=== PATIENT | male | born 1955 | race Caucasian/White ===

== ENCOUNTER 2018-05-10 00:33 | Emergency (ER) | payer OTHER ==
--- NOTE | 2018-05-10 01:03 | ED Physician Documentation ---
History of Present Illness - Stated complaint Stated Complaint: OBJECT IN THROAT - History obtained from History obtained from: Patient - History of Present Illness Timing: Enter time (20:00), Today Pain level now: 2 Worsened by: swallowing, coughing - Additonal information Additional information: eating seafood tonight, accidentally swallowed small piece of mussel shell which he feels became stuck in his throat. he initially went to [facility] but was told the wait was 2 hours, and thus left to come to this ED. Review of Systems Constitutional: denies: Fever Throat: reports: Swallowed foreign body, Other (odynophagia) Respiratory: denies: Dyspnea PD PAST MEDICAL HISTORY - Past Medical History Past Medical History: Yes Other Past Medical History: trigeminal neurologia hx per pt - Past Surgical History Past Surgical History: Yes Ortho: Knee replacement - Present Medications Home Medications: Ambulatory Orders Medication Instructions Recorded Confirmed carBAMazepine [Carbamazepine] 1 tab PO DAILY 05/10/18 05/10/18 - Allergies Allergies/Adverse Reactions: Allergies Allergy/AdvReac Type Severity Reaction Status Date / Time No Known Drug Allergies Allergy Verified 05/10/18 00:49 - Social History Does the pt smoke?: No Smoking Status: Never smoker PD ED PE NORMAL - Vitals Vital signs reviewed: Yes - General General: Alert and oriented X 3, No acute distress, Well developed/nourished - HEENT HEENT: Pharynx benign - Respiratory Respiratory: No respiratory distress Results - Vitals Vitals: Vital Signs - 24 hr 05/10/18 05/10/18 00:35 02:40 Temperature 36.1 C L Heart Rate 88 74 Respiratory 16 16 Rate Blood Pressure 163/95 H 139/72 H O2 Saturation 97 99 Oxygen O2 Source Room air - Rads (name of study) soft tissue neck xrays Radiology: Prelim report reviewed, See rad report PD MEDICAL DECISION MAKING - ED course Complexity details: reviewed results, re-evaluated patient, considered differential, d/w patient, d/w family ED course: xrays suspicious for FB. D/W Dr. Ott (preparation plant repairer GI for [facility]), he says patient can be discharged but should contact the office in the morning to arrange immediate f/u. - Sepsis Event Vital Signs: Vital Signs - 24 hr 05/10/18 05/10/18 00:35 02:40 Temperature 36.1 C L Heart Rate 88 74 Respiratory 16 16 Rate Blood Pressure 163/95 H 139/72 H O2 Saturation 97 99 Oxygen O2 Source Room air Departure - Departure Disposition: 01 Home, Self Care Clinical Impression: Esophageal foreign body Condition: Good Instructions: Swallowed Object, ED Foreign Body Swallowed Adult Comments: Call [facility] Friday (tomorrow). I discussed your case with Dr. Shama Ott, although any physician in the office can evaluate you. Discharge Date/Time: 05/10/18 02:40
--- NOTE | 2018-05-10 01:25 | XRAY Report ---
Procedure Date: 05/10/2018 Accession Number: [id number] / [id number] Procedure: XR - Neck Soft Tissue CPT Code: FULL RESULT: EXAM: SOFT TISSUE NECK RADIOGRAPHY EXAM DATE: 05/10/2018 01:06 AM. CLINICAL HISTORY: Mussel shell stuck in throat. COMPARISONS: None. TECHNIQUE: 2 views. FINDINGS: Soft Tissues: No prevertebral soft tissue swelling. The epiglottis and aryepiglottic folds are unremarkable. No tonsillar or adenoidal enlargement. No radiopaque foreign body seen in the pharynx. Possible linear calcific density anterior to C6-C7 which may be in the proximal esophagus. Regional Skeleton: Unremarkable for age. Other: The visualized lung apices are clear. IMPRESSION: 1. No radiopaque foreign body identified in the pharynx. 2. Possible linear calcific density anterior to C6-C7 which could be a foreign body in the proximal esophagus. This is not seen on the AP view and exact location is uncertain. RADIA
[2018-05-10] MEDS ORDERED: LIDOCAINE VISCOUS 2% 15 ML UDC MM STA (01:54)
[2018-05-10] MEDS ORDERED: HYDROcod/ACET 5/325 Prepack 4 PO STA (02:25)
[2018-05-10 02:55] VITALS: BP 139/72
== END 2018-05-10 02:40 | disposition home or self-care (01) ==
LOC: ED 00:33
DX: T18.198A Other foreign object in esophagus causing other injury, initial encounter (principal); X58.XXXA Exposure to other specified factors, initial encounter
CPT/HCPCS: 70360; 99283

== ENCOUNTER 2018-05-25 11:42 | Outpatient (CLI) | payer OTHER | END 2018-05-25 11:43 | disposition critical access hospital (66) | LOC: EMS 11:42 | PROVIDERS: ATTEND Surgery | DX: R53.1 Weakness (principal); R60.0 Localized edema; W18.30XA Fall on same level, unspecified, initial encounter; Y92.003 Bedroom of unspecified non-institutional (private) residence as the place of occurrence of the external cause | CPT/HCPCS: A0425; A0429 ==

== ENCOUNTER 2018-05-25 12:11 | Inpatient (IN) | payer OTHER ==
[2018-05-25 12:57] LABS: BASOPHILS % (AUTO) 0.4 %; EOSINOPHILS % (AUTO) 0.1 %; HGB - HEMOGLOBIN 14.7 g/dL (14.0-18.0); LYMPHOCYTES % (AUTO) 4.3 %; MEAN CORPUSCULAR HEMOGLOBIN 29.9 pg (27.0-31.0); MEAN CORPUSCULAR HGB CONC 34.1 g/dL (32.0-36.0); MEAN CORPUSCULAR VOLUME 87.7 fL (80.0-94.0); MEAN PLATELET VOLUME 10.2 fL (7.4-11.4); MONOCYTES % (AUTO) 5.5 %; NEUTROPHILS % (AUTO) 89.7 %; PLT - PLATELET COUNT 162 10^3/uL (130-450); RED BLOOD COUNT 4.93 10^6/uL (4.70-6.10); RED CELL DISTRIBUTION WIDTH 14.7 % (12.0-15.0); WHITE BLOOD COUNT 15.9 x10^3/uL (4.8-10.8)
--- NOTE | 2018-05-25 13:04 | XRAY Report ---
Procedure Date: 05/25/2018 Accession Number: [id number] / [id number] Procedure: XR - Chest 1 View X-Ray CPT Code: 34182 FULL RESULT: EXAM: CHEST RADIOGRAPHY EXAM DATE: 05/25/2018 12:57 PM. CLINICAL HISTORY: Fever. Chest pain, shortness of breath. COMPARISON: None. TECHNIQUE: 1 view. FINDINGS: Lungs/Pleura: No focal opacities evident. No pleural effusion. No pneumothorax. Mediastinum: Within exam limitations, the cardiomediastinal contour is normal. Other: None. IMPRESSION: Normal single view chest. RADIA
[2018-05-25 13:11] LABS: ALBUMIN 3.7 g/dL (3.2-5.5); ALBUMIN/GLOBULIN RATIO 1.1 (1.0-2.2); BILIRUBIN,TOTAL 0.9 mg/dL (0.2-1.0); CALCIUM 9.2 mg/dL (8.5-10.3); CREATININE 0.8 mg/dL (0.6-1.2)
[2018-05-25 13:14] LABS: ABNORMAL LYMPHS % (MANUAL) 0 %
[2018-05-25 13:16] LABS: BAND NEUTROPHILS % (MANUAL) 4 %; DIFFERENTIAL COMMENT MANUAL DIFFERENTIAL; EOSINOPHILS # (MANUAL) 0.2 10^3/uL (0-0.7); LYMPHOCYTES # (MANUAL) 1.4 10^3/uL (1.5-3.5); LYMPHOCYTES % (MANUAL) 9 %; MONOCYTES # (MANUAL) 1.1 10^3/uL (0.0-1.0); NEUTROPHILS # (MANUAL) 13.2 10^3/uL (1.5-6.6); NEUTROPHILS % (MANUAL) 79 %; PLATELET ESTIMATE, MANUAL NORMAL (130-450,000) (NORMAL); PLATELET MORPHOLOGY NORMAL APPEARANCE (NORMAL); RBC MORPHOLOGY (MULTIPLE) NORMAL APPEARANCE (NORMAL)
[2018-05-25] MEDS ORDERED: PIPERACILLIN/TAZOBACTAM 4.5 GM in SODIUM CHLORIDE 0.9% MINIBAG 100 ML IV STA (14:11)
[2018-05-25] MEDS ORDERED: VANCOMYCIN INJ 2 GM in SODIUM CHLORIDE 0.9% 500 ML IV STA (14:11)
--- NOTE | 2018-05-25 14:11 | ED Physician Documentation ---
History of Present Illness - Stated complaint Stated Complaint: WEAKNESS - Chief complaint Chief Complaint: General - History obtained from History obtained from: Patient, EMS - History of Present Illness Pain level max: 7 Pain level now: 4 Quality: pain Improved by: rest Worsened by: movement - Additonal information Additional information: 62 year old male with weakness x 1 year. worse today. Started having fevers last night. now increased LLE pain. Review of Systems Ten Systems: 10 systems reviewed and negative Constitutional: reports: Fever, Chills Nose: denies: Rhinorrhea / runny nose, Congestion Throat: denies: Sore throat Cardiac: denies: Chest pain / pressure Respiratory: denies: Cough GI: denies: Abdominal Pain, Nausea, Vomiting, Diarrhea Skin: denies: Rash Musculoskeletal: denies: Neck pain, Back pain Neurologic: reports: Numbness (always has numbness and tingling in his lower legs, unchanged.). denies: Focal weakness, Confused, Altered mental status, Headache PD PAST MEDICAL HISTORY - Past Medical History Past Medical History: Yes Musculoskeletal: Osteoarthritis Other Past Medical History: trigeminal neuralgia - Past Surgical History Past Surgical History: Yes Ortho: Knee replacement HEENT: Other - Present Medications Home Medications: Ambulatory Orders Medication Instructions Recorded Confirmed Carbamazepine [Carbamazepine ER] 200 mg PO BID 05/25/18 05/25/18 Ibuprofen [Advil] 400 mg PO DAILY 05/25/18 05/25/18 - Allergies Allergies/Adverse Reactions: Allergies Allergy/AdvReac Type Severity Reaction Status Date / Time No Known Drug Allergies Allergy Verified 05/25/18 12:22 - Living Situation Living Arrangement: reports: At home - Social History Does the pt smoke?: Yes Smoking Status: Current every day smoker Does the pt drink ETOH?: Yes Does the pt have substance abuse?: No - Immunizations Immunizations are current?: Yes PD ED PE NORMAL - Vitals Vital signs reviewed: Yes - General General: Alert and oriented X 3, No acute distress - HEENT HEENT: PERRL, Ears normal, Moist mucous membranes, Pharynx benign - Neck Neck: Supple, no meningeal sign - Cardiac Cardiac: Other (tachycardic) - Respiratory Respiratory: No respiratory distress, Clear bilaterally - Abdomen Abdomen: Soft, Non tender, Other (rotund) - Back Back: No spinal TTP - Derm Derm: Warm and dry - Extremities Extremities: Other (R LE is swollen, erythematous) - Neuro Neuro: Alert and oriented X 3 - Psych Psych: Normal mood, Normal affect Results - Vitals Vitals: Vital Signs - 24 hr 05/25/18 05/25/18 05/25/18 12:12 14:00 14:34 Temperature 38.8 C H Heart Rate 107 H 103 H 102 H Respiratory 16 17 15 Rate Blood Pressure 168/92 H 135/82 H 124/72 O2 Saturation 94 96 96 05/25/18 14:37 Temperature 37.2 C Heart Rate Respiratory Rate Blood Pressure O2 Saturation Oxygen O2 Source Room air - Labs Labs: Laboratory Tests 05/25/18 05/25/18 05/25/18 12:35 12:35 12:35 WBC 15.9 H RBC 4.93 Hgb 14.7 Hct 43.3 MCV 87.7 MCH 29.9 MCHC 34.1 RDW 14.7 Plt Count 162 MPV 10.2 Neut # (Auto) Not Reportable Lymph # (Auto) Not Reportable [place] # (Auto) Not Reportable Eos # (Auto) Not Reportable Baso # (Auto) Not Reportable Absolute Nucleated RBC Not Reportable Total Counted 100 Band Neuts % (Manual) 4 Abnorm Lymph % (Manual) 0 Nucleated RBC % Not Reportable Neutrophils # (Manual) 13.2 H Lymphocytes # (Manual) 1.4 L Monocytes # (Manual) 1.1 H Eosinophils # (Manual) 0.2 Basophils # (Manual) 0.0 Differential Comment MANUAL DIFFERENTIAL Manual Slide Review Indicated Platelet Estimate NORMAL (130-450,000) Platelet Morphology NORMAL APPEARANCE RBC Morph Micro Appear NORMAL APPEARANCE Sodium 134 L Potassium 4.3 Chloride 100 L Carbon Dioxide 24 Anion Gap 10.0 BUN 16 Creatinine 0.8 Estimated GFR (MDRD) 98 Glucose 109 H Lactic Acid 2.4 H Calcium 9.2 Total Bilirubin 0.9 AST 35 ALT 40 Alkaline Phosphatase 104 Total Protein 7.0 Albumin 3.7 Globulin 3.3 Albumin/Globulin Ratio 1.1 Lipase 21 L Urine Color Urine Clarity Urine pH Ur Specific Lynn Urine Protein Urine Glucose (UA) Urine Ketones Urine Occult Blood Urine Nitrite Urine Bilirubin Urine Urobilinogen Ur Leukocyte Esterase Ur Microscopic Review Urine Culture Comments 05/25/18 14:10 WBC RBC Hgb Hct MCV MCH MCHC RDW Plt Count MPV Neut # (Auto) Lymph # (Auto) [place] # (Auto) Eos # (Auto) Baso # (Auto) Absolute Nucleated RBC Total Counted Band Neuts % (Manual) Abnorm Lymph % (Manual) Nucleated RBC % Neutrophils # (Manual) Lymphocytes # (Manual) Monocytes # (Manual) Eosinophils # (Manual) Basophils # (Manual) Differential Comment Manual Slide Review Platelet Estimate Platelet Morphology RBC Morph Micro Appear Sodium Potassium Chloride Carbon Dioxide Anion Gap BUN Creatinine Estimated GFR (MDRD) Glucose Lactic Acid Calcium Total Bilirubin AST ALT Alkaline Phosphatase Total Protein Albumin Globulin Albumin/Globulin Ratio Lipase Urine Color YELLOW Urine Clarity CLEAR Urine pH 8.5 H Ur Specific Lynn 1.020 Urine Protein NEGATIVE Urine Glucose (UA) NEGATIVE Urine Ketones NEGATIVE Urine Occult Blood TRACE-LYSE Urine Nitrite NEGATIVE Urine Bilirubin NEGATIVE Urine Urobilinogen 0.2 (NORMAL) Ur Leukocyte Esterase NEGATIVE Ur Microscopic Review NOT INDICATED Urine Culture Comments NOT INDICATED - Rads (name of study) RLE duplex US Radiology: Prelim report reviewed, EMP read contemporaneously, See rad report ( no DVT) cxr Radiology: Prelim report reviewed, EMP read contemporaneously, See rad report ( Normal single view chest. ) PD MEDICAL DECISION MAKING - ED course Complexity details: reviewed results, re-evaluated patient, considered differential, d/w patient, d/w family, d/w artist consultant ED course: Patient is a 62-year-old male who presents to the emergency department what appears to be an extensive cellulitis of the right lower extremity likely causing his fever and sepsis. Given IV fluids, antibiotics. He is well- appearing, nontoxic. Normal mentation. Does not appear to be severe sepsis. Discussed the case with Dr. Oviedo, hospitalist who accepts. This document was made in part using voice recognition software. While efforts are made to proofread this document, sound alike and grammatical errors may occur. - Sepsis Event Vital Signs: Vital Signs - 24 hr 05/25/18 05/25/18 05/25/18 12:12 14:00 14:34 Temperature 38.8 C H Heart Rate 107 H 103 H 102 H Respiratory 16 17 15 Rate Blood Pressure 168/92 H 135/82 H 124/72 O2 Saturation 94 96 96 05/25/18 14:37 Temperature 37.2 C Heart Rate Respiratory Rate Blood Pressure O2 Saturation Oxygen O2 Source Room air Departure - Departure Disposition: [facility] DC/Xfer Clinical Impression: Sepsis Qualifiers: Sepsis type: sepsis due to unspecified organism Qualified Code(s): A41.9 - Sepsis, unspecified organism Cellulitis Qualifiers: Site of cellulitis: extremity Site of cellulitis of extremity: lower extremity Laterality: right Qualified Code(s): L03.115 - Cellulitis of right lower limb Fever Qualifiers: Fever type: unspecified Qualified Code(s): R50.9 - Fever, unspecified Condition: Stable Discharge Date/Time: 05/25/18 15:45
[2018-05-25 14:22] LABS: BILIRUBIN,URINE NEGATIVE (NEGATIVE); GLUCOSE, URINE (UA) NEGATIVE (NEGATIVE); KETONES,URINE (UA) NEGATIVE (NEGATIVE); LEUKOCYTE ESTERASE, URINE NEGATIVE (NEGATIVE); NITRITE,URINE NEGATIVE (NEGATIVE); OCCULT BLOOD,URINE TRACE-LYSE (NEGATIVE); PH,URINE 8.5 PH (5.0-7.5); PROTEIN,URINE NEGATIVE (NEGATIVE); UROBILINOGEN,URINE 0.2 (NORMAL) E.U./dL (NORMAL)
[2018-05-25] MEDS ORDERED: SODIUM CHLORIDE 0.9% 1,000 ML IV ONE ×2 (14:22→18:05)
[2018-05-25] MEDS ORDERED: SODIUM CHLORIDE 0.9% 2,000 ML IV ONE (14:22)
[2018-05-25 14:27] LABS: CLARITY,URINE CLEAR (CLEAR)
[2018-05-25] MEDS ORDERED: HYDROcod/ACETAM 5/325 MG TABLET PO PRN (14:47)
[2018-05-25] MEDS ORDERED: ONDANSETRON 4 MG/2 ML VIAL IVP PRN (14:47)
[2018-05-25] MEDS ORDERED: VANCOMYCIN PER PHARMACY 2 GM in SODIUM CHLORIDE 0.9% 250 ML IV SCH (15:00)
--- NOTE | 2018-05-25 15:06 | HISTORY & PHYSICAL EXAMINATION ---
Chief Complaint - Chief Complaint Chief Complaint: right lower extremity cellulitis History of Present Illness - Admitted From Admitted From:: ER - History Obtained From History obtained from: pt - History of Present Illness HPI Comment/Other: Mr. De Los Santos is 62-yrs-old male with a [facility] significance for osteoarthritis, trigeminal neuralgia, morbid obese, who present ER complaint of fever and weakness. Pt report he swim at [facility] on Friday, then he found his right lower extremity get infected, mild to moderate erythema and warm. He started to have fever on last night, "very hot". He denies nausea, vomiting, abdominal pain , shortness of breath, palpitation, chest pain, headache, neck stiffness. He report about 14 yrs, he got the similar infection at right lower extremity when he swim at [facility]. He had to stay in hospital for couple of days for the infection. Pt also report weakness on both leg. Pt had elevated WBC 16, and elevated lactic acid to 2.4. Pt is febrile at 38.3, BP at BP 168/92, mild tachycardia. Pt is admitted for the sepsis from his right lower extremity infection. History - Past Medical History Musculoskeletal: reports: Osteoarthritis Other Past Medical History: trigeminal neuralgia - Past Surgical History Ortho: reports: Knee replacement HEENT: reports: Other - Family & Social History Family History: Mother: , Father: Living arrangement: At home - POLST POLST Status: Full Code Meds/Allgy - Home Medications Home Medications: Ambulatory Orders Medication Instructions Recorded Confirmed carBAMazepine [Carbamazepine] 1 tab PO DAILY 05/10/18 05/10/18 Ibuprofen [Advil] 400 mg PO DAILY 05/25/18 05/25/18 - Allergies Allergies/Adverse Reactions: Allergies Allergy/AdvReac Type Severity Reaction Status Date / Time No Known Drug Allergies Allergy Verified 05/25/18 12:22 Review of Systems - Constitutional Constitutional: reports: Fatigue, Fever, Chills, Weakness. denies: Malaise, Poor appetite, Diaphoresis, Night sweats - Eyes Eyes: denies: Pain, Irritation, Amaurosis, Blurred vision, Spots in vision, Field loss, Vision loss, Dipolpia - Ears, Nose & Throat Ears, Nose & Throat: denies: Ear pain, Hearing loss, Hearing aids, Tinnitus, Vertigo, Nasal pain, Nasal discharge, Nosebleeds, Nasal obstruction, Nasal congestion, Postnasal drainage, Dentures, Sore throat, Hoarseness, Mouth lesions , Bleeding gums, Dental decay - Cardiovascular Cariovascular: denies: Irregular heart rate, Palpitations, Chest pain, Edema, Lightheadedness, Syncope, Exertional dyspnea, Decr. exercise tolerance - Respiratory Respiratory: denies: Cough, Sputum production, Wheezing, Snoring, Hemoptysis, Orthopnea, SOB at rest, SOB with exertion - Gastrointestinal Gastrointestinal: denies: Abdominal pain, Abdominal distention, Constipation, Diarrhea, Change in bowel habits, Rectal bleeding, Black stools, Bloody stools, Nausea, Vomiting, Bile emesis, Stef blood emesis, Coffee grounds emesis, Reflux /heartburn, Bloating - Genitourinary Genitourinary: denies: Dysuria, Frequency, Urgency, Hematuria, Incontinence, Flank pain, Nocturia, Urethral discharge - Musculoskeletal Musculoskeletal: denies: Muscle pain, Back pain, Muscle aches, Stiffness, Limited range of motion, Muscle weakness, Gout, Joint pain - Integumentary Integumentary: reports: Rash. denies: Pruritis, Lesions, Dryness, Lumps, Acne, Pigment changes, Nail changes - Neurological Neurological: denies: Focal weakness, Headache, Dizziness, Numbness, Memory problems, Pre-existing deficit, Abnormal gait, Seizures, Incoordination, Slurred speech - Psychiatric Psychiatric: denies: Depression, Anxiety, Suicidal, Delusions, Hallucinations, Homicidal - Endocrine Endocrine: denies: Polyuria, Polydypsia, Polyphagia, Intolerance to cold - Hematologic/Lymphatic Hematologic/Lymphatic: denies: Anemia, Bruising, Petechiae, Blood clots, Lymphadenopathy, Bleeding tendencies Exam - Vital Signs Reviewed Vital Signs: Yes Vital Signs: Vital Signs x48h Temp Pulse Resp BP Pulse Ox 05/25/18 14:37 37.2 C 05/25/18 14:34 102 H 15 124/72 96 05/25/18 14:00 103 H 17 135/82 H 96 05/25/18 12:12 38.8 C H 107 H 16 168/92 H 94 - Physical Exam General Appearance: positive: No acute distress, Alert. negative: Lethargic Eyes Bilateral: positive: Normal inspection, PERRL. negative: No lid inflammation, Conjunctivae nml ENT: positive: ENT inspection nml, Pharynx nml, No signs of dehydration. negative: Purulent nasal drainage, Pharyngeal erythema, Oral lesions Neck: positive: Nml inspection, Thyroid nml, No JVD. negative: Trachea midline , Thyromegaly, Lymphadenopathy (R), Lymphadenopathy (L), Stiff neck, Swelling/ bruising, Tracheal deviation Respiratory: positive: Chest non-tender, No respiratory distress, Breath sounds nml. negative: Wheezes, Rales, Rhonchi Cardiovascular: positive: Regular rate & rhythm, No murmur, No gallop, Tachycardia. negative: Irregularly irregular, Extrasystoles, Bradycardia, JVD present, Systolic murmur, Diastolic murmur Peripheral Pulses: positive: 2+ Abdomen: positive: Non-tender, No organomegaly, Nml bowel sounds, No distention. negative: Tenderness, Guarding, Rebound Back: positive: Nml inspection. negative: CVA tenderness (R), CVA tenderness (L ) Skin: positive: Color nml, Dry, Skin rash. negative: Cyanosis, Diaphoresis, Pallor Extremities: positive: Non-tender, Full ROM. negative: Calf tenderness, Joint swelling, Nadia's sign/cords Neurologic/Psychiatric: positive: Oriented x3, Motor nml, Sensation nml, Mood/ affect nml. negative: Weakness, Sensory loss, Facial droop, Slurred/abnml speech, Depressed mood/affect Conclusion/Plan - Problem List (1) Cellulitis Conclusion/Plan: recurrence of left lower extremity cellulitis, sepsis start with vancomycin, Zosyn tele, vital monitor IVF of NS Qualifiers: Site of cellulitis: extremity Site of cellulitis of extremity: lower extremity Laterality: right Qualified Code(s): L03.115 - Cellulitis of right lower limb (2) Sepsis Conclusion/Plan: pt had feve, elevated WBC, elevated lactic acid, cellulitis. BP is stable IVF of NS at 150 cc/h now, then down to 125 cc/h tele, vital monitor continue antibiotics Qualifiers: Sepsis type: sepsis due to unspecified organism Qualified Code(s): A41.9 - Sepsis, unspecified organism (3) Osteoarthritis Conclusion/Plan: re (4) Trigeminal neuralgia Conclusion/Plan: will resume home meds Carbamazepine after pharmacy reconcile (5) Weakness generalized Conclusion/Plan: PT/OT evaluation and treatment (6) DVT prophylaxis Conclusion/Plan: SCD and Lovenox (7) Full code status Conclusion/Plan: pt request full code - Lab Results Fish Bones: 05/25/18 12:35 05/25/18 12:35 Core Measures - Anticipated LOS I expect patient to be DC'd or transferred within 96 hours.: Yes - DVT/VTE - Prophylaxis VTE/DVT Device ordered at admit?: Yes VTE/DVT Prophylaxis med ordered at admit?: Yes
[2018-05-25] MEDS ORDERED: IBUPROFEN 400 MG TABLET PO PRN ×2 (15:18→18:04)
--- NOTE | 2018-05-25 15:42 | Ultrasound Report ---
Procedure Date: 05/25/2018 Accession Number: [id number] / [id number] Procedure: US - Duplex Ext Veins Right CPT Code: FULL RESULT: EXAM: RIGHT LOWER EXTREMITY VENOUS ULTRASOUND EXAM DATE: 05/25/2018 03:16 PM. CLINICAL HISTORY: Right lower extremity pain, swelling, redness. COMPARISON: 05/25/2018. TECHNIQUE: Real-time sonographic vascular imaging was performed by the maintenance team leader through the lower extremity utilizing both color-flow and Doppler spectral analysis. Multiple patient care representative static images were saved for review. FINDINGS: Common Femoral Vein (CFV): Normal. CFV-GSV Junction: Normal. Profunda Femoral Vein (PFV): Normal. Femoral Vein (FV) Prox: Normal. Femoral Vein (FV) Mid: Normal. Femoral Vein (FV) Dist: Normal. Popliteal Vein: Normal. Posterior Tibial Veins: Normal. Peroneal Veins: Nonvisualized. IMPRESSION: No evidence for deep venous thrombosis. RADIA
[2018-05-25] MEDS: PIPERACILLIN/TAZOBACTAM 4.5 GM in SODIUM CHLORIDE 0.9% MINIBAG 100 ML IV SCH ×2 (16:15→21:20)
[2018-05-25] MEDS: SODIUM CHLORIDE 0.9% 1,000 ML IV SCH (17:46)
[2018-05-25] MEDS: SODIUM CHLORIDE FLUSH 0.9% 10 ML SYRINGE IVP SCH (17:47)
[2018-05-25] MEDS ORDERED: ZOLPIDEM 5 MG TABLET PO PRN (20:13)
[2018-05-25] MEDS: carBAMazepine ER 200 MG TABLET PO SCH (21:20)
[2018-05-26] MEDS: SODIUM CHLORIDE FLUSH 0.9% 10 ML SYRINGE IVP SCH ×3 (00:15→19:24)
[2018-05-26] MEDS: VANCOMYCIN INJ 2 GM in SODIUM CHLORIDE 0.9% 500 ML IV SCH ×2 (01:55→13:17)
[2018-05-26] MEDS: SODIUM CHLORIDE 0.9% 1,000 ML IV SCH ×4 (03:21→23:00)
[2018-05-26] MEDS: PIPERACILLIN/TAZOBACTAM 4.5 GM in SODIUM CHLORIDE 0.9% MINIBAG 100 ML IV SCH ×2 (04:00→09:03)
[2018-05-26 06:21] LABS: BASOPHILS % (AUTO) 0.3 %; HGB - HEMOGLOBIN 13.1 g/dL (14.0-18.0); LYMPHOCYTES % (AUTO) 7.2 %; MEAN CORPUSCULAR HEMOGLOBIN 29.2 pg (27.0-31.0); MEAN CORPUSCULAR HGB CONC 33.4 g/dL (32.0-36.0); MEAN CORPUSCULAR VOLUME 87.7 fL (80.0-94.0); MEAN PLATELET VOLUME 9.8 fL (7.4-11.4); MONOCYTES # (AUTO) 0.5 10^3/uL (0.0-1.0); MONOCYTES % (AUTO) 3.5 %; NEUTROPHILS # (AUTO) 12.3 10^3/uL (1.5-6.6); PLT - PLATELET COUNT 125 10^3/uL (130-450); RED CELL DISTRIBUTION WIDTH 14.5 % (12.0-15.0); WHITE BLOOD COUNT 13.8 x10^3/uL (4.8-10.8)
[2018-05-26 06:26] LABS: ALBUMIN 3.1 g/dL (3.2-5.5); BILIRUBIN,TOTAL 0.9 mg/dL (0.2-1.0); CALCIUM 8.1 mg/dL (8.5-10.3); CREATININE 0.8 mg/dL (0.6-1.2); MAGNESIUM 1.9 mg/dL (1.7-2.8); TOTAL PROTEIN 6.1 g/dL (6.7-8.2)
[2018-05-26 07:07] LABS: HB2 TOTAL 14.1 g/dL; HEMOGLOBIN A1C 0.54 g/dL; HEMOGLOBIN A1C % 5.7 % (4.6-6.2)
[2018-05-26] MEDS ORDERED: ENOXAPARIN 40 MG/0.4 ML SYRINGE SUBQ SCH (09:00)
[2018-05-26] MEDS: carBAMazepine ER 200 MG TABLET PO SCH ×2 (09:02→20:37)
[2018-05-26] MEDS: FAMOTIDINE 20 MG TABLET PO SCH (09:03)
[2018-05-26] MEDS: POLYETHYLENE GLYCOL 3350 17 GM PACKET PO SCH (09:03)
[2018-05-26] MEDS: cefTRIAXone 2 GM in SODIUM CHLORIDE 0.9% MINIBAG 100 ML IV SCH (10:01)
[2018-05-26] MEDS: ACETAMINOPHEN 325 MG TABLET PO PRN ×2 (10:04→20:37)
[2018-05-26] MEDS: metroNIDAZOLE 500 MG/100 ML 500 MG/100 ML BAG IV SCH ×2 (10:35→19:24)
--- NOTE | 2018-05-26 13:50 | PROVIDER PROGRESS NOTE ---
Subjective - Prog Note Date Prog Note Date: 05/26/18 Prog Note Time: 13:47 - Subjective Pt reports feeling: No change Subjective: Du is very sleepy upon exam, but stays awake easily and states that he does not want his "neuralgia" to act up, and prefers to stay on his regular mediations. He denies any new symptoms such as increased shortness of breath, nausea, vomiting, a new cough, bleeding, or worsening RLE pain from his ongoing cellulitis. Objective - Vital Signs/Intake & Output Reviewed Vital Signs: Yes Vital Signs: Vital Signs x48h Temp Pulse Pulse Resp BP BP Pulse Ox 05/26/18 13:14 37.2 C 92 20 121/71 94 05/26/18 11:08 96 143/86 H 05/26/18 10:09 38.5 C H 05/26/18 08:00 37.8 C H 96 18 166/91 H 93 Intake & Output: Intake & Output 05/23/18 05/24/18 05/25/18 05/26/18 23:59 23:59 23:59 23:59 Intake Total 2240 2920.00 Output Total 225 550 Balance 2015 2370.00 - Objective General Appearance: positive: No acute distress, Alert, Lethargic (easy to arouse, on chronic muscle relaxers for trigem neuralgia.) Eyes Bilateral: positive: Normal inspection, PERRL Eyes: OU Conjunctivae pale ENT: positive: ENT inspection nml, Pharynx nml, No signs of dehydration Neck: positive: Nml inspection, Thyroid nml, No JVD, Lymphadenopathy (R), Lymphadenopathy (L), Stiff neck, Other (large neck circumferance.) Respiratory: positive: Chest non-tender, No respiratory distress, Other ( dimished bilaterally.) Cardiovascular: positive: Regular rate & rhythm, No gallop, Systolic murmur, Decreased pulse(s) Peripheral Pulses: 1+ Radial (R), 1+ Radial (L) Abdomen: positive: Non-tender, Nml bowel sounds, Other (obese, firm) Back: positive: Nml inspection Skin: positive: No rash, Warm, Dry, Diaphoresis, Other (RLE cellulitis) Extremities: positive: Pedal edema, Calf tenderness (chronic), Joint swelling, Other Neurologic/Psychiatric: positive: Oriented x3, CN's nml (2-12), Motor nml, Sensation nml, Weakness (LUE, LLE weaker than right upon exam.), Depressed mood/ affect Reflexes: Bicep (R): 3+, Bicep (L): 2+ - Lab Results Fish Bones: 05/27/18 05:25 05/27/18 05:25 Other Labs: Lab Results x24hrs 05/26/18 05/26/18 05/26/18 Range/Units 06:03 06:03 06:03 WBC 13.8 H (4.8-10.8) x10^3/uL RBC 4.50 L (4.70-6.10) 10^6/uL Hgb 13.1 L (14.0-18.0) g/dL Hct 39.4 L (42.0-52.0) % MCV 87.7 (80.0-94.0) fL MCH 29.2 (27.0-31.0) pg MCHC 33.4 (32.0-36.0) g/dL RDW 14.5 (12.0-15.0) % Plt Count 125 L (130-450) 10^3/uL MPV 9.8 (7.4-11.4) fL Neut # (Auto) 12.3 H (1.5-6.6) 10^3/uL Lymph # (Auto) 1.0 L (1.5-3.5) 10^3/uL [place] # (Auto) 0.5 (0.0-1.0) 10^3/uL Eos # (Auto) 0.0 (0.0-0.7) 10^3/uL Baso # (Auto) 0.0 (0.0-0.1) 10^3/uL Absolute Nucleated RBC 0.00 x10^3/uL Nucleated RBC % 0.0 /100WBC Sodium 131 L (135-145) mmol/L Potassium 3.5 (3.5-5.0) mmol/L Chloride 101 (101-111) mmol/L Carbon Dioxide 23 (21-32) mmol/L Anion Gap 7.0 (6-13) BUN 16 (6-20) mg/dL Creatinine 0.8 (0.6-1.2) mg/dL Estimated GFR (MDRD) 98 (>89) Glucose 131 H (70-100) mg/dL Glycated Hemoglobin 5.7 (4.6-6.2) % Estim Average Glucose 117 H (70-100) Lactic Acid (0.5-2.2) mmol/L Calcium 8.1 L (8.5-10.3) mg/dL Magnesium 1.9 (1.7-2.8) mg/dL Total Bilirubin 0.9 (0.2-1.0) mg/dL AST 46 H (10-42) IU/L ALT 50 (10-60) IU/L Alkaline Phosphatase 79 (42-121) IU/L Total Protein 6.1 L (6.7-8.2) g/dL Albumin 3.1 L (3.2-5.5) g/dL Globulin 3.0 (2.1-4.2) g/dL Albumin/Globulin Ratio 1.0 (1.0-2.2) 05/25/18 05/25/18 Range/Units 19:15 16:01 WBC (4.8-10.8) x10^3/uL RBC (4.70-6.10) 10^6/uL Hgb (14.0-18.0) g/dL Hct (42.0-52.0) % MCV (80.0-94.0) fL MCH (27.0-31.0) pg MCHC (32.0-36.0) g/dL RDW (12.0-15.0) % Plt Count (130-450) 10^3/uL MPV (7.4-11.4) fL Neut # (Auto) (1.5-6.6) 10^3/uL Lymph # (Auto) (1.5-3.5) 10^3/uL [place] # (Auto) (0.0-1.0) 10^3/uL Eos # (Auto) (0.0-0.7) 10^3/uL Baso # (Auto) (0.0-0.1) 10^3/uL Absolute Nucleated RBC x10^3/uL Nucleated RBC % /100WBC Sodium (135-145) mmol/L Potassium (3.5-5.0) mmol/L Chloride (101-111) mmol/L Carbon Dioxide (21-32) mmol/L Anion Gap (6-13) BUN (6-20) mg/dL Creatinine (0.6-1.2) mg/dL Estimated GFR (MDRD) (>89) Glucose (70-100) mg/dL Glycated Hemoglobin (4.6-6.2) % Estim Average Glucose (70-100) Lactic Acid 1.8 2.5 H (0.5-2.2) mmol/L Calcium (8.5-10.3) mg/dL Magnesium (1.7-2.8) mg/dL Total Bilirubin (0.2-1.0) mg/dL AST (10-42) IU/L ALT (10-60) IU/L Alkaline Phosphatase (42-121) IU/L Total Protein (6.7-8.2) g/dL Albumin (3.2-5.5) g/dL Globulin (2.1-4.2) g/dL Albumin/Globulin Ratio (1.0-2.2) - Diagnostic Imaging Diagnostic Imaging Results: positive: Prelim report reviewed, Final report reviewed ABX Reporting Has patient been on IV antibiotics over the past 48 hours?: Yes Assessment/Plan - Problem List (1) Cellulitis of right lower extremity Impression: 14 years ago the patient states that he had an injury between his 1st and 2nd toe, that later led to cellulitis. Upon exam a large +3 inch scar is appreciated. For this cellulitis there are no obvious areas of injury, and he denies any cat scratches. The tracing today has spread upward, and still remains hot, tender on exam and edema is greater than on his LLE. Plan: D/C zosyn, and replace with rocephin and Flagyl IV. Continue Vanco, and obtain dopplers today. (2) Left-sided weakness Impression: The patient complains of left leg weakness prior to this admission and contributes this to his fall as he was getting out of the shower. 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 He denies any history of TIA or stroke. Plan: Head CT to rule out prior TIA/CVAs. Monitor mental status and fall precautions. (3) Morbid obesity Impression: The patient has a high BMI of 43.5. He states that he has been "overweight" for most of his adult life. 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 Plan: After this acute illness, and upon discharge encourage a weight loss program with PCP to refer. (4) Trigeminal neuralgia Impression: The patient is prescribed Tegretol ER 200 mg BID at home, which continues here. He states that he has been on this for several years since acquiring this condition. Plan: continue med, and check a blood serum level to rule out toxicity. (5) Pulmonary hypertension Impression: Preliminary echo results show a severely enlarged RA, and a RVSP at rest of 35 mmHg. He appears to have chronic BLE edema and a very large abdominal girth. He does not know about any issues with MARLENE, and denies recent lung insults such as pneumonia. Plan: Treat acute illness, and plan to start Spironolactone for this condition which will be continued upon discharge. Advise a sleep study, to be ordered by PCP.
--- NOTE | 2018-05-26 14:19 | CT Report ---
Procedure Date: 05/26/2018 Accession Number: [id number] / [id number] Procedure: CT - Head W/O Stroke Protocol CPT Code: FULL RESULT: EXAM: CT HEAD EXAM DATE: 05/26/2018 02:04 PM. CLINICAL HISTORY: Left sided weakness. COMPARISON: None. TECHNIQUE: Multiaxial CT images were obtained from the foramen magnum to the vertex. Reformats: Sagittal and coronal. IV contrast: None. In accordance with CT protocol optimization, one or more of the following dose reduction techniques were utilized for this exam: automated exposure control, adjustment of mA and/or KV based on patient size, or use of iterative reconstructive technique. FINDINGS: Parenchyma: No intraparenchymal hemorrhage. No evidence of mass, midline shift, or CT findings of acute infarction. Armstrong-white differentiation is distinct. Extraaxial Spaces: Normal for age. No subdural or epidural collections identified. Ventricles: Normal in size and position. Sinuses and Orbits: There is moderate mucosal thickening in bilateral maxillary and ethmoid sinuses. Frontal and mastoid sinuses are clear. Bones: No evidence of fracture or calvarial defect. Other: None. IMPRESSION: Negative for an acute or focal intracranial abnormality. [facility] The call report notification system was initiated by Dr. Chase Vasques at 14:10 hrs on 05/26/18. The above findings were discussed with Dolores Thurston by Dr. Chase Vasques at 14:17 hrs on 05/26/18.
[2018-05-27] MEDS: ACETAMINOPHEN 325 MG TABLET PO PRN (00:29)
[2018-05-27] MEDS: metroNIDAZOLE 500 MG/100 ML 500 MG/100 ML BAG IV SCH ×3 (02:38→17:56)
[2018-05-27] MEDS: VANCOMYCIN INJ 2 GM in SODIUM CHLORIDE 0.9% 500 ML IV SCH ×2 (02:50→14:05)
--- NOTE | 2018-05-27 02:58 | Ultrasound Report ---
Procedure Date: 05/27/2018 Accession Number: [id number] / [id number] Procedure: US - Duplex Ext Veins Bilateral CPT Code: FULL RESULT: EXAM: BILATERAL LOWER EXTREMITY VENOUS ULTRASOUND EXAM DATE: 05/26/2018 11:35 PM. CLINICAL HISTORY: Calf pain, DVT. COMPARISON: Right leg venous 05/25/2018. TECHNIQUE: Real-time sonographic vascular imaging was performed by the historical records administrator through the lower extremities utilizing both color-flow and Doppler spectral analysis. Multiple retail customer service representative static images were saved for review. FINDINGS: Right: Common Femoral Vein (CFV): Normal. CFV-GSV Junction: Normal. Profunda Femoral Vein (PFV): Normal. Femoral Vein (FV) Prox: Normal. Femoral Vein (FV) Mid: Normal. Femoral Vein (FV) Dist: Normal. Popliteal Vein: Normal. Posterior Tibial Veins: Not visualized Peroneal Veins: Not visualized Left: Common Femoral Vein (CFV): Normal. CFV-GSV Junction: Normal. Profunda Femoral Vein (PFV): Normal. Femoral Vein (FV) Prox: Normal. Femoral Vein (FV) Mid: Normal. Femoral Vein (FV) Dist: Normal. Popliteal Vein: Normal. Posterior Tibial Veins: Not visualized Peroneal Veins: Not visualized Other: Subcutaneous edema. IMPRESSION: No evidence for deep venous thrombosis bilaterally, but nonvisualization of calf veins. [facility]
[2018-05-27] MEDS: SODIUM CHLORIDE FLUSH 0.9% 10 ML SYRINGE IVP SCH ×3 (03:44→16:39)
[2018-05-27 06:01] LABS: BASOPHILS # (AUTO) 0.1 10^3/uL (0.0-0.1); BASOPHILS % (AUTO) 0.6 %; EOSINOPHILS % (AUTO) 0.5 %; HGB - HEMOGLOBIN 12.6 g/dL (14.0-18.0); LYMPHOCYTES # (AUTO) 1.1 10^3/uL (1.5-3.5); LYMPHOCYTES % (AUTO) 11.1 %; MEAN CORPUSCULAR VOLUME 88.2 fL (80.0-94.0); MEAN PLATELET VOLUME 10.6 fL (7.4-11.4); MONOCYTES # (AUTO) 0.5 10^3/uL (0.0-1.0); MONOCYTES % (AUTO) 5.3 %; NEUTROPHILS # (AUTO) 8.3 10^3/uL (1.5-6.6); NEUTROPHILS % (AUTO) 82.5 %; PLT - PLATELET COUNT 101 10^3/uL (130-450); RED BLOOD COUNT 4.21 10^6/uL (4.70-6.10); RED CELL DISTRIBUTION WIDTH 14.7 % (12.0-15.0); WHITE BLOOD COUNT 10.1 x10^3/uL (4.8-10.8)
[2018-05-27 06:13] LABS: CARBAMAZEPINE (TEGRETOL) 5.9 ug/mL
[2018-05-27 06:18] LABS: BILIRUBIN,TOTAL 0.7 mg/dL (0.2-1.0); CALCIUM 8.1 mg/dL (8.5-10.3); TOTAL PROTEIN 5.9 g/dL (6.7-8.2)
[2018-05-27] MEDS: MAGNESIUM OXIDE 400 MG TABLET PO SCH ×2 (08:14→20:23)
[2018-05-27] MEDS: SPIRONOLACTONE 25 MG TABLET PO SCH ×2 (08:15→09:23)
[2018-05-27] MEDS: FUROSEMIDE 20 MG/2 ML VIAL IVP SCH ×2 (08:15→09:22)
[2018-05-27] MEDS: FAMOTIDINE 20 MG TABLET PO SCH (08:15)
[2018-05-27] MEDS: ENOXAPARIN 40 MG/0.4 ML SYRINGE SUBQ SCH ×2 (08:15→20:23)
[2018-05-27] MEDS: carBAMazepine ER 200 MG TABLET PO SCH ×2 (08:15→20:23)
[2018-05-27] MEDS: POLYETHYLENE GLYCOL 3350 17 GM PACKET PO SCH (08:16)
[2018-05-27] MEDS: cefTRIAXone 2 GM in SODIUM CHLORIDE 0.9% MINIBAG 100 ML IV SCH (08:16)
--- NOTE | 2018-05-27 09:25 | PROVIDER PROGRESS NOTE ---
Subjective - Prog Note Date Prog Note Date: 05/27/18 Prog Note Time: 09:25 - Subjective Pt reports feeling: No change Subjective: Du states that he is not sleeping well and is having increased pain to his RLE while ambulating. He states that his appetite is poor. He denies shortness of breath, nausea, vomiting, dizziness, chest pain, or a new cough. Current Medications - Current Medications Current Medications: Active Medications Acetaminophen (Tylenol) 650 mg PO Q4HR PRN PRN Reason: Pain 1 to 4 Last Admin: 05/27/18 00:29 Dose: 650 mg Hydrocodone Bitart/Acetaminophen ([place] 5/325) 1 tab PO Q2HR PRN PRN Reason: PAIN Carbamazepine (Tegretol Xr) 200 mg PO BID [facility] Last Admin: 05/28/18 08:01 Dose: 200 mg Enoxaparin Sodium (Lovenox) 40 mg SUBQ BID [facility] Last Admin: 05/28/18 08:01 Dose: 40 mg Famotidine (Pepcid) 20 mg PO DAILY [facility] Last Admin: 05/28/18 08:01 Dose: 20 mg Furosemide (Lasix) 40 mg PO BIDDIURETIC [facility] Last Admin: 05/28/18 05:35 Dose: 40 mg Vancomycin HCl 2 gm/ Sodium (Chloride) 500 mls @ 250 mls/hr IV 0200,1400 [facility] Last Infusion: 05/28/18 04:34 Dose: Infused Ceftriaxone Sodium 2 gm/ (Sodium Chloride) 100 mls @ 200 mls/hr IV DAILY [facility] Last Admin: 05/28/18 08:01 Dose: 200 mls/hr Metronidazole (Flagyl 500 Mg/100 Ml) 500 mg in 100 mls @ 100 mls/hr IV Q8H [facility] Last Infusion: 05/28/18 02:27 Dose: Infused Magnesium Oxide (Mag Ox) 400 mg PO BID [facility] Last Admin: 05/28/18 08:00 Dose: 400 mg Morphine Sulfate (Morphine) 2 mg IVP Q2H PRN PRN Reason: PAIN Ondansetron HCl (Zofran Inj) 4 mg IVP Q6HR PRN PRN Reason: Nausea / Vomiting Polyethylene Glycol (Miralax) 17 gm PO DAILY [facility] Last Admin: 05/28/18 08:02 Dose: Not Given Saccharomyces Boulardii (Florastor) 500 mg PO BIDWM [facility] Last Admin: 05/28/18 08:00 Dose: 500 mg Sodium Chloride (Normal Saline Flush 0.9%) 10 ml IVP PRN PRN PRN Reason: NEEDED PER PROVIDER ORDERS Last Admin: 05/27/18 17:56 Dose: 10 ml Sodium Chloride (Normal Saline Flush 0.9%) 10 ml IVP 0100,0900,1700 [facility] Last Admin: 05/28/18 08:02 Dose: 10 ml Spironolactone (Aldactone) 25 mg PO DAILY [facility] Last Admin: 05/28/18 08:00 Dose: 25 mg Tamsulosin HCl (Flomax) 0.4 mg PO DAILY [facility] Last Admin: 05/28/18 08:01 Dose: 0.4 mg Temazepam (Restoril) 7.5 mg PO QPM [facility] Last Admin: 05/27/18 20:23 Dose: 7.5 mg Carbamazepine [Carbamazepine ER] 200 mg PO BID 05/25/18 Ibuprofen [Advil] 400 mg PO DAILY 05/25/18 Objective - Vital Signs/Intake & Output Reviewed Vital Signs: Yes Vital Signs: Vital Signs x48h Temp Pulse Resp BP Pulse Ox 05/27/18 07:24 37.1 C 88 16 144/80 H 92 05/27/18 04:35 37.1 C 91 18 132/83 H 97 Intake & Output: Intake & Output 05/24/18 05/25/18 05/26/18 05/27/18 23:59 23:59 23:59 23:59 Intake Total 2240 4720.00 2009.000 Output Total 525 414 5693 Balance 2014 3870.00 434.000 - Objective General Appearance: positive: No acute distress, Alert, Anxious Eyes Bilateral: positive: Normal inspection Eyes: OU Conjunctivae pale ENT: positive: ENT inspection nml, Pharynx nml, No signs of dehydration Neck: positive: Nml inspection, Thyroid nml, No JVD, Stiff neck Respiratory: positive: Chest non-tender, No respiratory distress, Breath sounds nml Cardiovascular: positive: Regular rate & rhythm, No gallop, Systolic murmur Peripheral Pulses: 1+ Radial (R), 1+ Radial (L), 1+ Popliteal (R), 1+ Popliteal (L) Abdomen: positive: Non-tender, Nml bowel sounds, Other (obese, rounded, soft) Back: positive: Nml inspection Skin: positive: No rash, Warm, Dry, Other (RLE cellulitis, no longer spreading, continued erythema. BLE edema- right greater than left.) Extremities: positive: Non-tender, Full ROM, Pedal edema, Calf tenderness ( chronic, BLE), Joint swelling Neurologic/Psychiatric: positive: Oriented x3, CN's nml (2-12), Motor nml, Sensation nml, Depressed mood/affect Reflexes: Bicep (R): 3+, Bicep (L): 3+ - Lab Results Fish Bones: 05/28/18 05:17 05/28/18 05:17 Other Labs: Lab Results x24hrs 05/27/18 05/27/18 05/27/18 Range/Units 05:35 05:25 05:25 WBC (4.8-10.8) x10^3/uL RBC (4.70-6.10) 10^6/uL Hgb (14.0-18.0) g/dL Hct (42.0-52.0) % MCV (80.0-94.0) fL MCH (27.0-31.0) pg MCHC (32.0-36.0) g/dL RDW (12.0-15.0) % Plt Count (130-450) 10^3/uL MPV (7.4-11.4) fL Neut # (Auto) (1.5-6.6) 10^3/uL Lymph # (Auto) (1.5-3.5) 10^3/uL [place] # (Auto) (0.0-1.0) 10^3/uL Eos # (Auto) (0.0-0.7) 10^3/uL Baso # (Auto) (0.0-0.1) 10^3/uL Absolute Nucleated RBC x10^3/uL Nucleated RBC % /100WBC Sodium 136 (135-145) mmol/L Potassium 3.7 (3.5-5.0) mmol/L Chloride 105 (101-111) mmol/L Carbon Dioxide 25 (21-32) mmol/L Anion Gap 6.0 (6-13) BUN 11 (6-20) mg/dL Creatinine 1.0 (0.6-1.2) mg/dL Estimated GFR (MDRD) 76 L (>89) Glucose 121 H (70-100) mg/dL Calcium 8.1 L (8.5-10.3) mg/dL Total Bilirubin 0.7 (0.2-1.0) mg/dL AST 45 H (10-42) IU/L ALT 43 (10-60) IU/L Alkaline Phosphatase 76 (42-121) IU/L B-Natriuretic Peptide 58 (5-100) pg/mL Total Protein 5.9 L (6.7-8.2) g/dL Albumin 3.0 L (3.2-5.5) g/dL Globulin 2.9 (2.1-4.2) g/dL Albumin/Globulin Ratio 1.0 (1.0-2.2) Dose Last Dose Date 05/26/18 Last Dose Time 2036 Vancomycin Trough (10.0-20.0) ug/mL Carbamazepine 5.9 ug/mL 05/27/18 05/27/18 Range/Units 05:25 01:30 WBC 10.1 (4.8-10.8) x10^3/uL RBC 4.21 L (4.70-6.10) 10^6/uL Hgb 12.6 L (14.0-18.0) g/dL Hct 37.1 L (42.0-52.0) % MCV 88.2 (80.0-94.0) fL MCH 30.0 (27.0-31.0) pg MCHC 34.0 (32.0-36.0) g/dL RDW 14.7 (12.0-15.0) % Plt Count 101 L (130-450) 10^3/uL MPV 10.6 (7.4-11.4) fL Neut # (Auto) 8.3 H (1.5-6.6) 10^3/uL Lymph # (Auto) 1.1 L (1.5-3.5) 10^3/uL [place] # (Auto) 0.5 (0.0-1.0) 10^3/uL Eos # (Auto) 0.0 (0.0-0.7) 10^3/uL Baso # (Auto) 0.1 (0.0-0.1) 10^3/uL Absolute Nucleated RBC 0.01 x10^3/uL Nucleated RBC % 0.1 /100WBC Sodium (135-145) mmol/L Potassium (3.5-5.0) mmol/L Chloride (101-111) mmol/L Carbon Dioxide (21-32) mmol/L Anion Gap (6-13) BUN (6-20) mg/dL Creatinine (0.6-1.2) mg/dL Estimated GFR (MDRD) (>89) Glucose (70-100) mg/dL Calcium (8.5-10.3) mg/dL Total Bilirubin (0.2-1.0) mg/dL AST (10-42) IU/L ALT (10-60) IU/L Alkaline Phosphatase (42-121) IU/L B-Natriuretic Peptide (5-100) pg/mL Total Protein (6.7-8.2) g/dL Albumin (3.2-5.5) g/dL Globulin (2.1-4.2) g/dL Albumin/Globulin Ratio (1.0-2.2) Dose 2 Last Dose Date 05/26/18 Last Dose Time 1517 Vancomycin Trough 12.0 (10.0-20.0) ug/mL Carbamazepine ug/mL ABX Reporting Has patient been on IV antibiotics over the past 48 hours?: Yes Assessment/Plan - Problem List (1) Cellulitis of right lower extremity Impression: 14 years ago the patient states that he had an injury between his 1st and 2nd toe, that later led to cellulitis and the patient explains how he has been increasing his activity by swimming in the [place] [employer] [place]. For this cellulitis there are no obvious areas of injury, and he denies any cat scratches or other known injuries. The markings made on admission have not spread and the patient continues on continuous IV antibiotic treatments. The patient has ongoing edema that may be adding to the overall discomfort. Plan: Continue rocephin and Flagyl IV, vanco. (2) Left-sided weakness Impression: The patient complains of left leg weakness prior to this admission and contributes this to his fall as he was getting out of the shower. 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 He denies any history of TIA or stroke. A head CT was performed and is normal, without any evidence of acute or old CVAs. Plan: Monitor mental status and fall precautions. (3) Morbid obesity Impression: The patient has a high BMI of 43.5. He states that he has been "overweight" for most of his adult life. 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 Today, when told of his pre-diabetes state, he talked about needing to loose weight and admits to swimming in the [id number] for a form of exercise. Plan: After this acute illness, and upon discharge encourage a weight loss program with PCP to refer. (4) Trigeminal neuralgia Impression: The patient is prescribed Tegretol ER 200 mg BID at home, which continues here. He states that he has been on this for several years since acquiring this condition. A blood tegretol level was checked and found to be within normal range. Plan: continue med. (5) Pulmonary hypertension Impression: Preliminary echo results show a severely enlarged RA, and a RVSP at rest of 35 mmHg. He appears to have chronic BLE edema and a very large abdominal girth. He does not know about any issues with MARLENE, and denies recent lung insults such as pneumonia. The patient has started on spironolactone, and is tolerating this well. He will be discharged on this medication. Plan: Continue to monitor, advise a sleep study, to be ordered by PCP. (6) Benign prostatic hyperplasia with nocturia Impression: The patient was alerted that he should consider a sleep study soon after discharge, and he is very worried about this as he is up every 2 hours through the night to urinate. He likely has BPH and is agreeable to starting flomax today. Plan: Monitor urine output, watch for retention, and start daily flomax.
[2018-05-27] MEDS: SACCHAROMYCES BOULARDII 250 MG CAPSULE PO SCH ×2 (12:46→16:39)
[2018-05-27] MEDS: TAMSULOSIN 0.4 MG CAPSULE PO SCH (12:46)
--- NOTE | 2018-05-27 13:32 | PROVIDER PROGRESS NOTE ---
Subjective - Prog Note Date Prog Note Date: 05/27/18 Prog Note Time: 13:30 - Subjective Pt reports feeling: No change Objective - Vital Signs/Intake & Output Vital Signs: Vital Signs x48h Temp Pulse Resp BP BP Pulse Ox 05/27/18 13:07 37.3 C 89 20 142/79 H 97 05/27/18 07:24 37.1 C 88 16 144/80 H 92 Intake & Output: Intake & Output 05/24/18 05/25/18 05/26/18 05/27/18 23:59 23:59 23:59 23:59 Intake Total 2240 4720.00 2009.000 Output Total 742 355 9105 Balance 2014 3870.00 -116.000 - Lab Results Fish Bones: 05/27/18 05:25 05/27/18 05:25 Other Labs: Lab Results x24hrs 05/27/18 05/27/18 05/27/18 Range/Units 05:35 05:25 05:25 WBC (4.8-10.8) x10^3/uL RBC (4.70-6.10) 10^6/uL Hgb (14.0-18.0) g/dL Hct (42.0-52.0) % MCV (80.0-94.0) fL MCH (27.0-31.0) pg MCHC (32.0-36.0) g/dL RDW (12.0-15.0) % Plt Count (130-450) 10^3/uL MPV (7.4-11.4) fL Neut # (Auto) (1.5-6.6) 10^3/uL Lymph # (Auto) (1.5-3.5) 10^3/uL [place] # (Auto) (0.0-1.0) 10^3/uL Eos # (Auto) (0.0-0.7) 10^3/uL Baso # (Auto) (0.0-0.1) 10^3/uL Absolute Nucleated RBC x10^3/uL Nucleated RBC % /100WBC Sodium 136 (135-145) mmol/L Potassium 3.7 (3.5-5.0) mmol/L Chloride 105 (101-111) mmol/L Carbon Dioxide 25 (21-32) mmol/L Anion Gap 6.0 (6-13) BUN 11 (6-20) mg/dL Creatinine 1.0 (0.6-1.2) mg/dL Estimated GFR (MDRD) 76 L (>89) Glucose 121 H (70-100) mg/dL Calcium 8.1 L (8.5-10.3) mg/dL Total Bilirubin 0.7 (0.2-1.0) mg/dL AST 45 H (10-42) IU/L ALT 43 (10-60) IU/L Alkaline Phosphatase 76 (42-121) IU/L B-Natriuretic Peptide 58 (5-100) pg/mL Total Protein 5.9 L (6.7-8.2) g/dL Albumin 3.0 L (3.2-5.5) g/dL Globulin 2.9 (2.1-4.2) g/dL Albumin/Globulin Ratio 1.0 (1.0-2.2) Dose Last Dose Date 05/26/18 Last Dose Time 2036 Vancomycin Trough (10.0-20.0) ug/mL Carbamazepine 5.9 ug/mL 05/27/18 05/27/18 Range/Units 05:25 01:30 WBC 10.1 (4.8-10.8) x10^3/uL RBC 4.21 L (4.70-6.10) 10^6/uL Hgb 12.6 L (14.0-18.0) g/dL Hct 37.1 L (42.0-52.0) % MCV 88.2 (80.0-94.0) fL MCH 30.0 (27.0-31.0) pg MCHC 34.0 (32.0-36.0) g/dL RDW 14.7 (12.0-15.0) % Plt Count 101 L (130-450) 10^3/uL MPV 10.6 (7.4-11.4) fL Neut # (Auto) 8.3 H (1.5-6.6) 10^3/uL Lymph # (Auto) 1.1 L (1.5-3.5) 10^3/uL [place] # (Auto) 0.5 (0.0-1.0) 10^3/uL Eos # (Auto) 0.0 (0.0-0.7) 10^3/uL Baso # (Auto) 0.1 (0.0-0.1) 10^3/uL Absolute Nucleated RBC 0.01 x10^3/uL Nucleated RBC % 0.1 /100WBC Sodium (135-145) mmol/L Potassium (3.5-5.0) mmol/L Chloride (101-111) mmol/L Carbon Dioxide (21-32) mmol/L Anion Gap (6-13) BUN (6-20) mg/dL Creatinine (0.6-1.2) mg/dL Estimated GFR (MDRD) (>89) Glucose (70-100) mg/dL Calcium (8.5-10.3) mg/dL Total Bilirubin (0.2-1.0) mg/dL AST (10-42) IU/L ALT (10-60) IU/L Alkaline Phosphatase (42-121) IU/L B-Natriuretic Peptide (5-100) pg/mL Total Protein (6.7-8.2) g/dL Albumin (3.2-5.5) g/dL Globulin (2.1-4.2) g/dL Albumin/Globulin Ratio (1.0-2.2) Dose 2 Last Dose Date 05/26/18 Last Dose Time 1517 Vancomycin Trough 12.0 (10.0-20.0) ug/mL Carbamazepine ug/mL - Other Results/Comments Other Results/Comments: EXAM: Right calf: 2+ swollen and erythema - improved on AM diuretic. Painless AROM of ankle and toes. No passive stretch pain. Sensation [id number] ( chronic finding) Assessment/Plan - Problem List (1) Cellulitis of right lower extremity Impression: Improving on diuretics and antibiotics. Doubt compartment syndrome PLAN: No change in current plans. Reconsult us as needed.
[2018-05-27] MEDS: SODIUM CHLORIDE FLUSH 0.9% 10 ML SYRINGE IVP PRN ×2 (14:05→17:56)
--- NOTE | 2018-05-27 14:11 | CONSULTATION NOTE ---
DATE OF SERVICE: 05/27/2018 Physician: Ady Serrano MD REFERRING PROVIDER: SHAHID Sandoval of the hospitalist service CHIEF COMPLAINT: "My right leg is swollen." HISTORY OF PRESENT ILLNESS: The patient is a 62-year-old, obese, male who has had chronic right lower extremity edema and swelling for years. More recently, however, over the last 4-5 days, he has noted increasing redness involving his right lower extremity calf region. He has been having more difficulty ambulating and has had some discomfort as well. No real fever, however. He has had a history of lower extremity infections in the past as well. PHYSICAL EXAMINATION: The patient's right calf is 2+ swollen and erythematous in a diffuse manner. Areas of erythema were outlined in pen today. It does not appear to have changed much since admissio n. The patient neurovascularly shows that he is somewhat diminished in light touch sensation, in a s tocking glove distribution, involving his right foot (this was a chronic finding). He has good activ e and pain-free range of motion of toe extension and flexion and ankle extension and flexion as well. The patient had no passive stretch pains of his digits today the exam as well. ASSESSMENT: Right lower extremity cellulitis - appears to be clinically improving while on diuretics and antibiotics. PLAN: The patient was asked to be seen orthopedically to determine that he did not have a compartmen t syndrome. We discussed with the hospitalist staff that it is not likely that he is having a compar tment syndrome. Compartment pressures were not needed to be monitored, based on his benign clinical presentation. A small in-service was given today also for the hospitalist service with regard to ext remity compartment syndrome. The patient will be reconsulted by the hospitalist service as needed. TD: 05/27/2018 13:44
[2018-05-27] MEDS ORDERED: HYDROcod/ACETAM 5/325 MG TABLET PO PRN ×2 (16:00→21:04)
[2018-05-27] MEDS ORDERED: MORPHINE 2 MG/ML SYRINGE IVP PRN (16:00)
[2018-05-27] MEDS: FUROSEMIDE 40 MG TABLET PO SCH (18:43)
[2018-05-27] MEDS: TEMAZEPAM 7.5 MG CAPSULE PO SCH (20:23)
[2018-05-28] MEDS: SODIUM CHLORIDE FLUSH 0.9% 10 ML SYRINGE IVP SCH ×3 (01:24→17:03)
[2018-05-28] MEDS: metroNIDAZOLE 500 MG/100 ML 500 MG/100 ML BAG IV SCH ×2 (01:24→09:32)
[2018-05-28] MEDS: VANCOMYCIN INJ 2 GM in SODIUM CHLORIDE 0.9% 500 ML IV SCH (02:27)
--- NOTE | 2018-05-28 05:05 | Ultrasound Report ---
Procedure Date: 05/27/2018 Accession Number: [id number] / [id number] Procedure: US - Duplex Lwr Ext Arterial Bilat CPT Code: FULL RESULT: EXAM: BILATERAL LOWER EXTREMITY ARTERIAL DOPPLER ULTRASOUND EXAM DATE: 05/27/2018 10:31 PM. CLINICAL HISTORY: Edema, calf pain. COMPARISON: None. TECHNIQUE: Real-time sonographic vascular imaging was performed by the playroom attendant, utilizing color-flow, Doppler flow, and spectral analysis. Multiple guest service representative static images were saved for review. FINDINGS: Right Leg: Waveforms are diffusely monophasic, suggestive of inflow disease. There is a focal velocity increase in the right posterior tibial artery, compatible with a hemodynamically significant stenosis. Left Leg: Waveforms are triphasic. There is no evidence of a hemodynamically significant stenosis. Right Leg: AGRICULTURAL EQUIPMENT DESIGN ENGINEER: PSV 166.6 cm/sec. Monophasic waveform. PSFA: PSV 112.13 cm/sec. Monophasic waveform. MSFA: PSV 158.4 cm/sec. Monophasic waveform. DSFA: PSV 150.1 cm/sec. Monophasic waveform. PFA: Not seen. POP: PSV 56.3 cm/sec. Monophasic waveform. HUGO: PSV 47.7 cm/sec. Monophasic waveform. APPLICATIONS COORDINATOR: PSV 141.4 cm/sec. Monophasic waveform. PER: Not seen. DPA: PSV 71.5 cm/sec. Biphasic waveform. Left Leg: AGRICULTURAL EQUIPMENT DESIGN ENGINEER: PSV 112.5 cm/sec. Triphasic waveform. PSFA: PSV 105.6 cm/sec. Triphasic waveform. MSFA: PSV 103.9 cm/sec. Triphasic waveform. DSFA: PSV 92.8 cm/sec. Triphasic waveform. PFA: Not seen. POP: PSV 65 cm/sec. Triphasic waveform. HUGO: PSV 45.6 cm/sec. Triphasic waveform. APPLICATIONS COORDINATOR: PSV 79.2 cm/sec. Triphasic waveform. PER: Not seen. DPA: PSV 82.9 cm/sec. Triphasic waveform. IMPRESSION: Diffusely monophasic waveforms in the right leg, suggestive of inflow disease. Likely hemodynamically significant stenosis in the right posterior tibial artery. No evidence of a hemodynamically significant stenosis in the left leg. RADIA
[2018-05-28] MEDS: FUROSEMIDE 40 MG TABLET PO SCH ×2 (05:35→14:06)
[2018-05-28 05:47] LABS: BASOPHILS # (AUTO) 0.1 10^3/uL (0.0-0.1); BASOPHILS % (AUTO) 0.5 %; EOSINOPHILS % (AUTO) 0.4 %; HGB - HEMOGLOBIN 12.2 g/dL (14.0-18.0); LYMPHOCYTES # (AUTO) 1.5 10^3/uL (1.5-3.5); LYMPHOCYTES % (AUTO) 15.2 %; MEAN CORPUSCULAR HGB CONC 33.3 g/dL (32.0-36.0); MEAN CORPUSCULAR VOLUME 90.1 fL (80.0-94.0); MEAN PLATELET VOLUME 10.2 fL (7.4-11.4); MONOCYTES % (AUTO) 10.4 %; NEUTROPHILS # (AUTO) 7.2 10^3/uL (1.5-6.6); NEUTROPHILS % (AUTO) 73.5 %; PLT - PLATELET COUNT 120 10^3/uL (130-450); RED BLOOD COUNT 4.07 10^6/uL (4.70-6.10); RED CELL DISTRIBUTION WIDTH 14.8 % (12.0-15.0); WHITE BLOOD COUNT 9.8 x10^3/uL (4.8-10.8)
[2018-05-28 06:01] LABS: ALBUMIN 2.8 g/dL (3.2-5.5); ALBUMIN/GLOBULIN RATIO 0.9 (1.0-2.2); BILIRUBIN,TOTAL 0.4 mg/dL (0.2-1.0); CALCIUM 7.8 mg/dL (8.5-10.3); CRP - C-REACTIVE PROTEIN 19.9 mg/dL (0-1.0); TOTAL PROTEIN 5.8 g/dL (6.7-8.2)
[2018-05-28 06:15] LABS: PLATELET ESTIMATE, MANUAL DECREASED (<130,000) (NORMAL); PLATELET MORPHOLOGY 1+ GIANT PLATELETS (NORMAL)
[2018-05-28] MEDS: SPIRONOLACTONE 25 MG TABLET PO SCH (08:00)
[2018-05-28] MEDS: SACCHAROMYCES BOULARDII 250 MG CAPSULE PO SCH ×2 (08:00→17:02)
[2018-05-28] MEDS: MAGNESIUM OXIDE 400 MG TABLET PO SCH ×2 (08:00→21:21)
[2018-05-28] MEDS: FAMOTIDINE 20 MG TABLET PO SCH (08:01)
[2018-05-28] MEDS: carBAMazepine ER 200 MG TABLET PO SCH ×2 (08:01→21:20)
[2018-05-28] MEDS: cefTRIAXone 2 GM in SODIUM CHLORIDE 0.9% MINIBAG 100 ML IV SCH (08:01)
[2018-05-28] MEDS: TAMSULOSIN 0.4 MG CAPSULE PO SCH (08:01)
[2018-05-28] MEDS: ENOXAPARIN 40 MG/0.4 ML SYRINGE SUBQ SCH ×2 (08:01→21:21)
[2018-05-28] MEDS: POLYETHYLENE GLYCOL 3350 17 GM PACKET PO SCH (08:02)
[2018-05-28] MEDS ORDERED: POTASSIUM CHLORIDE 20 MEQ TABLET PO SCH (10:26)
[2018-05-28 10:53] LABS: % IRON SATURATION 7 % (20-50); IRON 15 ug/dL (45-182); TOTAL IRON BINDING CAPACITY 227 ug/dL (250-450); TRANSFERRIN 162 mg/dL (180-329)
--- NOTE | 2018-05-28 11:21 | PROVIDER PROGRESS NOTE ---
Subjective - Prog Note Date Prog Note Date: 05/28/18 Prog Note Time: 11:19 - Subjective Pt reports feeling: Improved Subjective: Du admits to BLE weakness, N/T, and ongoing edema which has made it difficult to ambulate safely. He requests an increase in his pain medications during this acute infection. He denies any new symptoms such as shortness of breath, chest pain, nausea, vomiting, or a new cough. Current Medications - Current Medications Current Medications: Active Medications Acetaminophen (Tylenol) 650 mg PO Q4HR PRN PRN Reason: Pain 1 to 4 Last Admin: 05/27/18 00:29 Dose: 650 mg Hydrocodone Bitart/Acetaminophen ([place] 5/325) 1 tab PO Q2HR PRN PRN Reason: PAIN Carbamazepine (Tegretol Xr) 200 mg PO BID [facility] Last Admin: 05/28/18 08:01 Dose: 200 mg Cilostazol (Pletal) 100 mg PO BID [facility] Clindamycin HCl (Cleocin) 450 mg PO Q8HR [facility] Enoxaparin Sodium (Lovenox) 40 mg SUBQ BID [facility] Last Admin: 05/28/18 08:01 Dose: 40 mg Famotidine (Pepcid) 20 mg PO DAILY [facility] Last Admin: 05/28/18 08:01 Dose: 20 mg Furosemide (Lasix) 40 mg PO BIDDIURETIC [facility] Last Admin: 05/28/18 05:35 Dose: 40 mg Magnesium Oxide (Mag Ox) 400 mg PO BID [facility] Last Admin: 05/28/18 08:00 Dose: 400 mg Morphine Sulfate (Morphine) 2 mg IVP Q2H PRN PRN Reason: PAIN Ondansetron HCl (Zofran Inj) 4 mg IVP Q6HR PRN PRN Reason: Nausea / Vomiting Polyethylene Glycol (Miralax) 17 gm PO DAILY [facility] Last Admin: 05/28/18 08:02 Dose: Not Given Potassium Chloride (K-Dur) 20 meq PO ONCE [facility] Stop: 05/28/18 11:26 Saccharomyces Boulardii (Florastor) 500 mg PO BIDWM [facility] Last Admin: 05/28/18 08:00 Dose: 500 mg Sodium Chloride (Normal Saline Flush 0.9%) 10 ml IVP PRN PRN PRN Reason: NEEDED PER PROVIDER ORDERS Last Admin: 05/27/18 17:56 Dose: 10 ml Sodium Chloride (Normal Saline Flush 0.9%) 10 ml IVP 0100,0900,1700 [facility] Last Admin: 05/28/18 08:02 Dose: 10 ml Spironolactone (Aldactone) 25 mg PO DAILY [facility] Last Admin: 05/28/18 08:00 Dose: 25 mg Tamsulosin HCl (Flomax) 0.4 mg PO DAILY [facility] Last Admin: 05/28/18 08:01 Dose: 0.4 mg Temazepam (Restoril) 7.5 mg PO QPM [facility] Last Admin: 05/27/18 20:23 Dose: 7.5 mg Carbamazepine [Carbamazepine ER] 200 mg PO BID 05/25/18 Ibuprofen [Advil] 400 mg PO DAILY 05/25/18 Objective - Vital Signs/Intake & Output Reviewed Vital Signs: Yes Vital Signs: Vital Signs x48h Temp Pulse Resp BP Pulse Ox 05/28/18 07:34 37.1 C 93 22 117/85 H 94 05/28/18 05:43 36.9 C 98 18 142/79 H 94 Intake & Output: Intake & Output 05/25/18 05/26/18 05/27/18 05/28/18 23:59 23:59 23:59 23:59 Intake Total 2240 4720.00 3829.000 1640 Output Total 734 819 3868 825 Balance 2014 3870.00 1529.000 815 - Objective General Appearance: positive: No acute distress, Alert Eyes Bilateral: positive: Normal inspection, PERRL ENT: positive: ENT inspection nml, Pharynx nml, No signs of dehydration Neck: positive: Nml inspection, No JVD, Trachea midline, Stiff neck, Other ( large neck circumference) Respiratory: positive: Chest non-tender, No respiratory distress, Breath sounds nml Cardiovascular: positive: Regular rate & rhythm, No gallop, Systolic murmur, Decreased pulse(s) Peripheral Pulses: 2+ Radial (R), 2+ Radial (L) Abdomen: positive: Non-tender, Nml bowel sounds, Other (obese, soft) Back: positive: Nml inspection Skin: positive: No rash, Warm, Dry Extremities: positive: Pedal edema, Calf tenderness (related to PAD, gross edema , BLE right greater than left.), Joint swelling Neurologic/Psychiatric: positive: Oriented x3, CN's nml (2-12), Motor nml, Sensation nml, Depressed mood/affect Reflexes: Bicep (R): 3+, Bicep (L): 3+ - Lab Results Fish Bones: 05/28/18 05:17 05/28/18 05:17 Other Labs: Lab Results x24hrs 05/28/18 05/28/18 05/28/18 Range/Units 05:17 05:17 05:17 WBC (4.8-10.8) x10^3/uL RBC (4.70-6.10) 10^6/uL Hgb (14.0-18.0) g/dL Hct (42.0-52.0) % MCV (80.0-94.0) fL MCH (27.0-31.0) pg MCHC (32.0-36.0) g/dL RDW (12.0-15.0) % Plt Count (130-450) 10^3/uL MPV (7.4-11.4) fL Neut # (Auto) (1.5-6.6) 10^3/uL Lymph # (Auto) (1.5-3.5) 10^3/uL [place] # (Auto) (0.0-1.0) 10^3/uL Eos # (Auto) (0.0-0.7) 10^3/uL Baso # (Auto) (0.0-0.1) 10^3/uL Absolute Nucleated RBC x10^3/uL Nucleated RBC % /100WBC Platelet Estimate (NORMAL) Platelet Morphology (NORMAL) ESR 32 H (0-20) mm/Hr Sodium (135-145) mmol/L Potassium (3.5-5.0) mmol/L Chloride (101-111) mmol/L Carbon Dioxide (21-32) mmol/L Anion Gap (6-13) BUN (6-20) mg/dL Creatinine (0.6-1.2) mg/dL Estimated GFR (MDRD) (>89) Glucose (70-100) mg/dL Calcium (8.5-10.3) mg/dL Iron 15 L (45-182) ug/dL TIBC 227 L (250-450) ug/dL % Saturation 7 L (20-50) % Transferrin 162 L (180-329) mg/dL Total Bilirubin (0.2-1.0) mg/dL AST (10-42) IU/L ALT (10-60) IU/L Alkaline Phosphatase (42-121) IU/L C-Reactive Protein (0-1.0) mg/dL B-Natriuretic Peptide 85 (5-100) pg/mL Total Protein (6.7-8.2) g/dL Albumin (3.2-5.5) g/dL Globulin (2.1-4.2) g/dL Albumin/Globulin Ratio (1.0-2.2) 05/28/18 05/28/18 Range/Units 05:17 05:17 WBC 9.8 (4.8-10.8) x10^3/uL RBC 4.07 L (4.70-6.10) 10^6/uL Hgb 12.2 L (14.0-18.0) g/dL Hct 36.7 L (42.0-52.0) % MCV 90.1 (80.0-94.0) fL MCH 30.0 (27.0-31.0) pg MCHC 33.3 (32.0-36.0) g/dL RDW 14.8 (12.0-15.0) % Plt Count 120 L (130-450) 10^3/uL MPV 10.2 (7.4-11.4) fL Neut # (Auto) 7.2 H (1.5-6.6) 10^3/uL Lymph # (Auto) 1.5 (1.5-3.5) 10^3/uL [place] # (Auto) 1.0 (0.0-1.0) 10^3/uL Eos # (Auto) 0.0 (0.0-0.7) 10^3/uL Baso # (Auto) 0.1 (0.0-0.1) 10^3/uL Absolute Nucleated RBC 0.01 x10^3/uL Nucleated RBC % 0.1 /100WBC Platelet Estimate DECREASED (<130,000) (NORMAL) Platelet Morphology 1+ GIANT PLATELETS (NORMAL) ESR (0-20) mm/Hr Sodium 134 L (135-145) mmol/L Potassium 3.1 L (3.5-5.0) mmol/L Chloride 103 (101-111) mmol/L Carbon Dioxide 25 (21-32) mmol/L Anion Gap 6.0 (6-13) BUN 17 (6-20) mg/dL Creatinine 2.0 H (0.6-1.2) mg/dL Estimated GFR (MDRD) 34 L (>89) Glucose 118 H (70-100) mg/dL Calcium 7.8 L (8.5-10.3) mg/dL Iron (45-182) ug/dL TIBC (250-450) ug/dL % Saturation (20-50) % Transferrin (180-329) mg/dL Total Bilirubin 0.4 (0.2-1.0) mg/dL AST 50 H (10-42) IU/L ALT 50 (10-60) IU/L Alkaline Phosphatase 73 (42-121) IU/L C-Reactive Protein 19.9 H (0-1.0) mg/dL B-Natriuretic Peptide (5-100) pg/mL Total Protein 5.8 L (6.7-8.2) g/dL Albumin 2.8 L (3.2-5.5) g/dL Globulin 3.0 (2.1-4.2) g/dL Albumin/Globulin Ratio 0.9 L (1.0-2.2) - Diagnostic Imaging Diagnostic Imaging Results: positive: Prelim report reviewed, Final report reviewed ABX Reporting Has patient been on IV antibiotics over the past 48 hours?: No Assessment/Plan - Problem List (1) Cellulitis of right lower extremity Impression: There are no obvious areas of injury and although, very bright red, the skin remains intact. The patient denies any other known injuries. The markings made on admission remain, and the redness has reduced. The patient has been transitioned off IV antibiotics today and started on oral Clindamycin Q8 hours at 450 mg. The patient has ongoing edema caused by his newly identified PAD, and this is likely adding to the overall discomfort. His PAD is the most likely cause of this hospital stay. Plan: Continue diuretics, oral antibiotics and monitor for signs of worsening. (2) Weakness generalized Impression: The patient talks about falling prior to this admission in which his left leg became weak, and as he was exiting the shower, he fell and could not get himself up again, so EMS was called. Physical therapy has been seeing him and noted an improvement from previous session, and we can contribute this to better pain control. Shortly after admission, upon exam, he demonstrated weakness in his left arm and left leg. A head CT (stroke protocol) was completed, and negative for any acute infarctions. Plan: Continue PT, and order a susan-walker/ susan-shower chair prior to discharge. The patient has had an extended length of stay due to slow progress in his cellulitis treatment, ongoing fevers, and progressive debility. (3) PAD (peripheral artery disease) Impression: Upon review of his venous and arterial doppler studies that were ordered for BLE leg cramps/edema and to rule out a DVT, he is found to have significant stenosis in his arteries of his BLEs. He has been advised to see a vascular surgeon for this, but in the meantime, he is to start taking cilostazol as this will dilate his lower extremities arteries, which will heal his cellulitis and prevent future wounds. He was started on diuretic therapy at least 48 hours ago. Plan: Start medication to be given BID PO, and monitor edema. (4) Morbid obesity Impression: The patient has a high BMI of 43.5. He states that he has been "overweight" for most of his adult life. 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 The patient admits to recently feeling a need to loose weight and went swimming in the [employer] pool for a form of exercise. He is agreeable to protein shakes. Plan: After this acute illness, and upon discharge encourage a weight loss program with PCP to refer. (5) Trigeminal neuralgia Impression: The patient is prescribed Tegretol ER 200 mg BID at home, which continues here. He states that he has been on this for several years since acquiring this condition. A blood tegretol level was checked and found to be within normal range. Plan: continue med. (6) Pulmonary hypertension Impression: Echocardiogram results show a severely enlarged RA, and a RVSP at rest of 35 mmHg. He appears to have chronic BLE edema and a very large abdominal girth. He does not know about any issues with MARLENE, and denies recent lung insults such as pneumonia. Upon exam today, as I entered the room, the patient was found to have apnea while taking a nap, which further confirms the likelihood of MARLENE. The patient was started on spironolactone, and is tolerating this well. He will be discharged on this medication. Plan: Continue to monitor, advise a sleep study, to be ordered by PCP. (7) Benign prostatic hyperplasia with nocturia Impression: The patient was alerted that he should consider a sleep study soon after discharge, and he is very worried about this as he is up every 2 hours through the night to urinate. He has noticed improved performance during the night with less frequency overnight, despite his new diuretic therapy. Plan: Monitor urine output, watch for retention, and start daily flomax.
[2018-05-28] MEDS: CILOSTAZOL 100 MG TABLET PO SCH ×2 (11:22→21:20)
[2018-05-28] MEDS: CLINDAMYCIN 150 MG CAPSULE PO SCH ×2 (14:05→21:20)
[2018-05-28] MEDS: TEMAZEPAM 7.5 MG CAPSULE PO SCH (21:25)
[2018-05-29] MEDS: SODIUM CHLORIDE FLUSH 0.9% 10 ML SYRINGE IVP SCH ×3 (00:51→16:04)
[2018-05-29] MEDS: CLINDAMYCIN 150 MG CAPSULE PO SCH (05:01)
[2018-05-29] MEDS: FUROSEMIDE 40 MG TABLET PO SCH (05:01)
[2018-05-29 06:14] LABS: BASOPHILS # (AUTO) 0.1 10^3/uL (0.0-0.1); BASOPHILS % (AUTO) 0.8 %; EOSINOPHILS # (AUTO) 0.1 10^3/uL (0.0-0.7); EOSINOPHILS % (AUTO) 0.9 %; HGB - HEMOGLOBIN 11.4 g/dL (14.0-18.0); LYMPHOCYTES # (AUTO) 1.3 10^3/uL (1.5-3.5); LYMPHOCYTES % (AUTO) 13.7 %; MEAN CORPUSCULAR HEMOGLOBIN 29.8 pg (27.0-31.0); MEAN CORPUSCULAR HGB CONC 34.3 g/dL (32.0-36.0); MEAN CORPUSCULAR VOLUME 86.9 fL (80.0-94.0); MEAN PLATELET VOLUME 9.8 fL (7.4-11.4); MONOCYTES # (AUTO) 1.3 10^3/uL (0.0-1.0); MONOCYTES % (AUTO) 14.5 %; NEUTROPHILS # (AUTO) 6.4 10^3/uL (1.5-6.6); NEUTROPHILS % (AUTO) 70.1 %; PLT - PLATELET COUNT 152 10^3/uL (130-450); RED BLOOD COUNT 3.83 10^6/uL (4.70-6.10); RED CELL DISTRIBUTION WIDTH 14.3 % (12.0-15.0); WHITE BLOOD COUNT 9.1 x10^3/uL (4.8-10.8)
[2018-05-29 06:30] LABS: ALBUMIN 2.6 g/dL (3.2-5.5); ALBUMIN/GLOBULIN RATIO 0.9 (1.0-2.2); BILIRUBIN,TOTAL 0.4 mg/dL (0.2-1.0); CALCIUM 7.9 mg/dL (8.5-10.3); CREATININE 3.3 mg/dL (0.6-1.2); CRP - C-REACTIVE PROTEIN 16.4 mg/dL (0-1.0); TOTAL PROTEIN 5.5 g/dL (6.7-8.2)
--- NOTE | 2018-05-29 07:30 | PROVIDER PROGRESS NOTE ---
Subjective - Prog Note Date Prog Note Date: 05/29/18 - Subjective Pt reports feeling: Worse Subjective: Pt report he is fine, no fever, chill, chest pain, SOB. Right lower extremity is still swelling and erythema. pt report he can walk. Pain at right lower extremity is controlled. Intact sensation and motor function are at Distal toes of right lower extremity. I called ID physician at of [facility] for pt's ongoing infection. ID recommends pt stay hospital until his renal function is stable, continue vanocmycin adjusted to renal function, D/C home with Kflex and doxycycline, topical bactrim to help swelling. I discussed with pharmacy for vancomycin since pt has significant renal injury. Pharmacy recommend Linezolid instead of vancomycin. Current Medications - Current Medications Current Medications: Active Medications Acetaminophen (Tylenol) 650 mg PO Q4HR PRN PRN Reason: Pain 1 to 4 Last Admin: 05/27/18 00:29 Dose: 650 mg Hydrocodone Bitart/Acetaminophen ([place] 5/325) 1 tab PO Q2HR PRN PRN Reason: PAIN Carbamazepine (Tegretol Xr) 200 mg PO BID [facility] Last Admin: 05/29/18 08:52 Dose: 200 mg Cilostazol (Pletal) 50 mg PO BID [facility] Last Admin: 05/29/18 08:52 Dose: 50 mg Famotidine (Pepcid) 20 mg PO DAILY [facility] Last Admin: 05/29/18 08:52 Dose: 20 mg Heparin Sodium (Porcine) () 2,500 unit SUBQ BID [facility] Linezolid (Zyvox 600 Mg/300 Ml) 600 mg in 300 mls @ 300 mls/hr IV Q12H [facility] Magnesium Oxide (Mag Ox) 400 mg PO BID [facility] Last Admin: 05/29/18 08:52 Dose: 400 mg Morphine Sulfate (Morphine) 2 mg IVP Q2H PRN PRN Reason: PAIN Ondansetron HCl (Zofran Inj) 4 mg IVP Q6HR PRN PRN Reason: Nausea / Vomiting Polyethylene Glycol (Miralax) 17 gm PO DAILY [facility] Last Admin: 05/29/18 08:53 Dose: Not Given Saccharomyces Boulardii (Florastor) 250 mg PO BIDWM [facility] Sodium Chloride (Normal Saline Flush 0.9%) 10 ml IVP PRN PRN PRN Reason: NEEDED PER PROVIDER ORDERS Last Admin: 05/27/18 17:56 Dose: 10 ml Sodium Chloride (Normal Saline Flush 0.9%) 10 ml IVP 0100,0900,1700 [facility] Last Admin: 05/29/18 08:50 Dose: 10 ml Tamsulosin HCl (Flomax) 0.4 mg PO DAILY [facility] Last Admin: 05/29/18 08:50 Dose: 0.4 mg Temazepam (Restoril) 7.5 mg PO QPM [facility] Last Admin: 05/28/18 21:25 Dose: 7.5 mg Carbamazepine [Carbamazepine ER] 200 mg PO BID 05/25/18 Ibuprofen [Advil] 400 mg PO DAILY 05/25/18 Objective - Vital Signs/Intake & Output Reviewed Vital Signs: Yes Vital Signs: Vital Signs x48h Temp Pulse Resp BP Pulse Ox 05/29/18 05:31 36.8 C 90 18 119/70 93 05/29/18 00:46 37.2 C 72 18 136/64 H 94 Intake & Output: Intake & Output 05/26/18 05/27/18 05/28/18 05/29/18 23:59 23:59 23:59 23:59 Intake Total 4720.00 3829.000 2490 360 Output Total 850 2300 1675 550 Balance 3870.00 1529.000 815 -190 - Objective General Appearance: positive: No acute distress, Alert. negative: Lethargic Eyes Bilateral: positive: Normal inspection, PERRL, No lid inflammation, Conjunctivae nml ENT: positive: ENT inspection nml, Pharynx nml, No signs of dehydration. negative: Purulent nasal drainage, Pharyngeal erythema, Oral lesions Neck: positive: Nml inspection, Thyroid nml, No JVD, Trachea midline. negative : Thyromegaly, Lymphadenopathy (R), Lymphadenopathy (L), Stiff neck, Swelling/ bruising, Tracheal deviation Respiratory: positive: Chest non-tender, No respiratory distress, Breath sounds nml. negative: Wheezes, Rales, Rhonchi Cardiovascular: positive: Regular rate & rhythm, No murmur, No gallop. negative : Irregularly irregular, Extrasystoles, Tachycardia, Bradycardia, JVD present, Systolic murmur, Diastolic murmur Peripheral Pulses: 1+ Dorsalis pedis (R), 2+ Radial (R), 2+ Radial (L), 2+ Dorsalis pedis (L) Abdomen: positive: Non-tender, No organomegaly, Nml bowel sounds, No distention. negative: Tenderness, Guarding, Rebound Back: positive: Nml inspection. negative: CVA tenderness (R), CVA tenderness (L ) Skin: positive: Warm, Dry, Skin rash. negative: Cyanosis, Diaphoresis, Pallor Extremities: positive: Full ROM. negative: Calf tenderness, Joint swelling, Nadia's sign/cords Neurologic/Psychiatric: positive: Oriented x3, Sensation nml, Mood/affect nml. negative: Weakness, Sensory loss, Facial droop, Slurred/abnml speech, Depressed mood/affect - Lab Results Fish Bones: 05/29/18 05:48 05/29/18 05:48 Other Labs: Lab Results x24hrs 05/29/18 05/29/18 05/29/18 Range/Units 05:48 05:48 05:48 WBC (4.8-10.8) x10^3/uL RBC (4.70-6.10) 10^6/uL Hgb (14.0-18.0) g/dL Hct (42.0-52.0) % MCV (80.0-94.0) fL MCH (27.0-31.0) pg MCHC (32.0-36.0) g/dL RDW (12.0-15.0) % Plt Count (130-450) 10^3/uL MPV (7.4-11.4) fL Neut # (Auto) (1.5-6.6) 10^3/uL Lymph # (Auto) (1.5-3.5) 10^3/uL [place] # (Auto) (0.0-1.0) 10^3/uL Eos # (Auto) (0.0-0.7) 10^3/uL Baso # (Auto) (0.0-0.1) 10^3/uL Absolute Nucleated RBC x10^3/uL Nucleated RBC % /100WBC ESR 58 H (0-20) mm/Hr Sodium 138 (135-145) mmol/L Potassium 3.1 L (3.5-5.0) mmol/L Chloride 106 (101-111) mmol/L Carbon Dioxide 25 (21-32) mmol/L Anion Gap 7.0 (6-13) BUN 22 H (6-20) mg/dL Creatinine 3.3 H (0.6-1.2) mg/dL Estimated GFR (MDRD) 19 L (>89) Glucose 130 H (70-100) mg/dL Calcium 7.9 L (8.5-10.3) mg/dL Iron (45-182) ug/dL TIBC (250-450) ug/dL % Saturation (20-50) % Transferrin (180-329) mg/dL Total Bilirubin 0.4 (0.2-1.0) mg/dL AST 43 H (10-42) IU/L ALT 54 (10-60) IU/L Alkaline Phosphatase 74 (42-121) IU/L C-Reactive Protein 16.4 H (0-1.0) mg/dL B-Natriuretic Peptide 94 (5-100) pg/mL Total Protein 5.5 L (6.7-8.2) g/dL Albumin 2.6 L (3.2-5.5) g/dL Globulin 2.9 (2.1-4.2) g/dL Albumin/Globulin Ratio 0.9 L (1.0-2.2) 05/29/18 05/28/18 Range/Units 05:48 05:17 WBC 9.1 (4.8-10.8) x10^3/uL RBC 3.83 L (4.70-6.10) 10^6/uL Hgb 11.4 L (14.0-18.0) g/dL Hct 33.3 L (42.0-52.0) % MCV 86.9 (80.0-94.0) fL MCH 29.8 (27.0-31.0) pg MCHC 34.3 (32.0-36.0) g/dL RDW 14.3 (12.0-15.0) % Plt Count 152 (130-450) 10^3/uL MPV 9.8 (7.4-11.4) fL Neut # (Auto) 6.4 (1.5-6.6) 10^3/uL Lymph # (Auto) 1.3 L (1.5-3.5) 10^3/uL [place] # (Auto) 1.3 H (0.0-1.0) 10^3/uL Eos # (Auto) 0.1 (0.0-0.7) 10^3/uL Baso # (Auto) 0.1 (0.0-0.1) 10^3/uL Absolute Nucleated RBC 0.01 x10^3/uL Nucleated RBC % 0.1 /100WBC ESR (0-20) mm/Hr Sodium (135-145) mmol/L Potassium (3.5-5.0) mmol/L Chloride (101-111) mmol/L Carbon Dioxide (21-32) mmol/L Anion Gap (6-13) BUN (6-20) mg/dL Creatinine (0.6-1.2) mg/dL Estimated GFR (MDRD) (>89) Glucose (70-100) mg/dL Calcium (8.5-10.3) mg/dL Iron 15 L (45-182) ug/dL TIBC 227 L (250-450) ug/dL % Saturation 7 L (20-50) % Transferrin 162 L (180-329) mg/dL Total Bilirubin (0.2-1.0) mg/dL AST (10-42) IU/L ALT (10-60) IU/L Alkaline Phosphatase (42-121) IU/L C-Reactive Protein (0-1.0) mg/dL B-Natriuretic Peptide (5-100) pg/mL Total Protein (6.7-8.2) g/dL Albumin (3.2-5.5) g/dL Globulin (2.1-4.2) g/dL Albumin/Globulin Ratio (1.0-2.2) ABX Reporting Has patient been on IV antibiotics over the past 48 hours?: Yes Assessment/Plan - Problem List (1) Cellulitis Impression: (1) Cellulitis of right lower extremity Impression: 05/29, called ID, and obtained recommendation as the following: ID recommends pt stay hospital until his renal function is stable, continue vanocmycin adjusted to renal function, D/C home with Kflex and doxycycline, topical bactrim to help swelling. I discussed with pharmacy for vancomycin since pt has significant renal injury. Pharmacy recommend Linezolid instead of vancomycin. There are no obvious areas of injury and although, very bright red, the skin remains intact. The patient denies any other known injuries. The markings made on admission remain, and the redness has reduced. The patient has been transitioned off IV antibiotics today and started on oral Clindamycin Q8 hours at 450 mg. The patient has ongoing edema caused by his newly identified PAD, and this is likely adding to the overall discomfort. His PAD is the most likely cause of this hospital stay. Plan: Continue diuretics, oral antibiotics and monitor for signs of worsening. The patient has had an extended length of stay due to slow progress in his cellulitis treatment, ongoing fevers, and progressive debility, and renal injury (2) Weakness generalized Impression: 05/29 continue PT evaluation and treatment The patient talks about falling prior to this admission in which his left leg became weak, and as he was exiting the shower, he fell and could not get himself up again, so EMS was called. Physical therapy has been seeing him and noted an improvement from previous session, and we can contribute this to better pain control. Shortly after admission, upon exam, he demonstrated weakness in his left arm and left leg. A head CT (stroke protocol) was completed, and negative for any acute infarctions. Plan: Continue PT, and order a susan-walker/ susan-shower chair prior to discharge. (3) PAD (peripheral artery disease) Impression: 05/29 study on right lower extremity reveals artery has significant stenosis. Discussed with pt, pt state he will talk with her PCP and will got [facility] for further evaluation and treatment as out-pt Upon review of his venous and arterial doppler studies that were ordered for BLE leg cramps/edema and to rule out a DVT, he is found to have significant stenosis in his arteries of his BLEs. He has been advised to see a vascular surgeon for this, but in the meantime, he is to start taking cilostazol as this will dilate his lower extremities arteries, which will heal his cellulitis and prevent future wounds. He was started on diuretic therapy at least 48 hours ago. Plan: Start medication to be given BID PO, and monitor edema. (4) Morbid obesity Impression: The patient has a high BMI of 43.5. He states that he has been "overweight" for most of his adult life. 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 The patient admits to recently feeling a need to loose weight and went swimming in the [place] for a form of exercise. He is agreeable to protein shakes. Plan: After this acute illness, and upon discharge encourage a weight loss program with PCP to refer. (5) Trigeminal neuralgia Impression: The patient is prescribed Tegretol ER 200 mg BID at home, which continues here. He states that he has been on this for several years since acquiring this condition. A blood tegretol level was checked and found to be within normal range. Plan: continue med. (6) Pulmonary hypertension Impression: 05/29 hold spironolactine now, pt has acute renal injury Echocardiogram results show a severely enlarged RA, and a RVSP at rest of 35 mmHg. He appears to have chronic BLE edema and a very large abdominal girth. He does not know about any issues with MARLENE, and denies recent lung insults such as pneumonia. Upon exam today, as I entered the room, the patient was found to have apnea while taking a nap, which further confirms the likelihood of MARLENE. The patient was started on spironolactone, and is tolerating this well. He will be discharged on this medication. Plan: Continue to monitor, advise a sleep study, to be ordered by PCP. (7) Benign prostatic hyperplasia with nocturia Impression: continue Flomax discussed with pt, pt state he will see urologist as out-pt The patient was alerted that he should consider a sleep study soon after discharge, and he is very worried about this as he is up every 2 hours through the night to urinate. He has noticed improved performance during the night with less frequency overnight, despite his new diuretic therapy. Plan: Monitor urine output, watch for retention, and start daily flomax. (8) acute renal injury pt's GFR from 98 is down to 19 today when I started my shift. Hold Lasix, Spironolactine, vancomycin,Lovenox, reduce Pletal to 50 mg bid. start Linzolid antibiotics,and Heparin for DVT prophylaxis, avoid nephrology toxin agents start mild hydration with IVF initially check renal function Qualifiers: Site of cellulitis: extremity Site of cellulitis of extremity: lower extremity Laterality: right Qualified Code(s): L03.115 - Cellulitis of right lower limb (2) Sepsis Qualifiers: Sepsis type: sepsis due to unspecified organism Qualified Code(s): A41.9 - Sepsis, unspecified organism
[2018-05-29] MEDS ORDERED: POTASSIUM CHLORIDE 20 MEQ TABLET PO ONE (07:44)
[2018-05-29] MEDS: TAMSULOSIN 0.4 MG CAPSULE PO SCH (08:50)
[2018-05-29] MEDS: SACCHAROMYCES BOULARDII 250 MG CAPSULE PO SCH ×2 (08:50→16:04)
[2018-05-29] MEDS: MAGNESIUM OXIDE 400 MG TABLET PO SCH ×2 (08:52→20:47)
[2018-05-29] MEDS: FAMOTIDINE 20 MG TABLET PO SCH (08:52)
[2018-05-29] MEDS: carBAMazepine ER 200 MG TABLET PO SCH ×2 (08:52→20:46)
[2018-05-29] MEDS: CILOSTAZOL 100 MG TABLET PO SCH ×2 (08:52→20:46)
[2018-05-29] MEDS: POLYETHYLENE GLYCOL 3350 17 GM PACKET PO SCH (08:53)
[2018-05-29] MEDS ORDERED: FUROSEMIDE 40 MG TABLET PO SCH (09:00)
[2018-05-29] MEDS ORDERED: ENOXAPARIN 30 MG/0.3 ML SYRINGE SUBQ SCH (09:00)
[2018-05-29] MEDS: SODIUM CHLORIDE 0.9% 500 ML IV ONE ×2 (09:01→11:38)
[2018-05-29] MEDS: LINEZOLID 600 MG/300 ML 600 MG/300 ML BAG IV SCH (11:40)
[2018-05-29 16:54] LABS: ALBUMIN 2.8 g/dL (3.2-5.5); ALBUMIN/GLOBULIN RATIO 0.9 (1.0-2.2); BILIRUBIN,TOTAL 0.4 mg/dL (0.2-1.0); CALCIUM 8.2 mg/dL (8.5-10.3); CREATININE 3.7 mg/dL (0.6-1.2)
[2018-05-29] MEDS ORDERED: SODIUM CHLORIDE 0.9% 1,000 ML IV SCH (17:00)
[2018-05-29] MEDS: TEMAZEPAM 7.5 MG CAPSULE PO SCH (20:46)
[2018-05-29] MEDS: MUPIROCIN 2% OINT 22 GM TUBE TOP SCH (20:47)
[2018-05-29] MEDS: HEPARIN 5,000 UNIT/ML VIAL SUBQ SCH (20:47)
[2018-05-29] MEDS: ACETAMINOPHEN 325 MG TABLET PO PRN (21:32)
[2018-05-30] MEDS: LINEZOLID 600 MG/300 ML 600 MG/300 ML BAG IV SCH ×2 (00:05→12:13)
[2018-05-30] MEDS: SODIUM CHLORIDE 0.9% 1,000 ML IV SCH ×3 (00:11→05:02)
[2018-05-30] MEDS: SODIUM CHLORIDE FLUSH 0.9% 10 ML SYRINGE IVP SCH ×3 (00:11→15:53)
[2018-05-30 05:51] LABS: BASOPHILS # (AUTO) 0.1 10^3/uL (0.0-0.1); BASOPHILS % (AUTO) 0.9 %; EOSINOPHILS # (AUTO) 0.1 10^3/uL (0.0-0.7); EOSINOPHILS % (AUTO) 1.5 %; HGB - HEMOGLOBIN 11.4 g/dL (14.0-18.0); LYMPHOCYTES # (AUTO) 1.4 10^3/uL (1.5-3.5); LYMPHOCYTES % (AUTO) 15.2 %; MEAN CORPUSCULAR HEMOGLOBIN 30.1 pg (27.0-31.0); MEAN CORPUSCULAR HGB CONC 34.6 g/dL (32.0-36.0); MEAN CORPUSCULAR VOLUME 86.9 fL (80.0-94.0); MEAN PLATELET VOLUME 9.2 fL (7.4-11.4); MONOCYTES # (AUTO) 1.5 10^3/uL (0.0-1.0); MONOCYTES % (AUTO) 15.9 %; NEUTROPHILS # (AUTO) 6.3 10^3/uL (1.5-6.6); NEUTROPHILS % (AUTO) 66.5 %; PLT - PLATELET COUNT 171 10^3/uL (130-450); RED CELL DISTRIBUTION WIDTH 14.5 % (12.0-15.0); WHITE BLOOD COUNT 9.4 x10^3/uL (4.8-10.8)
[2018-05-30 06:02] LABS: ALBUMIN 2.6 g/dL (3.2-5.5); ALBUMIN/GLOBULIN RATIO 0.9 (1.0-2.2); BILIRUBIN,TOTAL 0.6 mg/dL (0.2-1.0); CALCIUM 7.9 mg/dL (8.5-10.3); CREATININE 3.6 mg/dL (0.6-1.2); MAGNESIUM 2.3 mg/dL (1.7-2.8); TOTAL PROTEIN 5.6 g/dL (6.7-8.2)
[2018-05-30] MEDS ORDERED: POTASSIUM CHLORIDE 20 MEQ TABLET PO SCH (07:12)
[2018-05-30] MEDS ORDERED: CALCIUM GLUCONATE 1,000 MG in SODIUM CHLORIDE 0.9% 50 ML IV SCH (08:00)
--- NOTE | 2018-05-30 08:54 | Ultrasound Report ---
Procedure Date: 05/30/2018 Accession Number: [id number] / [id number] Procedure: US - Arterial Visceral Complete CPT Code: FULL RESULT: EXAM: RENAL ARTERY DOPPLER ULTRASOUND EXAM DATE: 05/30/2018 08:37 AM. CLINICAL HISTORY: Acute kidney injury, stenosis, BPH, urine retention. COMPARISON: None. TECHNIQUE: Real-time sonographic vascular imaging was performed by the class [employer] through the renal arterial system with a linear transducer utilizing color-flow, Doppler flow, and spectral analysis. Multiple employment representative static images were saved for review. FINDINGS: Scan difficult because of patient body habitus and limited cooperation with breath-holding. Kidneys are normal in size, 14.2 x 5.3 x 5.6 cm on the right and 12.3 x 6.8 x 6.2 cm on the left. There is mild lobation bilaterally. There is no hydronephrosis. Renal echogenicity is within normal limits bilaterally. Proximal renal arteries are nonvisualized bilaterally. Right Kidney: 14.2 x 5.3 x 5.6 cm. Right Segmental Artery: Upper pole: PSV 102 cm/sec, RI 0.73. Mid pole: PSV 41.7 cm/sec, RI 0.81. Lower pole: PSV 40.9 cm/sec, RI 0.70. Right Renal Artery: Origin: PSV 106 cm/sec, RA/AO 0.75. Proximal: Not seen. Mid: PSV 138 cm/sec, RA/AO 0.97. Distal: PSV 117 cm/sec, RA/AO 0.82. Aorta PSV: 141 cm/sec. RRV Patent: Yes. Left Kidney: 12.3 x 6.8 x 6.2 cm. Left Segmental Artery: Upper pole: PSV 58 cm/sec, RI 0.88. Mid pole: PSV 97 cm/sec, RI 0.83. Lower pole: PSV 63 cm/sec, RI 0.76. Left Renal Artery: Origin: PSV 107 cm/sec, RA/AO 0.75. Proximal: Not seen. Mid: PSV 87 cm/sec, RA/AO 0.61. Distal: PSV 123 cm/sec, RA/AO 0.87. LRV: Not seen. IMPRESSION: 1. Kidneys normal in size and appearance. 2. No evidence of hemodynamically significant renal artery stenosis. CRITERIA FOR CLASSIFICATION OF RENAL ARTERY (RA) DISEASE BY DUPLEX SCANNING: RA Diameter Reduction/ RA PSV/ RAR: Normal, < 180 cm/sec, < 3.5 < 60%, >= 180 cm/sec, < 3.5 >= 60%, >= 180 cm/sec, >= 3.5 Total Occlusion: Undetectable; Not applicable RADIA
[2018-05-30] MEDS: FAMOTIDINE 20 MG TABLET PO SCH (09:20)
[2018-05-30] MEDS: SACCHAROMYCES BOULARDII 250 MG CAPSULE PO SCH ×2 (09:21→15:53)
[2018-05-30] MEDS: CILOSTAZOL 100 MG TABLET PO SCH ×2 (09:21→21:36)
[2018-05-30] MEDS: carBAMazepine ER 200 MG TABLET PO SCH ×2 (09:21→21:37)
[2018-05-30] MEDS: TAMSULOSIN 0.4 MG CAPSULE PO SCH (09:21)
[2018-05-30] MEDS: MAGNESIUM OXIDE 400 MG TABLET PO SCH ×2 (09:21→21:36)
[2018-05-30] MEDS: HEPARIN 5,000 UNIT/ML VIAL SUBQ SCH ×2 (09:23→21:40)
[2018-05-30] MEDS: MUPIROCIN 2% OINT 22 GM TUBE TOP SCH ×2 (09:23→21:35)
[2018-05-30] MEDS: POLYETHYLENE GLYCOL 3350 17 GM PACKET PO SCH (09:23)
[2018-05-30] MEDS ORDERED: SODIUM CHLORIDE 0.9% 1,000 ML IV SCH ×3 (09:31→18:29)
--- NOTE | 2018-05-30 11:16 | PROVIDER PROGRESS NOTE ---
Subjective - Prog Note Date Prog Note Date: 05/30/18 - Subjective Pt reports feeling: No change Subjective: pt report he feel fine Pt denies fever, chill, shortness of breath, chest pain, headache, abdominal pain, right lower extremity pain. I called [employer] line of today for teachers' aide consulting. Dr. Carbone, teachers' aide called me back. He think pt had ATN from combination of pt's infection, and medications used to treat pt. It cost time for pt to resume renal function. He recommend hold nephrotoxic drugs, even does not require to have IVF for pt due to pt's leg edema. I discussed with Dr. Mirna Rivers, my cured meat packing supervisor for treatment plan. She and I plan to give pt 75-100cc/h NS since pt clinically present dry mouth, dehydration. however pt also has right lower extremity edema Current Medications - Current Medications Current Medications: Active Medications Acetaminophen (Tylenol) 650 mg PO Q4HR PRN PRN Reason: Pain 1 to 4 Last Admin: 05/29/18 21:32 Dose: 650 mg Hydrocodone Bitart/Acetaminophen ([place] 5/325) 1 tab PO Q2HR PRN PRN Reason: PAIN Carbamazepine (Tegretol Xr) 200 mg PO BID [facility] Last Admin: 05/30/18 09:21 Dose: 200 mg Cilostazol (Pletal) 50 mg PO BID [facility] Last Admin: 05/30/18 09:21 Dose: 50 mg Famotidine (Pepcid) 20 mg PO DAILY [facility] Last Admin: 05/30/18 09:20 Dose: 20 mg Heparin Sodium (Porcine) () 2,500 unit SUBQ BID [facility] Last Admin: 05/30/18 09:23 Dose: Not Given Linezolid (Zyvox 600 Mg/300 Ml) 600 mg in 300 mls @ 300 mls/hr IV Q12H [facility] Last Infusion: 05/30/18 13:03 Dose: Infused Sodium Chloride (Normal Saline 0.9%) 1,000 mls @ 100 mls/hr IV .Q10H [facility] Magnesium Oxide (Mag Ox) 400 mg PO BID [facility] Last Admin: 05/30/18 09:21 Dose: 400 mg Morphine Sulfate (Morphine) 2 mg IVP Q2H PRN PRN Reason: PAIN Mupirocin (Bactroban 2% Oint) 1 applic TOP BID [facility] Last Admin: 05/30/18 09:23 Dose: 1 applic Ondansetron HCl (Zofran Inj) 4 mg IVP Q6HR PRN PRN Reason: Nausea / Vomiting Polyethylene Glycol (Miralax) 17 gm PO DAILY [facility] Last Admin: 05/30/18 09:23 Dose: Not Given Saccharomyces Boulardii (Florastor) 250 mg PO BIDWM [facility] Last Admin: 05/30/18 15:53 Dose: 250 mg Sodium Chloride (Normal Saline Flush 0.9%) 10 ml IVP PRN PRN PRN Reason: NEEDED PER PROVIDER ORDERS Last Admin: 05/27/18 17:56 Dose: 10 ml Sodium Chloride (Normal Saline Flush 0.9%) 10 ml IVP 0100,0900,1700 [facility] Last Admin: 05/30/18 15:53 Dose: Not Given Tamsulosin HCl (Flomax) 0.4 mg PO DAILY [facility] Last Admin: 05/30/18 09:21 Dose: 0.4 mg Temazepam (Restoril) 7.5 mg PO QPM [facility] Last Admin: 05/29/18 20:46 Dose: 7.5 mg Carbamazepine [Carbamazepine ER] 200 mg PO BID 05/25/18 Ibuprofen [Advil] 400 mg PO DAILY 05/25/18 Objective - Vital Signs/Intake & Output Reviewed Vital Signs: Yes Vital Signs: Vital Signs x48h Temp Pulse Resp BP Pulse Ox 05/30/18 06:05 37.0 C 93 18 143/78 H 97 Intake & Output: Intake & Output 05/27/18 05/28/18 05/29/18 05/30/18 23:59 23:59 23:59 23:59 Intake Total 3829.000 2490 2953.054 2513.279 Output Total 2300 1675 1650 900 Balance 1529.929 092 1604.054 1613.279 - Objective General Appearance: positive: No acute distress, Alert. negative: Lethargic Eyes Bilateral: positive: Normal inspection, PERRL, No lid inflammation, Conjunctivae nml ENT: positive: ENT inspection nml, Pharynx nml, No signs of dehydration. negative: Purulent nasal drainage, Pharyngeal erythema, Oral lesions Neck: positive: Nml inspection, Thyroid nml, No JVD, Trachea midline. negative : Thyromegaly, Lymphadenopathy (R), Lymphadenopathy (L), Stiff neck, Swelling/ bruising, Tracheal deviation Respiratory: positive: Chest non-tender, No respiratory distress, Breath sounds nml. negative: Wheezes, Rales, Rhonchi Cardiovascular: positive: Regular rate & rhythm, No murmur, No gallop. negative : Irregularly irregular, Extrasystoles, Tachycardia, Bradycardia, JVD present, Systolic murmur, Diastolic murmur Peripheral Pulses: 1+ Dorsalis pedis (R), 2+ Radial (R), 2+ Radial (L), 2+ Dorsalis pedis (L) Abdomen: positive: Non-tender, No organomegaly, Nml bowel sounds, No distention. negative: Tenderness, Guarding, Rebound Back: positive: Nml inspection. negative: CVA tenderness (R), CVA tenderness (L ) Skin: positive: Warm, Dry, Skin rash. negative: Cyanosis, Diaphoresis, Pallor Extremities: negative: Calf tenderness, Joint swelling, Nadia's sign/cords Neurologic/Psychiatric: positive: Oriented x3, Sensation nml, Mood/affect nml. negative: Weakness, Sensory loss, Facial droop, Slurred/abnml speech, Depressed mood/affect - Lab Results Fish Bones: 05/30/18 05:26 05/30/18 16:00 Other Labs: Lab Results x24hrs 05/30/18 05/30/18 05/29/18 Range/Units 05:26 05:26 16:39 WBC 9.4 (4.8-10.8) x10^3/uL RBC 3.80 L (4.70-6.10) 10^6/uL Hgb 11.4 L (14.0-18.0) g/dL Hct 33.0 L (42.0-52.0) % MCV 86.9 (80.0-94.0) fL MCH 30.1 (27.0-31.0) pg MCHC 34.6 (32.0-36.0) g/dL RDW 14.5 (12.0-15.0) % Plt Count 171 (130-450) 10^3/uL MPV 9.2 (7.4-11.4) fL Neut # (Auto) 6.3 (1.5-6.6) 10^3/uL Lymph # (Auto) 1.4 L (1.5-3.5) 10^3/uL Shannon # (Auto) 1.5 H (0.0-1.0) 10^3/uL Eos # (Auto) 0.1 (0.0-0.7) 10^3/uL Baso # (Auto) 0.1 (0.0-0.1) 10^3/uL Absolute Nucleated RBC 0.00 x10^3/uL Nucleated RBC % 0.0 /100WBC Sodium 138 138 (135-145) mmol/L Potassium 3.3 L 3.5 (3.5-5.0) mmol/L Chloride 106 103 (101-111) mmol/L Carbon Dioxide 24 26 (21-32) mmol/L Anion Gap 8.0 9.0 (6-13) BUN 26 H 25 H (6-20) mg/dL Creatinine 3.6 H 3.7 H (0.6-1.2) mg/dL Estimated GFR (MDRD) 17 L 17 L (>89) Glucose 113 H 180 H (70-100) mg/dL Calcium 7.9 L 8.2 L (8.5-10.3) mg/dL Magnesium 2.3 (1.7-2.8) mg/dL Total Bilirubin 0.6 0.4 (0.2-1.0) mg/dL AST 40 49 H (10-42) IU/L ALT 55 59 (10-60) IU/L Alkaline Phosphatase 88 90 (42-121) IU/L Total Protein 5.6 L 6.0 L (6.7-8.2) g/dL Albumin 2.6 L 2.8 L (3.2-5.5) g/dL Globulin 3.0 3.2 (2.1-4.2) g/dL Albumin/Globulin Ratio 0.9 L 0.9 L (1.0-2.2) ABX Reporting Has patient been on IV antibiotics over the past 48 hours?: Yes Assessment/Plan - Problem List (1) Cellulitis Impression: Impression: 05/30, pt's WBC is normal. Pt clinically still present erythema and swelling at right lower extremity, no significant different from yesterday. Pt's skin remain intact. Pt walk in hallway with walker. pt denies pain. pt has an intact sensation and motor capacity of distal toes of right lower extremity Follow up ID recommend, continue Linezolid 05/29, called ID, and obtained recommendation as the following: ID recommends pt stay hospital until his renal function is stable, continue vanocmycin adjusted to renal function, D/C home with Kflex and doxycycline, topical bactrim to help swelling. I discussed with pharmacy for vancomycin since pt has significant renal injury. Pharmacy recommend Linezolid instead of vancomycin. There are no obvious areas of injury and although, very bright red, the skin remains intact. The patient denies any other known injuries. The markings made on admission remain, and the redness has reduced. The patient has been transitioned off IV antibiotics today and started on oral Clindamycin Q8 hours at 450 mg. The patient has ongoing edema caused by his newly identified PAD, and this is likely adding to the overall discomfort. His PAD is the most likely cause of this hospital stay. Plan: Continue diuretics, oral antibiotics and monitor for signs of worsening. The patient has had an extended length of stay due to slow progress in his cellulitis treatment, ongoing fevers, and progressive debility, and renal injury (2) Weakness generalized Impression: pt walked at hallway with walker. Front wheel walker was prescribed to pt 05/29 continue PT evaluation and treatment The patient talks about falling prior to this admission in which his left leg became weak, and as he was exiting the shower, he fell and could not get himself up again, so EMS was called. Physical therapy has been seeing him and noted an improvement from previous session, and we can contribute this to better pain control. Shortly after admission, upon exam, he demonstrated weakness in his left arm and left leg. A head CT (stroke protocol) was completed, and negative for any acute infarctions. Plan: Continue PT, and order a susan-walker/ susan-shower chair prior to discharge. (3) PAD (peripheral artery disease) Impression: 05/30 continue Pletal 05/29 study on right lower extremity reveals artery has significant stenosis. Discussed with pt, pt state he will talk with her PCP and will got [facility] for further evaluation and treatment as out-pt Upon review of his venous and arterial doppler studies that were ordered for BLE leg cramps/edema and to rule out a DVT, he is found to have significant stenosis in his arteries of his BLEs. He has been advised to see a vascular surgeon for this, but in the meantime, he is to start taking cilostazol as this will dilate his lower extremities arteries, which will heal his cellulitis and prevent future wounds. He was started on diuretic therapy at least 48 hours ago. Plan: Start medication to be given BID PO, and monitor edema. (4) Morbid obesity Impression: 05/30, discuss with pt, pt state he will loss of some his weight The patient has a high BMI of 43.5. He states that he has been "overweight" for most of his adult life. 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 The patient admits to recently feeling a need to loose weight and went [place] a form of exercise. He is agreeable to protein shakes. Plan: After this acute illness, and upon discharge encourage a weight loss program with PCP to refer. (5) Trigeminal neuralgia Impression: stable, no acute complaints The patient is prescribed Tegretol ER 200 mg BID at home, which continues here. He states that he has been on this for several years since acquiring this condition. A blood tegretol level was checked and found to be within normal range. Plan: continue med. (6) Pulmonary hypertension Impression: 05/29 hold spironolactine now, pt has acute renal injury Echocardiogram results show a severely enlarged RA, and a RVSP at rest of 35 mmHg. He appears to have chronic BLE edema and a very large abdominal girth. He does not know about any issues with MARLENE, and denies recent lung insults such as pneumonia. Upon exam today, as I entered the room, the patient was found to have apnea while taking a nap, which further confirms the likelihood of MARLENE. The patient was started on spironolactone, and is tolerating this well. He will be discharged on this medication. Plan: Continue to monitor, advise a sleep study, to be ordered by PCP. (7) Benign prostatic hyperplasia with nocturia Impression: 05/30, pt state he feel much better for his nocturia, continue Flomax continue Flomax discussed with pt, pt state he will see urologist as out-pt The patient was alerted that he should consider a sleep study soon after discharge, and he is very worried about this as he is up every 2 hours through the night to urinate. He has noticed improved performance during the night with less frequency overnight, despite his new diuretic therapy. Plan: Monitor urine output, watch for retention, and start daily flomax. (8) acute renal injury today pt's Creatinine 3.6, GFR is 17. I called [facility] line of today for teachers' aide consulting. Dr. Carbone, teachers' aide called me back. He think pt had ATN from combination of pt's infection, and medications used to treat pt. It cost time for pt to resume renal function. He recommend hold nephrotoxic drugs, even does not require to have IVF for pt due to pt's leg edema. I discussed with Dr. Mirna Rivers, my cured meat packing supervisor for treatment plan. She and I plan to give pt 75-100cc/h NS since pt clinically present dry mouth, dehydration. however pt also has right lower extremity edema If pt's renal condition is not significant improved, plan to transfer pt for advance care pt's GFR from 98 is down to 19 today when I started my shift. Hold Lasix, Spironolactine, vancomycin,Lovenox, reduce Pletal to 50 mg bid. start Linzolid antibiotics,and Heparin for DVT prophylaxis, avoid nephrology toxin agents start mild hydration with IVF initially check renal function Qualifiers: Site of cellulitis: extremity Site of cellulitis of extremity: lower extremity Laterality: right Qualified Code(s): L03.115 - Cellulitis of right lower limb (2) Sepsis Qualifiers: Sepsis type: sepsis due to unspecified organism Qualified Code(s): A41.9 - Sepsis, unspecified organism
[2018-05-30 16:16] LABS: ALBUMIN 2.9 g/dL (3.2-5.5); BILIRUBIN,TOTAL 0.7 mg/dL (0.2-1.0); CALCIUM 8.2 mg/dL (8.5-10.3); CREATININE 3.6 mg/dL (0.6-1.2); TOTAL PROTEIN 5.9 g/dL (6.7-8.2)
[2018-05-30] MEDS: TEMAZEPAM 7.5 MG CAPSULE PO SCH (21:35)
[2018-05-31] MEDS: SODIUM CHLORIDE FLUSH 0.9% 10 ML SYRINGE IVP SCH ×2 (00:56→10:00)
[2018-05-31] MEDS: SODIUM CHLORIDE FLUSH 0.9% 10 ML SYRINGE IVP PRN (00:56)
[2018-05-31] MEDS: LINEZOLID 600 MG/300 ML 600 MG/300 ML BAG IV SCH (00:56)
[2018-05-31] MEDS: ACETAMINOPHEN 325 MG TABLET PO PRN (03:12)
[2018-05-31 05:45] LABS: BASOPHILS % (AUTO) 0.3 %; EOSINOPHILS # (AUTO) 0.2 10^3/uL (0.0-0.7); EOSINOPHILS % (AUTO) 2.4 %; HGB - HEMOGLOBIN 11.3 g/dL (14.0-18.0); LYMPHOCYTES # (AUTO) 1.6 10^3/uL (1.5-3.5); LYMPHOCYTES % (AUTO) 16.9 %; MEAN CORPUSCULAR HEMOGLOBIN 29.7 pg (27.0-31.0); MEAN CORPUSCULAR HGB CONC 34.1 g/dL (32.0-36.0); MEAN PLATELET VOLUME 8.2 fL (7.4-11.4); MONOCYTES # (AUTO) 1.4 10^3/uL (0.0-1.0); MONOCYTES % (AUTO) 14.5 %; NEUTROPHILS # (AUTO) 6.3 10^3/uL (1.5-6.6); NEUTROPHILS % (AUTO) 65.9 %; PLT - PLATELET COUNT 200 10^3/uL (130-450); RED BLOOD COUNT 3.82 10^6/uL (4.70-6.10); RED CELL DISTRIBUTION WIDTH 14.7 % (12.0-15.0); WHITE BLOOD COUNT 9.5 x10^3/uL (4.8-10.8)
[2018-05-31 05:59] LABS: ALBUMIN 2.5 g/dL (3.2-5.5); ALBUMIN/GLOBULIN RATIO 0.8 (1.0-2.2); BILIRUBIN,TOTAL 0.7 mg/dL (0.2-1.0); CALCIUM 8.2 mg/dL (8.5-10.3); CREATININE 3.7 mg/dL (0.6-1.2); MAGNESIUM 2.3 mg/dL (1.7-2.8); TOTAL PROTEIN 5.6 g/dL (6.7-8.2)
[2018-05-31] MEDS: HEPARIN 5,000 UNIT/ML VIAL SUBQ SCH (09:58)
[2018-05-31] MEDS: MAGNESIUM OXIDE 400 MG TABLET PO SCH (09:59)
[2018-05-31] MEDS: MUPIROCIN 2% OINT 22 GM TUBE TOP SCH (09:59)
[2018-05-31] MEDS: carBAMazepine ER 200 MG TABLET PO SCH (09:59)
[2018-05-31] MEDS: SACCHAROMYCES BOULARDII 250 MG CAPSULE PO SCH (09:59)
[2018-05-31] MEDS: CILOSTAZOL 100 MG TABLET PO SCH (09:59)
[2018-05-31] MEDS: POLYETHYLENE GLYCOL 3350 17 GM PACKET PO SCH (09:59)
[2018-05-31] MEDS: FAMOTIDINE 20 MG TABLET PO SCH (09:59)
[2018-05-31] MEDS: TAMSULOSIN 0.4 MG CAPSULE PO SCH (10:00)
[2018-05-31 13:14] VITALS: BP 132/70
--- NOTE | 2018-05-31 13:49 | DISCHARGE SUMMARY ---
Discharge Summary Discharge Date: 05/31/18 Discharging Provider: DURAND Primary Care Provider: Dr. Magalys Cervantes Code Status: Attempt Resuscitation Condition at Discharge: Poor Discharge Disposition: 02 Transfer Acute Care Hosp Discharge Facility Name: [facility] - DIAGNOSES Admission Diagnoses: (1) Cellulitis (2) Sepsis (3) Osteoarthritis (4) Trigeminal neuralgia (5) Weakness generalized Discharge Diagnoses with Status of Each Condition: (1) Cellulitis pt's WBC became normal, no fever or chill, blood culture is negative. However pt 's right lower extremity is still erythema, swelling, and some blast with clear drainage. culture of drainage is pending. MED-[facility] ID was called, and ID's recommend was followed. Pt walks with walker in the nurse station and hallway without pain reported. The sensation and motor capacity of The distal toes of right extremity is intact. pt denies pain on his right lower extremity. pt is transferred to [facility] for advance ID care of lower extremity infection (2) Weakness generalized PT/OT evaluated and treated pt. Pt was prescribed tall bariatric walker. Pt walked with walker in nurse station and hallway (3) PAD (peripheral artery disease) Duplex of right lower extremity reveals significant stenosis. Discuss the test result with pt. pt is transferred to [facility] for advance vascular care (4) Morbid obesity pt is advised loss of weight, pt stated he will do that. (5) Trigeminal neuralgia stable, no more pain at hospital course (6) Pulmonary hypertension stable (7) Benign prostatic hyperplasia with nocturia pt was prescribed Flomax in hospital. Pt state he feel much better for his urinary frequency after he had this medication. (8) acute renal injury pt's creatinine was 0.8 when pt was admitted, it was still at 0.8 following the next day. Two days ago when I came back for my shift, pt's creatinine was 3.3, today it is 3.7. [employer]-[facility] ground crew chief was called. the recommendation was followed up. pt still has urine around 1600 daily, BUN 25. pt is transferred to [facility] for advance renal care - HPI History of Present Illness: Mr. De Los Santos is 62-yrs-old male with a PMH significance for osteoarthritis, trigeminal neuralgia, morbid obese, who present ER complaint of fever and weakness. Pt report he swim at [facility] on Friday, then he found his right lower extremity get infected, erythema and warm. He started to have fever on last night, "very hot". He denies nausea, vomiting, abdominal pain, shortness of breath, palpitation, chest pain, headache, neck stiffness. He report about 14 yrs, he got the similar infection at right lower extremity when he swim at [facility]. He had to stay in hospital for couple of days for the infection. Pt also report weakness on both leg. Pt had elevated WBC 16, and elevated lactic acid to 2.4. Pt is febrile at 38.3, BP at BP 168/92, mild tachycardia. Pt is admitted for the sepsis from his right lower extremity infection. - CONSULTS | PROCEDURES Consultations: consult with free MED-CON line of ID and ground crew chief Procedures: no - HOSPITAL COURSE Hospital Course: pt was admitted for lower extremity infection, cellulitis, and sepsis. Pt was treated with antibiotics, IVF of NS for sepsis. Pt's lower extremity became more swelling than when pt was admitted. My colleague add Lasix and Spironolactone to pt. Two days ago pt's creatinine was 3.3 when I began my shift. Pt's creatinine was 0.8 at admission 6 days ago. I called [facility] ID and ground crew chief, their recommendations were followed up. pt's creatinine today is 3.7, pt still has urine around 1600 daily, BUN 25. pt's lower extremity infection and swelling is erythema, and swelling with some blasts and clear drainage. Pt's WBC is normal 9.5 from 16 at admission, blood culture was negative, no fever or chill. The sensation and motor capacity of The distal toes of right extremity is intact. pt denies pain on his right lower extremity. Pt walks with walker in the nurse station and hallway. Duplex of artery of right lower extremity reveals significant stenosis. pt is transferred to [facility] for advance care of acute kidney injury, infection and possible vascular intervention for pt's right lower extremity. For all above medical conditions, I discussed with pt, and receiving physician in [facility]. I answered all their questions and concerns. pt desire to be transferred to other hospital with various specialty to support. - ALLERGIES Allergies/Adverse Reactions: Allergies Allergy/AdvReac Type Severity Reaction Status Date / Time No Known Drug Allergies Allergy Verified 05/25/18 12:22 - MEDICATIONS Home Medications: Ambulatory Orders Medication Instructions Recorded Confirmed Carbamazepine [Carbamazepine ER] 200 mg PO BID 05/25/18 05/25/18 Ibuprofen [Advil] 400 mg PO DAILY 05/25/18 05/25/18 - PHYSICAL EXAM AT DISCHARGE General Appearance: positive: No acute distress, Alert. negative: Lethargic Eyes Bilateral: positive: Normal inspection, PERRL, No lid inflammation, Conjunctivae nml ENT: positive: ENT inspection nml, Pharynx nml, No signs of dehydration. negative: Purulent nasal drainage, Pharyngeal erythema, Oral lesions Neck: positive: Nml inspection, Thyroid nml, No JVD, Trachea midline. negative : Thyromegaly, Lymphadenopathy (R), Lymphadenopathy (L), Stiff neck, Swelling/ bruising, Tracheal deviation Respiratory: positive: Chest non-tender, No respiratory distress, Breath sounds nml. negative: Wheezes, Rales, Rhonchi Cardiovascular: positive: Regular rate & rhythm, No murmur, No gallop. negative : Irregularly irregular, Extrasystoles, Tachycardia, Bradycardia, JVD present, Systolic murmur, Diastolic murmur Peripheral Pulses: positive: 2+ Abdomen: positive: Non-tender, No organomegaly, Nml bowel sounds. negative: Tenderness, Guarding, Rebound Back: positive: Nml inspection. negative: CVA tenderness (R), CVA tenderness (L ) Skin: positive: Warm, Skin rash, Other (right lower extremity with erythema, swelling and some blast with clear drainage). negative: Cyanosis, Diaphoresis, Pallor Extremities: positive: Full ROM, Pedal edema. negative: Nadia's sign/cords Neurologic/Psychiatric: positive: Oriented x3, Motor nml, Sensation nml. negative: Weakness, Sensory loss, Facial droop, Slurred/abnml speech, Depressed mood/affect - LABS Result Diagrams: 05/31/18 05:39 05/31/18 05:39 - FOLLOW UP Follow Up: follow up Judith Gamez for advance care - TIME SPENT Time Spent in Discharge (Minutes): 55
== END 2018-05-31 13:45 | disposition short-term general hospital (02) | DRG 871 ==
LOC: EDUNIT# → ED 12:11 → SUPCPDRO 12:11 → MS2 14:47
PROVIDERS: ADMIT Nurse Practitioner Gerontology; ATTEND Nurse Practitioner Gerontology
DX: A41.9 Sepsis, unspecified organism (principal); N17.0 Acute kidney failure with tubular necrosis; L03.115 Cellulitis of right lower limb; Z68.41 Body mass index [BMI] 40.0-44.9, adult; Z72.0 Tobacco use; E66.01 Morbid (severe) obesity due to excess calories; G50.0 Trigeminal neuralgia; I27.20 Pulmonary hypertension, unspecified; R53.1 Weakness; N40.1 Benign prostatic hyperplasia with lower urinary tract symptoms; R35.1 Nocturia; I73.9 Peripheral vascular disease, unspecified
CPT/HCPCS: 36415; 70450; 71045; 80053; 80156; 80202; 81001; 81003; 83036; 83540; 83605; 83690; 83735; 83880; 84466; 85025; 85651; 86140; 87040; 87086; 93306; 93925; 93970; 93975; 96365; 99284; 99285

== ENCOUNTER 2019-09-06 08:16 | Outpatient (CLI) | payer OTHER | END 2019-09-06 08:17 | disposition critical access hospital (66) | LOC: EMS 08:16 | PROVIDERS: ATTEND Surgery | DX: R53.1 Weakness (principal); R42 Dizziness and giddiness | CPT/HCPCS: A0425; A0427 ==

== ENCOUNTER 2019-09-06 08:39 | Inpatient (IN) | payer OTHER ==
--- NOTE | 2019-09-06 08:27 | ED Physician Documentation ---
History of Present Illness - Stated complaint Stated Complaint: WEAKNESS - Additonal information Additional information: This is a 64-year-old male with a history of venous insufficiency, past cellulitis, who presents with weakness. Patient states that he is felt weak in his legs since yesterday, an episode where he fell to his knees when he felt like his legs just gave out on him. Last night he had shakes for about an hour before he went to sleep. He has not measured a temperature on himself. He denies pain or burning with urination, cough,Abdominal pain, or vomiting. No diarrhea. EMS was called and found him to be afebrile, he did have positive orthostasis with a 30 point drop in his systolic blood pressure from laying to sitting. Patient denies chest pain or shortness of breath. Glucose is 140 for EMS. Patient is complaining of mild achiness in his left leg. He denies pain in his right leg. He did have a venous bypass done on the right leg, he states that his recent ultrasound showed patent flow. He states he also has some erythema on the right leg From venous insufficiency. Review of Systems Constitutional: reports: Chills Nose: denies: Rhinorrhea / runny nose Cardiac: denies: Chest pain / pressure Respiratory: denies: Cough GI: denies: Abdominal Pain : denies: Dysuria Skin: reports: Rash Neurologic: reports: Generalized weakness PD PAST MEDICAL HISTORY - Past Medical History Cardiovascular: Hypertension, Peripheral Vascular Disease - Past Surgical History Other past surgical history: Venous bypass on right leg - Present Medications Home Medications: Ambulatory Orders Medication Instructions Recorded Confirmed Ibuprofen [Advil] 400 mg PO DAILY 05/25/18 06/29/18 carBAMazepine [Carbamazepine ER] 400 mg PO BID 05/25/18 06/29/18 Aspirin 81 mg PO DAILY 06/29/18 06/29/18 Atorvastatin [Lipitor] 40 mg PO DAILY 06/29/18 06/29/18 Tamsulosin HCl [Flomax] 0.4 mg PO DAILY 06/29/18 06/29/18 - Allergies Allergies/Adverse Reactions: Allergies Allergy/AdvReac Type Severity Reaction Status Date / Time No Known Drug Allergies Allergy Verified 09/06/19 08:55 PD ED PE NORMAL - Vitals Vital signs reviewed: Yes - General General: Alert and oriented X 3, No acute distress - HEENT HEENT: PERRL - Neck Neck: Supple, no meningeal sign - Cardiac Cardiac: Other (Borderline tachycardia rate 98 on my exam, regular rhythm) - Respiratory Respiratory: No respiratory distress, Clear bilaterally - Abdomen Abdomen: Soft, Non tender, Non distended, Other (Rotund) - Male Male : Other (Penis is circumcised, normal in appearance, no lesions. In the inguinal crease there is mild erythema consistent with Danay) - Derm Derm: Warm and dry - Extremities Extremities: Other (Bilateral lower extremities are edematous, on the right lower leg there is erythema extending from the level of the ankle to the upper kaur, this is warm to the touch. There is a slight abrasion over the right knee.) - Neuro Neuro: Alert and oriented X 3 - Psych Psych: Normal mood, Normal affect Results - Vitals Vitals: Vital Signs - 24 hr 09/06/19 09/06/19 09/06/19 08:43 10:30 13:01 Temperature 37.0 C Heart Rate 97 99 103 H Respiratory 17 16 21 Rate Blood Pressure 177/95 H 164/95 H 148/83 H O2 Saturation 97 98 97 09/06/19 13:22 Temperature Heart Rate 96 Respiratory 23 Rate Blood Pressure 170/66 H O2 Saturation 97 Oxygen O2 Source Room air - EKG (time done) 8:45 Other comments: Other comments (Rate 96, rhythm sinus, there is borderline right axis deviation. There is no ST segment elevation or depression. QTc 422.) - Labs Labs: Laboratory Tests 09/06/19 09/06/19 09/06/19 09:17 11:03 11:03 WBC 15.4 H RBC 4.66 L Hgb 13.3 L Hct 41.9 L MCV 89.9 MCH 28.5 MCHC 31.7 L RDW 14.2 Plt Count 158 MPV 10.6 Neut # (Auto) Not Reportable Lymph # (Auto) Not Reportable Hoke # (Auto) Not Reportable Eos # (Auto) Not Reportable Baso # (Auto) Not Reportable Absolute Nucleated RBC Not Reportable Total Counted 100 Band Neuts % (Manual) 25 H Abnorm Lymph % (Manual) 0 Nucleated RBC % Not Reportable Neutrophils # (Manual) 14.8 H Lymphocytes # (Manual) 0.0 L Monocytes # (Manual) 0.6 Eosinophils # (Manual) 0.0 Basophils # (Manual) 0.0 Differential Comment MANUAL DIFFERENTIAL Manual Slide Review Indicated WBC Morphology TOXIC VACUOLATION Platelet Estimate NORMAL (130-450,000) Platelet Morphology NORMAL APPEARANCE RBC Morph Micro Appear NORMAL APPEARANCE Sodium 135 Potassium 4.5 Chloride 101 Carbon Dioxide 25 Anion Gap 9.0 BUN 23 H Creatinine 1.1 Estimated GFR (MDRD) 67 L Glucose 139 H Lactic Acid Calcium 8.3 L Total Bilirubin 0.5 AST 40 ALT 56 Alkaline Phosphatase 87 Troponin I High Sens Total Protein 6.7 Albumin 3.7 Globulin 3.0 Albumin/Globulin Ratio 1.2 Lipase 21 L Urine Color YELLOW Urine Clarity CLEAR Urine pH 6.0 Ur Specific [place] 1.015 Urine Protein NEGATIVE Urine Glucose (UA) NEGATIVE Urine Ketones NEGATIVE Urine Occult Blood SMALL H Urine Nitrite NEGATIVE Urine Bilirubin NEGATIVE Urine Urobilinogen 0.2 (NORMAL) Ur Leukocyte Esterase NEGATIVE Urine RBC 0-5 Urine WBC 0-3 Ur Squamous Epith Cells RARE Squamous Urine Bacteria Rare Urine Culture Comments NOT INDICATED 09/06/19 09/06/19 11:03 11:03 WBC RBC Hgb Hct MCV MCH MCHC RDW Plt Count MPV Neut # (Auto) Lymph # (Auto) Hoke # (Auto) Eos # (Auto) Baso # (Auto) Absolute Nucleated RBC Total Counted Band Neuts % (Manual) Abnorm Lymph % (Manual) Nucleated RBC % Neutrophils # (Manual) Lymphocytes # (Manual) Monocytes # (Manual) Eosinophils # (Manual) Basophils # (Manual) Differential Comment Manual Slide Review WBC Morphology Platelet Estimate Platelet Morphology RBC Morph Micro Appear Sodium Potassium Chloride Carbon Dioxide Anion Gap BUN Creatinine Estimated GFR (MDRD) Glucose Lactic Acid 2.0 Calcium Total Bilirubin AST ALT Alkaline Phosphatase Troponin I High Sens 10.2 Total Protein Albumin Globulin Albumin/Globulin Ratio Lipase Urine Color Urine Clarity Urine pH Ur Specific [place] Urine Protein Urine Glucose (UA) Urine Ketones Urine Occult Blood Urine Nitrite Urine Bilirubin Urine Urobilinogen Ur Leukocyte Esterase Urine RBC Urine WBC Ur Squamous Epith Cells Urine Bacteria Urine Culture Comments - Rads (name of study) DVT US BL LE Radiology: Other (No evidence of DVT in the visualized bilateral lower extremities, though calf veins were poorly visualized) CXR Radiology: Other (No acute cardiopulmonary abnormality) PD MEDICAL DECISION MAKING - ED course Complexity details: considered differential (Cellulitis, UTI, electrolyte abnormality, ACS, dysrhythmia, pneumonia) ED course: On arrival patient is nontoxic-appearing, vital signs notable for tachycardia in triage, patient is afebrile. EKG reveals no convincing signs of ischemia or dysrhythmia. Patient was placed on the monitor, IV was inserted, labs were drawn. He was given a liter of crystalloid fluid. Labs are notable for a leukocytosis of greater than 15, lactate is normal. Troponin is negative. Patient denies chest pain or shortness of breath, I doubt cardiac cause for his weakness. Chest x-ray is unremarkable, and DVT scan of the lower extremities shows no DVT. Patient has impressive erythema of his right lower leg which is concerning for cellulitis. His and the patient states that he always has some redness of the leg, however it is hot to the touch, and the margins of erythema seem to have progressed while he has been here. This is the only obvious infectious source that I can see at this time. Urine negative for infection. He also sound like he may have had rigors last night, given he had an episode of intense shaking and chills. Abdomen is benign and non-painful. Blood cultures were drawn, and patient was started on vancomycin and ceftriaxone for his cellulitis with sepsis. He has no signs of septic shock. I discussed the results of her studies so far with the patient, and admitted to the hospital for further evaluation and treatment. Departure - Departure Disposition: 66 [facility] DC/Sandra Clinical Impression: Cellulitis, Sepsis Condition: Good
[2019-09-06] MEDS ORDERED: SODIUM CHLORIDE 0.9% 1,000 ML IV STA (08:53)
--- NOTE | 2019-09-06 09:31 | XRAY Report ---
Reason: Chest Pain Procedure Date: 09/06/2019 Accession Number: [id number] / [id number] Procedure: XR - Chest 1 View X-Ray CPT Code: 37901 Final Report FULL RESULT: EXAM: CHEST RADIOGRAPHY EXAM DATE: 09/06/2019 09:19 AM. CLINICAL HISTORY: Chest pain and weakness, status post trauma during a ground-level fall on the same date as this examination. COMPARISON: CHEST 1 VIEW 05/25/2018 12:46 PM. TECHNIQUE: 1 view. FINDINGS: Lungs/Pleura: No focal opacities evident. No pleural effusion. No pneumothorax. Mediastinum: The cardiac silhouette size is normal. Tortuous thoracic aorta. Other: None. IMPRESSION: No radiographic evidence of acute cardiopulmonary disease. RADIA
[2019-09-06 09:38] LABS: BILIRUBIN,URINE NEGATIVE (NEGATIVE); GLUCOSE, URINE (UA) NEGATIVE (NEGATIVE); KETONES,URINE (UA) NEGATIVE (NEGATIVE); LEUKOCYTE ESTERASE, URINE NEGATIVE (NEGATIVE); NITRITE,URINE NEGATIVE (NEGATIVE); OCCULT BLOOD,URINE SMALL (NEGATIVE); PROTEIN,URINE NEGATIVE (NEGATIVE); UROBILINOGEN,URINE 0.2 (NORMAL) E.U./dL (NORMAL)
[2019-09-06 09:45] LABS: CLARITY,URINE CLEAR (CLEAR)
[2019-09-06 10:01] LABS: BACTERIA,URINE Rare /HPF (None Seen); RBC,URINE 0-5 /HPF (0-5); SQUAMOUS EPITHELIAL CELL,UR RARE Squamous (<= Few)
--- NOTE | 2019-09-06 11:08 | Ultrasound Report ---
Reason: Left leg pain, Right leg redness and swelling Procedure Date: 09/06/2019 Accession Number: [id number] / [id number] Procedure: US - Duplex Ext Veins Bilateral CPT Code: Final Report FULL RESULT: EXAM: BILATERAL LOWER EXTREMITY VENOUS ULTRASOUND EXAM DATE: 09/06/2019 10:35 AM. CLINICAL HISTORY: Left leg pain, Right leg redness and swelling. COMPARISON: DUPLEX EXT VEINS BILATERAL 05/26/2018 11:34 PM. TECHNIQUE: Real-time sonographic vascular imaging was performed by the lead recreation assistant through the lower extremities utilizing both color-flow and Doppler spectral analysis. Multiple security representative static images were saved for review. FINDINGS: Evaluation limited by patient body habitus and calf edema. Right: Common Femoral Vein (CFV): Normal. CFV-GSV Junction: Normal. Profunda Femoral Vein (PFV): Normal. Femoral Vein (FV) Prox: Normal. Femoral Vein (FV) Mid: Normal. Femoral Vein (FV) Dist: Normal. Popliteal Vein: Normal. Posterior Tibial Veins: Not visualized. Peroneal Veins: Not visualized. Left: Common Femoral Vein (CFV): Normal. CFV-GSV Junction: Normal. Profunda Femoral Vein (PFV): Normal. Femoral Vein (FV) Prox: Normal. Femoral Vein (FV) Mid: Normal. Femoral Vein (FV) Dist: Normal. Popliteal Vein: Normal. Posterior Tibial Veins: Not visualized. Peroneal Veins: Not visualized. Other: Subcutaneous edema. IMPRESSION: No evidence for deep venous thrombosis in the visualized bilateral lower extremities, although calf veins were again not able to be visualized. RADIA
[2019-09-06 11:10] LABS: BASOPHILS % (AUTO) 0.3 %; EOSINOPHILS % (AUTO) 0.8 %; HGB - HEMOGLOBIN 13.3 g/dL (14.0-18.0); LYMPHOCYTES % (AUTO) 4.5 %; MEAN CORPUSCULAR HEMOGLOBIN 28.5 pg (27.0-31.0); MEAN CORPUSCULAR HGB CONC 31.7 g/dL (32.0-36.0); MEAN CORPUSCULAR VOLUME 89.9 fL (80.0-94.0); MEAN PLATELET VOLUME 10.6 fL (7.4-11.4); MONOCYTES % (AUTO) 2.7 %; NEUTROPHILS % (AUTO) 91.1 %; PLT - PLATELET COUNT 158 10^3/uL (130-450); RED BLOOD COUNT 4.66 10^6/uL (4.70-6.10); RED CELL DISTRIBUTION WIDTH 14.2 % (12.0-15.0); WHITE BLOOD COUNT 15.4 x10^3/uL (4.8-10.8)
[2019-09-06 11:22] LABS: ALBUMIN 3.7 g/dL (3.2-5.5); ALBUMIN/GLOBULIN RATIO 1.2 (1.0-2.2); BILIRUBIN,TOTAL 0.5 mg/dL (0.2-1.0); CALCIUM 8.3 mg/dL (8.5-10.3); CREATININE 1.1 mg/dL (0.6-1.2); TOTAL PROTEIN 6.7 g/dL (6.7-8.2)
[2019-09-06 11:47] LABS: ABNORMAL LYMPHS % (MANUAL) 0 %; BAND NEUTROPHILS % (MANUAL) 25 %; LYMPHOCYTES % (MANUAL) 0 %; MONOCYTES # (MANUAL) 0.6 10^3/uL (0.0-1.0); PLATELET ESTIMATE, MANUAL NORMAL (130-450,000) (NORMAL); PLATELET MORPHOLOGY NORMAL APPEARANCE (NORMAL); RBC MORPHOLOGY (MULTIPLE) NORMAL APPEARANCE (NORMAL)
[2019-09-06 11:49] LABS: DIFFERENTIAL COMMENT MANUAL DIFFERENTIAL
[2019-09-06] MEDS ORDERED: cefTRIAXone 1 GM in SODIUM CHLORIDE 0.9% MINIBAG 100 ML IV STA (12:35)
[2019-09-06] MEDS ORDERED: VANCOMYCIN INJ 2 GM in SODIUM CHLORIDE 0.9% 500 ML IV STA (12:35)
--- NOTE | 2019-09-06 13:20 | XRAY Report ---
Reason: Redness, swelling Procedure Date: 09/06/2019 Accession Number: [id number] / [id number] Procedure: XR - Tib/Fib RT CPT Code: Final Report FULL RESULT: EXAM: RIGHT TIBIA/FIBULA RADIOGRAPHY EXAM DATE: 09/06/2019 12:55 PM. CLINICAL HISTORY: Redness, swelling. COMPARISON: None. TECHNIQUE: 2 views. FINDINGS: Bones: Normal. No fracture or bone lesion. Joints: Degenerative changes in the knee. Soft Tissues: Soft tissue swelling. IMPRESSION: 1. DJD knee. 2. No bony changes otherwise RADIA
[2019-09-06] MEDS ORDERED: SODIUM CHLORIDE FLUSH 0.9% 10 ML SYRINGE IVP PRN (13:21)
[2019-09-06] MEDS: HYDROcod/ACETAM 5/325 MG TABLET PO PRN ×2 (15:44→23:54)
[2019-09-06] MEDS: ceFAZolin 2 GM in SODIUM CHLORIDE 0.9% 100ML 100 ML IV SCH ×2 (15:47→21:11)
[2019-09-06] MEDS: SODIUM CHLORIDE FLUSH 0.9% 10 ML SYRINGE IVP SCH ×2 (16:04→23:55)
--- NOTE | 2019-09-06 20:31 | HISTORY & PHYSICAL EXAMINATION ---
DATE OF SERVICE: 09/06/2019 Physician: Mirna Rivers MD HISTORY OF PRESENT ILLNESS: This is a 64-year-old white male with a history of morbid obesity, venous insufficiency, past cellulitis with complications of acute kidney failure then, requiring transfer to a hospital with a higher level of care last year. He has a history of BPH and had venous bypass of the right leg per records. The patient states that he developed redness and warmth of the right kaur that developed over the previous 24 hours and that his legs felt weak, which were the same symptoms that he had when he had his last cellulitis in 2018. He was so weak that he fell to his knees when he felt that his legs gave out on him. He also remembers having shaking chills for about an hour last night. He denies any cardiopulmonary symptoms. He called an ambulance and was found to have a brief drop in systolic blood pressure and exam showed redness, swelling and warmth of his right kaur, which was worse over the time he was being monitored even in the ER. He was started on iv fluids, had blood cultures drawn and was given iv Vanco and iv Ceftriaxone. He is being admitted for sepsis with tachycardia, elevated white count, and cellulitis as the source. PAST MEDICAL HISTORY: Morbid obesity, venous insufficiency, venous bypass of the right leg, BPH. ALLERGIES: NONE. MEDICATIONS: 1. Carbamazepine 400 mg b.i.d. 2. Motrin 400 mg daily and p.r.n. pain. 4. Aspirin 81 mg daily. 5. Lipitor 40 mg daily. 6. Flomax 0.4 mg daily. FAMILY HISTORY: Father had heart disease. He has a half-brother who is elderly but he does not know his history. No other inherited diseases. SOCIAL HISTORY: He is a smoker of 3-4 cigars per day, drinks 0-4 alcoholic drinks per day. No illicit drug use. He lives with his . REVIEW OF SYSTEMS: A comprehensive review of systems was performed and the pertinent positives are listed; the rest are negative. PHYSICAL EXAMINATION: GENERAL: Morbidly obese white male. He has a BMI of 42. He is in no distress, sitting upright in bed. VITAL SIGNS: Blood pressure 150/80, heart rate 103 in sinus rhythm. He has a low-grade fever of 37.6, room air saturation 96%. HEENT: Unremarkable except for male-pattern baldness. NECK: Obese. I cannot rule out JVD. LUNGS: Clear at the anterior bases. HEART: Normal heart sounds, no murmurs. ABDOMEN: Obese with a pannus. EXTREMITIES: Show 1+ edema of the left leg, 2+ edema of the right leg, both edematous up to the knees. There is redness and warmth of the right kaur and calf, the border has been marked. NEUROLOGIC: Grossly intact. LABORATORY DATA: Normal electrolytes, BUN 23, creatinine 1.1, glucose 139. Lactic acid 2.0. Normal liver tests. Normal troponin, high sensitivity, normal lipase. White blood count 15.4 with 25% bands. Hemoglobin 13.3, platelet count normal at 158. Urinalysis unremarkable. CHEST X-RAY: No active pulmonary disease. Venous Doppler of both legs was done and showed no evidence of DVT. There was also a lower extremity X-ray of the right leg that showed DJD and no other bony changes. EKG: Sinus rhythm, rate of 96, vertical axis, early repolarization. There is no old EKG available for comparison. IMPRESSION/DIAGNOSES 1. Sepsis, with elevated white count and left shift, tachycardia and infection source appears to be his leg. 2. Cellulitis of right lower extremity 3. Chronic venous insufficiency 4. Morbid obesity with BMI 42 5. Elevated glucose, evaluate for possible diabetes given his large body habitus. 6. BPH PLAN: Admit the patient to a Med/Surg bed on telemetry. Begin IV antibiotics using Cefazolin, after blood cultures have been drawn, which was done in the ER. He also received a dose of IV vancomycin and IV ceftriaxone in the ER already. Obtain an A1c blood test. Follow his CBC. Continue with medications for pain control and his BPH. DEEP VENOUS THROMBOSIS PROPHYLAXIS: Pharmacotherapy. CODE STATUS: FULL CODE. ATTESTATION: The patient is expected to be discharged or transferred to another facility within 96 hours: Yes. TD: 09/06/2019 20:02 JORGE ALBERTO
[2019-09-06] MEDS: HEPARIN 5,000 UNIT/ML VIAL SUBQ SCH (21:13)
[2019-09-06] MEDS ORDERED: ACETAMINOPHEN 325 MG TABLET PO PRN (21:36)
[2019-09-07] MEDS: HYDROcod/ACETAM 5/325 MG TABLET PO PRN ×4 (05:17→22:32)
[2019-09-07] MEDS: ceFAZolin 2 GM in SODIUM CHLORIDE 0.9% 100ML 100 ML IV SCH ×3 (05:22→22:29)
[2019-09-07] MEDS: SODIUM CHLORIDE FLUSH 0.9% 10 ML SYRINGE IVP SCH ×2 (05:22→22:33)
[2019-09-07 05:45] LABS: BASOPHILS % (AUTO) 0.3 %; EOSINOPHILS # (AUTO) 0.1 10^3/uL (0.0-0.7); EOSINOPHILS % (AUTO) 1.1 %; LYMPHOCYTES # (AUTO) 1.4 10^3/uL (1.5-3.5); LYMPHOCYTES % (AUTO) 12.7 %; MEAN CORPUSCULAR HEMOGLOBIN 29.5 pg (27.0-31.0); MEAN CORPUSCULAR HGB CONC 32.8 g/dL (32.0-36.0); MEAN PLATELET VOLUME 11.4 fL (7.4-11.4); MONOCYTES # (AUTO) 0.3 10^3/uL (0.0-1.0); MONOCYTES % (AUTO) 2.3 %; NEUTROPHILS # (AUTO) 9.4 10^3/uL (1.5-6.6); NEUTROPHILS % (AUTO) 82.6 %; PLT - PLATELET COUNT 125 10^3/uL (130-450); RED CELL DISTRIBUTION WIDTH 14.2 % (12.0-15.0); WHITE BLOOD COUNT 11.4 x10^3/uL (4.8-10.8)
[2019-09-07 05:53] LABS: CALCIUM 8.3 mg/dL (8.5-10.3); MAGNESIUM 1.9 mg/dL (1.7-2.8)
[2019-09-07] MEDS: HEPARIN 5,000 UNIT/ML VIAL SUBQ SCH ×2 (08:40→20:11)
[2019-09-07] MEDS ORDERED: VANCOMYCIN PER PHARMACY 1 GM in SODIUM CHLORIDE 0.9% 250 ML IV SCH (11:00)
[2019-09-07] MEDS: ASPIRIN CHEW 81 MG TABLET PO SCH (11:49)
--- NOTE | 2019-09-07 12:07 | PROVIDER PROGRESS NOTE ---
Assessment/Plan - Problem List (1) Cellulitis Qualifiers: Site of cellulitis: extremity Site of cellulitis of extremity: lower extremity Laterality: right Qualified Code(s): L03.115 - Cellulitis of right lower limb Assessment/Plan: (1) Cellulitis on left leg pt report he feet better in swelling and erythema today in his left leg, WBC is down to 11.4 from 15. pt denies pain on left leg. pt had lower degree fever on last night at 38.1 tem. order US to r/o clots continue ancef antibiotics pt had hx of acute renal failure in last admission, will be caution to use vancomycin. pt is came from home. will closely monitor pt if need linezolid for inpt continue lab and vital monitor (2) Weakness generalized pt complain of weakness on bilateral leg. order PT/OT, Pt was prescribed tall bariatric walker in last admission. (3) hx PAD (peripheral artery disease) stable. pt had hx of Duplex of right lower extremity reveals significant stenosis. (4) Morbid obesity pt is advised loss of weight (5) Trigeminal neuralgia stable, no more pain at hospital course, resume home meds carbamazepine. The serum concentration of carbamazepine is checked and in the normal arrange. (6) Benign prostatic hyperplasia with nocturia stable. continue Flomax (7) Hx of acute renal injury now his creatinine is 1.0 normal continue hydration and lab monitor - Current Meds Current Meds: Current Medications Generic Name Dose Route Start Last Admin Trade Name Freq PRN Reason Stop Dose Admin Acetaminophen 650 mg 09/06/19 21:36 09/06/19 22:47 Tylenol PO 650 mg Q4HR PRN Administration Pain or Fever > 38C (100.4F) Hydrocodone Bitart/Acetaminophen 1 tab 09/06/19 13:21 09/07/19 11:48 [place] 5/325 PO 1 tab Q4HR PRN Administration Pain 5 to 7 Aspirin 81 mg 09/07/19 11:00 09/07/19 11:49 [facility] [place] Aspirin PO 81 mg DAILY NAIF Administration Heparin Sodium (Porcine) 5,000 unit 09/06/19 21:00 09/07/19 08:40 SUBQ 5,000 unit BID NAIF Administration Cefazolin Sodium 2 gm/ Sodium 100 mls @ 200 mls/hr 09/06/19 14:00 09/07/19 06:21 Chloride IV Infused Q8H NAIF Infusion Sodium Chloride 10 ml 09/06/19 13:21 09/06/19 15:04 Normal Saline Flush 0.9% IVP 10 ml PRN PRN Administration NEEDED PER PROVIDER ORDERS Sodium Chloride 10 ml 09/06/19 17:00 09/07/19 05:22 Normal Saline Flush 0.9% IVP 10 ml 0100,0900,1700 NAIF Administration - Lab Result Fish Bone Diagrams: 09/07/19 05:34 09/07/19 05:34 - Additional Planning My Orders: My Active Orders 09/07/19 A1C [CHEM] Routine CARBAMAZEPINE (TEGRETOL) [CHEM] Routine Evaluate and Treat OT [OT] Routine Evaluate and Treat PT [PT] Routine 09/07/19 10:26 Duplex Ext Veins Right [US] Routine 09/07/19 11:00 Aspirin Chewable [[facility] [place] Aspirin] 81 mg PO DAILY 09/07/19 12:00 carBAMazepine ER [TEGretol XR] 200 mg PO BID 09/07/19 16:00 CBC - COMP BLD CT W/AUTO DIFF [HEME] Timed 09/07/19 21:00 Tamsulosin [Flomax] 0.4 mg PO QPM Subjective - Subjective Patient Reports: Feeling Better Objective Vital Signs: Vital Signs - 24 hr 09/06/19 09/06/19 09/06/19 13:01 13:22 14:10 Temperature 37.6 C H Heart Rate 103 H 96 Heart Rate [ 98 Radial] Respiratory 21 23 22 Rate Blood Pressure 148/83 H 170/66 H Blood Pressure 152/87 H [Left Brachial artery] Blood Pressure [Right Brachial artery] O2 Saturation 97 97 96 09/06/19 09/06/19 09/06/19 17:30 21:22 23:58 Temperature 37.5 C 38.1 C H 37.5 C Heart Rate Heart Rate [ 108 H 95 Radial] Respiratory 22 18 Rate Blood Pressure Blood Pressure 158/82 H [Left Brachial artery] Blood Pressure 129/69 [Right Brachial artery] O2 Saturation 95 09/07/19 09/07/19 05:00 08:00 Temperature 37.1 C 36.8 C Heart Rate Heart Rate [ 90 98 Radial] Respiratory 20 16 Rate Blood Pressure Blood Pressure [Left Brachial artery] Blood Pressure 156/106 H 128/52 L [Right Brachial artery] O2 Saturation 96 93 Oxygen O2 Source Room air I&O (Last 24 Hrs): Intake and Output Totals x24h 09/05/19 09/06/19 09/07/19 23:59 23:59 23:59 Intake Total 2150 1456 Output Total 900 Balance 2150 556 General: Alert, Oriented x3, No acute distress HEENT: Atraumatic Neck: Supple Lymphatic: no adenopathy Neuro: Alert, Non Focal, Oriented Times 3 Cardiovascular: Regular rate, Normal S1, Normal S2 Respiratory: Chest non-tender, No respiratory distress, Breath sounds nml Abdomen: Normal bowel sounds, Soft - Results Results: Laboratory Results WBC 11.4 x10^3/uL (4.8-10.8) H 09/07/19 05:34 RBC 4.40 10^6/uL (4.70-6.10) L 09/07/19 05:34 Hgb 13.0 g/dL (14.0-18.0) L 09/07/19 05:34 Hct 39.6 % (42.0-52.0) L 09/07/19 05:34 MCV 90.0 fL (80.0-94.0) 09/07/19 05:34 MCH 29.5 pg (27.0-31.0) 09/07/19 05:34 MCHC 32.8 g/dL (32.0-36.0) 09/07/19 05:34 RDW 14.2 % (12.0-15.0) 09/07/19 05:34 Plt Count 125 10^3/uL (130-450) L 09/07/19 05:34 MPV 11.4 fL (7.4-11.4) 09/07/19 05:34 Neut # (Auto) 9.4 10^3/uL (1.5-6.6) H 09/07/19 05:34 Lymph # (Auto) 1.4 10^3/uL (1.5-3.5) L 09/07/19 05:34 [place] # (Auto) 0.3 10^3/uL (0.0-1.0) 09/07/19 05:34 Eos # (Auto) 0.1 10^3/uL (0.0-0.7) 09/07/19 05:34 Baso # (Auto) 0.0 10^3/uL (0.0-0.1) 09/07/19 05:34 Absolute Nucleated RBC 0.00 x10^3/uL 09/07/19 05:34 Total Counted 100 09/06/19 11:03 Band Neuts % (Manual) 25 % (0-10) H 09/06/19 11:03 Abnorm Lymph % (Manual) 0 % 09/06/19 11:03 Nucleated RBC % 0.0 /100WBC 09/07/19 05:34 Neutrophils # (Manual) 14.8 10^3/uL (1.5-6.6) H 09/06/19 11:03 Lymphocytes # (Manual) 0.0 10^3/uL (1.5-3.5) L 09/06/19 11:03 Monocytes # (Manual) 0.6 10^3/uL (0.0-1.0) 09/06/19 11:03 Eosinophils # (Manual) 0.0 10^3/uL (0-0.7) 09/06/19 11:03 Basophils # (Manual) 0.0 10^3/uL (0-0.1) 09/06/19 11:03 Differential Comment MANUAL DIFFERENTIAL 09/06/19 11:03 Manual Slide Review Indicated 09/06/19 11:03 WBC Morphology TOXIC VACUOLATION (NORMAL) 09/06/19 11:03 Platelet Estimate NORMAL (130-450,000) (NORMAL) 09/06/19 11:03 Platelet Morphology NORMAL APPEARANCE (NORMAL) 09/06/19 11:03 RBC Morph Micro Appear NORMAL APPEARANCE (NORMAL) 09/06/19 11:03 Sodium 134 mmol/L (135-145) L 09/07/19 05:34 Potassium 3.7 mmol/L (3.5-5.0) 09/07/19 05:34 Chloride 102 mmol/L (101-111) 09/07/19 05:34 Carbon Dioxide 24 mmol/L (21-32) 09/07/19 05:34 Anion Gap 8.0 (6-13) 09/07/19 05:34 BUN 19 mg/dL (6-20) 09/07/19 05:34 Creatinine 1.0 mg/dL (0.6-1.2) 09/07/19 05:34 Estimated GFR (MDRD) 75 (>89) L 09/07/19 05:34 Glucose 126 mg/dL (70-100) H 09/07/19 05:34 Lactic Acid 2.0 mmol/L (0.5-2.2) 09/06/19 11:03 Calcium 8.3 mg/dL (8.5-10.3) L 09/07/19 05:34 Magnesium 1.9 mg/dL (1.7-2.8) 09/07/19 05:34 Total Bilirubin 0.5 mg/dL (0.2-1.0) 09/06/19 11:03 AST 40 IU/L (10-42) 09/06/19 11:03 ALT 56 IU/L (10-60) 09/06/19 11:03 Alkaline Phosphatase 87 IU/L (42-121) 09/06/19 11:03 Troponin I High Sens 10.2 ng/L (2.3-19.7) 09/06/19 11:03 Total Protein 6.7 g/dL (6.7-8.2) 09/06/19 11:03 Albumin 3.7 g/dL (3.2-5.5) 09/06/19 11:03 Globulin 3.0 g/dL (2.1-4.2) 09/06/19 11:03 Albumin/Globulin Ratio 1.2 (1.0-2.2) 09/06/19 11:03 Lipase 21 U/L (22-51) L 09/06/19 11:03 Urine Color YELLOW 09/06/19 09:17 Urine Clarity CLEAR (CLEAR) 09/06/19 09:17 Urine pH 6.0 PH (5.0-7.5) 09/06/19 09:17 Ur Specific [place] 1.015 (1.002-1.030) 09/06/19 09:17 Urine Protein NEGATIVE mg/dL (NEGATIVE) 09/06/19 09:17 Urine Glucose (UA) NEGATIVE mg/dL (NEGATIVE) 09/06/19 09:17 Urine Ketones NEGATIVE mg/dL (NEGATIVE) 09/06/19 09:17 Urine Occult Blood SMALL (NEGATIVE) H 09/06/19 09:17 Urine Nitrite NEGATIVE (NEGATIVE) 09/06/19 09:17 Urine Bilirubin NEGATIVE (NEGATIVE) 09/06/19 09:17 Urine Urobilinogen 0.2 (NORMAL) E.U./dL (NORMAL) 09/06/19 09:17 Ur Leukocyte Esterase NEGATIVE (NEGATIVE) 09/06/19 09:17 Urine RBC 0-5 /HPF (0-5) 09/06/19 09:17 Urine WBC 0-3 /HPF (0-3) 09/06/19 09:17 Ur Squamous Epith Cells RARE Squamous (<= Few) 09/06/19 09:17 Urine Bacteria Rare /HPF (None Seen) 09/06/19 09:17 Urine Culture Comments NOT INDICATED 09/06/19 09:17 Sepsis Event Note (H) - Evaluation Current Stage of Sepsis: Ruled out ABX Reporting Has patient been on IV antibiotics over the past 48 hours?: Yes Current Medications - Current Medications Current Medications: Active Medications Acetaminophen (Tylenol) 650 mg PO Q4HR PRN PRN Reason: Pain or Fever > 38C (100.4F) Last Admin: 09/06/19 22:47 Dose: 650 mg Hydrocodone Bitart/Acetaminophen ([place] 5/325) 1 tab PO Q4HR PRN PRN Reason: Pain 5 to 7 Last Admin: 09/07/19 11:48 Dose: 1 tab Aspirin ([facility] Aspirin) 81 mg PO DAILY [facility] Last Admin: 09/07/19 11:49 Dose: 81 mg Carbamazepine (Tegretol Xr) 200 mg PO BID [facility] Heparin Sodium (Porcine) () 5,000 unit SUBQ BID [facility] Last Admin: 09/07/19 08:40 Dose: 5,000 unit Cefazolin Sodium 2 gm/ Sodium (Chloride) 100 mls @ 200 mls/hr IV Q8H [facility] Last Infusion: 09/07/19 06:21 Dose: Infused Sodium Chloride (Normal Saline Flush 0.9%) 10 ml IVP PRN PRN PRN Reason: NEEDED PER PROVIDER ORDERS Last Admin: 09/06/19 15:04 Dose: 10 ml Sodium Chloride (Normal Saline Flush 0.9%) 10 ml IVP 0100,0900,1700 [facility] Last Admin: 09/07/19 05:22 Dose: 10 ml Tamsulosin HCl (Flomax) 0.4 mg PO QPM [facility] Ibuprofen [Advil] 400 mg PO DAILY 05/25/18 carBAMazepine [Carbamazepine ER] 400 mg PO BID 05/25/18 Aspirin 81 mg PO DAILY 06/29/18 Tamsulosin HCl [Flomax] 0.4 mg PO QPM 06/29/18 Atorvastatin Calcium 40 mg PO QPM 09/07/19
[2019-09-07 12:38] LABS: CARBAMAZEPINE (TEGRETOL) 3.7 ug/mL
[2019-09-07] MEDS: carBAMazepine ER 200 MG TABLET PO SCH ×2 (13:24→20:12)
[2019-09-07 14:08] LABS: HB2 TOTAL 13.7 g/dL; HEMOGLOBIN A1C 0.57 g/dL
[2019-09-07 16:10] LABS: BASOPHILS % (AUTO) 0.3 %; EOSINOPHILS % (AUTO) 0.1 %; HGB - HEMOGLOBIN 11.8 g/dL (14.0-18.0); LYMPHOCYTES # (AUTO) 1.2 10^3/uL (1.5-3.5); LYMPHOCYTES % (AUTO) 11.8 %; MEAN CORPUSCULAR HEMOGLOBIN 28.5 pg (27.0-31.0); MEAN CORPUSCULAR HGB CONC 31.9 g/dL (32.0-36.0); MEAN CORPUSCULAR VOLUME 89.4 fL (80.0-94.0); MEAN PLATELET VOLUME 10.7 fL (7.4-11.4); MONOCYTES # (AUTO) 0.7 10^3/uL (0.0-1.0); MONOCYTES % (AUTO) 6.8 %; NEUTROPHILS # (AUTO) 8.2 10^3/uL (1.5-6.6); NEUTROPHILS % (AUTO) 80.5 %; PLT - PLATELET COUNT 130 10^3/uL (130-450); RED BLOOD COUNT 4.14 10^6/uL (4.70-6.10); RED CELL DISTRIBUTION WIDTH 14.4 % (12.0-15.0); WHITE BLOOD COUNT 10.2 x10^3/uL (4.8-10.8)
--- NOTE | 2019-09-07 19:25 | Ultrasound Report ---
Reason: redness, swelling, DVT? Procedure Date: 09/07/2019 Accession Number: [id number] / [id number] Procedure: US - Duplex Ext Veins Right CPT Code: Final Report FULL RESULT: EXAM: RIGHT LOWER EXTREMITY VENOUS ULTRASOUND EXAM DATE: 09/07/2019 05:09 PM. CLINICAL HISTORY: Redness, swelling, DVT?. COMPARISON: None. TECHNIQUE: Real-time sonographic vascular imaging was performed by the [place] man through the lower extremity utilizing both color-flow and Doppler spectral analysis. Multiple field marketing representative static images were saved for review. FINDINGS: Common Femoral Vein (CFV): Normal. CFV-GSV Junction: Normal. Profunda Femoral Vein (PFV): Normal. Femoral Vein (FV) Prox: Normal. Femoral Vein (FV) Mid: Normal. Femoral Vein (FV) Dist: Normal. Popliteal Vein: Normal. Posterior Tibial Veins: Normal. Peroneal Veins: Normal. Other: None. IMPRESSION: No evidence for deep venous thrombosis. RADIA
[2019-09-07] MEDS: TAMSULOSIN 0.4 MG CAPSULE PO SCH (20:12)
[2019-09-08] MEDS: SODIUM CHLORIDE FLUSH 0.9% 10 ML SYRINGE IVP SCH ×4 (01:00→23:57)
[2019-09-08] MEDS ORDERED: SODIUM CHLORIDE FLUSH 0.9% 10 ML SYRINGE ONE (04:37)
[2019-09-08] MEDS: HYDROcod/ACETAM 5/325 MG TABLET PO PRN ×3 (04:41→19:14)
[2019-09-08 05:29] LABS: BASOPHILS % (AUTO) 0.4 %; EOSINOPHILS # (AUTO) 0.1 10^3/uL (0.0-0.7); EOSINOPHILS % (AUTO) 1.1 %; HGB - HEMOGLOBIN 11.7 g/dL (14.0-18.0); LYMPHOCYTES # (AUTO) 1.4 10^3/uL (1.5-3.5); LYMPHOCYTES % (AUTO) 18.3 %; MEAN CORPUSCULAR HEMOGLOBIN 29.3 pg (27.0-31.0); MEAN CORPUSCULAR HGB CONC 32.7 g/dL (32.0-36.0); MEAN CORPUSCULAR VOLUME 89.5 fL (80.0-94.0); MEAN PLATELET VOLUME 11.4 fL (7.4-11.4); MONOCYTES # (AUTO) 0.6 10^3/uL (0.0-1.0); NEUTROPHILS # (AUTO) 5.7 10^3/uL (1.5-6.6); NEUTROPHILS % (AUTO) 72.4 %; PLT - PLATELET COUNT 121 10^3/uL (130-450); WHITE BLOOD COUNT 7.8 x10^3/uL (4.8-10.8)
[2019-09-08] MEDS: ceFAZolin 2 GM in SODIUM CHLORIDE 0.9% 100ML 100 ML IV SCH ×3 (05:38→21:33)
[2019-09-08 05:42] LABS: CALCIUM 8.4 mg/dL (8.5-10.3); CREATININE 0.9 mg/dL (0.6-1.2); MAGNESIUM 2.2 mg/dL (1.7-2.8)
[2019-09-08] MEDS: ASPIRIN CHEW 81 MG TABLET PO SCH (08:31)
[2019-09-08] MEDS: HEPARIN 5,000 UNIT/ML VIAL SUBQ SCH ×2 (08:31→21:35)
[2019-09-08] MEDS: carBAMazepine ER 200 MG TABLET PO SCH ×2 (08:31→21:33)
--- NOTE | 2019-09-08 11:42 | PROVIDER PROGRESS NOTE ---
Assessment/Plan - Problem List (1) Cellulitis Qualifiers: Site of cellulitis: extremity Site of cellulitis of extremity: lower extremity Laterality: right Qualified Code(s): L03.115 - Cellulitis of right lower limb Assessment/Plan: improved. erythema is reduced, swelling is reduced as well. it seems pt has methicillin-sensitive infection. Blood culture is nbf. continue ancef treatment, plan to d/c pt on tomorrow. (2) Weakness generalized PT/OT recommend to SNF for pt's significant weakness and fall risk. I discussed with pt about pt's d/c plan, pt decline to go to SNF, but willing to have home PT or out-pt PT. (3) hx PAD (peripheral artery disease) stable. pt had hx of Duplex of right lower extremity reveals significant stenosis. (4) Morbid obesity pt is advised loss of weight (5) Trigeminal neuralgia stable, no more pain at hospital course, resume home meds carbamazepine. The serum concentration of carbamazepine is checked and in the normal arrange. (6) Benign prostatic hyperplasia with nocturia stable. continue Flomax (7) Hx of acute renal injury stable and normal creatinine, pt has a good urination - Current Meds Current Meds: Current Medications Generic Name Dose Route Start Last Admin Trade Name Freq PRN Reason Stop Dose Admin Acetaminophen 650 mg 09/06/19 21:36 09/06/19 22:47 Tylenol PO 650 mg Q4HR PRN Administration Pain or Fever > 38C (100.4F) Hydrocodone Bitart/Acetaminophen 1 tab 09/06/19 13:21 09/08/19 04:41 [place] 5/325 PO 1 tab Q4HR PRN Administration Pain 5 to 7 Aspirin 81 mg 09/07/19 11:00 09/08/19 08:31 [facility] [place] Aspirin PO 81 mg DAILY NAIF Administration Carbamazepine 200 mg 09/07/19 12:00 09/08/19 08:31 Tegretol Xr PO Not Given BID NAIF Heparin Sodium (Porcine) 5,000 unit 09/06/19 21:00 09/08/19 08:31 SUBQ 5,000 unit BID NAIF Administration Cefazolin Sodium 2 gm/ Sodium 100 mls @ 200 mls/hr 09/06/19 14:00 09/08/19 06:08 Chloride IV Infused Q8H NAIF Infusion Sodium Chloride 10 ml 09/06/19 13:21 09/06/19 15:04 Normal Saline Flush 0.9% IVP 10 ml PRN PRN Administration NEEDED PER PROVIDER ORDERS Sodium Chloride 10 ml 09/06/19 17:00 09/08/19 05:39 Normal Saline Flush 0.9% IVP 10 ml 0100,0900,1700 NAIF Administration Tamsulosin HCl 0.4 mg 09/07/19 21:00 09/07/19 20:12 Flomax PO 0.4 mg QPM NAIF Administration - Lab Result Fish Bone Diagrams: 09/08/19 05:10 09/08/19 05:10 - Additional Planning My Orders: My Active Orders 09/07/19 11:00 Aspirin Chewable [[facility] [place] Aspirin] 81 mg PO DAILY 09/07/19 12:00 carBAMazepine ER [TEGretol XR] 200 mg PO BID 09/07/19 21:00 Tamsulosin [Flomax] 0.4 mg PO QPM 09/08/19 10:29 Nutrition Consult [CONS] Routine Subjective - Subjective Patient Reports: Feeling Better Objective Vital Signs: Vital Signs - 24 hr 09/07/19 09/07/19 09/07/19 15:15 15:50 16:41 Temperature 37.1 C 37.1 C Heart Rate 76 Heart Rate [ 87 Activity] Heart Rate [ 76 Brachial] Respiratory 20 20 Rate Blood Pressure 109/65 [Activity] Blood Pressure 112/66 [Right Brachial artery] O2 Saturation 96 93 09/07/19 09/08/19 09/08/19 20:00 00:00 04:30 Temperature 37.4 C 37.0 C 36.7 C Heart Rate Heart Rate [ Activity] Heart Rate [ 85 89 90 Brachial] Respiratory 20 18 18 Rate Blood Pressure [Activity] Blood Pressure 121/72 132/84 H 136/88 H [Right Brachial artery] O2 Saturation 95 96 96 09/08/19 08:00 Temperature 37.4 C Heart Rate Heart Rate [ Activity] Heart Rate [ 88 Brachial] Respiratory 22 Rate Blood Pressure [Activity] Blood Pressure 114/67 [Right Brachial artery] O2 Saturation 95 Oxygen O2 Source Room air I&O (Last 24 Hrs): Intake and Output Totals x24h 09/06/19 09/07/19 09/08/19 23:59 23:59 23:59 Intake Total 2150 2376 900 Output Total 1425 1000 Balance 2150 951 -100 General: Alert, No acute distress HEENT: Atraumatic Neck: Supple, No thyromegaly Lymphatic: no adenopathy Neuro: Alert, Non Focal, Oriented Times 3 Cardiovascular: Regular rate, Normal S1, Normal S2 Respiratory: Chest non-tender, No respiratory distress, Breath sounds nml Abdomen: Normal bowel sounds, Soft - Results Results: Laboratory Results WBC 7.8 x10^3/uL (4.8-10.8) 09/08/19 05:10 RBC 4.00 10^6/uL (4.70-6.10) L 09/08/19 05:10 Hgb 11.7 g/dL (14.0-18.0) L 09/08/19 05:10 Hct 35.8 % (42.0-52.0) L 09/08/19 05:10 MCV 89.5 fL (80.0-94.0) 09/08/19 05:10 MCH 29.3 pg (27.0-31.0) 09/08/19 05:10 MCHC 32.7 g/dL (32.0-36.0) 09/08/19 05:10 RDW 14.0 % (12.0-15.0) 09/08/19 05:10 Plt Count 121 10^3/uL (130-450) L 09/08/19 05:10 MPV 11.4 fL (7.4-11.4) 09/08/19 05:10 Neut # (Auto) 5.7 10^3/uL (1.5-6.6) 09/08/19 05:10 Lymph # (Auto) 1.4 10^3/uL (1.5-3.5) L 09/08/19 05:10 [place] # (Auto) 0.6 10^3/uL (0.0-1.0) 09/08/19 05:10 Eos # (Auto) 0.1 10^3/uL (0.0-0.7) 09/08/19 05:10 Baso # (Auto) 0.0 10^3/uL (0.0-0.1) 09/08/19 05:10 Absolute Nucleated RBC 0.00 x10^3/uL 09/08/19 05:10 Total Counted 100 09/06/19 11:03 Band Neuts % (Manual) 25 % (0-10) H 09/06/19 11:03 Abnorm Lymph % (Manual) 0 % 09/06/19 11:03 Nucleated RBC % 0.0 /100WBC 09/08/19 05:10 Neutrophils # (Manual) 14.8 10^3/uL (1.5-6.6) H 09/06/19 11:03 Lymphocytes # (Manual) 0.0 10^3/uL (1.5-3.5) L 09/06/19 11:03 Monocytes # (Manual) 0.6 10^3/uL (0.0-1.0) 09/06/19 11:03 Eosinophils # (Manual) 0.0 10^3/uL (0-0.7) 09/06/19 11:03 Basophils # (Manual) 0.0 10^3/uL (0-0.1) 09/06/19 11:03 Differential Comment MANUAL DIFFERENTIAL 09/06/19 11:03 Manual Slide Review Indicated 09/06/19 11:03 WBC Morphology TOXIC VACUOLATION (NORMAL) 09/06/19 11:03 Platelet Estimate NORMAL (130-450,000) (NORMAL) 09/06/19 11:03 Platelet Morphology NORMAL APPEARANCE (NORMAL) 09/06/19 11:03 RBC Morph Micro Appear NORMAL APPEARANCE (NORMAL) 09/06/19 11:03 Sodium 139 mmol/L (135-145) 09/08/19 05:10 Potassium 3.6 mmol/L (3.5-5.0) 09/08/19 05:10 Chloride 107 mmol/L (101-111) 09/08/19 05:10 Carbon Dioxide 27 mmol/L (21-32) 09/08/19 05:10 Anion Gap 5.0 (6-13) L 09/08/19 05:10 BUN 15 mg/dL (6-20) 09/08/19 05:10 Creatinine 0.9 mg/dL (0.6-1.2) 09/08/19 05:10 Estimated GFR (MDRD) 85 (>89) L 09/08/19 05:10 Glucose 119 mg/dL (70-100) H 09/08/19 05:10 Glycated Hemoglobin 6.0 % (4.6-6.2) 09/07/19 11:55 Estim Average Glucose 126 (70-100) H 09/07/19 11:55 Lactic Acid 2.0 mmol/L (0.5-2.2) 09/06/19 11:03 Calcium 8.4 mg/dL (8.5-10.3) L 09/08/19 05:10 Magnesium 2.2 mg/dL (1.7-2.8) 09/08/19 05:10 Total Bilirubin 0.5 mg/dL (0.2-1.0) 09/06/19 11:03 AST 40 IU/L (10-42) 09/06/19 11:03 ALT 56 IU/L (10-60) 09/06/19 11:03 Alkaline Phosphatase 87 IU/L (42-121) 09/06/19 11:03 Troponin I High Sens 10.2 ng/L (2.3-19.7) 09/06/19 11:03 Total Protein 6.7 g/dL (6.7-8.2) 09/06/19 11:03 Albumin 3.7 g/dL (3.2-5.5) 09/06/19 11:03 Globulin 3.0 g/dL (2.1-4.2) 09/06/19 11:03 Albumin/Globulin Ratio 1.2 (1.0-2.2) 09/06/19 11:03 Lipase 21 U/L (22-51) L 09/06/19 11:03 Urine Color YELLOW 09/06/19 09:17 Urine Clarity CLEAR (CLEAR) 09/06/19 09:17 Urine pH 6.0 PH (5.0-7.5) 09/06/19 09:17 Ur Specific [place] 1.015 (1.002-1.030) 09/06/19 09:17 Urine Protein NEGATIVE mg/dL (NEGATIVE) 09/06/19 09:17 Urine Glucose (UA) NEGATIVE mg/dL (NEGATIVE) 09/06/19 09:17 Urine Ketones NEGATIVE mg/dL (NEGATIVE) 09/06/19 09:17 Urine Occult Blood SMALL (NEGATIVE) H 09/06/19 09:17 Urine Nitrite NEGATIVE (NEGATIVE) 09/06/19 09:17 Urine Bilirubin NEGATIVE (NEGATIVE) 09/06/19 09:17 Urine Urobilinogen 0.2 (NORMAL) E.U./dL (NORMAL) 09/06/19 09:17 Ur Leukocyte Esterase NEGATIVE (NEGATIVE) 09/06/19 09:17 Urine RBC 0-5 /HPF (0-5) 09/06/19 09:17 Urine WBC 0-3 /HPF (0-3) 09/06/19 09:17 Ur Squamous Epith Cells RARE Squamous (<= Few) 09/06/19 09:17 Urine Bacteria Rare /HPF (None Seen) 09/06/19 09:17 Urine Culture Comments NOT INDICATED 09/06/19 09:17 Last Dose Date 09/07/19 09/07/19 11:55 Last Dose Time 1200 09/07/19 11:55 Carbamazepine 3.7 ug/mL 09/07/19 11:55 Sepsis Event Note (H) - Evaluation Current Stage of Sepsis: Ruled out ABX Reporting Has patient been on IV antibiotics over the past 48 hours?: Yes Current Medications - Current Medications Current Medications: Active Medications Acetaminophen (Tylenol) 650 mg PO Q4HR PRN PRN Reason: Pain or Fever > 38C (100.4F) Last Admin: 09/06/19 22:47 Dose: 650 mg Hydrocodone Bitart/Acetaminophen ([place] 5/325) 1 tab PO Q4HR PRN PRN Reason: Pain 5 to 7 Last Admin: 09/08/19 04:41 Dose: 1 tab Aspirin ([facility] [place] Aspirin) 81 mg PO DAILY [facility] Last Admin: 09/08/19 08:31 Dose: 81 mg Carbamazepine (Tegretol Xr) 200 mg PO BID [facility] Last Admin: 09/08/19 08:31 Dose: Not Given Heparin Sodium (Porcine) () 5,000 unit SUBQ BID [facility] Last Admin: 09/08/19 08:31 Dose: 5,000 unit Cefazolin Sodium 2 gm/ Sodium (Chloride) 100 mls @ 200 mls/hr IV Q8H [facility] Last Infusion: 09/08/19 06:08 Dose: Infused Sodium Chloride (Normal Saline Flush 0.9%) 10 ml IVP PRN PRN PRN Reason: NEEDED PER PROVIDER ORDERS Last Admin: 09/06/19 15:04 Dose: 10 ml Sodium Chloride (Normal Saline Flush 0.9%) 10 ml IVP 0100,0900,1700 [facility] Last Admin: 09/08/19 05:39 Dose: 10 ml Tamsulosin HCl (Flomax) 0.4 mg PO QPM NAIF Last Admin: 09/07/19 20:12 Dose: 0.4 mg Ibuprofen [Advil] 600 mg PO DAILY PRN 05/25/18 carBAMazepine [Carbamazepine ER] 400 mg PO BID PRN 05/25/18
[2019-09-08] MEDS: SACCHAROMYCES BOULARDII 250 MG CAPSULE PO SCH ×2 (13:20→16:38)
[2019-09-08] MEDS: TAMSULOSIN 0.4 MG CAPSULE PO SCH (21:34)
[2019-09-08] MEDS ORDERED: diphenhydrAMINE 25 MG CAPSULE PO PRN (23:38)
[2019-09-09] MEDS: ceFAZolin 2 GM in SODIUM CHLORIDE 0.9% 100ML 100 ML IV SCH (05:38)
[2019-09-09 05:50] LABS: BASOPHILS % (AUTO) 0.3 %; EOSINOPHILS # (AUTO) 0.2 10^3/uL (0.0-0.7); EOSINOPHILS % (AUTO) 2.6 %; HGB - HEMOGLOBIN 11.6 g/dL (14.0-18.0); LYMPHOCYTES # (AUTO) 1.6 10^3/uL (1.5-3.5); LYMPHOCYTES % (AUTO) 24.1 %; MEAN CORPUSCULAR HEMOGLOBIN 29.6 pg (27.0-31.0); MEAN CORPUSCULAR VOLUME 89.8 fL (80.0-94.0); MEAN PLATELET VOLUME 11.2 fL (7.4-11.4); MONOCYTES # (AUTO) 0.6 10^3/uL (0.0-1.0); MONOCYTES % (AUTO) 9.6 %; NEUTROPHILS # (AUTO) 4.2 10^3/uL (1.5-6.6); NEUTROPHILS % (AUTO) 62.8 %; PLT - PLATELET COUNT 141 10^3/uL (130-450); RED BLOOD COUNT 3.92 10^6/uL (4.70-6.10); RED CELL DISTRIBUTION WIDTH 14.1 % (12.0-15.0); WHITE BLOOD COUNT 6.6 x10^3/uL (4.8-10.8)
[2019-09-09 05:56] LABS: CALCIUM 8.2 mg/dL (8.5-10.3); MAGNESIUM 2.1 mg/dL (1.7-2.8)
[2019-09-09 08:08] VITALS: BP 123/69
[2019-09-09] MEDS ORDERED: POLYETHYLENE GLYCOL 3350 17 GM PACKET PO SCH (09:00)
[2019-09-09] MEDS: HEPARIN 5,000 UNIT/ML VIAL SUBQ SCH (09:41)
[2019-09-09] MEDS: ASPIRIN CHEW 81 MG TABLET PO SCH (09:42)
[2019-09-09] MEDS: SACCHAROMYCES BOULARDII 250 MG CAPSULE PO SCH (09:42)
[2019-09-09] MEDS: carBAMazepine ER 200 MG TABLET PO SCH (09:42)
--- NOTE | 2019-09-09 11:00 | Discharge Plan ---
Discharge Plan Problem Reviewed?: Yes Disposition: Home, Self Care Condition: Good Prescriptions: cefUROXime axetil [Ceftin] 500 mg PO Q12H #10 tablet Diet: Regular Activity Restrictions: Activity as Tolerated Shower Restrictions: No (fall precaution) Instruction Topics: Cefuroxime tablets Health Concerns: cellulitis and bacteremia Plan of Treatment: you are prescribed antibiotics Ceftin to finish the treatment course. You right lower extremity cellulitis is significantly improved. you have no fever, chill. Your WBC is normal now. The erythema and swelling of your right lower extremity is significantly reduced. you ambulate well in the [place] without difficulty. you had doppler study on 05/2018 which revealed you had likely hemodynamically significant stenosis in the right posterior tibial artery. Advise you followup your PCP, vascular surgeon, and toolroom attendant to continue management of foot. Care Goals: stabilization and improvement of your medical condition Assessment: discussed with the care plan, answered your questions, advise your followup ap pointments. You agreed the care plan. Additional Instructions or Follow Up instructions: you may followup your PCP in one week, followup vascular surgeon, and toolroom attendant as out-pt to continue management of your foot. Should your symptoms return or worsen, you may present ER or call 911 for help. Follow-Up Care: Outpatient Rehab - PT No Smoking: If you smoke, Please STOP! Call for help. Follow-up with: VMASI ROCK MD [Primary Care Provider] -
--- NOTE | 2019-09-09 11:24 | DISCHARGE SUMMARY ---
Discharge Summary Admit Date: 09/07/19 Discharge Date: 09/09/19 Discharging Provider: DURAND Primary Care Provider: Addie Leblanc Condition at Discharge: Good Discharge Disposition: 01 Home, Self Care Discharge Facility Name: home - DIAGNOSES Admission Diagnoses: (1) Cellulitis (2) Weakness generalized (3) hx PAD (peripheral artery disease) (4) Morbid obesity (5) Trigeminal neuralgia (6) Benign prostatic hyperplasia with nocturia (7) Hx of acute renal injury Discharge Diagnoses with Status of Each Condition: 1) sepsis with right lower extremity of Cellulitis stable and improved. pt presented fever, elevated WBC and mild tachycardia in the admission. pt's right lower extremity cellulitis is significantly improved. Pt has no fe alirio, chill over 48 hours. Pt's WBC became normal now. The erythema and swelling of pt's right lower extremity is significantly reduced. pt ambulated well in the hillway without difficulty or pain. pt is prescribed antibiotics to finish the treatment course (2)bactermia stable. Pt' blood culture in one tube was found positive for gram staining positive cocci but without staph aureas. pt has no more fever over 48 hours. pt's WBC became normal. The erythema and swelling of pt's right lower extremity is significantly reduced. pt is prescribed antibiotics to finish the treatment course (3) Weakness generalized stable. pt ambulated in the hillway without difficulty. pt is advised to be followup by out-pt PT, which was recommended by today PT's evaluation. pt agreed the plan. pt declined to be d/c to SNF. (4) hx PAD (peripheral artery disease) stable. pt ambulated in the hillway without difficulty or pain. pt had doppler study on 05/2018 which revealed he had likely hemodynamically significant steno sis in the right posterior tibial artery. Advise pt followup his PCP, to have vascular surgeon, and material assistant as out-pt to continue management of foot. (5) Morbid obesity stable. advise pt lost of his weight. he agreed the plan (6) Trigeminal neuralgia stable, continue home meds (7) Benign prostatic hyperplasia with nocturia stable. pt decline Flomax meds to be prescribed to him (8) Hx of acute renal injury stable. - HPI History of Present Illness: pt is 64-yrs-old male with hx of right lower extremity cellulitis who was found to have recurrent right lower extremity cellulitis and weakness. pt reported he had recurrent cellulitis in his right lower extremity. his right lower extremity has been erythema and swelling for quite long time. pt was found to have elevated WBC, later pt was found to have lower degree of fever. pt also report he felt weak in his bilateral lower extremities. pt was admitted for right lower extremity cellulitis and weakness. - HOSPITAL COURSE Hospital Course: pt was admitted for right lower extremity cellulitis and weakness. pt report he has chronic erythema and swelling at right lower extremity for long time. pt was treated with antibiotics. pt's right lower extremity cellulitis is significantly improved. Pt has no fever, chill over 48 hours. Pt's WBC became normal now. The erythema and swelling of pt's right lower extremity is significantly reduced. pt ambulated in the hillway without difficulty. pt was treated and evaluated by PT. pt was recommended to have out-pt PT. The detail hospital course is as the below. 1) sepsis with right lower extremity of Cellulitis stable and improved. pt presented fever, elevated WBC and mild tachycardia in the admission. pt's right lower extremity cellulitis is significantly improved. Pt has no fever , chill over 48 hours. Pt's WBC became normal now. The erythema and swelling of pt's right lower extremity is significantly reduced. pt ambulated well in the hillway without difficulty. pt is prescribed antibiotics to finish the treatment course (2)bactermia stable. Pt' blood culture in one tube was found positive for gram staining positive cocci but without staph aureas. it was possible to have contamination in one tube. pt has no more fever over 48 hours. pt's WBC became normal. The erythema and swelling of pt's right lower extremity is significantly reduced. pt is prescribed antibiotics to finish the treatment course. (3) Weakness generalized stable. pt ambulated in the hillway without difficulty. pt is advised to be followup by out-pt PT, which was recommended by today PT's evaluation. pt agreed the plan. pt declined to be d/c to SNF. (4) hx PAD (peripheral artery disease) stable. pt ambulated in the hillway without difficulty. pt had doppler study on 05/2018 which revealed he had likely hemodynamically significant stenosis in the right posterior tibial artery. Advise pt followup his PCP, to have vascular surgeon, and material assistant to continue management of foot. (5) Morbid obesity stable. advise pt lost of his weight. he agreed the plan (6) Trigeminal neuralgia stable, continue home meds (7) Benign prostatic hyperplasia with nocturia stable. pt decline Flomax meds to be prescribed to him (8) Hx of acute renal injury stable. - ALLERGIES Allergies/Adverse Reactions: Allergies Allergy/AdvReac Type Severity Reaction Status Date / Time No Known Drug Allergies Allergy Verified 09/06/19 08:55 - MEDICATIONS Home Medications: Ambulatory Orders Medication Instructions Recorded Confirmed Ibuprofen [Advil] 600 mg PO DAILY PRN 05/25/18 09/07/19 carBAMazepine [Carbamazepine ER] 400 mg PO BID PRN 05/25/18 09/07/19 cefUROXime axetil [Ceftin] 500 mg PO Q12H #10 tablet 09/09/19 - PHYSICAL EXAM AT DISCHARGE General Appearance: positive: No acute distress, Alert. negative: Lethargic Eyes Bilateral: positive: Normal inspection, PERRL, EOMI, No lid inflammation ENT: positive: ENT inspection nml, Pharynx nml, No signs of dehydration. negative: Purulent nasal drainage Neck: positive: Nml inspection, Thyroid nml, No JVD, Trachea midline. negative: Thyromegaly, Lymphadenopathy (R), Lymphadenopathy (L), Stiff neck, Tracheal deviation Respiratory: positive: Chest non-tender, No respiratory distress, Breath sounds nml. negative: Wheezes, Rales, Rhonchi Cardiovascular: positive: Regular rate & rhythm, No murmur, No gallop. negative: Irregularly irregular, Extrasystoles, Tachycardia, Bradycardia, JVD present, Systolic murmur, Diastolic murmur Peripheral Pulses: positive: 2+ Abdomen: positive: Non-tender, No organomegaly, Nml bowel sounds. negative: Tenderness, Guarding, Rebound Back: positive: Nml inspection. negative: CVA tenderness (R), CVA tenderness (L) Skin: positive: Warm, Dry, Skin rash. negative: Cyanosis, Diaphoresis, Pallor Extremities: positive: Non-tender, Full ROM. negative: Calf tenderness, Nadia's sign/cords Neurologic/Psychiatric: positive: Oriented x3, Motor nml, Sensation nml, Mood/affect nml. negative: Weakness, Sensory loss, Facial droop, Slurred/abnml speech, Depressed mood/affect - LABS Result Diagrams: 09/09/19 05:25 09/09/19 05:25 - SEPSIS Current Stage of Sepsis: Ruled out - FOLLOW UP Follow Up: you are prescribed antibiotics Ceftin to finish the treatment course. You right lower extremity cellulitis is significantly improved. you have no fever, chill. Your WBC is normal now. The erythema and swelling of your right lower extremity is significantly reduced. you ambulate in the hillway without difficulty or pain. you had doppler study on 05/2018 which revealed you had likely hemodynamic ally significant stenosis in the right posterior tibial artery. Advise you followup your PCP, vascular surgeon, and material assistant as out-pt to continue management of foot. you may followup your PCP in one week, followup vascular surgeon, and material assistant as out-pt to continue management of your foot. Should your symptoms return or worsen, you may present ER or call 911 for help. - TIME SPENT Time Spent in Discharge (Minutes): 50
== END 2019-09-09 13:30 | disposition home or self-care (01) | DRG 872 ==
LOC: EDUNIT# → ED 08:39 → MS2 13:02 → UNDOADMIN 13:02 → UNDODISIN 09-09 13:30
PROVIDERS: ADMIT Internal Medicine; ATTEND Nurse Practitioner Gerontology
DX: A41.50 Gram-negative sepsis, unspecified (principal); Z68.41 Body mass index [BMI] 40.0-44.9, adult; L03.115 Cellulitis of right lower limb; I10 Essential (primary) hypertension; E66.01 Morbid (severe) obesity due to excess calories; R73.9 Hyperglycemia, unspecified; N40.1 Benign prostatic hyperplasia with lower urinary tract symptoms; R35.1 Nocturia; I70.201 Unspecified atherosclerosis of native arteries of extremities, right leg; G50.0 Trigeminal neuralgia; F17.290 Nicotine dependence, other tobacco product, uncomplicated; Z79.82 Long term (current) use of aspirin; Z98.62 Peripheral vascular angioplasty status; Z87.448 Personal history of other diseases of urinary system
CPT/HCPCS: 36415; 71045; 73590; 80048; 80053; 80156; 81001; 81599; 83036; 83605; 83690; 83735; 84484; 85025; 87040; 87077; 93005; 93970; 93971; 96360; 97110; 97116; 97161; 97535; 99284; 99285; 99406; A9270; J3370; 87086

== ENCOUNTER 2019-11-30 09:51 | Emergency (ER) | payer BC, OTHER ==
--- NOTE | 2019-11-30 10:18 | ED Physician Documentation ---
PD HPI CHEST PAIN - Stated complaint Stated Complaint: CHEST PAIN - Chief complaint Chief Complaint: Cardiac - History obtained from History obtained from: Patient, Family - History of Present Illness Timing - onset: How many days ago (3) Timing - onset during: Rest Timing - duration: Days (3) Timing - details: Gradual onset, Still present Quality: Pressure, Sharp Location: Right chest Radiation: Back Improved by: Rest Worsened by: Inspiration, Movement, Position Associated symptoms: No: Shortness of air, Diaphoresis, Nausea, Vomiting, Feeling faint / dizzy, General Weakness, Palpitations, Cough Similar symptoms before: Has not had sx before Recently seen: Not recently seen - Additional information Additional information: 64-year-old male with a history of coronary artery disease has developed some pain in his right chest wall. He has pain if he rolls over in bed or if he uses his arm in a certain way. He has pain referred to a specific area on his chest wall. He does not have shortness of breath associated with this and he does not otherwise feel ill. He does use a LAT pull down at the gym and he states that he has been in regular use of this for some time and has not changed his regimen. Review of Systems Constitutional: denies: Fever Eyes: denies: Decreased vision Ears: denies: Ear pain Nose: denies: Rhinorrhea / runny nose, Congestion Throat: denies: Sore throat Cardiac: reports: Chest pain / pressure. denies: Palpitations, Pedal edema, Calf pain Respiratory: denies: Dyspnea, Cough GI: denies: Abdominal Pain, Nausea, Vomiting : denies: Dysuria PD PAST MEDICAL HISTORY - Past Medical History Cardiovascular: Hypertension, Peripheral Vascular Disease Respiratory: None Neuro: Other Endocrine/Autoimmune: None GI: None : Frequency HEENT: None Psych: None Musculoskeletal: Osteoarthritis Derm: None - Past Surgical History Past Surgical History: Yes Ortho: Knee replacement HEENT: Other - Present Medications Home Medications: Ambulatory Orders Medication Instructions Recorded Confirmed Ibuprofen [Advil] 600 mg PO DAILY PRN 05/25/18 11/30/19 carBAMazepine [Carbamazepine ER] 400 mg PO BID PRN 05/25/18 11/30/19 - Allergies Allergies/Adverse Reactions: Allergies Allergy/AdvReac Type Severity Reaction Status Date / Time No Known Drug Allergies Allergy Verified 11/30/19 10:10 - Social History Does the pt smoke?: Yes Smoking Status: Current every day smoker Does the pt drink ETOH?: Yes Does the pt have substance abuse?: No - Immunizations Immunizations are current?: Yes - POLST POLST Status: Full Code PD ED PE NORMAL - Vitals Vital signs reviewed: Yes (hypertensive) - General General: Alert and oriented X 3, No acute distress, Well developed/nourished - HEENT HEENT: Atraumatic, PERRL, EOMI - Neck Neck: Supple, no meningeal sign - Cardiac Cardiac: RRR, No murmur - Respiratory Respiratory: No respiratory distress, Clear bilaterally, Other (No specific chest wall tenderness.The area of pain is over the lateral lower chest wall at the insertion of the latissimus.) - Abdomen Abdomen: Soft, Non tender - Back Back: No CVA TTP, No spinal TTP - Derm Derm: Normal color, Warm and dry, No rash - Extremities Extremities: No deformity, No tenderness to palpate, No calf tenderness / cord, Other (pulling the patient up by his right arm causes the pain in the lateral right chest wall. The patient does have lymphedema present bilaterally with a good sock isabella and there bilaterally is some mild erythema to the right lower.) - Neuro Neuro: Alert and oriented X 3, No motor deficit, No sensory deficit, Normal speech Results - Vitals Vitals: Vital Signs - 24 hr 11/30/19 11/30/19 11/30/19 10:06 10:31 11:17 Temperature 36.2 C L Heart Rate 78 77 68 Respiratory 15 16 14 Rate Blood Pressure 148/92 H 154/98 H 132/92 H O2 Saturation 97 96 98 Oxygen O2 Source Room air - EKG (time done) 1009 Rate: Rate (enter#) (71) Rhythm: NSR Compare to prior EKG: Unchanged from prior EKG (SPT 09-06-2019 the rate has slowed) Computer interpretation: Agree with computer - Labs Labs: Laboratory Tests 11/30/19 11/30/19 11/30/19 10:19 10:19 10:19 WBC 7.7 RBC 4.57 L Hgb 13.5 L Hct 41.1 L MCV 89.9 MCH 29.5 MCHC 32.8 RDW 14.1 Plt Count 217 MPV 10.7 Neut # (Auto) 3.8 Lymph # (Auto) 2.9 [place] # (Auto) 0.6 Eos # (Auto) 0.4 Baso # (Auto) 0.0 Absolute Nucleated RBC 0.00 Nucleated RBC % 0.0 Sodium 140 Potassium 4.6 Chloride 106 Carbon Dioxide 24 Anion Gap 10.0 BUN 17 Creatinine 0.9 Estimated GFR (MDRD) 85 L Glucose 99 Calcium 8.8 Total Bilirubin 0.5 AST 21 ALT 28 Alkaline Phosphatase 92 Troponin I High Sens 3.7 Total Protein 6.9 Albumin 3.7 Globulin 3.2 Albumin/Globulin Ratio 1.2 Lipase 26 - Rads (name of study) chest Radiology: Prelim report reviewed (IMPRESSION: No radiographic evidence of acute cardiopulmonary disease. ), EMP read indepedently, See rad report PD MEDICAL DECISION MAKING - ED course Complexity details: reviewed old records, reviewed results, re-evaluated patient, considered differential, d/w patient, d/w family ED course: 64-year-old male with a history of coronary artery disease has right lateral chest wall pain this appears to be at the insertion of the latissimus to the lateral chest and the patient symptoms are reproducible by specific physical maneuvers. He states that he did have some improvement with use of ibuprofen this morning. He will use that as needed. Departure - Departure Disposition: 01 Home, Self Care Clinical Impression: Strain of latissimus dorsi muscle Qualifiers: Encounter type: initial encounter Qualified Code(s): S29.012A - Strain of muscle and tendon of back wall of thorax, initial encounter Condition: Stable Instructions: ED Strain Muscle Ext Follow-Up: VAMSI ROCK MD [Primary Care Provider] -
[2019-11-30 10:26] LABS: BASOPHILS % (AUTO) 0.4 %; EOSINOPHILS # (AUTO) 0.4 10^3/uL (0.0-0.7); EOSINOPHILS % (AUTO) 4.8 %; HGB - HEMOGLOBIN 13.5 g/dL (14.0-18.0); LYMPHOCYTES # (AUTO) 2.9 10^3/uL (1.5-3.5); LYMPHOCYTES % (AUTO) 37.3 %; MEAN CORPUSCULAR HEMOGLOBIN 29.5 pg (27.0-31.0); MEAN CORPUSCULAR HGB CONC 32.8 g/dL (32.0-36.0); MEAN CORPUSCULAR VOLUME 89.9 fL (80.0-94.0); MEAN PLATELET VOLUME 10.7 fL (7.4-11.4); MONOCYTES # (AUTO) 0.6 10^3/uL (0.0-1.0); MONOCYTES % (AUTO) 8.1 %; NEUTROPHILS # (AUTO) 3.8 10^3/uL (1.5-6.6); PLT - PLATELET COUNT 217 10^3/uL (130-450); RED BLOOD COUNT 4.57 10^6/uL (4.70-6.10); RED CELL DISTRIBUTION WIDTH 14.1 % (12.0-15.0); WHITE BLOOD COUNT 7.7 x10^3/uL (4.8-10.8)
[2019-11-30 10:37] LABS: ALBUMIN 3.7 g/dL (3.2-5.5); ALBUMIN/GLOBULIN RATIO 1.2 (1.0-2.2); BILIRUBIN,TOTAL 0.5 mg/dL (0.2-1.0); CALCIUM 8.8 mg/dL (8.5-10.3); CREATININE 0.9 mg/dL (0.6-1.2); TOTAL PROTEIN 6.9 g/dL (6.7-8.2)
--- NOTE | 2019-11-30 10:37 | XRAY Report ---
Reason: Chest pain Procedure Date: 11/30/2019 Accession Number: [id number] / [id number] Procedure: XR - Chest 1 View X-Ray CPT Code: 51529 Final Report FULL RESULT: EXAM: CHEST RADIOGRAPHY EXAM DATE: 11/30/2019 10:27 AM. CLINICAL HISTORY: Chest pain. COMPARISON: CHEST 1 VIEW 09/06/2019 9:00 AM. TECHNIQUE: 1 view. FINDINGS: Lungs/Pleura: No focal opacities evident. No pleural effusion. No pneumothorax. Mediastinum: Within exam limitations, the cardiomediastinal contour is normal. Other: Stable multilevel thoracic spondylosis. IMPRESSION: No radiographic evidence of acute cardiopulmonary disease. RADIA
[2019-11-30 12:16] VITALS: BP 157/76
== END 2019-11-30 12:16 | disposition home or self-care (01) ==
LOC: ED 09:51
DX: S29.012A Strain of muscle and tendon of back wall of thorax, initial encounter (principal); X58.XXXA Exposure to other specified factors, initial encounter; I10 Essential (primary) hypertension; F17.200 Nicotine dependence, unspecified, uncomplicated
CPT/HCPCS: 36415; 71045; 80053; 83690; 84484; 85025; 93005; 99284

== ENCOUNTER 2020-03-09 10:49 | Outpatient (CLI) | payer BC | END 2020-03-09 10:50 | disposition critical access hospital (66) | LOC: EMS 10:49 | PROVIDERS: ATTEND Surgery | DX: R53.1 Weakness (principal); R50.9 Fever, unspecified; R60.9 Edema, unspecified | CPT/HCPCS: A0425; A0429 ==

== ENCOUNTER 2020-03-09 10:55 | Inpatient (IN) | payer BC ==
[2020-03-09] MEDS ORDERED: SODIUM CHLORIDE 0.9% 1,000 ML IV STA (11:30)
--- NOTE | 2020-03-09 11:33 | ED Physician Documentation ---
History of Present Illness - Stated complaint Stated Complaint: WEAKNESS - Chief complaint Chief Complaint: Ext Problem - History obtained from History obtained from: Patient - History of Present Illness Timing: Today - Additonal information Additional information: 64-year-old male with a history of lymphedema and prior admission for cellulitis of the lower extremities has been feeling chills this morning and he attempted to go to work and at work he realized he was very weak. His work partners had to put him into office chair to wheel him back into his office and he is now brought to the hospital for evaluation by ambulance. He does feel that he likely has cellulitis again in his lower extremities as this is what he had previously with the weakness. He does know there is swelling there that has not resolved and this appears red today compared to yesterday. He has an appointment today to go see a specialist for lymphedema to get better compressio ns stockings. He arrives to the ED with a fever. Review of Systems Constitutional: reports: Fever, Chills, Myalgias, Fatigue Throat: denies: Sore throat Cardiac: denies: Chest pain / pressure, Palpitations Respiratory: reports: Cough. denies: Dyspnea GI: denies: Abdominal Pain, Abdominal Swelling, Nausea, Vomiting, Constipation, Diarrhea : reports: Frequency, Other (noctiuria X 5/night). denies: Dysuria Skin: reports: Other (redness to the LE bilat) Musculoskeletal: reports: Extremity pain, Extremity swelling. denies: Neck pain, Back pain Neurologic: reports: Generalized weakness. denies: Focal weakness, Numbness, Difficulty speaking PD PAST MEDICAL HISTORY - Past Medical History Cardiovascular: Hypertension, Peripheral Vascular Disease Respiratory: None Neuro: Other Endocrine/Autoimmune: None GI: None : Frequency HEENT: None Psych: None Musculoskeletal: Osteoarthritis Derm: None - Past Surgical History Past Surgical History: Yes Ortho: Knee replacement HEENT: Other - Present Medications Home Medications: Ambulatory Orders Medication Instructions Recorded Confirmed carBAMazepine [Carbamazepine ER] 400 mg PO BID PRN 05/25/18 03/09/20 - Allergies Allergies/Adverse Reactions: Allergies Allergy/AdvReac Type Severity Reaction Status Date / Time No Known Drug Allergies Allergy Verified 03/09/20 11:02 - Social History Does the pt smoke?: Yes Smoking Status: Current every day smoker Does the pt drink ETOH?: Yes Does the pt have substance abuse?: No - Immunizations Immunizations are current?: Yes - POLST POLST Status: Full Code PD ED PE NORMAL - Vitals Vital signs reviewed: Yes (Febrile tachycardic and hypertensive) - General General: Alert and oriented X 3, No acute distress, Well developed/nourished - HEENT HEENT: Atraumatic, PERRL, EOMI, Other (Dry mucous membranes) - Neck Neck: Supple, no meningeal sign, No bony TTP - Cardiac Cardiac: No murmur, Other (Tachycardic to 100) - Respiratory Respiratory: No respiratory distress, Clear bilaterally - Abdomen Abdomen: Soft, Non tender, Other (Obese) - Back Back: No CVA TTP, No spinal TTP - Derm Derm: Normal color, Warm and dry - Extremities Extremities: Other (There is lower extremity edema bilaterally that is pitting there is postinflammatory hyperpigmentation especially on the right side and there is general erythema that is mild to both lower extremities. There is no good demarcation of the erythema.) - Neuro Neuro: Alert and oriented X 3, business associate 2-12 intact, No motor deficit, No sensory deficit, Normal speech Eye Opening: Spontaneous Motor: Obeys Commands Verbal: Oriented GCS Score: 15 - Psych Psych: Normal mood, Normal affect Results - Vitals Vitals: Vital Signs - 24 hr 03/09/20 03/09/20 03/09/20 11:03 11:30 13:36 Temperature 39.1 C H Heart Rate 103 H 104 H 109 H Respiratory 20 18 18 Rate Blood Pressure 154/107 H 169/108 H 155/84 H O2 Saturation 98 96 96 03/09/20 14:00 Temperature Heart Rate 106 H Respiratory 24 Rate Blood Pressure 162/82 H O2 Saturation 98 Oxygen O2 Source Room air - Labs Labs: Laboratory Tests 03/09/20 03/09/20 03/09/20 11:39 11:39 14:27 WBC 15.4 H RBC 4.91 Hgb 14.2 Hct 44.2 MCV 90.0 MCH 28.9 MCHC 32.1 RDW 14.1 Plt Count 214 MPV 11.1 Neut # (Auto) 13.4 H Lymph # (Auto) 0.9 L [place] # (Auto) 1.0 Eos # (Auto) 0.1 Baso # (Auto) 0.1 Absolute Nucleated RBC 0.00 Nucleated RBC % 0.0 Sodium 134 L Potassium 4.5 Chloride 100 L Carbon Dioxide 25 Anion Gap 9.0 BUN 21 H Creatinine 1.0 Estimated GFR (MDRD) 75 L Glucose 122 H Calcium 9.0 Total Bilirubin 0.8 AST 31 ALT 42 Alkaline Phosphatase 94 Total Protein 7.2 Albumin 3.8 Globulin 3.4 Albumin/Globulin Ratio 1.1 Lipase 25 Urine Color YELLOW Urine Clarity CLEAR Urine pH 6.0 Ur Specific [place] 1.020 Urine Protein NEGATIVE Urine Glucose (UA) NEGATIVE Urine Ketones NEGATIVE Urine Occult Blood SMALL H Urine Nitrite NEGATIVE Urine Bilirubin NEGATIVE Urine Urobilinogen 0.2 (NORMAL) Ur Leukocyte Esterase NEGATIVE Urine RBC 0-5 Urine WBC 0-3 Ur Squamous Epith Cells RARE Squamous Urine Bacteria None Seen Ur Microscopic Review INDICATED Urine Culture Comments NOT INDICATED - Rads (name of study) 1 view chest Radiology: Prelim report reviewed (Impression: Normal examination. No change from 11/30/2019.), EMP read indepedently, See rad report Procedures - IVC sono (time) 1130 Bedside IVC sono: IVC measures (cm) (1.12), IVC collapsed c insp (cm) (complete), Dehydration (1-2 liter deficit) PD MEDICAL DECISION MAKING - ED course Complexity details: reviewed old records, reviewed results, re-evaluated patient, considered differential, d/w patient ED course: 64-year-old male with a prior history of cellulitis and lymphedema has come back into the emergency department again today with weakness leg pain and swelling and fever. He appears again to have cellulitis. We did interrogate the inferior vena cava found it to be collapsing then to be of a small caliber consistent with volume depletion. The patient is administered saline. He is eventually able to make urine and following that we are administering Rocephin 2 g intravenously. Departure - Departure Disposition: 66 [facility] [place] DC/Xfer Clinical Impression: Cellulitis Qualifiers: Site of cellulitis: extremity Site of cellulitis of extremity: lower extremity Laterality: unspecified laterality Qualified Code(s): L03.119 - Cellulitis of unspecified part of limb Condition: Stable
[2020-03-09 12:20] LABS: BASOPHILS # (AUTO) 0.1 10^3/uL (0.0-0.1); BASOPHILS % (AUTO) 0.3 %; EOSINOPHILS # (AUTO) 0.1 10^3/uL (0.0-0.7); EOSINOPHILS % (AUTO) 0.5 %; HGB - HEMOGLOBIN 14.2 g/dL (14.0-18.0); LYMPHOCYTES # (AUTO) 0.9 10^3/uL (1.5-3.5); LYMPHOCYTES % (AUTO) 5.5 %; MEAN CORPUSCULAR HEMOGLOBIN 28.9 pg (27.0-31.0); MEAN CORPUSCULAR HGB CONC 32.1 g/dL (32.0-36.0); MEAN PLATELET VOLUME 11.1 fL (7.4-11.4); MONOCYTES % (AUTO) 6.4 %; NEUTROPHILS # (AUTO) 13.4 10^3/uL (1.5-6.6); NEUTROPHILS % (AUTO) 86.8 %; PLT - PLATELET COUNT 214 10^3/uL (130-450); RED BLOOD COUNT 4.91 10^6/uL (4.70-6.10); RED CELL DISTRIBUTION WIDTH 14.1 % (12.0-15.0); WHITE BLOOD COUNT 15.4 x10^3/uL (4.8-10.8)
[2020-03-09 12:32] LABS: ALBUMIN 3.8 g/dL (3.2-5.5); ALBUMIN/GLOBULIN RATIO 1.1 (1.0-2.2); BILIRUBIN,TOTAL 0.8 mg/dL (0.2-1.0); TOTAL PROTEIN 7.2 g/dL (6.7-8.2)
--- NOTE | 2020-03-09 13:57 | XRAY Report ---
Reason: chest pain Procedure Date: 03/09/2020 Accession Number: [id number] / [id number] Procedure: XR - Chest 1 View X-Ray CPT Code: 09956 Final Report FULL RESULT: EXAM: IMPRESSION: Normal examination. No change from 11/30/2019.
[2020-03-09 15:00] LABS: BILIRUBIN,URINE NEGATIVE (NEGATIVE); GLUCOSE, URINE (UA) NEGATIVE (NEGATIVE); KETONES,URINE (UA) NEGATIVE (NEGATIVE); LEUKOCYTE ESTERASE, URINE NEGATIVE (NEGATIVE); NITRITE,URINE NEGATIVE (NEGATIVE); OCCULT BLOOD,URINE SMALL (NEGATIVE); PROTEIN,URINE NEGATIVE (NEGATIVE); UROBILINOGEN,URINE 0.2 (NORMAL) E.U./dL (NORMAL)
[2020-03-09 15:06] LABS: CLARITY,URINE CLEAR (CLEAR)
[2020-03-09 15:11] LABS: BACTERIA,URINE None Seen /HPF (None Seen); RBC,URINE 0-5 /HPF (0-5); SQUAMOUS EPITHELIAL CELL,UR RARE Squamous (<= Few)
[2020-03-09] MEDS ORDERED: cefTRIAXone 2 GM in SODIUM CHLORIDE 0.9% MINIBAG 100 ML IV STA (15:12)
[2020-03-09] MEDS ORDERED: ONDANSETRON 4 MG/2 ML VIAL IVP PRN (15:19)
[2020-03-09] MEDS ORDERED: ONDANSETRON ODT 4 MG TABLET TL PRN (15:19)
--- NOTE | 2020-03-09 15:47 | HISTORY & PHYSICAL EXAMINATION ---
Chief Complaint - Chief Complaint Chief Complaint: fever, and weakness History of Present Illness - History of Present Illness HPI Comment/Other: Mr. De Los Santos is 62-yrs-old male with a H significance for lymphedema, recurrent cellulitis of the lower extremities, osteoarthritis, trigeminal neuralgia, morbid obese, who present ER complaint of fever and weakness. pt report he started feeling really weak at this morning around 6 am. pt report he had hx of cellulitis mainly n his right legs. now he report he had red and swollen again in bilateral lower extremities. pt attempted to go to work today. Because of his significant weakness, His work partners put him into office chair. he is now brought to the hospital for evaluation by ambulance. He felt that he was likely to have cellulitis again in his lower extremities as before. pt report He had an appointment today to go see a specialist for lymphedema but he was at hospital now. He denies nausea, vomiting, abdominal pain, shortness of breath, palpitation, chest pain, headache, neck stiffness. In routine lab test, patient has WBC 15.4, lactic acid 2.5. Patient is febrile temperature 39.1, slightly tachycardia at HR 103, blood pressure 154/107. pt was admitted for further medical management. History - Past Medical History Cardiovascular: reports: Hypertension, Peripheral Vascular Disease Respiratory: reports: None Neuro: reports: Other Endocrine/Autoimmune: reports: None GI: reports: None : reports: Frequency HEENT: reports: None Psych: reports: None Musculoskeletal: reports: Osteoarthritis Derm: reports: None MRSA Hx?: No Other Past Medical History: cellulitis, trigeminal neuralgia - Past Surgical History Ortho: reports: Knee replacement HEENT: reports: Other - Family & Social History Family History: Mother: , Father: - POLST POLST Status: Full Code Meds/Allgy - Home Medications Home Medications: Ambulatory Orders Medication Instructions Recorded Confirmed carBAMazepine [Carbamazepine ER] 400 mg PO BID PRN 05/25/18 03/09/20 - Allergies Allergies/Adverse Reactions: Allergies Allergy/AdvReac Type Severity Reaction Status Date / Time No Known Drug Allergies Allergy Verified 03/09/20 11:02 Review of Systems - Constitutional Constitutional: reports: Fatigue, Fever, Weakness. denies: Chills, Malaise, Poor appetite, Diaphoresis, Night sweats - Eyes Eyes: denies: Pain, Irritation, Amaurosis, Blurred vision, Spots in vision, Field loss, Vision loss, Dipolpia - Ears, Nose & Throat Ears, Nose & Throat: denies: Ear pain, Hearing loss, Hearing aids, Tinnitus, Nasal pain, Nasal discharge, Nosebleeds, Nasal obstruction, Nasal congestion, Postnasal drainage, Sore throat, Mouth lesions, Bleeding gums - Cardiovascular Cariovascular: denies: Irregular heart rate, Palpitations, Chest pain, Edema, Lightheadedness, Syncope, Exertional dyspnea, Decr. exercise tolerance - Respiratory Respiratory: denies: Cough, Sputum production, Wheezing, Snoring, Hemoptysis, Orthopnea, SOB at rest - Gastrointestinal Gastrointestinal: denies: Abdominal pain, Abdominal distention, Constipation, Diarrhea, Rectal bleeding, Black stools, Bloody stools, Nausea, Vomiting, Stef blood emesis, Coffee grounds emesis - Genitourinary Genitourinary: denies: Dysuria, Frequency, Urgency, Hematuria, Incontinence, Flank pain, Nocturia, Urethral discharge - Musculoskeletal Musculoskeletal: denies: Muscle pain, Back pain, Muscle aches, Stiffness, Limited range of motion, Muscle weakness, Gout, Joint pain - Integumentary Integumentary: reports: Rash, Lesions (lymphedema bilateral lower extremities). denies: Pruritis, Dryness, Lumps, Acne, Pigment changes, Nail changes - Neurological Neurological: denies: General weakness, Focal weakness, Headache, Dizziness, Numbness, Memory problems, Pre-existing deficit, Abnormal gait, Seizures, Incoordination, Slurred speech - Psychiatric Psychiatric: denies: Depression, Anxiety, Suicidal, Delusions, Hallucinations, Homicidal - Endocrine Endocrine: denies: Polyuria, Polydypsia - Hematologic/Lymphatic Hematologic/Lymphatic: reports: Recurrent infections. denies: Anemia, Petechiae, Blood clots, Lymphadenopathy, Bleeding tendencies Exam - Vital Signs Vital Signs: Vital Signs x48h Temp Pulse Resp BP Pulse Ox 03/09/20 14:00 106 H 24 162/82 H 98 03/09/20 13:36 109 H 18 155/84 H 96 03/09/20 11:30 104 H 18 169/108 H 96 03/09/20 11:03 39.1 C H 103 H 20 154/107 H 98 - Physical Exam General Appearance: positive: No acute distress, Alert. negative: Lethargic Eyes Bilateral: positive: Normal inspection, PERRL, No lid inflammation ENT: positive: ENT inspection nml, Pharynx nml, No signs of dehydration. negative: Purulent nasal drainage Neck: positive: Nml inspection, Thyroid nml, No JVD, Trachea midline. negative: Thyromegaly, Stiff neck, Tracheal deviation Respiratory: positive: Chest non-tender, No respiratory distress, Breath sounds nml. negative: Wheezes, Rales, Rhonchi Cardiovascular: positive: Regular rate & rhythm, No murmur, No gallop, Tachycardia. negative: Irregularly irregular, Bradycardia, Systolic murmur, Diastolic murmur Peripheral Pulses: positive: 2+ Abdomen: positive: Non-tender, No organomegaly, Nml bowel sounds, No distention. negative: Tenderness, Guarding, Rebound Back: positive: Nml inspection. negative: CVA tenderness (R), CVA tenderness (L) Skin: positive: Warm, Dry, Skin rash, Other (bilateral lower extremeities with erythema, swelling.). negative: Cyanosis, Diaphoresis, Pallor Extremities: negative: Calf tenderness, Nadia's sign/cords Neurologic/Psychiatric: positive: Oriented x3, Mood/affect nml. negative: Weakness, Sensory loss, Facial droop, Slurred/abnml speech, Depressed mood/affe ct Sepsis Event Note (H) - Evaluation Current Stage of Sepsis: Sepsis Possible source of Sepsis: positive: Skin/soft tissue - Sepsis Criteria Sepsis Criteria: Recorded Temperature greater than 38.3C or Less than 36C, Recorded Heart Rate greater than 90 bpm, WBC count greater than 10% bands, WBC count greater than 12,000 or less than 4000, Metabolic: lactate > 2 mmol/L Conclusion/Plan - Problem List (1) Sepsis Conclusion/Plan: pt had fever, elevated WBC, elevated lactic acid, cellulitis on bilateral lower extremities. Patient also present weakness Plan: antibiotics, IVF of NS, lab monitor (2) Cellulitis Conclusion/Plan: recurrence of bilateral lower extremity cellulitis with sepsis antibiotics: vancomycin, ancef vital monitor IVF of NS (3) Osteoarthritis Conclusion/Plan: stable, pain control (4) Trigeminal neuralgia Conclusion/Plan: will resume home meds Carbamazepine (5) Weakness it is likely secondary to pt's sepsis and acute infection, will consult with PT/OT (6) obesity pt has BMI 41. discuss with pt about the loss of weight, pt understood. Qualifiers: Sepsis type: sepsis due to unspecified organism Sepsis acute organ dysfunction status: without acute organ dysfunction Qualified Code(s): A41.9 - Sepsis, unspecified organism - Lab Results Fish Bones: 03/09/20 11:39 03/09/20 11:39 Core Measures - Anticipated LOS I expect patient to be DC'd or transferred within 96 hours.: Yes - DVT/VTE - Prophylaxis VTE/DVT Device ordered at admit?: Yes VTE/DVT Prophylaxis med ordered at admit?: Yes
--- NOTE | 2020-03-09 15:56 | PHARMACY PROGRESS NOTE ---
- Therapy Status Therapy status: Awaiting steady state Basis for treatment: Empirical Treatment indication: CELLULITIS Trough goal: 15-20 - MILA Risk Risk level for Acute Kidney Injury: Moderate Acute Kidney Injury risk factors: Goal trough >15, Sepsis - Monitoring and Recommendation Clinical response to treatment: I&O Previous 24 hours 03/07/20 03/08/20 03/09/20 23:59 23:59 23:59 Intake Total 1000 Balance 1000 Lab Results 03/09/20 11:39 BUN 21 H Creatinine 1.0 Estimated GFR (MDRD) 75 L 1500 Q12H, TROUGH 03/10 @ 1700 (MORE OF A RANDOM LEVEL BEFORE 3RD DOSE) Monitoring plan: Daily serum creatinine
[2020-03-09] MEDS ORDERED: ceFAZolin 2 GM in SODIUM CHLORIDE 0.9% 100ML 100 ML IV SCH (16:00)
[2020-03-09] MEDS: SODIUM CHLORIDE FLUSH 0.9% 10 ML SYRINGE IVP SCH (16:40)
[2020-03-09] MEDS: SODIUM CHLORIDE 0.9% 1,000 ML IV SCH (16:40)
[2020-03-09] MEDS: oxyCODONE 5 MG TABLET PO PRN (17:08)
[2020-03-09] MEDS ORDERED: VANCOMYCIN INJ 2 GM in SODIUM CHLORIDE 0.9% 500 ML IV SCH (18:00)
[2020-03-09] MEDS ORDERED: carBAMazepine ER 200 MG TABLET PO PRN (21:00)
[2020-03-09] MEDS: HEPARIN 5,000 UNIT/ML VIAL SUBQ SCH (21:15)
[2020-03-10] MEDS: ACETAMINOPHEN 325 MG TABLET PO PRN ×3 (00:06→19:21)
[2020-03-10] MEDS: oxyCODONE 5 MG TABLET PO PRN ×2 (00:07→14:43)
--- NOTE | 2020-03-10 00:07 | Ultrasound Report ---
Reason: DVT Procedure Date: 03/09/2020 Accession Number: [id number] / [id number] Procedure: US - Duplex Ext Veins Bilateral CPT Code: Final Report FULL RESULT: EXAM: BILATERAL LOWER EXTREMITY VENOUS ULTRASOUND EXAM DATE: 03/09/2020 11:28 PM. CLINICAL HISTORY: DVT. Bilateral leg swelling. COMPARISON: DUPLEX EXT VEINS RIGHT 09/07/2019 4:38 PM. DUPLEX EXT VEINS BILATERAL 09/06/2019 9:55 AM. TECHNIQUE: Real-time sonographic vascular imaging was performed by the sterilization technician through the lower extremities utilizing both color-flow and Doppler spectral analysis. Multiple public health representative static images were saved for review. FINDINGS: Right: Common Femoral Vein (CFV): Normal. CFV-GSV Junction: Normal. Profunda Femoral Vein (PFV): Normal. Femoral Vein (FV) Prox: Normal. Femoral Vein (FV) Mid: Normal. Femoral Vein (FV) Dist: Normal. Popliteal Vein: Grossly unremarkable where seen. Posterior Tibial Veins: Grossly unremarkable where seen. Peroneal Veins: Not able to be seen. Left: Common Femoral Vein (CFV): Normal. CFV-GSV Junction: Normal. Profunda Femoral Vein (PFV): Normal. Femoral Vein (FV) Prox: Normal. Femoral Vein (FV) Mid: Normal. Femoral Vein (FV) Dist: Normal. Popliteal Vein: Grossly unremarkable where seen. Posterior Tibial Veins: Grossly unremarkable where seen. Peroneal Veins: Not able to be seen. Other: Difficult study due to body habitus. IMPRESSION: Difficult study due to body habitus but without evidence for deep venous thrombosis bilaterally. RADIA
[2020-03-10] MEDS: SODIUM CHLORIDE FLUSH 0.9% 10 ML SYRINGE IVP SCH ×3 (00:45→16:24)
[2020-03-10] MEDS: SODIUM CHLORIDE 0.9% 1,000 ML IV SCH ×2 (00:47→11:26)
[2020-03-10 05:03] LABS: BASOPHILS % (AUTO) 0.3 %; EOSINOPHILS # (AUTO) 0.1 10^3/uL (0.0-0.7); EOSINOPHILS % (AUTO) 0.8 %; HGB - HEMOGLOBIN 13.5 g/dL (14.0-18.0); LYMPHOCYTES # (AUTO) 1.3 10^3/uL (1.5-3.5); LYMPHOCYTES % (AUTO) 8.3 %; MEAN CORPUSCULAR HEMOGLOBIN 28.5 pg (27.0-31.0); MEAN CORPUSCULAR HGB CONC 31.8 g/dL (32.0-36.0); MEAN CORPUSCULAR VOLUME 89.7 fL (80.0-94.0); MEAN PLATELET VOLUME 11.2 fL (7.4-11.4); MONOCYTES # (AUTO) 0.4 10^3/uL (0.0-1.0); MONOCYTES % (AUTO) 2.8 %; NEUTROPHILS # (AUTO) 13.5 10^3/uL (1.5-6.6); PLT - PLATELET COUNT 148 10^3/uL (130-450); RED BLOOD COUNT 4.74 10^6/uL (4.70-6.10); RED CELL DISTRIBUTION WIDTH 14.1 % (12.0-15.0); WHITE BLOOD COUNT 15.5 x10^3/uL (4.8-10.8)
[2020-03-10 05:12] LABS: CALCIUM 8.2 mg/dL (8.5-10.3)
--- NOTE | 2020-03-10 07:27 | PHARMACY PROGRESS NOTE ---
- Therapy Status Vancomycin regimen day #: 1 Therapy status: Awaiting steady state Basis for treatment: Empirical Trough goal: 15-20 - MILA Risk Risk level for Acute Kidney Injury: Moderate Acute Kidney Injury risk factors: Wt >100kg or BMI >40, Goal trough >15, Sepsis - Monitoring and Recommendation Clinical response to treatment: I&O Previous 24 hours 03/08/20 03/09/20 03/10/20 23:59 23:59 23:59 Intake Total 2930.504 5245.000 Output Total 800 325 Balance 0969.548 6479.000 Lab Results 03/10/20 03/09/20 04:55 11:39 BUN 14 21 H Creatinine 1.0 1.0 Estimated GFR (MDRD) 75 L 75 L Monitoring plan: Daily serum creatinine Next trough due prior to maintenance dose #: 5 Next trough due (date/time): 03/12/2020 at 1130 Areas for additional monitoring: IV to PO when appropriate, Therapy de- escalation based on culture results Pharmacy recommendation: Continue current regime
[2020-03-10] MEDS: polyethylene glycoL 3350 17 GM PACKET PO SCH (08:24)
[2020-03-10] MEDS: HEPARIN 5,000 UNIT/ML VIAL SUBQ SCH ×2 (08:24→21:11)
[2020-03-10] MEDS ORDERED: cefTRIAXone 2 GM in SODIUM CHLORIDE 0.9% MINIBAG 100 ML IV SCH ×2 (09:00→12:00)
--- NOTE | 2020-03-10 10:33 | PHARMACY PROGRESS NOTE ---
- Best Possible Medication History Admit Date and Time: 03/09/20 1519 Processed by: Nursing Medication History completed: Yes Patient Interview: Completed As the person ultimately responsible for medication therapy, providers are able to order a medication from an existing home medication list in [facility] via the "Reconcile Routine" prior to Confirmation of that medication by network support manager. Such practice is discouraged except when the physician, in their clinical judg ment, deems that a medical need exists for a medication without regard to previous use.
[2020-03-10] MEDS: VANCOMYCIN INJ 2 GM in SODIUM CHLORIDE 0.9% 500 ML IV SCH (11:24)
--- NOTE | 2020-03-10 11:52 | PROVIDER PROGRESS NOTE ---
Assessment/Plan - Problem List (1) Sepsis Qualifiers: Sepsis type: sepsis due to unspecified organism Sepsis acute organ dysfunction status: without acute organ dysfunction Qualified Code(s): A41.9 - Sepsis, unspecified organism Assessment/Plan: 03/10 Patient have a low degree of fever, WBC is still elevated, patient's vancomycin was given later on the last night, we will continue give the vancomycin and we will continue to Rocephin to treat patient cellulitis in the lower extremity, mainly located at left lower extremity. We will follow blood culture result, we will continue intravenous of IV fluids,Continue pain control pt had fever, elevated WBC, elevated lactic acid, cellulitis on bilateral lower extremities. Patient also present weakness Plan: antibiotics, IVF of NS, lab monitor (2) Cellulitis Conclusion/Plan: 03/10 Patient erythema on legs are reduced, but it still warmth, patient still feel weakness. the patient denies pain, distal neurovascular test on bilateral toes are intact. Continue antibiotics, continue intravenous IV fluids. recurrence of bilateral lower extremity cellulitis with sepsis antibiotics: vancomycin, ancef vital monitor IVF of NS (3) Osteoarthritis Conclusion/Plan: stable, pain control (4) Trigeminal neuralgia Conclusion/Plan: will resume home meds Carbamazepine (5) Weakness 03/10 Patient still reports he feels weakness, PT/OT for evaluation and treatment, continue antibiotics treatment and to continue intravenous IV fluids it is likely secondary to pt's sepsis and acute infection, will consult with PT/OT (6) obesity pt has BMI 41. discuss with pt about the loss of weight, pt understood. (7)lymphedema bilateral lower extremities Patient report he has lymphedema for a long time, he follow his foot doctor, he have scheduled on today unfortunately he cannot go, he will follow-up with and continue to see his foot doctor, advised patient also follow-up dermatology, discussed the care with nurse, we will wash and clean, put lotion on pt's foot. pt has wound care consult, will followup. - Current Meds Current Meds: Current Medications Generic Name Dose Route Start Last Admin Trade Name Freq PRN Reason Stop Dose Admin Acetaminophen 650 mg 03/09/20 15:19 03/10/20 08:24 Tylenol PO 650 mg Q4HR PRN Administration Pain 1 to 4 Heparin Sodium (Porcine) 5,000 unit 03/09/20 21:00 03/10/20 08:24 SUBQ 5,000 unit BID NAIF Administration Sodium Chloride 1,000 mls @ 100 mls/hr 03/09/20 16:00 03/10/20 11:26 Normal Saline 0.9% IV 100 mls/hr .Q10H NAIF Administration Vancomycin HCl 2 gm/ Sodium 500 mls @ 250 mls/hr 03/10/20 12:00 03/10/20 11:24 Chloride IV 250 mls/hr Q12H NAIF Administration Oxycodone HCl 5 mg 03/09/20 15:19 03/10/20 00:07 Roxicodone PO 5 mg Q4HR PRN Administration Pain 5 to 7 Polyethylene Glycol 17 gm 03/10/20 09:00 03/10/20 08:24 Miralax PO 17 gm DAILY NAIF Administration Sodium Chloride 10 ml 03/09/20 17:00 03/10/20 08:25 Normal Saline Flush 0.9% IVP Not Given 0100,0900,1700 NAIF - Lab Result Fish Bone Diagrams: 03/10/20 04:55 03/10/20 04:55 - Additional Planning My Orders: My Active Orders 03/09/20 21:00 carBAMazepine ER [TEGretol XR] 200 mg PO BID PRN 03/10/20 12:00 cefTRIAXone [Rocephin] 2 gm Sodium Chloride 0.9% Minibag [Normal Saline 0.9% Minibag] 100 ml IV DAILY 03/11/20 05:00 CRP - C-REACTIVE PROTEIN [CHEM] DAILYLAB 03/12/20 05:00 CRP - C-REACTIVE PROTEIN [CHEM] DAILYLAB 03/13/20 05:00 CRP - C-REACTIVE PROTEIN [CHEM] DAILYLAB 03/14/20 05:00 CRP - C-REACTIVE PROTEIN [CHEM] DAILYLAB 03/15/20 05:00 CRP - C-REACTIVE PROTEIN [CHEM] DAILYLAB Subjective - Subjective Patient Reports: Fever Objective Vital Signs: Vital Signs - 24 hr 03/09/20 03/09/20 03/09/20 13:36 14:00 15:00 Temperature 37.4 C Heart Rate 109 H 106 H 108 H Heart Rate [ Radial] Respiratory 18 24 20 Rate Blood Pressure 155/84 H 162/82 H 162/87 H Blood Pressure [Right Radial artery] O2 Saturation 96 98 97 05/03/09/20 03/09/20 15:50 16:21 23:50 Temperature 37.8 C H 37.5 C 38.1 C H Heart Rate 110 H Heart Rate [ 110 H 112 H Radial] Respiratory 20 20 20 Rate Blood Pressure 158/89 H Blood Pressure 149/79 H 162/80 H [Right Radial artery] O2 Saturation 96 97 94 03/10/20 03/10/20 03/10/20 02:11 03:25 07:45 Temperature 37.7 C H 37.5 C 38.0 C H Heart Rate Heart Rate [ 95 99 Radial] Respiratory 20 Rate Blood Pressure Blood Pressure 140/66 H 140/78 H [Right Radial artery] O2 Saturation 94 03/10/20 11:08 Temperature 37.2 C Heart Rate Heart Rate [ Radial] Respiratory Rate Blood Pressure Blood Pressure [Right Radial artery] O2 Saturation Oxygen O2 Source Room air I&O (Last 24 Hrs): Intake and Output Totals x24h 03/08/20 03/09/20 03/10/20 23:59 23:59 23:59 Intake Total 3405.813 8930.333 Output Total 800 425 Balance 8433.035 0648.333 General: Alert, Oriented x3, No acute distress HEENT: Atraumatic Neck: Supple Lymphatic: no adenopathy Neuro: Alert, Non Focal, Oriented Times 3 Cardiovascular: Regular rate, Normal S1, Normal S2 Respiratory: Chest non-tender, No respiratory distress, Breath sounds nml Abdomen: Normal bowel sounds, Soft, No tenderness - Results Results: Laboratory Results WBC 15.5 x10^3/uL (4.8-10.8) H 03/10/20 04:55 RBC 4.74 10^6/uL (4.70-6.10) 03/10/20 04:55 Hgb 13.5 g/dL (14.0-18.0) L 03/10/20 04:55 Hct 42.5 % (42.0-52.0) 03/10/20 04:55 MCV 89.7 fL (80.0-94.0) 03/10/20 04:55 MCH 28.5 pg (27.0-31.0) 03/10/20 04:55 MCHC 31.8 g/dL (32.0-36.0) L 03/10/20 04:55 RDW 14.1 % (12.0-15.0) 03/10/20 04:55 Plt Count 148 10^3/uL (130-450) 03/10/20 04:55 MPV 11.2 fL (7.4-11.4) 03/10/20 04:55 Neut # (Auto) 13.5 10^3/uL (1.5-6.6) H 03/10/20 04:55 Lymph # (Auto) 1.3 10^3/uL (1.5-3.5) L 03/10/20 04:55 [place] # (Auto) 0.4 10^3/uL (0.0-1.0) 03/10/20 04:55 Eos # (Auto) 0.1 10^3/uL (0.0-0.7) 03/10/20 04:55 Baso # (Auto) 0.0 10^3/uL (0.0-0.1) 03/10/20 04:55 Absolute Nucleated RBC 0.00 x10^3/uL 03/10/20 04:55 Nucleated RBC % 0.0 /100WBC 03/10/20 04:55 Sodium 133 mmol/L (135-145) L 03/10/20 04:55 Potassium 3.9 mmol/L (3.5-5.0) 03/10/20 04:55 Chloride 99 mmol/L (101-111) L 03/10/20 04:55 Carbon Dioxide 24 mmol/L (21-32) 03/10/20 04:55 Anion Gap 10.0 (6-13) 03/10/20 04:55 BUN 14 mg/dL (6-20) 03/10/20 04:55 Creatinine 1.0 mg/dL (0.6-1.2) 03/10/20 04:55 Estimated GFR (MDRD) 75 (>89) L 03/10/20 04:55 Glucose 120 mg/dL (70-100) H 03/10/20 04:55 Lactic Acid 1.7 mmol/L (0.5-2.2) 03/09/20 19:56 Calcium 8.2 mg/dL (8.5-10.3) L 03/10/20 04:55 Total Bilirubin 0.8 mg/dL (0.2-1.0) 03/09/20 11:39 AST 31 IU/L (10-42) 03/09/20 11:39 ALT 42 IU/L (10-60) 03/09/20 11:39 Alkaline Phosphatase 94 IU/L (42-121) 03/09/20 11:39 C-React Prot High Sens 223.9 mg/L 03/10/20 09:34 Total Protein 7.2 g/dL (6.7-8.2) 03/09/20 11:39 Albumin 3.8 g/dL (3.2-5.5) 03/09/20 11:39 Globulin 3.4 g/dL (2.1-4.2) 03/09/20 11:39 Albumin/Globulin Ratio 1.1 (1.0-2.2) 03/09/20 11:39 Lipase 25 U/L (22-51) 03/09/20 11:39 Urine Color YELLOW 03/09/20 14:27 Urine Clarity CLEAR (CLEAR) 03/09/20 14:27 Urine pH 6.0 PH (5.0-7.5) 03/09/20 14:27 Ur Specific [place] 1.020 (1.002-1.030) 03/09/20 14:27 Urine Protein NEGATIVE mg/dL (NEGATIVE) 03/09/20 14:27 Urine Glucose (UA) NEGATIVE mg/dL (NEGATIVE) 03/09/20 14:27 Urine Ketones NEGATIVE mg/dL (NEGATIVE) 03/09/20 14:27 Urine Occult Blood SMALL (NEGATIVE) H 03/09/20 14:27 Urine Nitrite NEGATIVE (NEGATIVE) 03/09/20 14:27 Urine Bilirubin NEGATIVE (NEGATIVE) 03/09/20 14:27 Urine Urobilinogen 0.2 (NORMAL) E.U./dL (NORMAL) 03/09/20 14:27 Ur Leukocyte Esterase NEGATIVE (NEGATIVE) 03/09/20 14:27 Urine RBC 0-5 /HPF (0-5) 03/09/20 14:27 Urine WBC 0-3 /HPF (0-3) 03/09/20 14:27 Ur Squamous Epith Cells RARE Squamous (<= Few) 03/09/20 14:27 Urine Bacteria None Seen /HPF (None Seen) 03/09/20 14:27 Ur Microscopic Review INDICATED 03/09/20 14:27 Urine Culture Comments NOT INDICATED 03/09/20 14:27 Coronavirus (PCR) NEGATIVE 03/09/20 12:15 Sepsis Event Note (H) - Evaluation Current Stage of Sepsis: Sepsis Possible source of Sepsis: positive: Skin/soft tissue - Sepsis Criteria Sepsis Criteria: Recorded Temperature greater than 38.3C or Less than 36C, Recorded Heart Rate greater than 90 bpm, WBC count greater than 10% bands, WBC count greater than 12,000 or less than 4000, Metabolic: lactate > 2 mmol/L ABX Reporting Has patient been on IV antibiotics over the past 48 hours?: Yes Current Medications - Current Medications Current Medications: Active Medications Acetaminophen (Tylenol) 650 mg PO Q4HR PRN PRN Reason: Pain 1 to 4 Last Admin: 03/10/20 08:24 Dose: 650 mg Carbamazepine (Tegretol Xr) 200 mg PO BID PRN PRN Reason: NURALGIA Heparin Sodium (Porcine) () 5,000 unit SUBQ BID [facility] Last Admin: 03/10/20 08:24 Dose: 5,000 unit Sodium Chloride (Normal Saline 0.9%) 1,000 mls @ 100 mls/hr IV .Q10H [facility] Last Admin: 03/10/20 11:26 Dose: 100 mls/hr Vancomycin HCl 2 gm/ Sodium (Chloride) 500 mls @ 250 mls/hr IV Q12H [facility] Last Admin: 03/10/20 11:24 Dose: 250 mls/hr Ceftriaxone Sodium 2 gm/ (Sodium Chloride) 100 mls @ 200 mls/hr IV DAILY [facility] Ondansetron HCl (Zofran Inj) 4 mg IVP Q6HR PRN PRN Reason: Nausea / Vomiting Ondansetron HCl (Zofran Odt) 4 mg TL Q6HR PRN PRN Reason: Nausea / Vomiting Oxycodone HCl (Roxicodone) 5 mg PO Q4HR PRN PRN Reason: Pain 5 to 7 Last Admin: 03/10/20 00:07 Dose: 5 mg Polyethylene Glycol (Miralax) 17 gm PO DAILY [facility] Last Admin: 03/10/20 08:24 Dose: 17 gm Sodium Chloride (Normal Saline Flush 0.9%) 10 ml IVP PRN PRN PRN Reason: NEEDED PER PROVIDER ORDERS Sodium Chloride (Normal Saline Flush 0.9%) 10 ml IVP 0100,0900,1700 [facility] Last Admin: 03/10/20 08:25 Dose: Not Given Vancomycin HCl (Vancomycin-Pharmacy To Dose) 1 each IV ONCE PRN PRN Reason: PER PHARMACY Stop: 03/15/20 15:21 carBAMazepine [Carbamazepine ER] 400 mg PO BID PRN 05/25/18
[2020-03-10] MEDS ORDERED: VANCOMYCIN INJ 2 GM in SODIUM CHLORIDE 0.9% 500 ML IV SCH (12:30)
[2020-03-10] MEDS: CEFEPIME 2 GM in SODIUM CHLORIDE 0.9% MINIBAG 100 ML IV SCH (21:11)
[2020-03-11] MEDS: SODIUM CHLORIDE FLUSH 0.9% 10 ML SYRINGE IVP SCH ×3 (00:05→15:45)
[2020-03-11] MEDS: SODIUM CHLORIDE 0.9% 1,000 ML IV SCH ×3 (00:05→23:57)
[2020-03-11] MEDS: VANCOMYCIN INJ 2 GM in SODIUM CHLORIDE 0.9% 500 ML IV SCH ×3 (00:05→23:57)
[2020-03-11 04:56] LABS: BASOPHILS % (AUTO) 0.2 %; EOSINOPHILS % (AUTO) 0.1 %; HGB - HEMOGLOBIN 12.3 g/dL (14.0-18.0); LYMPHOCYTES # (AUTO) 1.2 10^3/uL (1.5-3.5); LYMPHOCYTES % (AUTO) 9.5 %; MEAN CORPUSCULAR HEMOGLOBIN 29.9 pg (27.0-31.0); MEAN CORPUSCULAR HGB CONC 33.3 g/dL (32.0-36.0); MEAN CORPUSCULAR VOLUME 89.8 fL (80.0-94.0); MEAN PLATELET VOLUME 10.7 fL (7.4-11.4); MONOCYTES # (AUTO) 0.8 10^3/uL (0.0-1.0); MONOCYTES % (AUTO) 5.9 %; NEUTROPHILS # (AUTO) 10.8 10^3/uL (1.5-6.6); NEUTROPHILS % (AUTO) 83.6 %; PLT - PLATELET COUNT 144 10^3/uL (130-450); RED BLOOD COUNT 4.11 10^6/uL (4.70-6.10); RED CELL DISTRIBUTION WIDTH 14.2 % (12.0-15.0)
[2020-03-11 05:24] LABS: CALCIUM 7.9 mg/dL (8.5-10.3); CREATININE 0.9 mg/dL (0.6-1.2); CRP - C-REACTIVE PROTEIN 24.8 mg/dL (0-1.0)
[2020-03-11] MEDS: polyethylene glycoL 3350 17 GM PACKET PO SCH (08:15)
[2020-03-11] MEDS: CEFEPIME 2 GM in SODIUM CHLORIDE 0.9% MINIBAG 100 ML IV SCH ×2 (08:15→20:52)
[2020-03-11] MEDS: HEPARIN 5,000 UNIT/ML VIAL SUBQ SCH ×2 (08:16→20:52)
--- NOTE | 2020-03-11 08:35 | PROVIDER PROGRESS NOTE ---
Subjective - Prog Note Date Prog Note Date: 03/11/20 Prog Note Time: 08:36 - Subjective Pt reports feeling: Improved Subjective: Yesterday evening he attempted to get up to go to the bathroom on his own. Did not use the call light. At that time he had a temperature to 39. So weak that rapid staff assist was called and nursing had to help him slide gently to the floor so he could avoid falling. Since then he has been afebrile. His left leg hurts a bit and is still hot. But they are starting to shrink down. Current Medications - Current Medications Current Medications: Active Medications Acetaminophen (Tylenol) 650 mg PO Q4HR PRN PRN Reason: Pain 1 to 4 Last Admin: 03/10/20 19:21 Dose: 650 mg Carbamazepine (Tegretol Xr) 200 mg PO BID PRN PRN Reason: NURALGIA Heparin Sodium (Porcine) () 5,000 unit SUBQ BID [facility] Last Admin: 03/11/20 08:16 Dose: 5,000 unit Sodium Chloride (Normal Saline 0.9%) 1,000 mls @ 100 mls/hr IV .Q10H [facility] Last Infusion: 03/11/20 08:33 Dose: 0 mls/hr Vancomycin HCl 2 gm/ Sodium (Chloride) 500 mls @ 250 mls/hr IV Q12H [facility] Last Infusion: 03/11/20 01:54 Dose: Infused Cefepime HCl 2 gm/ Sodium (Chloride) 100 mls @ 200 mls/hr IV BID [facility] Last Admin: 03/11/20 08:15 Dose: 200 mls/hr Ondansetron HCl (Zofran Inj) 4 mg IVP Q6HR PRN PRN Reason: Nausea / Vomiting Ondansetron HCl (Zofran Odt) 4 mg TL Q6HR PRN PRN Reason: Nausea / Vomiting Oxycodone HCl (Roxicodone) 5 mg PO Q4HR PRN PRN Reason: Pain 5 to 7 Last Admin: 03/10/20 14:43 Dose: 5 mg Polyethylene Glycol (Miralax) 17 gm PO DAILY [facility] Last Admin: 03/11/20 08:15 Dose: 17 gm Sodium Chloride (Normal Saline Flush 0.9%) 10 ml IVP PRN PRN PRN Reason: NEEDED PER PROVIDER ORDERS Sodium Chloride (Normal Saline Flush 0.9%) 10 ml IVP 0100,0900,1700 NAIF Last Admin: 03/11/20 08:29 Dose: Not Given Vancomycin HCl (Vancomycin-Pharmacy To Dose) 1 each IV ONCE PRN PRN Reason: PER PHARMACY Stop: 03/15/20 15:21 carBAMazepine [Carbamazepine ER] 400 mg PO BID PRN 05/25/18 Objective - Vital Signs/Intake & Output Reviewed Vital Signs: Yes Vital Signs: Vital Signs x48h Temp Pulse Resp BP Pulse Ox 03/11/20 07:41 37.5 C 87 18 136/94 H 95 Intake & Output: Intake & Output 03/08/20 03/09/20 03/10/20 03/11/20 23:59 23:59 23:59 23:59 Intake Total 3730.774 1253.333 500 Output Total 800 1095 400 Balance 3422.846 8856.333 100 - Objective General Appearance: positive: No acute distress, Alert, Other (Spiking temps to 39 on the 28th and th. He is afebrile right now. White cell count started at 15.4 thousand and is now 13,000.Morbidly obese pleasant white male, comfortable, eating breakfast.) Eyes Bilateral: positive: PERRL ENT: positive: Pharynx nml Neck: positive: No JVD. negative: Stiff neck Respiratory: positive: Chest non-tender, No respiratory distress, Other (Sounds really diminished at the bases with slow shallow respiration). negative: Wheezes, Rales, Rhonchi Cardiovascular: positive: Regular rate & rhythm. negative: Gallop/S4, Friction rub Abdomen: positive: Nml bowel sounds, No distention, Other (Obese pannus, very large). negative: Guarding, Rebound Skin: positive: Other (right leg skin has shrunken and is the violaceous diffuse color of chronic venous stasis but dry and no skin breakdown. Left leg kaur and calf skin, bright red, very hot, numerous cracks, slight serous drainage. mildly painful) Extremities: positive: Full ROM Neurologic/Psychiatric: positive: Oriented x3, CN's nml (2-12), Motor nml, Weakness (generalized) - Lab Results Fish Bones: 03/11/20 04:45 03/11/20 04:45 Other Labs: Lab Results x24hrs 03/11/20 03/11/20 03/10/20 Range/Units 04:45 04:45 09:34 WBC 13.0 H (4.8-10.8) x10^3/uL RBC 4.11 L (4.70-6.10) 10^6/uL Hgb 12.3 L (14.0-18.0) g/dL Hct 36.9 L (42.0-52.0) % MCV 89.8 (80.0-94.0) fL MCH 29.9 (27.0-31.0) pg MCHC 33.3 (32.0-36.0) g/dL RDW 14.2 (12.0-15.0) % Plt Count 144 (130-450) 10^3/uL MPV 10.7 (7.4-11.4) fL Neut # (Auto) 10.8 H (1.5-6.6) 10^3/uL Lymph # (Auto) 1.2 L (1.5-3.5) 10^3/uL [place] # (Auto) 0.8 (0.0-1.0) 10^3/uL Eos # (Auto) 0.0 (0.0-0.7) 10^3/uL Baso # (Auto) 0.0 (0.0-0.1) 10^3/uL Absolute Nucleated RBC 0.00 x10^3/uL Nucleated RBC % 0.0 /100WBC Sodium 131 L (135-145) mmol/L Potassium 3.5 (3.5-5.0) mmol/L Chloride 101 (101-111) mmol/L Carbon Dioxide 23 (21-32) mmol/L Anion Gap 7.0 (6-13) BUN 14 (6-20) mg/dL Creatinine 0.9 (0.6-1.2) mg/dL Estimated GFR (MDRD) 85 L (>89) Glucose 121 H (70-100) mg/dL Calcium 7.9 L (8.5-10.3) mg/dL C-Reactive Protein 24.8 H (0-1.0) mg/dL C-React Prot High Sens 223.9 mg/L ABX Reporting Has patient been on IV antibiotics over the past 48 hours?: Yes Sepsis Event Note (H) - Evaluation Current Stage of Sepsis: Sepsis Possible source of Sepsis: positive: Skin/soft tissue - Sepsis Criteria Sepsis Criteria: Recorded Temperature greater than 38.3C or Less than 36C, Recorded Heart Rate greater than 90 bpm, WBC count greater than 10% bands, WBC count greater than 12,000 or less than 4000, Metabolic: lactate > 2 mmol/L Assessment/Plan - Problem List (1) Cellulitis Impression: 03/10 Sepsis has resolved from admission Patient erythema on legs are reduced, but it still warmth, patient still feel weakness. the patient denies pain, distal neurovascular test on bilateral toes are intact. Continue antibiotics, continue intravenous IV fluids. Rocephin and vancomycin changed to cefepime and vancomycin. 03/11 White cell count has gone from 15,400-13,000. Daily temperature spike to 39 was at 730 last night. He is 37 5 this morning. Low-grade. Blood cultures are negative. Vancomycin day 3 Cefepime day 2 Continue with abx. add leg wrap to see if we can shrink the left leg more. (3) Osteoarthritis Conclusion/Plan: stable, pain control (4) Trigeminal neuralgia Conclusion/Plan: home meds, Carbamazepine, resumed (5) Weakness 03/10 Patient still reports he feels weakness, PT/OT for evaluation and treatment, continue antibiotics treatment and to continue intravenous IV fluids it is likely secondary to pt's sepsis and acute infection, will consult with PT/OT 03/11 epidosde of weakness as above. better today. we are using the luciano lift to get him out of bed this am just in case even though legs ok again. PT to see him. (6) obesity pt has BMI 41. discuss with pt about the loss of weight, pt understood. (7)lymphedema bilateral lower extremities Patient report he has lymphedema for a long time, he is followed by his foot doctor, he had scheduled a visit 03/10 but unfortunately he cannot go, he will follow-up with and continue to see his foot doctor, advised patient also follow- up dermatology, discussed the care with nurse, we will wash and clean, put lotion on pt's foot. pt has wound care consult, will followup. 03/11 In looking at causes of chronic lymphedema and venous stasis, I think about right-sided heart failure. However, echocardiogram was done May 26, 2018. He had mild left ventricular enlargement. Ejection fraction 70 to 75% with normal diastole. Atrial volume index was normal on the left. Moderate to severe right atrial enlargement. Trace tricuspid regurgitation. Right ventricular systolic pressure 35 mm. Qualifiers: Qualified Code(s): L03.119 - Cellulitis of unspecified part of limb
--- NOTE | 2020-03-11 09:47 | PHARMACY PROGRESS NOTE ---
- Therapy Status Vancomycin regimen day #: 3 Therapy status: Awaiting steady state Basis for treatment: Empirical Treatment indication: CELLULITIS Trough goal: 15-20 Concurrent antibiotics: CEFEPIME - MILA Risk Risk level for Acute Kidney Injury: Moderate Acute Kidney Injury risk factors: Wt >100kg or BMI >40, Goal trough >15, Sepsis - Monitoring and Recommendation Clinical response to treatment: I&O Previous 24 hours 03/09/20 03/10/20 03/11/20 23:59 23:59 23:59 Intake Total 3466.340 4066.333 1926.667 Output Total 800 1095 525 Balance 9679.449 9040.333 1401.667 Lab Results 03/11/20 03/10/20 03/09/20 04:45 04:55 11:39 BUN 14 14 21 H Creatinine 0.9 1.0 1.0 Estimated GFR (MDRD) 85 L 75 L 75 L Cultures 03/09/20 11:39 Blood Blood Culture - Preliminary NO GROWTH AFTER 1 DAY 03/09/20 11:39 Blood Blood Culture - Preliminary NO GROWTH AFTER 1 DAY Monitoring plan: Daily serum creatinine Areas for additional monitoring: IV to PO when appropriate, Therapy de- escalation based on culture results Pharmacy recommendation: Continue current regime
[2020-03-11] MEDS: oxyCODONE 5 MG TABLET PO PRN (10:42)
[2020-03-11] MEDS: ASCORBIC ACID CHEW 500 MG TABLET PO SCH (11:54)
[2020-03-11] MEDS ORDERED: BACITRACIN ZINC OINT 1 PACKET TOP PRN (20:02)
[2020-03-11] MEDS: ACETAMINOPHEN 325 MG TABLET PO PRN (20:51)
[2020-03-12] MEDS: SODIUM CHLORIDE FLUSH 0.9% 10 ML SYRINGE IVP SCH ×4 (00:01→23:42)
[2020-03-12] MEDS: traZODone 50 MG TABLET PO SCH ×2 (01:24→20:34)
[2020-03-12 05:17] LABS: BASOPHILS % (AUTO) 0.4 %; EOSINOPHILS # (AUTO) 0.2 10^3/uL (0.0-0.7); EOSINOPHILS % (AUTO) 2.1 %; HGB - HEMOGLOBIN 11.6 g/dL (14.0-18.0); LYMPHOCYTES # (AUTO) 1.3 10^3/uL (1.5-3.5); LYMPHOCYTES % (AUTO) 15.4 %; MEAN CORPUSCULAR HEMOGLOBIN 29.4 pg (27.0-31.0); MEAN CORPUSCULAR VOLUME 89.1 fL (80.0-94.0); MEAN PLATELET VOLUME 10.9 fL (7.4-11.4); MONOCYTES # (AUTO) 0.7 10^3/uL (0.0-1.0); MONOCYTES % (AUTO) 8.2 %; NEUTROPHILS # (AUTO) 6.3 10^3/uL (1.5-6.6); NEUTROPHILS % (AUTO) 73.3 %; PLT - PLATELET COUNT 149 10^3/uL (130-450); RED BLOOD COUNT 3.95 10^6/uL (4.70-6.10); WHITE BLOOD COUNT 8.6 x10^3/uL (4.8-10.8)
[2020-03-12 05:33] LABS: CREATININE 0.8 mg/dL (0.6-1.2); CRP - C-REACTIVE PROTEIN 19.2 mg/dL (0-1.0)
[2020-03-12] MEDS ORDERED: POTASSIUM CHLORIDE 20 MEQ TABLET PO ONE ×2 (06:58→07:13)
[2020-03-12 07:42] LABS: ABSOLUTE RETICS # AUTO 0.039 10^6/uL (0.020-0.110); RED BLOOD COUNT 3.95 10^6/uL (4.70-6.10)
[2020-03-12 07:54] LABS: FERRITIN 272.4 ng/mL (23.9-336.2)
[2020-03-12 07:57] LABS: % IRON SATURATION 6 % (20-50); IRON 14 ug/dL (45-182); TOTAL IRON BINDING CAPACITY 234 ug/dL (250-450); TRANSFERRIN 167 mg/dL (180-329)
[2020-03-12] MEDS: polyethylene glycoL 3350 17 GM PACKET PO SCH (08:14)
[2020-03-12] MEDS: HEPARIN 5,000 UNIT/ML VIAL SUBQ SCH ×2 (08:28→20:35)
[2020-03-12] MEDS: ACETAMINOPHEN 325 MG TABLET PO PRN ×2 (08:29→20:34)
[2020-03-12] MEDS: ASCORBIC ACID CHEW 500 MG TABLET PO SCH (08:29)
[2020-03-12] MEDS: CEFEPIME 2 GM in SODIUM CHLORIDE 0.9% MINIBAG 100 ML IV SCH ×2 (08:29→20:34)
[2020-03-12] MEDS: SODIUM CHLORIDE 0.9% 1,000 ML IV SCH (08:48)
--- NOTE | 2020-03-12 08:50 | PROVIDER PROGRESS NOTE ---
Subjective - Prog Note Date Prog Note Date: 03/12/20 - Subjective Pt reports feeling: Improved Subjective: pt report his right leg and foot is almost return to his baseline. pt had wound care and dressing change done at hospital at this time. pt hope to Continue dressing changes after discharge, we consult with social worker delinquency prevention to arrange for this. Pt report his left leg is better than before but still has erythema and mild to moderate swelling, warm but better than before. He report his weakness is improving. he denies fever, chill, shortness of breath, or chest pain. Current Medications - Current Medications Current Medications: Active Medications Acetaminophen (Tylenol) 650 mg PO Q4HR PRN PRN Reason: Pain 1 to 4 Last Admin: 03/12/20 08:29 Dose: 650 mg Ascorbic Acid (Vitamin C) 500 mg PO DAILY [facility] Last Admin: 03/12/20 08:29 Dose: 500 mg Bacitracin (Bacitracin) 1 packet TOP PRN PRN PRN Reason: Skin Care Carbamazepine (Tegretol Xr) 200 mg PO BID PRN PRN Reason: NURALGIA Ferrous Sulfate (Feosol) 325 mg PO BIDWM [facility] Heparin Sodium (Porcine) () 5,000 unit SUBQ BID [facility] Last Admin: 03/12/20 08:28 Dose: 5,000 unit Vancomycin HCl 2 gm/ Sodium (Chloride) 500 mls @ 250 mls/hr IV Q12H [facility] Last Infusion: 03/12/20 05:56 Dose: Infused Cefepime HCl 2 gm/ Sodium (Chloride) 100 mls @ 200 mls/hr IV BID [facility] Last Admin: 03/12/20 08:29 Dose: 200 mls/hr Ondansetron HCl (Zofran Inj) 4 mg IVP Q6HR PRN PRN Reason: Nausea / Vomiting Ondansetron HCl (Zofran Odt) 4 mg TL Q6HR PRN PRN Reason: Nausea / Vomiting Oxycodone HCl (Roxicodone) 5 mg PO Q4HR PRN PRN Reason: Pain 5 to 7 Last Admin: 03/11/20 10:42 Dose: 5 mg Polyethylene Glycol (Miralax) 17 gm PO DAILY [facility] Last Admin: 03/12/20 08:14 Dose: Not Given Sodium Chloride (Normal Saline Flush 0.9%) 10 ml IVP PRN PRN PRN Reason: NEEDED PER PROVIDER ORDERS Sodium Chloride (Normal Saline Flush 0.9%) 10 ml IVP 0100,0900,1700 [facility] Last Admin: 03/12/20 08:20 Dose: Not Given Trazodone HCl (Desyrel) 50 mg PO QPM [facility] Last Admin: 03/12/20 01:24 Dose: 50 mg Vancomycin HCl (Vancomycin-Pharmacy To Dose) 1 each IV ONCE PRN PRN Reason: PER PHARMACY Stop: 03/15/20 15:21 carBAMazepine [Carbamazepine ER] 400 mg PO BID PRN 05/25/18 Objective - Vital Signs/Intake & Output Vital Signs: Vital Signs x48h Temp Pulse Resp BP Pulse Ox 03/12/20 07:52 37.1 C 92 20 124/69 95 Intake & Output: Intake & Output 03/09/20 03/10/20 03/11/20 03/12/20 23:59 23:59 23:59 23:59 Intake Total 9809.744 9644.333 4262.000 1103.334 Output Total 800 1095 2300 910 Balance 7688.374 4058.333 1962.000 193.334 - Objective General Appearance: positive: No acute distress, Alert. negative: Lethargic Eyes Bilateral: positive: Normal inspection, PERRL, No lid inflammation ENT: positive: ENT inspection nml, No signs of dehydration. negative: Purulent nasal drainage Neck: positive: Nml inspection, Thyroid nml, Trachea midline. negative: Thyromegaly, Stiff neck, Tracheal deviation Respiratory: positive: Chest non-tender, No respiratory distress, Breath sounds nml. negative: Wheezes, Rales, Rhonchi Cardiovascular: positive: Regular rate & rhythm, No murmur, No gallop. negative: Irregularly irregular, Tachycardia, Bradycardia, Systolic murmur, Diastolic murmur Peripheral Pulses: 1+ Dorsalis pedis (L), 2+ Radial (R), 2+ Radial (L), 2+ Dorsalis pedis (R) Abdomen: positive: Non-tender, No organomegaly, Nml bowel sounds. negative: Tenderness, Guarding, Rebound Back: positive: Nml inspection. negative: CVA tenderness (R), CVA tenderness (L) Skin: positive: Warm, Dry. negative: Cyanosis, Diaphoresis, Pallor Extremities: positive: Non-tender. negative: Calf tenderness, Nadia's sign/cords Neurologic/Psychiatric: positive: Oriented x3, Sensation nml. negative: Weakness, Sensory loss, Facial droop, Slurred/abnml speech, Depressed mood/affect - Lab Results Fish Bones: 03/12/20 05:09 03/12/20 05:09 Other Labs: Lab Results x24hrs 03/12/20 03/12/20 03/12/20 Range/Units 05:09 05:09 05:09 WBC (4.8-10.8) x10^3/uL RBC (4.70-6.10) 10^6/uL Hgb (14.0-18.0) g/dL Hct (42.0-52.0) % MCV (80.0-94.0) fL MCH (27.0-31.0) pg MCHC (32.0-36.0) g/dL RDW (12.0-15.0) % Plt Count (130-450) 10^3/uL MPV (7.4-11.4) fL Reticulocyte % (Auto) (0.5-2.3) % Neut # (Auto) (1.5-6.6) 10^3/uL Lymph # (Auto) (1.5-3.5) 10^3/uL [place] # (Auto) (0.0-1.0) 10^3/uL Eos # (Auto) (0.0-0.7) 10^3/uL Baso # (Auto) (0.0-0.1) 10^3/uL Absolute Nucleated RBC x10^3/uL Nucleated RBC % /100WBC Absolute Retic (0.020-0.110) 10^6/uL Sodium (135-145) mmol/L Potassium (3.5-5.0) mmol/L Chloride (101-111) mmol/L Carbon Dioxide (21-32) mmol/L Anion Gap (6-13) BUN (6-20) mg/dL Creatinine (0.6-1.2) mg/dL Estimated GFR (MDRD) (>89) Glucose (70-100) mg/dL Calcium (8.5-10.3) mg/dL Iron 14 L (45-182) ug/dL TIBC 234 L (250-450) ug/dL % Saturation 6 L (20-50) % Transferrin 167 L (180-329) mg/dL Ferritin 272.4 (23.9-336.2) ng/mL Lactate Dehydrogenase 113 (91-225) IU/L C-Reactive Protein (0-1.0) mg/dL Vitamin B12 356 (180-914) pg/mL 03/12/20 03/12/20 03/12/20 Range/Units 05:09 05:09 05:09 WBC 8.6 (4.8-10.8) x10^3/uL RBC 3.95 L 3.95 L (4.70-6.10) 10^6/uL Hgb 11.6 L (14.0-18.0) g/dL Hct 35.2 L (42.0-52.0) % MCV 89.1 (80.0-94.0) fL MCH 29.4 (27.0-31.0) pg MCHC 33.0 (32.0-36.0) g/dL RDW 14.0 (12.0-15.0) % Plt Count 149 (130-450) 10^3/uL MPV 10.9 (7.4-11.4) fL Reticulocyte % (Auto) 0.98 (0.5-2.3) % Neut # (Auto) 6.3 (1.5-6.6) 10^3/uL Lymph # (Auto) 1.3 L (1.5-3.5) 10^3/uL [place] # (Auto) 0.7 (0.0-1.0) 10^3/uL Eos # (Auto) 0.2 (0.0-0.7) 10^3/uL Baso # (Auto) 0.0 (0.0-0.1) 10^3/uL Absolute Nucleated RBC 0.00 x10^3/uL Nucleated RBC % 0.0 /100WBC Absolute Retic 0.039 (0.020-0.110) 10^6/uL Sodium 139 (135-145) mmol/L Potassium 3.4 L (3.5-5.0) mmol/L Chloride 108 (101-111) mmol/L Carbon Dioxide 25 (21-32) mmol/L Anion Gap 6.0 (6-13) BUN 12 (6-20) mg/dL Creatinine 0.8 (0.6-1.2) mg/dL Estimated GFR (MDRD) 97 (>89) Glucose 107 H (70-100) mg/dL Calcium 8.0 L (8.5-10.3) mg/dL Iron (45-182) ug/dL TIBC (250-450) ug/dL % Saturation (20-50) % Transferrin (180-329) mg/dL Ferritin (23.9-336.2) ng/mL Lactate Dehydrogenase (91-225) IU/L C-Reactive Protein 19.2 H (0-1.0) mg/dL Vitamin B12 (180-914) pg/mL ABX Reporting Has patient been on IV antibiotics over the past 48 hours?: Yes Sepsis Event Note (H) - Evaluation Current Stage of Sepsis: Sepsis Possible source of Sepsis: positive: Skin/soft tissue - Sepsis Criteria Sepsis Criteria: Recorded Temperature greater than 38.3C or Less than 36C, Recorded Heart Rate greater than 90 bpm, WBC count greater than 10% bands, WBC count greater than 12,000 or less than 4000, Metabolic: lactate > 2 mmol/L Assessment/Plan - Problem List (1) Sepsis Impression: 03/10 Sepsis has resolved from admission Patient erythema on legs are reduced, but it still warmth, patient still feel weakness. the patient denies pain, distal neurovascular test on bilateral toes are intact. Continue antibiotics, continue intravenous IV fluids. Rocephin and vancomycin changed to cefepime and vancomycin. 03/11 White cell count has gone from 15,400-13,000. Daily temperature spike to 39 was at 730 last night. He is 37 5 this morning. Low-grade. Blood cultures are negative. Vancomycin day 3 Cefepime day 2 Continue with abx. add leg wrap to see if we can shrink the left leg more. 03/12 WBC is normal now and CRP is reduced 19 today from 25. right leg has great improved, return to his baseline. left leg warmth is reduced but left leg has still erythema and mild to moderate swelling. continue antibiotics treatment. continue wound care and dress change. consult with social worker delinquency prevention to arrange for [facility] dressing change schedule after d/c from hospital. advise pt safely walk with PT/OT and nurse, rise leg to help venous return, and followup his foot doctor appointment. (3) Osteoarthritis Conclusion/Plan: stable, pain control (4) Trigeminal neuralgia Conclusion/Plan: home meds, Carbamazepine, resumed (5) Weakness 03/10 Patient still reports he feels weakness, PT/OT for evaluation and treatment, continue antibiotics treatment and to continue intravenous IV fluids it is likely secondary to pt's sepsis and acute infection, will consult with PT/OT 03/11 epidosde of weakness as above. better today. we are using the luciano lift to get him out of bed this am just in case even though legs ok again. PT to see him. 03/12 significantly better today, per pt report. continue PT/OT, encourage pt walk safely with PT/OT and nurse. continue treatment of cellulitis. (6) obesity pt has BMI 41. discuss with pt about the loss of weight, pt understood. (7)lymphedema bilateral lower extremities Patient report he has lymphedema for a long time, he is followed by his foot doctor, he had scheduled a visit 03/10 but unfortunately he cannot go, he will follow-up with and continue to see his foot doctor, advised patient also follow- up dermatology, discussed the care with nurse, we will wash and clean, put lotion on pt's foot. pt has wound care consult, will followup. 03/11 In looking at causes of chronic lymphedema and venous stasis, I think about right-sided heart failure. However, echocardiogram was done May 26, 2018. He had mild left ventricular enlargement. Ejection fraction 70 to 75% with normal diastole. Atrial volume index was normal on the left. Moderate to severe right atrial enlargement. Trace tricuspid regurgitation. Right ventricular systolic pressure 35 mm. 03/12, pt had unremarkable ECHO in the prior. pt report he had vascular surgery in his right leg. Atrial volume index was normal on the left leg. dorsalis pedis in both are nearly equal now. encourage pt safely walk to help venous fluid return, continue PT/OT, encourage rise his leg, reduce sodium intake. consult with watermelon inspector/semiconductor processing group leader to help pt have health eating habits. Qualifiers: Sepsis type: sepsis due to unspecified organism Sepsis acute organ dysfunction status: without acute organ dysfunction Qualified Code(s): A41.9 - Sepsis, unspecified organism
[2020-03-12] MEDS: FERROUS SULFATE 325 MG TABLET PO SCH ×2 (09:56→16:57)
[2020-03-12 12:36] LABS: VANCOMYCIN,TROUGH 21.3 ug/mL (10.0-20.0)
--- NOTE | 2020-03-12 13:04 | PHARMACY PROGRESS NOTE ---
- Therapy Status Vancomycin regimen day #: 4 Therapy status: Awaiting steady state (Trough of 21.3 obtained 03/12 is questio gole due to a 4 hour delay in the completion of the 03/12 0000 scheduled dose. I will redraw tomorrow.) Basis for treatment: Empirical Trough goal: 15-20 - MILA Risk Risk level for Acute Kidney Injury: Moderate Acute Kidney Injury risk factors: Wt >100kg or BMI >40, Goal trough >15, Sepsis - Monitoring and Recommendation Clinical response to treatment: I&O Previous 24 hours 03/10/20 03/11/20 03/12/20 23:59 23:59 23:59 Intake Total 5508.333 4262.000 1563.334 Output Total 1095 2300 1335 Balance 4413.333 1962.000 228.334 Lab Results 03/12/20 03/11/20 03/10/20 05:09 04:45 04:55 BUN 12 14 14 Creatinine 0.8 0.9 1.0 Estimated GFR (MDRD) 97 85 L 75 L 03/09/20 11:39 BUN 21 H Creatinine 1.0 Estimated GFR (MDRD) 75 L Vancomycin Monitoring 03/12/20 11:45 Vancomycin Trough 21.3 H Cultures 03/09/20 11:39 Blood Blood Culture - Preliminary NO GROWTH AFTER 2 DAYS 03/09/20 11:39 Blood Blood Culture - Preliminary NO GROWTH AFTER 2 DAYS Monitoring plan: Daily serum creatinine Next trough due prior to maintenance dose #: 7 Next trough due (date/time): 03/13 @1230 Areas for additional monitoring: IV to PO when appropriate, Therapy de-escala tion based on culture results Pharmacy recommendation: Continue current regime
[2020-03-12] MEDS: VANCOMYCIN INJ 2 GM in SODIUM CHLORIDE 0.9% 500 ML IV SCH (13:49)
[2020-03-12] MEDS: SODIUM CHLORIDE FLUSH 0.9% 10 ML SYRINGE IVP PRN ×2 (13:50→20:36)
[2020-03-12] MEDS ORDERED: VANCOMYCIN INJ 1.75 GM in SODIUM CHLORIDE 0.9% 500 ML IV SCH (14:00)
[2020-03-13] MEDS: VANCOMYCIN INJ 2 GM in SODIUM CHLORIDE 0.9% 500 ML IV SCH (01:05)
[2020-03-13] MEDS: SODIUM CHLORIDE FLUSH 0.9% 10 ML SYRINGE IVP PRN ×3 (01:06→20:33)
[2020-03-13 05:08] LABS: BASOPHILS % (AUTO) 0.4 %; EOSINOPHILS # (AUTO) 0.3 10^3/uL (0.0-0.7); EOSINOPHILS % (AUTO) 3.7 %; HGB - HEMOGLOBIN 11.4 g/dL (14.0-18.0); LYMPHOCYTES # (AUTO) 1.5 10^3/uL (1.5-3.5); MEAN CORPUSCULAR HEMOGLOBIN 28.6 pg (27.0-31.0); MEAN CORPUSCULAR HGB CONC 32.3 g/dL (32.0-36.0); MEAN CORPUSCULAR VOLUME 88.7 fL (80.0-94.0); MEAN PLATELET VOLUME 10.4 fL (7.4-11.4); MONOCYTES # (AUTO) 0.8 10^3/uL (0.0-1.0); MONOCYTES % (AUTO) 9.9 %; NEUTROPHILS # (AUTO) 5.7 10^3/uL (1.5-6.6); NEUTROPHILS % (AUTO) 67.3 %; PLT - PLATELET COUNT 180 10^3/uL (130-450); RED BLOOD COUNT 3.98 10^6/uL (4.70-6.10); RED CELL DISTRIBUTION WIDTH 14.4 % (12.0-15.0); WHITE BLOOD COUNT 8.4 x10^3/uL (4.8-10.8)
[2020-03-13 05:25] LABS: CALCIUM 7.9 mg/dL (8.5-10.3); CREATININE 0.8 mg/dL (0.6-1.2)
[2020-03-13] MEDS ORDERED: POTASSIUM CHLORIDE 20 MEQ TABLET PO ONE (07:23)
[2020-03-13] MEDS: CEFEPIME 2 GM in SODIUM CHLORIDE 0.9% MINIBAG 100 ML IV SCH (08:13)
[2020-03-13] MEDS: ASCORBIC ACID CHEW 500 MG TABLET PO SCH (08:13)
[2020-03-13] MEDS: FERROUS SULFATE 325 MG TABLET PO SCH ×2 (08:13→16:54)
[2020-03-13] MEDS: HEPARIN 5,000 UNIT/ML VIAL SUBQ SCH ×2 (08:14→20:36)
[2020-03-13] MEDS: polyethylene glycoL 3350 17 GM PACKET PO SCH (08:14)
[2020-03-13] MEDS: SODIUM CHLORIDE FLUSH 0.9% 10 ML SYRINGE IVP SCH ×2 (08:14→16:54)
[2020-03-13] MEDS: SACCHAROMYCES BOULARDII 250 MG CAPSULE PO SCH ×2 (08:14→16:54)
[2020-03-13] MEDS: NYSTATIN POWDER 15 GM TOP SCH ×2 (10:25→20:31)
[2020-03-13] MEDS: NYSTATIN CREAM 15 GM TUBE TOP SCH ×2 (10:26→20:32)
--- NOTE | 2020-03-13 11:23 | PROVIDER PROGRESS NOTE ---
Subjective - Prog Note Date Prog Note Date: 03/13/20 Prog Note Time: 09:58 - Subjective Pt reports feeling: Improved Subjective: left leg cramping. otherwise, stable. disappointed left leg is not as skinny as right leg. many questions about venous insufficiency and the treatment. He was hoping for a surgical cure. He was not impressed with the therapy recommended by the physical therapy office in [place]. This was right before everything shut down was covered. They frankly told him that the physical therapy, in person, was shutting down. But they taught him how to do wraps of his legs and that he would have to wrap his leg daily for the next 2 weeks. He is unhappy with that because his expectation is that "someone else" would wrap his legs. He cannot wrap his legs because of his abdominal girth and a huge abdominal pannus that gets in his way. And he thinks that it is unreasonable to expect his to wrap his legs every day. He also finds it very difficult to use compression stockings. It is hard for them to get them on him. And he is looking to get above the knee compression stockings. Current Medications - Current Medications Current Medications: Active Medications Acetaminophen (Tylenol) 650 mg PO Q4HR PRN PRN Reason: Pain 1 to 4 Last Admin: 03/12/20 20:34 Dose: 650 mg Ascorbic Acid (Vitamin C) 500 mg PO DAILY [facility] Last Admin: 03/13/20 08:13 Dose: 500 mg Bacitracin (Bacitracin) 1 packet TOP PRN PRN PRN Reason: Skin Care Carbamazepine (Tegretol Xr) 200 mg PO BID PRN PRN Reason: NURALGIA Ferrous Sulfate (Feosol) 325 mg PO BIDWM [facility] Last Admin: 03/13/20 16:54 Dose: 325 mg Heparin Sodium (Porcine) () 5,000 unit SUBQ BID [facility] Last Admin: 03/13/20 08:14 Dose: 5,000 unit Vancomycin HCl 1 gm/Vancomycin HCl 250 mg/ Sodium Chloride 250 mls @ 167 mls/hr IV BID [facility] Nystatin (Nystop) 1 applic TOP BID [facility] Last Admin: 03/13/20 10:25 Dose: 1 applic Nystatin (Mycostatin Cream) 1 applic TOP BID [facility] Last Admin: 03/13/20 10:26 Dose: Not Given Ondansetron HCl (Zofran Inj) 4 mg IVP Q6HR PRN PRN Reason: Nausea / Vomiting Ondansetron HCl (Zofran Odt) 4 mg TL Q6HR PRN PRN Reason: Nausea / Vomiting Oxycodone HCl (Roxicodone) 5 mg PO Q4HR PRN PRN Reason: Pain 5 to 7 Last Admin: 03/11/20 10:42 Dose: 5 mg Polyethylene Glycol (Miralax) 17 gm PO DAILY [facility] Last Admin: 03/13/20 08:14 Dose: Not Given Saccharomyces Boulardii (Florastor) 250 mg PO BIDWM [facility] Last Admin: 03/13/20 16:54 Dose: 250 mg Sodium Chloride (Normal Saline Flush 0.9%) 10 ml IVP PRN PRN PRN Reason: NEEDED PER PROVIDER ORDERS Last Admin: 03/13/20 03:29 Dose: 10 ml Sodium Chloride (Normal Saline Flush 0.9%) 10 ml IVP 0100,0900,1700 [facility] Last Admin: 03/13/20 16:54 Dose: 10 ml Trazodone HCl (Desyrel) 50 mg PO QPM [facility] Last Admin: 03/12/20 20:34 Dose: 50 mg Vancomycin HCl (Vancomycin-Pharmacy To Dose) 1 each IV ONCE PRN PRN Reason: PER PHARMACY Stop: 03/15/20 15:21 carBAMazepine [Carbamazepine ER] 400 mg PO BID PRN 05/25/18 Objective - Vital Signs/Intake & Output Reviewed Vital Signs: Yes Vital Signs: Vital Signs x48h Temp Pulse Resp BP Pulse Ox 03/13/20 08:00 36.8 C 55 L 20 107/87 H 94 03/13/20 03:30 87 141/85 H Intake & Output: Intake & Output 03/10/20 03/11/20 03/12/20 03/13/20 23:59 23:59 23:59 23:59 Intake Total 5508.333 4262.000 3033.334 600 Output Total 1095 2300 1985 1525 Balance 4413.333 8201.776 5802.334 -551 - Objective General Appearance: positive: No acute distress, Alert, Other (140.8 kg, tall white male, sitting up in chair, legs are not wrapped, eating breakfast.) Eyes Bilateral: positive: PERRL ENT: positive: Pharynx nml Neck: positive: No JVD. negative: Stiff neck Respiratory: positive: Chest non-tender, No respiratory distress. negative: Wheezes, Rales, Rhonchi Cardiovascular: positive: Regular rate & rhythm. negative: Gallop/S4, Friction rub Abdomen: positive: Non-tender, Nml bowel sounds, No distention, Other (Difficult to assess for organomegaly with large abdominal pannus. Scrotal sacs are fluid- filled, perineum and intertriginous folds with Danay.) Skin: positive: Warm, Dry Extremities: positive: Other (Right leg is to baseline with edema. There is still trace pitting edema. But he has deep violaceous discoloration that covers him from the top of the kaur all the way down to his foot. There is mild warmth. Mild tenderness in the calf muscle. It is woody edema. Left leg is still hot, red, and you can see the redness receding below the blue line of cellulitis drawn at the top of the kaur. 2+ edema. Less serous oozing.) Neurologic/Psychiatric: positive: Oriented x3, CN's nml (2-12), Motor nml (But physical therapy feels he needs a walker. He still needs something to hold onto. At home he uses a cane and it may not be enough. As such I am ordering a bariatric front wheel walker for him.) - Lab Results Fish Bones: 03/13/20 05:00 03/13/20 05:00 Other Labs: Lab Results x24hrs 03/13/20 03/13/20 03/12/20 Range/Units 05:00 05:00 11:45 WBC 8.4 (4.8-10.8) x10^3/uL RBC 3.98 L (4.70-6.10) 10^6/uL Hgb 11.4 L (14.0-18.0) g/dL Hct 35.3 L (42.0-52.0) % MCV 88.7 (80.0-94.0) fL MCH 28.6 (27.0-31.0) pg MCHC 32.3 (32.0-36.0) g/dL RDW 14.4 (12.0-15.0) % Plt Count 180 (130-450) 10^3/uL MPV 10.4 (7.4-11.4) fL Neut # (Auto) 5.7 (1.5-6.6) 10^3/uL Lymph # (Auto) 1.5 (1.5-3.5) 10^3/uL Campbell # (Auto) 0.8 (0.0-1.0) 10^3/uL Eos # (Auto) 0.3 (0.0-0.7) 10^3/uL Baso # (Auto) 0.0 (0.0-0.1) 10^3/uL Absolute Nucleated RBC 0.00 x10^3/uL Nucleated RBC % 0.0 /100WBC Sodium 137 (135-145) mmol/L Potassium 3.3 L (3.5-5.0) mmol/L Chloride 106 (101-111) mmol/L Carbon Dioxide 24 (21-32) mmol/L Anion Gap 7.0 (6-13) BUN 10 (6-20) mg/dL Creatinine 0.8 (0.6-1.2) mg/dL Estimated GFR (MDRD) 97 (>89) Glucose 111 H (70-100) mg/dL Calcium 7.9 L (8.5-10.3) mg/dL C-Reactive Protein 12.0 H (0-1.0) mg/dL Last Dose Date 03/12/20 Last Dose Time 0556 Vancomycin Trough 21.3 H (10.0-20.0) ug/mL ABX Reporting Has patient been on IV antibiotics over the past 48 hours?: Yes Sepsis Event Note (H) - Evaluation Current Stage of Sepsis: Sepsis Possible source of Sepsis: positive: Skin/soft tissue - Sepsis Criteria Sepsis Criteria: Recorded Temperature greater than 38.3C or Less than 36C, Recorded Heart Rate greater than 90 bpm, WBC count greater than 10% bands, WBC count greater than 12,000 or less than 4000, Metabolic: lactate > 2 mmol/L Assessment/Plan - Problem List (1) Cellulitis Impression: Sepsis from 03/09 has resolved. 03/10 Patient erythema on legs are reduced, but it still warmth, patient still feel weakness. the patient denies pain, distal neurovascular test on bilateral toes are intact. Continue antibiotics, continue intravenous IV fluids. Rocephin and vancomycin changed to cefepime and vancomycin. 03/11 White cell count has gone from 15,400-13,000. Daily temperature spike to 39 was at 730 last night. He is 37 5 this morning. Low-grade. Blood cultures are negative. Vancomycin day 3 Cefepime day 2 Continue with abx. add leg wrap to see if we can shrink the left leg more. 03/12 WBC is normal now and CRP is reduced 19 today from 25. right leg has great improved, return to his baseline. left leg warmth is reduced but left leg has still erythema and mild to moderate swelling. continue antibiotics treatment. continue wound care and dress change. consult with social media intern to arrange for [facility] clinic dressing change schedule after d/c from hospital. advise pt safely walk with PT/OT and nurse, rise leg to help venous return, and followup his foot doctor appointment. 03/13 He has been without a fever since March 10 when he was 38.0. T-max on March 11 was 37.7.White cell count on admission was 15.4, today it is 8.4. C-reactive protein was 24.8 and is now 12. He is now been on cefepime Day 4 and vancomycin day 5. Pharmacy is asking us to reconsider the cefepime and just go down to vancomycin. I have made that change today. Vancomycin trough is 25.8 today. That will be adjusted. Redness, heat, and swelling have not resolved to the point that I would be discharging him today. He is supposed to stay until tomorrow and would rec onsider discharge tomorrow as well depending on how hot and red his leg is. Qualifiers: Qualified Code(s): L03.119 - Cellulitis of unspecified part of limb (2) Lymphedema of lower extremity Impression: Patient report he has lymphedema for a long time, he is followed by his foot doctor, he had scheduled a visit 03/10 but unfortunately he cannot go, he will follow-up with and continue to see his foot doctor, advised patient also follow- up dermatology, discussed the care with nurse, we will wash and clean, put lotion on pt's foot. pt has wound care consult, will followup. 03/11 In looking at causes of chronic lymphedema and venous stasis, I think about right-sided heart failure. However, echocardiogram was done May 26, 2018. He had mild left ventricular enlargement. Ejection fraction 70 to 75% with normal diastole. Atrial volume index was normal on the left. Moderate to severe right atrial enlargement. Trace tricuspid regurgitation. Right ventricular systolic pressure 35 mm. 03/12, pt had unremarkable ECHO in the prior. pt report he had vascular surgery in his right leg. Atrial volume index was normal on the left leg. dorsalis pedis in both are nearly equal now. encourage pt safely walk to help venous fluid return, continue PT/OT, encourage rise his leg, reduce sodium intake. consult with glass cutter/real estate investment analyst to help pt have health eating habits. 03/13: Long talk with the patient. I explained the pathophysiology of lymphedema. Venous stasis. Or as there is some limited surgical procedures that could be done to help the leg, it really boils down to mechanical compression, assiduous skin care, elevation of legs, weight loss, limit of salt intake for the rest of his life. He is understandably disappointed with the big picture. I did recommend that he consider losing 10 to 15% of his body weight. Exercise at a local pool to stimulate his calf muscles. Reconsider his an anathema of visiting the [place] physical therapy office. Consider going to an orthotic [employer] where he can have custom fit orthotic compression stockings with zipper. They are very expensive.I have written for the walker that physical therapy has asked for. Qualifiers: Laterality: bilateral Qualified Code(s): I89.0 - Lymphedema, not elsewhere classified (3) Iron deficiency anemia Impression: 03/12/20 03/12/20 03/12/20 05:09 05:09 05:09 Iron 14 L TIBC 234 L % Saturation 6 L Transferrin 167 L Ferritin 272.4 Lactate Dehydrogenase 113 Vitamin B12 356 No GI blood loss described. No evidence of chronic kidney disease with a relatively normal GFR. He may need a GI work-up in the outpatient setting. In the meantime he started on iron and vitamin C. Qualifiers: Iron deficiency anemia type: unspecified iron deficiency Qualified Code(s): D50.9 - Iron deficiency anemia, unspecified
[2020-03-13 13:28] LABS: VANCOMYCIN,TROUGH 25.8 ug/mL (10.0-20.0)
--- NOTE | 2020-03-13 13:53 | PHARMACY PROGRESS NOTE ---
- Therapy Status Vancomycin regimen day #: 5 Therapy status: Trough supratherapeutic (Trough of 21.3 obtained 03/12 is quest ionable due to a 4 hour delay in the completion of the 03/12 0000 scheduled dose. I will redraw tomorrow.) Basis for treatment: Empirical Trough goal: 15-20 - MILA Risk Risk level for Acute Kidney Injury: Moderate Acute Kidney Injury risk factors: Wt >100kg or BMI >40, Goal trough >15, Sepsis - Monitoring and Recommendation Clinical response to treatment: I&O Previous 24 hours 03/11/20 03/12/20 03/13/20 23:59 23:59 23:59 Intake Total 4262.000 3033.334 1480 Output Total 2300 1985 1725 Balance 3170.754 9813.334 -245 Lab Results 03/13/20 03/12/20 03/11/20 05:00 05:09 04:45 BUN 10 12 14 Creatinine 0.8 0.8 0.9 Estimated GFR (MDRD) 97 97 85 L 03/10/20 03/09/20 04:55 11:39 BUN 14 21 H Creatinine 1.0 1.0 Estimated GFR (MDRD) 75 L 75 L Vancomycin Monitoring 03/13/20 03/12/20 12:55 11:45 Vancomycin Trough 25.8 H* 21.3 H Cultures 03/09/20 11:39 Blood Blood Culture - Preliminary NO GROWTH AFTER 2 DAYS 03/09/20 11:39 Blood Blood Culture - Preliminary NO GROWTH AFTER 2 DAYS Monitoring plan: Daily serum creatinine Areas for additional monitoring: IV to PO when appropriate, Therapy de- escalation based on culture results Pharmacy recommendation: Decrease dose (Decrease to 1250 mg q12h)
[2020-03-13] MEDS ORDERED: ZOLPIDEM 5 MG TABLET PO PRN (20:55)
[2020-03-13] MEDS ORDERED: VANCOMYCIN INJ 1 GM, VANCOMYCIN INJ 250 MG in SODIUM CHLORIDE 0.9% 250 ML IV SCH (21:00)
[2020-03-14] MEDS: SODIUM CHLORIDE FLUSH 0.9% 10 ML SYRINGE IVP SCH ×2 (01:06→08:05)
[2020-03-14 04:52] LABS: BASOPHILS # (AUTO) 0.1 10^3/uL (0.0-0.1); BASOPHILS % (AUTO) 0.5 %; EOSINOPHILS # (AUTO) 0.4 10^3/uL (0.0-0.7); EOSINOPHILS % (AUTO) 4.1 %; HGB - HEMOGLOBIN 11.7 g/dL (14.0-18.0); LYMPHOCYTES # (AUTO) 1.8 10^3/uL (1.5-3.5); MEAN CORPUSCULAR HEMOGLOBIN 29.5 pg (27.0-31.0); MEAN CORPUSCULAR HGB CONC 33.1 g/dL (32.0-36.0); MEAN CORPUSCULAR VOLUME 89.4 fL (80.0-94.0); MONOCYTES # (AUTO) 1.1 10^3/uL (0.0-1.0); MONOCYTES % (AUTO) 12.3 %; NEUTROPHILS # (AUTO) 5.7 10^3/uL (1.5-6.6); NEUTROPHILS % (AUTO) 61.9 %; PLT - PLATELET COUNT 207 10^3/uL (130-450); RED BLOOD COUNT 3.96 10^6/uL (4.70-6.10); RED CELL DISTRIBUTION WIDTH 14.3 % (12.0-15.0); WHITE BLOOD COUNT 9.2 x10^3/uL (4.8-10.8)
[2020-03-14 05:10] LABS: CALCIUM 8.2 mg/dL (8.5-10.3); CREATININE 0.8 mg/dL (0.6-1.2); CRP - C-REACTIVE PROTEIN 10.9 mg/dL (0-1.0)
[2020-03-14] MEDS: FERROUS SULFATE 325 MG TABLET PO SCH (08:04)
[2020-03-14] MEDS: ASCORBIC ACID CHEW 500 MG TABLET PO SCH (08:04)
[2020-03-14] MEDS: SACCHAROMYCES BOULARDII 250 MG CAPSULE PO SCH (08:04)
[2020-03-14] MEDS: HEPARIN 5,000 UNIT/ML VIAL SUBQ SCH (08:04)
[2020-03-14] MEDS: polyethylene glycoL 3350 17 GM PACKET PO SCH (08:05)
[2020-03-14] MEDS ORDERED: IOVERSOL 320 100 ML VIAL IVP ONE ×2 (08:57→11:46)
[2020-03-14] MEDS ORDERED: FERROUS SULFATE 325 MG TABLET PO SCH (09:00)
[2020-03-14] MEDS ORDERED: SULFAMETH/TRIMETH DS 800/160 MG TABLET PO SCH (09:00)
[2020-03-14] MEDS: NYSTATIN POWDER 15 GM TOP SCH (11:44)
[2020-03-14] MEDS: NYSTATIN CREAM 15 GM TUBE TOP SCH (11:45)
--- NOTE | 2020-03-14 15:22 | Discharge Plan ---
Discharge Plan Problem Reviewed?: Yes Disposition: Home, Self Care Condition: Stable Prescriptions: oxyCODONE [Roxicodone] 5 mg PO Q4HR PRN #20 tablet PRN Reason: Pain 5 to 7 Bacitracin 1 gm TOP DAILY PRN #1 oint...g. PRN Reason: skin care Ferrous Sulfate 325 mg PO DAILY #15 tablet Nystatin Cream [Mycostatin Cream] 1 applic TOP DAILY PRN #1 tube PRN Reason: skin care Saccharomyces Boulardii [Florastor] 250 mg PO BID #14 capsule Sulfamethox/Trimeth 800/160 [Bactrim Ds] 1 tab PO BID #14 tablet Walker [Ultra-Light Rollator] 1 each MC DAILY #1 each Diet: Regular Activity Restrictions: Activity as Tolerated Shower Restrictions: No (fall precaution) Instruction Topics: Bacitracin skin ointment, Nystatin skin cream or ointment, Sulfamethoxazole Trimethoprim SMX-TMP tablets, Infec Wound Recognize Tx, Cellulitis Ch, ED Lymphedema Health Concerns: chronic lymphedema/venous stasis dermatitis and cellulitis Plan of Treatment: you are prescribed PO antibiotics, Top of bacitracia and nystatin cream PRN, for continuing treatment. community service worker help you schedule [facility] for wound care. advise you followup your instructional assistant and help desk intern to continue your foot and leg care. advise you walk safely with your prescribed walker, compression stocking for lymphedema, loss of your weight. Care Goals: stabilization and improvement of your medical conditions. Assessment: discussed with you and your about the care plan, you understood and agreed the discharge care plan Additional Instructions or Follow Up instructions: You may followup your PCP in one week, followup [facility] clinic for wound care, followup the instructional assistant and help desk intern to continue your foot and leg care as out-pt. Should your symptoms return or worsen, you may present ER or call 911 for help. Follow-Up Care: [facility] Clinic - Wound/Ostomy No Smoking: If you smoke, Please STOP! Call for help. Follow-up with: VAMSI ROCK MD [Primary Care Provider] -
--- NOTE | 2020-03-14 16:06 | DISCHARGE SUMMARY ---
Discharge Summary Admit Date: 03/09/20 Discharge Date: 03/14/20 Discharging Provider: Fabien patel Primary Care Provider: Dr. Addie Hensley Condition at Discharge: Stable Discharge Disposition: 01 Home, Self Care Discharge Facility Name: home - DIAGNOSES Admission Diagnoses: (1) Sepsis (2) Cellulitis (3) Osteoarthritis (4) Trigeminal neuralgia (5) Weakness (6) obesity Discharge Diagnoses with Status of Each Condition: (1) Cellulitis pt has no more fever, blood culture is negative for bacterial uremia, WBC is normal, CRP continue running less, CAT scan of lower left lower extremity reveals Subcutaneous fat stranding with scattered area of fluids mostly suggestive of cellulitis, no visualized abscess, There are no visualized fracture or dislocations ,no suspicious osseous lesions, musculature demonstration normal bulk and enhancement. Patient is prescription of anti biotics to continue to treatment, patient is a prescription topic antibacterial agents and antifungal agents PRN. pt's left lower extremity still has some erythema and swelling but skin appears shrink and in the process of healing. it is likely secondary to his chronic lymphedema with possible venous stasis. pt denies pain on his bilateral lower extremities. his right lower extremity erythema and swelling were resolved. Patient has chronic lymphedema, erythema and edema for his bilateral lower extremity. pt state he recently had erythema, swelling on his lower extremities for 8 months already before he was admitted at this time. Patient has dry and cracked plantar surface on both feet with several skin fissures. pt had twice skin care done by wound care provider in the hospital. social contact worker helped patient scheduled for [facility] [place] clinic wound skin care. Patient understand [facility] [place] [facility] clinic needed his primary care approved before he can have [facility] service. social work faxed and called to pt's PCP office about pt's need of [facility] wound skin care, and pending for his PCP office's response. social contact worker explained this situation to patient and give patient social work business card if pt has questions, and reminded pt contact his PCP as well [facility] if he did not receive schedule information in 2-3 days. social contact worker will continue help patient for this schedule on tomorrow per social contact worker's report. patient understood that. (2) Lymphedema of lower extremity Patient has chronic lymphedema, erythema and edema for his bilateral lower extremity, pt state he recently had erythema, swelling on his lower extremities for 8 months. patient state he will see lymphedema specialty and frame expander after d/c from hospital by his PCP approved, patient state he will have customized compression stock for him. patient was prescribed walker, advised the patient safely walk, Patient had a PT/OT evaluation and treatment in the hospital, PT/OT recommended patient can be safely D/C to home, patient is prescribed a walk. pt walked the nurse station and hallway in the hospital. (3) Iron deficiency anemia Patient has iron deficiency anemia, patient is a prescription iron pill (4) Trigeminal neuralgia Chronic/stable (5) Weakness great improved, Patient can walk in the nursing station in the hallway,Patient had a PT/OT evaluation and treatment. PT/OT recommendation patient can be safely discharged to home, patient is prescribed a walk (6) obesity Discussed with the patient, patient stated he will work on loss of his weight (7)sepsis resolved. Patient had a fever, slightly tachycardia, elevated WBC in the admission, Patient was found to have cellulitis in bilaterally lower extremity.After treatment, patient has no fever, WBC become normal, blood culture is negative for bacteremia, patient's tachycardia was resolved. pt's right lower extremity erythema and swelling were resolved. left lower extremity still has some erythema and swelling but in the process of healing. it is likely secondary to pt's chronic conditions. (8)bilateral foot wound with skin fissures Patient has dry and cracked plantar surface on both feet with several skin fissures. He has significant lymphadema. He was seen a month ago by [facility] for lymphadema but has not returned due to some complaints with the wraps. He states they make his feet swell in [facility] clinic. pt had twice dressing change in hospital. wound with skin fissures has great improved and in the process of healing. social contact worker help pt arrange [facility] clinic dressing change as above explanation for the process of [facility] service. - HPI History of Present Illness: Mr. De Los Santos is 62-yrs-old male with a PMH significance for lymphedema, recurrent cellulitis of the lower extremities, osteoarthritis, trigeminal neuralgia, morbid obese, who present ER complaint of fever and weakness. pt report he started feeling really weak at this morning around 6 am. pt report he had hx of cellulitis mainly n his right legs. now he report he had red and swollen again in bilateral lower extremities. pt attempted to go to work today. Because of his significant weakness, His work partners put him into office chair. he is now brought to the hospital for evaluation by ambulance. He felt that he was likely to have cellulitis again in his lower extremities as before. pt report He had an appointment today to go see a specialist for lymphedema but he was at hospital now. He denies nausea, vomiting, abdominal pain, shortness of breath, palpitation, chest pain, headache, neck stiffness. In routine lab test, patient has WBC 15.4, lactic acid 2.5. Patient is febrile temperature 39.1, slightly tachycardia at HR 103, blood pressure 154/107. pt was admitted for further medical management. - HOSPITAL COURSE Hospital Course: Patient was admitted for fever and bilateral lower extremity cellulitis and lymphedema, and weakness. Patient have history of bilateral lower extremity lymphedema with erythema and swelling. patient was treated with antibiotics and intravenous IV fluids. Dry and cracked plantar surface on both feet with several skin fissures were counseled by wound care. Blood culture was negative for bacteremia. after treatment, patient had no more fever, his WBC became normal, CRP continue becoming less. Patient had a PT/OT treatment and evaluation, after the treatment, patient can walk in the nursing station and the hallway, PT/OT recommendation patient can be D/C home, patient is a prescription of a walker. Social work help patient scheduled for the [facility] [place] [facility] for his feet skin care. Patient is a prescription antibiotics, and topic antibacterial and antifungal cream PRN. The detail hospital course is as the below. (1) Cellulitis pt has no more fever, blood culture is negative for bacterial uremia, WBC is normal, CRP continue running less, CAT scan of lower left lower extremity reveals Subcutaneous fat stranding with scattered area of fluids mostly suggestive of cellulitis, no visualized abscess, There are no visualized fracture or dislocations ,no suspicious osseous lesions, musculature demonstration normal bulk and enhancement. Patient is prescription of antibiotics to continue to treatment, patient is a prescription topic antibacterial agents and antifungal agents PRN. pt's left lower extremity still has some erythema and swelling but skin appears shrink and in the process of healing. it is likely secondary to his chronic lymphedema with possible venous stasis. pt denies pain on his bilateral lower extremities. his right lower extremity erythema and swelling were resolved. Patient has chronic lymphedema, erythema and edema for his bilateral lower extremity. pt state he recently had erythema, swelling on his lower extremities for 8 months already before he was admitted at this time. Patient has dry and cracked plantar surface on both feet with several skin fissures. pt had twice skin care done by wound care provider in the hospital. social contact worker helped patient scheduled for [facility] [place] [facility] clinic wound skin care. Patient understand [facility] [place] clinic needed his primary care approved before he can have [facility] service. social work faxed and called to pt's PCP office about pt's need of [facility] wound skin care, and pending for his PCP office's response. social contact worker explained this situation to patient and give patient social work business card if pt has questions, and reminded pt contact his PCP as well [facility] [place] [facility] clinic if he did not receive schedule information in 2-3 days. social contact worker will continue help patient for this schedule on tomorrow per social contact worker's report. patient understood that. (2) Lymphedema of lower extremity Patient has chronic lymphedema, erythema and edema for his bilateral lower extremity, pt state he recently had erythema, swelling on his lower extremities for 8 months. patient state he will see lymphedema specialty and frame expander after d/c from hospital by his PCP approved, patient state he will have customized compression stock for him. patient was prescribed walker, advised the patient safely walk, Patient had a PT/OT evaluation and treatment in the hospital, PT/OT recommended patient can be safely D/C to home, patient is prescribed a walk. pt walked the nurse station and hallway in the hospital. (3) Iron deficiency anemia Patient has iron deficiency anemia, patient is a prescription iron pill (4) Trigeminal neuralgia Chronic/stable (5) Weakness great improved, Patient can walk in the nursing station in the hallway,Patient had a PT/OT evaluation and treatment. PT/OT recommendation patient can be safely discharged to home, patient is prescribed a walk (6) obesity Discussed with the patient, patient stated he will work on loss of his weight (7)sepsis resolved. Patient had a fever, slightly tachycardia, elevated WBC in the admission, Patient was found to have cellulitis in bilaterally lower extr emity.After treatment, patient has no fever, WBC become normal, blood culture is negative for bacteremia, patient's tachycardia was resolved. pt's right lower extremity erythema and swelling were resolved. left lower extremity still has some erythema and swelling but in the process of healing. it is likely secondary to pt's chronic conditions. (8)bilateral foot wound with skin fissures Patient has dry and cracked plantar surface on both feet with several skin fissures. He has significant lymphadema. He was seen a month ago by [facility] for lymphadema but has not returned due to some complaints with the wraps. He states they make his feet swell in [facility]. pt had twice dressing change in hospital. wound with skin fissures has great improved and in the process of healing. social contact worker help pt arrange [facility] dressing change as above explanation for the process of [facility] service. - ALLERGIES Allergies/Adverse Reactions: Allergies Allergy/AdvReac Type Severity Reaction Status Date / Time No Known Drug Allergies Allergy Verified 03/09/20 11:02 - MEDICATIONS Home Medications: Ambulatory Orders Medication Instructions Recorded Confirmed carBAMazepine [Carbamazepine ER] 400 mg PO BID PRN 05/25/18 03/09/20 Walker [Ultra-Light Rollator] 1 each MC DAILY #1 each 03/13/20 Bacitracin 1 gm TOP DAILY PRN #1 oint...g. 03/14/20 Ferrous Sulfate 325 mg PO DAILY #15 tablet 03/14/20 Nystatin Cream [Mycostatin Cream] 1 applic TOP DAILY PRN #1 tube 03/14/20 Saccharomyces Boulardii [Florastor] 250 mg PO BID #14 capsule 03/14/20 Sulfamethox/Trimeth 800/160 1 tab PO BID #14 tablet 03/14/20 [Bactrim Ds] oxyCODONE [Roxicodone] 5 mg PO Q4HR PRN #20 tablet 03/14/20 - PHYSICAL EXAM AT DISCHARGE General Appearance: positive: No acute distress, Alert. negative: Lethargic Eyes Bilateral: positive: Normal inspection, PERRL, No lid inflammation ENT: positive: ENT inspection nml, No signs of dehydration. negative: Purulent nasal drainage Neck: positive: Nml inspection, Thyroid nml, No JVD, Trachea midline. negative: Thyromegaly, Stiff neck, Tracheal deviation Respiratory: positive: Chest non-tender, No respiratory distress, Breath sounds nml. negative: Wheezes, Rales, Rhonchi Cardiovascular: positive: Regular rate & rhythm, No murmur, No gallop. negative: Irregularly irregular, Tachycardia, Bradycardia, Systolic murmur, Diastolic murmur Peripheral Pulses: positive: 2+ Abdomen: positive: Non-tender, No organomegaly, Nml bowel sounds. negative: Tenderness, Guarding, Rebound Back: positive: Nml inspection. negative: CVA tenderness (R), CVA tenderness (L) Skin: positive: Warm, Dry, Skin rash (right lower extremity erythema and swelling were resolved, left lower extremity with mild erythema and swelling, skin appears shrink and at the process of healing). negative: Cyanosis, Diaphoresis, Pallor Extremities: positive: Non-tender, Full ROM, Pedal edema, Other (bilateral distal toes with intact neurovascular status and full ROM ) Neurologic/Psychiatric: positive: Oriented x3, Motor nml, Sensation nml. negative: Weakness, Sensory loss, Facial droop, Slurred/abnml speech, Depressed mood/affect - LABS Result Diagrams: 03/14/20 04:45 03/14/20 04:45 - SEPSIS Current Stage of Sepsis: Sepsis Possible source of Sepsis: Skin/soft tissue Sepsis Criteria: Recorded Temperature greater than 38.3C or Less than 36C, Recorded Heart Rate greater than 90 bpm, WBC count greater than 10% bands, WBC count greater than 12,000 or less than 4000, Metabolic: lactate > 2 mmol/L - FOLLOW UP Follow Up: you are prescribed PO antibiotics, Top of bacitracia and nystatin cream PRN, for continuing treatment. migratory worker help you schedule [facility] for wound care. advise you followup your frame expander and milk inspector to continue your foot and leg care. advise you walk safely with your prescribed walker, compression stocking for lymphedema, loss of your weight. You may followup your PCP in one week, followup [facility] for wound care, followup the frame expander continue your foot and leg care as out-pt. Should your symptoms return or worsen, fever/chill and severe pain, you may present ER or call 911 for help. - TIME SPENT Time Spent in Discharge (Minutes): 30
[2020-03-14 16:09] VITALS: BP 136/70
--- NOTE | 2020-03-14 17:04 | CT Report ---
Reason: swelling, erythema, if abscess? Procedure Date: 03/14/2020 Accession Number: [id number] / [id number] Procedure: CT - LOWER EXTREMITY W - LT CPT Code: Final Report FULL RESULT: PROCEDURE: LOWER EXTREMITY W - LT INDICATIONS: swelling, erythema, if abscess? TECHNIQUE: 3 mm axial images of the left lower extremity were obtained from the distal thigh through the foot. COMPARISON: None. FINDINGS: There is limited evaluation at the level of the knee secondary to susceptibility artifact from the arthroplasty. There are no visualized fractures or dislocations. No suspicious osseous lesions. Musculature demonstrates normal bulk and enhancement. There is subcutaneous fat stranding throughout the visualized extremity. Minimal scattered areas of fluid are noted interdigitating within the subcutaneous fat. No focal enhancing fluid collection to suggest abscess is identified. IMPRESSION: 1. Subcutaneous fat stranding with scattered areas of fluid most suggestive of cellulitis. No visualized abscess. Reviewed by: Yris Dias MD on 03/14/2020 10:24 AM PDT Approved by: Yris Dias MD on 03/14/2020 10:24 AM PDT Station ID: [id number]
[2020-03-15] MEDS ORDERED: ASCORBIC ACID CHEW 500 MG TABLET PO SCH (08:00)
[2020-03-15] MEDS ORDERED: FERROUS SULFATE 325 MG TABLET PO SCH (08:00)
== END 2020-03-14 17:15 | disposition home or self-care (01) | DRG 872 ==
LOC: EDUNIT# → ED 10:55 → MS2 15:19
PROVIDERS: ADMIT Specialist; ATTEND Nurse Practitioner Gerontology
DX: A41.9 Sepsis, unspecified organism (principal); L03.116 Cellulitis of left lower limb; Z68.41 Body mass index [BMI] 40.0-44.9, adult; L97.519 Non-pressure chronic ulcer of other part of right foot with unspecified severity; L98.9 Disorder of the skin and subcutaneous tissue, unspecified; E66.01 Morbid (severe) obesity due to excess calories; I89.0 Lymphedema, not elsewhere classified; I73.9 Peripheral vascular disease, unspecified; I87.8 Other specified disorders of veins; I10 Essential (primary) hypertension; F17.200 Nicotine dependence, unspecified, uncomplicated; D50.9 Iron deficiency anemia, unspecified; G50.0 Trigeminal neuralgia; R35.0 Frequency of micturition; M19.90 Unspecified osteoarthritis, unspecified site; Z96.659 Presence of unspecified artificial knee joint; Z20.828 Contact with and (suspected) exposure to other viral communicable diseases
CPT/HCPCS: 36415; 71045; 73701; 80048; 80053; 80202; 81001; 82607; 82728; 83540; 83605; 83615; 83690; 84466; 85025; 85045; 86140; 86141; 87040; 87635; 93970; 96360; 96361; 97110; 97116; 97162; 97166; 97530; 97535; 99284; 99285; A9270; J3370; Q9967; 81003; 81599; 87086

== ENCOUNTER 2020-07-29 22:44 | Emergency (ER) | payer MEDICARE, BC ==
[2020-07-29 23:16] LABS: BASOPHILS % (AUTO) 0.3 %; EOSINOPHILS # (AUTO) 0.3 10^3/uL (0.0-0.7); EOSINOPHILS % (AUTO) 2.6 %; HGB - HEMOGLOBIN 14.4 g/dL (14.0-18.0); LYMPHOCYTES # (AUTO) 2.3 10^3/uL (1.5-3.5); LYMPHOCYTES % (AUTO) 23.1 %; MEAN CORPUSCULAR HEMOGLOBIN 29.8 pg (27.0-31.0); MEAN CORPUSCULAR HGB CONC 33.3 g/dL (32.0-36.0); MEAN CORPUSCULAR VOLUME 89.3 fL (80.0-94.0); MEAN PLATELET VOLUME 10.9 fL (7.4-11.4); MONOCYTES # (AUTO) 0.7 10^3/uL (0.0-1.0); MONOCYTES % (AUTO) 6.9 %; NEUTROPHILS # (AUTO) 6.7 10^3/uL (1.5-6.6); NEUTROPHILS % (AUTO) 66.7 %; PLT - PLATELET COUNT 205 10^3/uL (130-450); RED BLOOD COUNT 4.84 10^6/uL (4.70-6.10); RED CELL DISTRIBUTION WIDTH 14.5 % (12.0-15.0)
--- NOTE | 2020-07-29 23:23 | ED Physician Documentation ---
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 No: Fever, Vomiting, Constipation Similar symptoms before: Has not had sx before Recently seen: Not recently seen Review of Systems Constitutional: reports: Reviewed and negative Cardiac: reports: Reviewed and negative Respiratory: reports: Reviewed and negative GI: reports: Abdominal Pain, Abdominal Swelling, Nausea, Diarrhea. denies: Vomiting : denies: Dysuria, Frequency PD PAST MEDICAL HISTORY - Past Medical History Cardiovascular: Peripheral Vascular Disease Respiratory: None Neuro: Other Endocrine/Autoimmune: None GI: None : Frequency HEENT: None Psych: None Musculoskeletal: Osteoarthritis Derm: None Other Past Medical History: lymphedema in bilateral lower extremities from cellulitis, trigeminal neuralgia - Past Surgical History Past Surgical History: Yes Ortho: Knee replacement HEENT: Other - Present Medications Home Medications: Ambulatory Orders Medication Instructions Recorded Confirmed carBAMazepine [Carbamazepine ER] 400 mg PO BID PRN 05/25/18 07/29/20 Walker [Ultra-Light Rollator] 1 each MC DAILY #1 each 03/13/20 03/21/20 HYDROcod/ACETAM 5/325 [[place] 5/325] 1 - 2 ea PO Q6H PRN #15 tablet 07/30/20 metroNIDAZOLE [Flagyl] 500 mg PO BID #20 tablet 07/30/20 - Allergies Allergies/Adverse Reactions: Allergies Allergy/AdvReac Type Severity Reaction Status Date / Time No Known Drug Allergies Allergy Verified 07/29/20 22:53 - Social History Does the pt smoke?: Yes Smoking Status: Current every day smoker Does the pt drink ETOH?: Yes Does the pt have substance abuse?: No - Immunizations Immunizations are current?: Yes - POLST POLST Status: Full Code PD ED PE NORMAL - Vitals Vital signs reviewed: Yes - General General: Alert and oriented X 3, No acute distress, Other (obese; falls asleep during H+P several times) - HEENT HEENT: Moist mucous membranes - Neck Neck: Supple, no meningeal sign - Cardiac Cardiac: RRR, No murmur - Respiratory Respiratory: No respiratory distress, Clear bilaterally - Abdomen Abdomen: Soft, Non distended, Other (mild RUQ tenderness without rebound or guarding) - Back Back: No CVA TTP - Derm Derm: Normal color, Warm and dry, No rash Results - Vitals Vitals: Oxygen O2 Source [With Activity] Room air O2 Source Room air - Labs Labs: Laboratory Tests 07/29/20 07/29/20 07/29/20 23:05 23:05 23:05 WBC 10.0 RBC 4.84 Hgb 14.4 Hct 43.2 MCV 89.3 MCH 29.8 MCHC 33.3 RDW 14.5 Plt Count 205 MPV 10.9 Neut # (Auto) 6.7 H Lymph # (Auto) 2.3 [place] # (Auto) 0.7 Eos # (Auto) 0.3 Baso # (Auto) 0.0 Absolute Nucleated RBC 0.00 Nucleated RBC % 0.0 Sodium 139 Potassium 3.7 Chloride 105 Carbon Dioxide 22 Anion Gap 12.0 BUN 21 H Creatinine 0.8 Estimated GFR (MDRD) 97 Glucose 148 H Calcium 9.1 Total Bilirubin 0.6 AST 15 ALT 22 Alkaline Phosphatase 103 Total Protein 7.0 Albumin 3.8 Globulin 3.2 Albumin/Globulin Ratio 1.2 Lipase 22 Last Dose Date UNKNOWN Last Dose Time UNKNOWN Carbamazepine 5.5 - Rads (name of study) CT A/P Radiology: Prelim report reviewed, See rad report PD MEDICAL DECISION MAKING - ED course Complexity details: reviewed results, re-evaluated patient, considered differential, d/w patient ED course: CT s/o colitis and HPI c/w same (abdominal pain that is predominantly in RUQ which is area of colitis on CT; diarrhea). no recent antibiotic use. will rx flagyl to cover possible infectious cause (specifically c. diff). Departure - Departure Disposition: 01 Home, Self Care Clinical Impression: Colitis Condition: Good Instructions: ED Gastroenteritis Bacterial Follow-Up: VAMSI ROCK MD [Primary Care Provider] - Prescriptions: metroNIDAZOLE [Flagyl] 500 mg PO BID #20 tablet HYDROcod/ACETAM 5/325 [[place] 5/325] 1 - 2 ea PO Q6H PRN #15 tablet PRN Reason: Pain Discharge Date/Time: 07/30/20 03:45
[2020-07-29 23:30] LABS: ALBUMIN 3.8 g/dL (3.2-5.5); ALBUMIN/GLOBULIN RATIO 1.2 (1.0-2.2); BILIRUBIN,TOTAL 0.6 mg/dL (0.2-1.0); CALCIUM 9.1 mg/dL (8.5-10.3); CREATININE 0.8 mg/dL (0.6-1.2)
[2020-07-29 23:36] LABS: CARBAMAZEPINE (TEGRETOL) 5.5 ug/mL
[2020-07-29] MEDS ORDERED: ONDANSETRON 4 MG/2 ML VIAL IVP STA (23:42)
[2020-07-29] MEDS ORDERED: KETOROLAC 30 MG/ML VIAL IVP STA (23:52)
[2020-07-30] MEDS ORDERED: IOVERSOL 320 50 ML VIAL ONE (00:47)
[2020-07-30] MEDS ORDERED: IOVERSOL 320 100 ML VIAL IVP ONE ×2 (01:48→02:22)
[2020-07-30] MEDS ORDERED: IOVERSOL 320 50 ML VIAL PO ONE (02:16)
[2020-07-30] MEDS ORDERED: metroNIDAZOLE 250 MG TABLET PO STA (03:24)
[2020-07-30] MEDS ORDERED: HYDROcod/ACETAM 5/325 MG TABLET PO STA (03:29)
[2020-07-30 03:43] VITALS: BP 143/84
--- NOTE | 2020-07-30 07:26 | CT Report ---
PROCEDURE: Abdomen/Pelvis W INDICATIONS: abd. pain CONTRAST: IV CONTRAST: Optiray 320 ml: 100 PO CONTRAST: Optiray 320 ml50 TECHNIQUE: After the administration of oral and intravenous contrast, 5 mm thick sections acquired from the diap hragms to the symphysis. 5 mm thick coronal and sagittal reformats were acquired. For radiation dos e reduction, the following was used: automated exposure control, adjustment of mA and/or kV accordin g to patient size. COMPARISON: None. FINDINGS: Image quality: Excellent. ABDOMEN: Lung bases: Lung bases are clear. Heart size is normal. Solid organs: Liver and spleen are normal in size and enhancement. Gallbladder is contracted, withi n normal limits. Biliary system is non dilated. Pancreas enhances normally. No adrenal nodules. K idneys demonstrate normal size and enhancement, without hydronephrosis. Peritoneum and bowel: There is mild to moderate wall thickening of the right colon and cecum extendi ng into the proximal transverse colon. Bowel loops otherwise lumbar degenerative change. Canal stenos is at L4-L5. Demonstrate normal wall thickness and caliber. No free fluid or air. Nodes and vessels: No retroperitoneal or mesenteric adenopathy by size criteria. Aorta and inferior vena cava are normal in size. Miscellaneous: No ventral hernias. PELVIS: Genitourinary: Bladder wall thickness is normal. Miscellaneous: No inguinal hernias or adenopathy. Bones: No suspicious bony lesions. No vertebral body compression fractures. IMPRESSION: 1. Right colonic wall thickening from the cecum to the proximal transverse colon. Findings consistent with colitis. Consider infectious versus inflammatory versus ischemic colitis. 2. Incidental note made of canal stenosis at L4-L5. A preliminary report with the above findings was provided at the time of the study by [employer]. Reviewed by: Leroy Barrera MD on 07/30/2020 7:24 AM PDT Approved by: Leroy Barrera MD on 07/30/2020 7:24 AM PDT Station ID: [id number]
== END 2020-07-30 03:45 | disposition home or self-care (01) ==
LOC: ED 22:44
DX: K52.9 Noninfective gastroenteritis and colitis, unspecified (principal); F17.200 Nicotine dependence, unspecified, uncomplicated
CPT/HCPCS: 36415; 74177; 80053; 80156; 83690; 85025; 96374; 96375; 99284; A9270; Q9967

== ENCOUNTER 2020-09-14 16:33 | Emergency (ER) | payer BC, MEDICARE ==
[2020-09-14 16:48] VITALS: BP 173/104
== END 2020-09-14 17:55 | disposition left against medical advice (07) ==
LOC: ED 16:33
DX: Z53.21 Procedure and treatment not carried out due to patient leaving prior to being seen by health care provider (principal)

== ENCOUNTER 2022-05-03 20:09 | Outpatient (CLI) | payer MEDICARE | END 2022-05-03 20:10 | disposition EMS.NT | LOC: EMS 20:09 | DX: Z03.89 Encounter for observation for other suspected diseases and conditions ruled out (principal) ==

== ENCOUNTER 2022-05-03 20:55 | Emergency (ER) | payer BC, MEDICARE ==
[2022-05-03] MEDS ORDERED: TETANUS/DIPHTHERIA/PERTUSSIS 0.5 ML SYRINGE IM ONE (21:23)
--- NOTE | 2022-05-03 21:24 | ED Physician Documentation ---
History of Present Illness - Stated complaint Stated Complaint: GLF - Chief complaint Chief Complaint: Laceration - History obtained from History obtained from: Patient - History of Present Illness Timing: Prior to arrival - Additonal information Additional information: 66-year-old male presents for evaluation after ground-level fall that occurred just prior to arrival. Patient states that he was walking out of a restaurant when his legs gave way and he fell, landing on his left knee. Patient denies hitting his head, denies loss of consciousness, denies use of blood thinners, does not know when his last tetanus shot was. Patient states that for the last 3 to 4 months he has had numerous episodes where his legs will get weak and he will fall. He states that he has been evaluated by a vascular surgeon for his chronic lymphedema, however no answers been found. He has also been evaluated by neurosurgeon, who does not have explanation for why the patient continues to have lower extremity weakness and frequent falls. He states that he is pending a referral to a neurologist for further work-up of this condition. PD PAST MEDICAL HISTORY - Past Medical History Past Medical History: Yes Cardiovascular: Peripheral Vascular Disease Respiratory: None Neuro: Other Endocrine/Autoimmune: None GI: None : Frequency HEENT: None Psych: None Musculoskeletal: Osteoarthritis Derm: None Other Past Medical History: Trigeminal Neuralgia; Leg cellulitis - Past Surgical History Past Surgical History: Yes Ortho: Knee replacement HEENT: Other - Present Medications Home Medications: Ambulatory Orders Medication Instructions Recorded Confirmed carBAMazepine [Carbamazepine ER] 400 mg PO BID PRN 05/25/18 09/14/20 - Allergies Allergies/Adverse Reactions: Allergies Allergy/AdvReac Type Severity Reaction Status Date / Time No Known Drug Allergies Allergy Verified 05/03/22 21:07 - Social History Does the pt smoke?: Yes Smoking Status: Current every day smoker Does the pt drink ETOH?: Yes Does the pt have substance abuse?: No - Immunizations Immunizations are current?: Yes - POLST Patient has POLST: No POLST Status: Full Code Results - Vitals Vitals: Vital Signs - 24 hr 05/03/22 05/03/22 05/03/22 21:00 22:14 22:53 Temperature 36.3 C L Heart Rate 73 72 65 Respiratory 18 11 L 15 Rate Blood Pressure 146/96 H 154/103 H 149/90 H O2 Saturation 99 98 98 Oxygen O2 Source [] Room air O2 Source Room air - EKG (time done) 2137 Rate: Rate (enter#) (68) Rhythm: NSR [place]: Normal Intervals: Normal NV QRS: Normal - Labs Labs: Laboratory Tests 05/03/22 05/03/22 05/03/22 22:11 22:11 22:11 WBC 10.0 RBC 4.94 Hgb 14.8 Hct 44.8 MCV 90.7 MCH 30.0 MCHC 33.0 RDW 13.9 Plt Count 219 MPV 10.8 Neut # (Auto) 6.7 H Lymph # (Auto) 2.2 Perkins # (Auto) 0.8 Eos # (Auto) 0.3 Baso # (Auto) 0.0 Absolute Nucleated RBC 0.00 Nucleated RBC % 0.0 Sodium 142 Potassium 4.3 Chloride 107 Carbon Dioxide 25 Anion Gap 10.0 BUN 21 H Creatinine 0.9 Estimated GFR (MDRD) 84 L Glucose 98 Calcium 9.1 Phosphorus 2.6 Magnesium 2.1 Total Bilirubin 0.3 AST 19 ALT 29 Alkaline Phosphatase 116 Troponin I High Sens 3.8 Total Protein 6.5 L Albumin 3.9 Globulin 2.6 Albumin/Globulin Ratio 1.5 Urine Color Urine Clarity Urine pH Ur Specific [place] Urine Protein Urine Glucose (UA) Urine Ketones Urine Occult Blood Urine Nitrite Urine Bilirubin Urine Urobilinogen Ur Leukocyte Esterase Ur Microscopic Review Urine Culture Comments 05/03/22 23:00 WBC RBC Hgb Hct MCV MCH MCHC RDW Plt Count MPV Neut # (Auto) Lymph # (Auto) Perkins # (Auto) Eos # (Auto) Baso # (Auto) Absolute Nucleated RBC Nucleated RBC % Sodium Potassium Chloride Carbon Dioxide Anion Gap BUN Creatinine Estimated GFR (MDRD) Glucose Calcium Phosphorus Magnesium Total Bilirubin AST ALT Alkaline Phosphatase Troponin I High Sens Total Protein Albumin Globulin Albumin/Globulin Ratio Urine Color YELLOW Urine Clarity CLEAR Urine pH 6.0 Ur Specific [place] >=1.030 H Urine Protein NEGATIVE Urine Glucose (UA) NEGATIVE Urine Ketones TRACE Urine Occult Blood NEGATIVE Urine Nitrite NEGATIVE Urine Bilirubin NEGATIVE Urine Urobilinogen 0.2 (NORMAL) Ur Leukocyte Esterase NEGATIVE Ur Microscopic Review NOT INDICATED Urine Culture Comments NOT INDICATED PD MEDICAL DECISION MAKING - ED course Complexity details: reviewed results, re-evaluated patient, considered differential, d/w patient, d/w family ED course: Ground-level fall and bilateral lower extremity weakness. Patient states bilateral lower extremity weakness is a chronic issue for him and he has seen numerous specialist for this condition. He states he is frustrated because he has not been able to follow-up with a neurologist. Neurovascularly intact at this time. Will update tetanus shot and will obtain basic work-up. Labs unremarkable, CT brain shows small finding in the chela, this was seen on previous imaging of the brain. Uncertain if this is related to patient's symptoms. Seems unlikely, however he was notified of this finding and counseled to bring it to the attention of his primary care physician. Patient states that he will make an appointment as soon as possible for follow-up. Fall prevention discussed with patient at bedside. Departure - Departure Disposition: 01 Home, Self Care Clinical Impression: Abrasion, Frequent falls, Bilateral leg weakness, Abnormal CT of brain Condition: Stable Instructions: Falls Risks Prevent, ED Abrasion Comments: THERE WAS AN ABNORMAL FINDING ON YOUR BRAIN CT TODAY. IT WAS SEEN ON PREVIOUS BRAIN CT'S, HOWEVER THIS MAY HAVE SOMETHING TO DO WITH WHY YOU ARE HAVING FREQUENT FALLS. YOU WILL NEED FURTHER INVESTIGATION THROUGH YOUR PCP FOR THIS MATTER.
[2022-05-03 22:21] LABS: BASOPHILS % (AUTO) 0.4 %; EOSINOPHILS # (AUTO) 0.3 10^3/uL (0.0-0.7); HCT - HEMATOCRIT 44.8 % (42.0-52.0); HGB - HEMOGLOBIN 14.8 g/dL (14.0-18.0); LYMPHOCYTES # (AUTO) 2.2 10^3/uL (1.5-3.5); LYMPHOCYTES % (AUTO) 21.5 %; MEAN CORPUSCULAR VOLUME 90.7 fL (80.0-94.0); MEAN PLATELET VOLUME 10.8 fL (7.4-11.4); MONOCYTES # (AUTO) 0.8 10^3/uL (0.0-1.0); MONOCYTES % (AUTO) 7.9 %; NEUTROPHILS # (AUTO) 6.7 10^3/uL (1.5-6.6); PLT - PLATELET COUNT 219 10^3/uL (130-450); RED BLOOD COUNT 4.94 10^6/uL (4.70-6.10); RED CELL DISTRIBUTION WIDTH 13.9 % (12.0-15.0)
--- NOTE | 2022-05-03 22:28 | CT Report ---
PROCEDURE: HEAD WO INDICATIONS: frequent falls, BLE weakness TECHNIQUE: Noncontrast 5 mm thick angled axial sections acquired from the foramen magnum to the vertex. For rad iation dose reduction, the following was used: automated exposure control, adjustment of mA and/or k V according to patient size. COMPARISON: 05/26/2018. FINDINGS: Image quality: Diagnostic. CSF spaces: There is mild cerebral volume loss with prominence of the ventricles and sulci. Basal ci sterns are patent. No extra-axial fluid collections. Brain: No intracranial hemorrhage, mass, or mass effect. Armstrong-white matter interface appears preserv ed. There are subcortical and periventricular white matter hypodensities consistent with mild chronic small vessel ischemic changes. There is a small focal hypodensity within the left chela which may als o represent chronic white matter small vessel ischemic changes but is nonspecific. An ill-defined hyp odensity was also noted on the prior study. Skull and face: Calvarium and visualized facial bones are intact, without suspicious lesions. Sinuses: Visualized sinuses demonstrate mild mucosal thickening within the ethmoid and maxillary sin uses. Mastoid air cells are clear. IMPRESSION: 1. No acute intracranial abnormality. 2. Mild cerebral volume loss and chronic white matter small vessel ischemic changes. 3. Small ill-defined hypodensity in the left chela is nonspecific and may have been present on the marion or study. The finding is incompletely evaluated on CT. Consider follow-up MRI if clinical concern per sists. Reviewed by: Venkat Alva MD on 05/03/2022 10:27 PM PDT Approved by: Venkat Alva MD on 05/03/2022 10:27 PM PDT Station ID: [id number]
--- NOTE | 2022-05-03 22:30 | XRAY Report ---
PROCEDURE: Knee 2 View LT INDICATIONS: GLE, L knee pain TECHNIQUE: 3 views of the left knee acquired. COMPARISON: None. FINDINGS: Bones: No acute fractures or dislocations. There is an old proximal fibular fracture. A total knee p rosthesis is demonstrated. There are nonspecific periprosthetic lucencies along the femoral and tibial components. No suspicious bony lesions. Soft tissues: There is a small joint effusion. No suspicious soft tissue calcifications. IMPRESSION: 1. No acute fracture or dislocation. 2. Left knee prosthesis with nonspecific periprosthetic lucencies of indeterminate clinical significa nce. Recommend comparison with prior outside studies if available. Reviewed by: Venkat Smith MD on 05/03/2022 10:29 PM PDT Approved by: Venkat Smith MD on 05/03/2022 10:29 PM PDT Station ID: [id number]
[2022-05-03 22:36] LABS: ALBUMIN 3.9 g/dL (3.2-5.5); ALBUMIN/GLOBULIN RATIO 1.5 (1.0-2.2); BILIRUBIN,TOTAL 0.3 mg/dL (0.2-1.0); CALCIUM 9.1 mg/dL (8.5-10.3); CREATININE 0.9 mg/dL (0.6-1.2); MAGNESIUM 2.1 mg/dL (1.7-2.8); PHOSPHORUS 2.6 mg/dL (2.5-4.6); POTASSIUM 4.3 mmol/L (3.5-5.0); TOTAL PROTEIN 6.5 g/dL (6.7-8.2)
[2022-05-03 23:08] LABS: BILIRUBIN,URINE NEGATIVE (NEGATIVE); GLUCOSE, URINE (UA) NEGATIVE (NEGATIVE); KETONES,URINE (UA) TRACE mg/dL (NEGATIVE); LEUKOCYTE ESTERASE, URINE NEGATIVE (NEGATIVE); NITRITE,URINE NEGATIVE (NEGATIVE); OCCULT BLOOD,URINE NEGATIVE (NEGATIVE); PROTEIN,URINE NEGATIVE (NEGATIVE); UROBILINOGEN,URINE 0.2 (NORMAL) E.U./dL (NORMAL)
[2022-05-03 23:16] LABS: CLARITY,URINE CLEAR (CLEAR)
[2022-05-03 23:52] VITALS: BP 166/99
== END 2022-05-03 23:47 | disposition home or self-care (01) ==
LOC: ED 20:55
DX: S80.212A Abrasion, left knee, initial encounter (principal); W18.30XA Fall on same level, unspecified, initial encounter; Y92.511 Restaurant or cafe as the place of occurrence of the external cause; F17.200 Nicotine dependence, unspecified, uncomplicated; Z23 Encounter for immunization; Z91.81 History of falling; R94.8 Abnormal results of function studies of other organs and systems; Z71.85 Encounter for immunization safety counseling
CPT/HCPCS: 36415; 80053; 81001; 81003; 83735; 84100; 84484; 85025; 87086; 90471; 93005; 99281; 99284

== ENCOUNTER 2023-03-24 18:20 | Outpatient (CLI) | payer MEDICARE | END 2023-03-24 18:21 | disposition EMS.NT | LOC: EMS 18:20 | DX: S90.412A Abrasion, left great toe, initial encounter (principal); W10.8XXA Fall (on) (from) other stairs and steps, initial encounter; Y92.008 Other place in unspecified non-institutional (private) residence as the place of occurrence of the external cause; R53.1 Weakness ==

== ENCOUNTER 2023-08-29 17:47 | Outpatient (CLI) | payer MEDICARE | END 2023-08-29 17:48 | disposition EMS.NT | LOC: EMS 17:47 | DX: Z03.89 Encounter for observation for other suspected diseases and conditions ruled out (principal) ==

== ENCOUNTER 2024-01-09 17:50 | Outpatient (CLI) | payer MEDICARE | END 2024-01-09 23:59 | disposition EMS.NT | LOC: EMS 17:50 | DX: Z03.89 Encounter for observation for other suspected diseases and conditions ruled out (principal) ==

== ENCOUNTER 2024-02-18 11:09 | Outpatient (CLI) | payer MEDICARE | END 2024-02-18 23:59 | disposition EMS.NT | LOC: EMS 11:09 | DX: Z03.89 Encounter for observation for other suspected diseases and conditions ruled out (principal) ==

== ENCOUNTER 2024-04-19 18:16 | Outpatient (CLI) | payer MEDICARE | END 2024-04-19 18:17 | disposition EMS.NT | LOC: EMS 18:16 | DX: M25.662 Stiffness of left knee, not elsewhere classified (principal); I89.0 Lymphedema, not elsewhere classified; R53.1 Weakness; W10.9XXA Fall (on) (from) unspecified stairs and steps, initial encounter; Y92.009 Unspecified place in unspecified non-institutional (private) residence as the place of occurrence of the external cause ==

== ENCOUNTER 2024-05-10 19:06 | Outpatient (CLI) | payer MEDICARE | END 2024-05-10 23:59 | disposition EMS.NT | LOC: EMS 19:06 | DX: Z03.89 Encounter for observation for other suspected diseases and conditions ruled out (principal) ==

== ENCOUNTER 2024-05-25 14:07 | Outpatient (CLI) | payer MEDICARE ==
[2024-05-25 14:30] LABS: EOSINOPHILS # (AUTO) 0.6 10^3/uL (0.0-0.7); EOSINOPHILS % (AUTO) 5.9 %
[2024-05-25 14:38] LABS: BASOPHILS # (AUTO) 0.1 10^3/uL (0.0-0.1); BASOPHILS % (AUTO) 0.6 %; HGB - HEMOGLOBIN 15.7 g/dL (14.0-18.0); LYMPHOCYTES # (AUTO) 4.2 10^3/uL (1.5-3.5); LYMPHOCYTES % (AUTO) 44.4 %; MEAN CORPUSCULAR VOLUME 90.6 fL (80.0-94.0); MEAN PLATELET VOLUME 11.9 fL (7.4-11.4); MONOCYTES # (AUTO) 0.8 10^3/uL (0.0-1.0); MONOCYTES % (AUTO) 8.4 %; NEUTROPHILS # (AUTO) 3.8 10^3/uL (1.5-6.6); NEUTROPHILS % (AUTO) 40.5 %; PLT - PLATELET COUNT 228 10^3/uL (130-450); RED BLOOD COUNT 5.41 10^6/uL (4.70-6.10); RED CELL DISTRIBUTION WIDTH 15.1 % (12.0-15.0); WHITE BLOOD COUNT 9.5 x10^3/uL (4.8-10.8)
[2024-05-25 14:59] LABS: THYROID STIMULATING HORMONE 2.54 uIU/mL (0.34-5.60)
[2024-05-25 15:02] LABS: ALBUMIN 4.2 g/dL (3.2-5.5); ALBUMIN/GLOBULIN RATIO 1.7 (1.0-2.2); ALKALINE PHOSPHATASE 102 IU/L (42-121); ALT ALANINE AMINOTRANSFERASE 22 IU/L (10-60); AST ASPARTATE AMINOTRANSFERASE 14 IU/L (10-42); BILIRUBIN,TOTAL 0.5 mg/dL (0.2-1.0); BUN - BLOOD UREA NITROGEN 17 mg/dL (6-20); CALCIUM 9.5 mg/dL (8.5-10.3); CARBON DIOXIDE - CO2 22 mmol/L (21-32); CHLORIDE 104 mmol/L (101-111); CHOL/HDL RATIO 3.4 (<5.0); CHOLESTEROL 246 mg/dL; CREATININE 0.8 mg/dL (0.6-1.3); GFR - MDRD 96 (>89); GLUCOSE 90 mg/dL (74-104); HDL CHOLESTEROL 73 mg/dL; LDL CHOLESTEROL,CALCULATED 144 mg/dL; POTASSIUM 3.9 mmol/L (3.5-4.5); SODIUM 139 mmol/L (135-145); TOTAL PROTEIN 6.7 g/dL (6.4-8.9); TRIGLYCERIDES 146 mg/dL; VLDL CHOLESTEROL 29 mg/dL
[2024-05-25 15:06] LABS: FERRITIN 305.8 ng/mL (23.9-336.2)
[2024-05-25 18:50] LABS: ESTIMATED AVERAGE GLUCOSE 111 mg/dL (70-100); HEMOGLOBIN A1c% 5.5 % (4.27-6.07)
== END 2024-05-25 14:08 | disposition home or self-care (01) ==
LOC: LAB 14:07
PROVIDERS: ATTEND Nurse Practitioner Family
DX: M62.838 Other muscle spasm (principal); Z68.41 Body mass index [BMI] 40.0-44.9, adult
CPT/HCPCS: 36415; 80053; 80061; 82306; 82607; 82728; 82746; 83036; 83721; 84443; 85025

== ENCOUNTER 2025-07-23 22:47 | Inpatient (IN) ==
--- OUTSIDE RECORDS SUMMARY | 2025-07-23 22:50 | EXTERNAL MEDICAL SUMMARY RPT | Continuity of Care Document ---
Author Organization [facility] Address [address] [place] [id number] Phone Problems date description facility 2025-04-29 15:52 Other specified soft tissue dis orders [facility] 2025-04-29 15:52 [facility]25-05-05 10:27 Other disturbances of skin sens ation [facility] 2025-05-05 10:31 Other disturbances of skin sens ation [facility] 2025-05-27 08:30 Weakness [facility] 2025-05-27 10:19 Weakness [facility] 2025-06-01 08:30 Encounter for observ ation for other suspected diseases and conditions ruled out [facility] 2025-06-01 08:44 Encounter for observ ation for other suspected diseases and conditions ruled out [facility] 2025-06-01 09:02 Encounter for observ ation for other suspected diseases and conditions ruled out [facility] 2025-06-10 09:06 Encounter for observ ation for other suspected diseases and conditions ruled out [facility] 2025-06-16 13:57 Encounter for observ ation for other suspected diseases and conditions ruled out [facility] 2025-06-27 08:25 Encounter for observ ation for other suspected diseases and conditions ruled out [facility] 2025-06-29 12:54 Encounter for observ ation for other suspected diseases and conditions ruled out [facility] 2025-07-04 08:31 Encounter for observ ation for other suspected diseases and conditions ruled out [facility] 2025-07-04 09:47 Encounter for observ ation for other suspected diseases and conditions ruled out [facility] 2025-07-08 11:56 Encounter for observ ation for other suspected diseases and conditions ruled out [facility] 2025-07-18 07:54 Encounter for observ ation for other suspected diseases and conditions ruled out [facility] 2025-07-18 07:55 Encounter for observ ation for other suspected diseases and conditions ruled out [facility] 2025-07-22 14:56 Encounter for observ ation for other suspected diseases and conditions ruled [facility]25-[facility]-22 15:00 Encounter for observ ation for other suspected diseases and conditions ruled [facility] Results/Labs test date facility value unit notes Result panel 1 NUCLEATED RED BLOOD CELLS AUTO 2025-04-27 22:58 [facility] 0.0 /100wbc (missing) NRBC ABSOLUTE COUNT (AUTO) 2025-04-27 22:58 [facility] x10 3/ul (missing) BASOPHILS # (AUTO) 2025-04-27 22:58 [facility] 0.1 10 3/ul (missing) EOSINOPHILS # (AUTO) 2025-04-27 22:58 [facility] 0.6 10 3/ul (missing) BILIRUBIN,TOTAL 2025-04-27 22:58 [facility] 0.6 mg/dl As of April 2023 testing method has changed, this may include reference ranges. MONOCYTES # (AUTO) 2025-04-27 22:58 [facility] 0.9 10 3/ul (missing) CREATININE 2025-04-27 22:58 [facility] 0.9 mg/dl As of April 2023 testing method has changed, this may include reference ranges. GLOBULIN 2025-04-27 22:58 [facility] 1.9 g/dl (missing) AST ASPARTATE AMINOTRANSFERASE 2025-04-27 22:58 [facility] 10 iu/l As of April 2023 testing method has changed, this may include reference ranges. MEAN PLATELET VOLUME 2025-04-27 22:58 [facility] 10.8 fl (missing) CHLORIDE 2025-04-27 22:58 [facility] 106 mmol/l As of April 2023 testing method has changed, this may include reference ranges. ALT ALANINE AMINOTRANSFERASE 2025-04-27 22:58 [facility] 12 iu/l As of April 2023 testing method has changed, this may include reference ranges. SODIUM 2025-04-27 22:58 [facility] 137 mmol/l (missing) HGB - HEMOGLOBIN 2025-04-27 22:58 [facility] 14.1 g/dl (missing) RED CELL DISTRIBUTION WIDTH 2025-04-27 22:58 [facility] 14.2 % (missing) BUN - BLOOD UREA NITROGEN 2025-04-27 22:58 [facility] 17 mg/dl As of April 2023 testing method has changed, this may include reference ranges. PLT - PLATELET COUNT 2025-04-27 22:58 [facility] 196 10 3/ul (missing) ALBUMIN/GLOBULIN RATIO 2025-04-27 22:58 [facility] 2.0 (missing) (missing) CARBON DIOXIDE - CO2 2025-04-27 22:58 [facility] 25 mmol/l As of April 2023 testing method has changed, this may include reference ranges. MEAN CORPUSCULAR HEMOGLOBIN 2025-04-27 22:58 [facility] 29.8 pg (missing) LYMPHOCYTES # (AUTO) 2025-04-27 22:58 [facility] 3.4 10 3/ul (missing) ALBUMIN 2025-04-27 22:58 [facility] 3.8 g/dl As of April 2023 testing method has changed, this may include reference ranges. MEAN CORPUSCULAR HGB CONC 2025-04-27 22:58 [facility] 32.0 g/dl (missing) POTASSIUM 2025-04-27 22:58 [facility] 4.0 mmol/l As of April 2023 testing method has changed, this may include reference ranges. NEUTROPHILS # (AUTO) 2025-04-27 22:58 [facility] 4.5 10 3/ul (missing) RED BLOOD COUNT 2025-04-27 22:58 [facility] 4.73 10 6/ul (missing) HCT - HEMATOCRIT 2025-04-27 22:58 [facility] 44.0 % (missing) TOTAL PROTEIN 2025-04-27 22:58 [facility] 5.7 g/dl As of April 2023 testing method has changed, this may include reference ranges. ANION GAP 2025-04-27 22:58 [facility] 6.0 (missing) (missing) GFR - MDRD 2025-04-27 22:58 [facility] 84 (missing) The IDWI-traceable MDRD Study Equation has been validated extensively in and populations between the ages of 18 and 70 with impaired kidney function (eGFR < 60 mL/min/1.73m2) and has shown good performance for patients with all common causes of kidney disease. Although this equation has not been validated for patients older than 70, an MDRD-derived eGFR may still be a useful tool for providers caring for patients older than 70. References: http://www.nkdep. nih.gov/lab-evalu ation/gfr/creatin ine-stand ardization, last updated December 2011. CALCIUM 2025-04-27 22:58 [facility] 9.1 mg/dl As of April 2023 testing method has changed, this may include reference ranges. WHITE BLOOD COUNT 2025-04-27 22:58 [facility] 9.5 x10 3/ul (missing) GLUCOSE 2025-04-27 22:58 [facility] 91 mg/dl As of April 2023 testing method has changed, this may include reference ranges. MEAN CORPUSCULAR VOLUME 2025-04-27 22:58 [facility] 93.0 fl (missing) ALKALINE PHOSPHATASE 2025-04-27 22:58 [facility] 95 iu/l As of April 2023 testing method has changed, this may include reference ranges. Social History date description facility
--- NOTE | 2025-07-24 00:12 | ED Physician Documentation ---
History of Present Illness Stated complaint Stated Complaint: GLF, LYMPHADEMA Chief complaint Chief Complaint: Trauma Ext History obtained from History obtained from: Patient and Family Additonal information Additional information: Kinza De Los Santos is a 70-year-old male with history of lymphedema over the past 4 to 5 years which has left him with some stiffness to his legs. He has frequent falls at home and he calls EMS frequently to have a lift assist. Today he is come to the emergency department unable to use his left leg appropriately he is having trouble dorsiflexing his foot and has generalized stiffness of the knee and hip. He has had a fall last week injuring his calf on the left side anteriorly He has a physician at [facility] and he has not had a explanation of his etiology of lymphedema. He has declined assisted living. He indicates that when he is able to get around at home he does quite well his confirms this. Spring Coma Scale Assess Eye opening: Spontaneous Verbal response: Oriented Motor response: Obeys Commands Total score: 15 Review of Systems Patient denies any nausea vomiting or diarrhea he has had a history of constipation he denies any urinary symptoms he denies any chest abdomen or back pain. He has complaints of pain to his left leg and hip as well as stiffness. The stiffness is worse than the pain. Meds/Allgy Home Medications Ambulatory Orders Medication Instructions Recorded Confirmed carbamazepine 200 mg 200 mg PO ONCE PRN nerve bettina n 03/20/25 03/20/25 tablet,extended release,12 hr carbamazepine 100 mg mg PO 07/23/25 tablet,extended release,12 hr meloxicam 7.5 mg tablet mg 07/23/25 pramipexole 0.75 mg tablet mg 07/23/25 Allergies Allergies Allergy/AdvReac Type Severity Reaction Status Date / Time No Known Drug Allergies Allergy Verified 04/27/25 22:37 [facility] Active Problems All Active Problems (Updated 07/24/25 @ 01:40 by Aneesh Taylor MD) Subcapital fracture of hip (Acute) Colitis (Acute) Iron deficiency anemia (Acute) Lymphedema of lower extremity (Acute) Strain of latissimus dorsi muscle (Acute) PAD (peripheral artery disease) (Acute) Left-sided weakness (Acute) Cellulitis of right lower extremity (Acute) Morbid obesity (Acute) Pulmonary hypertension (Acute) Benign prostatic hyperplasia with nocturia (Acute) Atrial fibrillation (Acute) Sepsis (Acute) Cellulitis (Acute) Fever (Acute) Osteoarthritis (Acute) Trigeminal neuralgia (Chronic) DVT prophylaxis (Acute) Full code status (Acute) Weakness generalized (Acute) Social History Social History (Updated 03/20/25 @ 22:42 by Dana Ugalde RN) Smoking Status: Unknown if ever smoked If you are a former smoker, when did you quit? (Date/Year): 1983 Number of Years Smoked: 20 Do you dip or chew tobacco?: No Patient requests smoking cessation consult: No Initiate information on smoking cessation: No Living arrangement: At home Marital Status: Living Condition: With spouse/s.o. Do you feel safe in your home environment?: Yes History of physical, verbal, emotional, or financial abuse?: No ETOH Use: Frequency: Daily POLST Patient has POLST: No Exam Exam Vital Signs: Vital Signs x48h Temp Pulse Resp BP Pulse Ox O2 Flow Rate 07/24/25 04:00 36.5 C 80 20 163/100 H 94 2 07/24/25 02:54 61 18 145/93 H 92 70-year-old male sitting upright in a gurney is a large male he appears in no distress is breathing easily has mild hypertension of 137/85 the remainder of his vitals are normal. He is alert oriented and cooperative. Constitutional normal general appearance, no apparent distress, average body habitus (6 foot and 143 kg), no limitations and alert HENMT normocephalic and head/scalp atraumatic Eyes PERRL and EOMs intact bilaterally Neck/C-Spine visual inspection normal and trachea midline Respiratory breath sounds equal bilaterally, normal respiratory effort and clear to auscultation bilaterally Cardiovascular normal heart rate noted, regular rhythm noted and no murmur Gastrointestinal abdomen normal to inspection, abdomen soft to palpation and nontender to palpation Genitourinary no CVA tenderness Back/Pelvis spine normal to inspection Extremities There is marked nonpitting edema to both lower extremities there is some mild erythema to the anterior calves bilaterally there is a bruise to the left anterior calf below the knee that appears to be about 4 days old. There is a scar from knee replacement on the left knee. I am able to move the left knee through a range of motion and it is stiff the ankle is stiff as well and I am able to move the hip with some pain. Distal neurovascular components are intact. Neurology insulation inspector II-XII intact and no movement abnormality noted Skin skin color normal Results Vitals Vitals: Vital Signs - 24 hr 07/23/25 22:58 07/24/25 02:54 07/24/25 04:00 Temperature 35.7 C L 36.5 C Temperature Source Temporal Artery Scan Temporal Artery Scan Pulse Rate 86 61 80 Respiratory Rate 16 18 20 Blood Pressure 137/85 H 145/93 H 163/100 H O2 Saturation 93 92 94 Oxygen Delivery Method O2 Source Room air Room air Nasal cannula Oxygen Flow Rate If not protocol: Oxygen Flow, liters/minute 2 Pain Intensity 7 3 0 07/24/25 04:10 Temperature Temperature Source Pulse Rate Respiratory Rate Blood Pressure O2 Saturation Oxygen Delivery Method Nasal Cannula O2 Source Oxygen Flow Rate 2 If not protocol: Oxygen Flow, liters/minute Pain Intensity Oxygen O2 Source [With Activity] Room air O2 Source Nasal cannula Oxygen Flow Rate 2 Labs Labs: Laboratory Tests 07/24/25 00:39 WBC 11.1 H RBC 4.86 Hgb 14.7 Hct 44.9 MCV 92.4 MCH 30.2 MCHC 32.7 RDW 14.7 Plt Count 179 MPV 11.4 Neut # (Auto) 5.9 Lymph # (Auto) 3.7 H Powell # (Auto) 0.8 Eos # (Auto) 0.7 Baso # (Auto) 0.1 Absolute Nucleated RBC 0.00 Nucleated RBC % 0.0 Sodium 136 Potassium 4.0 Chloride 103 Carbon Dioxide 28 Anion Gap 5.0 L BUN 26 H Creatinine 0.8 Estimated GFR (MDRD) 96 Glucose 97 Calcium 9.0 Total Bilirubin 0.4 AST 13 ALT 13 Alkaline Phosphatase 112 Total Protein 6.1 L Albumin 3.9 Globulin 2.2 Albumin/Globulin Ratio 1.8 Lipase 21 Rads (name of study) hip L: Relevant Findings:: Prelim report reviewed and EMP independent interpretation of test (A lot of arthritis to the joint itself and evidence of subcapital fracture.) Interpretation: Impression: Acutely slightly displaced fracture involving the subcapital region of the left femoral neck as above. PD Medical Decision Making ED course Complexity details: reviewed old records, reviewed results, re-evaluated patient, considered differential, d/w patient and d/w family Reviewed Lab Results: We reviewed complete blood count showing a mildly elevated white blood cell count of 11.1 and normal hemoglobin hematocrit and platelets differential is unremarkable chemistries show normal electrolytes BUN is elevated 26 he has had similar elevations previously creatinine normal at 0.8 liver functions are normal. These laboratory studies are essentially normal with the exception of the elevated BUN which is likely related to some dehydration. ED course: 70-year-old male on no medications at home has a 4 to 5-year history of lymphedema without specific explanation and he has developed some stiffness to the left leg making it difficult for him to walk and today he is not able to even lift the leg to move it. He has significant amount of arthritis in the left hip but it looks like there is a fracture in the subcapital area of this as well. I have contacted our orthopedic surgeon who recommends admission to the hospital service and he will attempt repair tomorrow. Discharge Plan Discharge Patient Disposition: 66 [facility] DC/Xfer Condition: Stable Clinical Impression: Subcapital fracture of hip Qualifiers: Encounter type: initial encounter Fracture type: closed Laterality: left Qualified Code(s): S72.012A - Unspecified intracapsular fracture of left femur, initial encounter for closed fracture Interventions: ED Admission Assessment Last Done: 07/24/25 05:22
[2025-07-24] MEDS: CHERRY SYRUP 10 ML UDC PO ONE (00:20)
[2025-07-24] MEDS: DEXAMETHASONE 10 MG/ML VIAL PO STA (00:20)
[2025-07-24 00:50] LABS: HCT - HEMATOCRIT 44.9 % (42.0-52.0); HGB - HEMOGLOBIN 14.7 g/dL (14.0-18.0); MEAN PLATELET VOLUME 11.4 fL (7.4-11.4); NRBC ABSOLUTE COUNT (AUTO) 0.00 x10^3/uL; NUCLEATED RED BLOOD CELLS AUTO 0.0 /100WBC; PLT - PLATELET COUNT 179 10^3/uL (130-450); RED CELL DISTRIBUTION WIDTH 14.7 % (12.0-15.0)
--- NOTE | 2025-07-24 00:55 | XRAY Report ---
PROCEDURE: XR Hip w/Pelvis 2-3V LT INDICATIONS: stiffness of joint TECHNIQUE: AP pelvis with lateral view(s) of the hip(s). COMPARISON: 07/21/2024 FINDINGS: Bones: Acute fracture involving subcapital region of left femoral neck with slight superior and medial displacement of proximal femur in relation to femoral head. No suspicious bony lesions. Soft tissues: No suspicious soft tissue calcifications or masses. IMPRESSION: Acute slightly displaced fracture involving the subcapital region of left femoral neck as above. Reviewed by: Dave Brooks MD on 07/24/2025 12:52 AM PDT Approved by: Dave Brooks MD on 07/24/2025 12:52 AM PDT Station ID: [id number]
[2025-07-24 01:04] LABS: ALT ALANINE AMINOTRANSFERASE 13.0 IU/L (10-60); AST ASPARTATE AMINOTRANSFERASE 13.0 IU/L (10-42); BUN - BLOOD UREA NITROGEN 26.0 mg/dL (6-20); CARBON DIOXIDE - CO2 28.0 mmol/L (21-32); CREATININE 0.8 mg/dL (0.6-1.3); GFR - MDRD 96.0 (>89)
--- NOTE | 2025-07-24 05:06 | HISTORY & PHYSICAL EXAMINATION ---
Chief Complaint Chief Complaint Chief Complaint: Left leg stiffness History of Present Illness History of Present Illness HPI Comment/Other: 70 y old male with PMH lypmphedema presented with c/o left leg stiffness which is worse than usual. As per pt, he had fall yesterday. Denies LOC. C/O left hip pain Denies CONTRERAS, chest pain, SOB, Abdominal pain, nausea, vomiting, diarrhgea , constipation, symptoms X ray showed displaced subcapital fracture of left femur neck As per ER physician, he consulted with ortho who rec to admit patient for surgery Hospiatlist service as asked to admit patient due to left hip farcture Review of Systems Status of ROS: 10 or more systems reviewed and unremarkable except as noted in history and below PFSH Active Problems All Active Problems (Updated 07/24/25 @ 01:40 by Aneesh Taylor MD) Subcapital fracture of hip (Acute) Colitis (Acute) Iron deficiency anemia (Acute) Lymphedema of lower extremity (Acute) Strain of latissimus dorsi muscle (Acute) PAD (peripheral artery disease) (Acute) Left-sided weakness (Acute) Cellulitis of right lower extremity (Acute) Morbid obesity (Acute) Pulmonary hypertension (Acute) Benign prostatic hyperplasia with nocturia (Acute) Atrial fibrillation (Acute) Sepsis (Acute) Cellulitis (Acute) Fever (Acute) Osteoarthritis (Acute) Trigeminal neuralgia (Chronic) DVT prophylaxis (Acute) Full code status (Acute) Weakness generalized (Acute) Social History Social History (Updated 03/20/25 @ 22:42 by Dana Ugalde RN) If you are a former smoker, when did you quit? (Date/Year): 1983 Number of Years Smoked: 20 Do you dip or chew tobacco?: No Patient requests smoking cessation consult: No Initiate information on smoking cessation: No Living arrangement: At home Marital Status: Living Condition: With spouse/s.o. Do you feel safe in your home environment?: Yes History of physical, verbal, emotional, or financial abuse?: No ETOH Use: Frequency: Daily POLST Patient has POLST: No Meds/Allgy Home Medications Ambulatory Orders Medication Instructions Recorded Confirmed carbamazepine 200 mg 200 mg PO ONCE PRN nerve bettina n 03/20/25 03/20/25 tablet,extended release,12 hr carbamazepine 100 mg mg PO 07/23/25 tablet,extended release,12 hr meloxicam 7.5 mg tablet mg 07/23/25 pramipexole 0.75 mg tablet mg 07/23/25 Allergies Allergies Allergy/AdvReac Type Severity Reaction Status Date / Time No Known Drug Allergies Allergy Verified 04/27/25 22:37 Exam Exam Vital Signs: Vital Signs x48h Temp Pulse Resp BP Pulse Ox O2 Flow Rate 07/24/25 04:00 36.5 C 80 20 163/100 H 94 2 07/24/25 02:54 61 18 145/93 H 92 07/23/25 22:58 35.7 C L 86 16 137/85 H 93 Constitutional normal general appearance Eyes PERRL Chest inspection of chest normal Respiratory breath sounds equal bilaterally Cardiovascular normal heart rate noted Gastrointestinal abdomen normal to inspection Genitourinary no CVA tenderness Neurology no focal motor deficit noted Skin no rash Conclusion/Plan Problem List (1) Subcapital fracture of hip: Plan: A: Left femur neck fracture Fall Left leg stiffness Lymphedema P: Admit to med surg NPO Per ER physician, he consulted orthopedic line controller Pain control Start NS @ 100 cc/h DVT prophylaxic: SCD Full code Pt is admitted as inpatient as more than 2 midnight stay is expected Qualifiers: Encounter type: initial encounter Fracture type: closed Laterality: l eft Qualified Code(s): S72.012A - Unspecified intracapsular fracture of left femur, initial encounter for closed fracture Lab Results 07/24/25 00:39 07/24/25 00:39
--- OUTSIDE RECORDS SUMMARY | 2025-07-24 05:09 | EXTERNAL MEDICAL SUMMARY RPT | Continuity of Care Document ---
Author Organization [place] Address [address] [place] [id number] Phone Problems date description facility 2025-04-29 15:52 Other specified soft tissue dis orders [facility] 2025-04-29 15:52 [email or web address] 10:27 Other disturbances of skin sens ation [facility] 2025-05-05 10:31 Other disturbances of skin sens ation [facility] 2025-05-27 08:30 Weakness [facility] 2025-05-27 10:19 Weakness [facility] 2025-06-01 08:30 Encounter for observ ation for other suspected diseases and conditions ruled out [facility] 2025-06-01 08:44 Encounter for observ ation for other suspected diseases and conditions ruled out [facility] 2025-06-01 09:02 Encounter for observ ation for other suspected diseases and conditions ruled out [facility] 2025-06-10 09:06 Encounter for observ ation for other suspected diseases and conditions ruled out [facility] 2025-06-16 13:57 Encounter for observ ation for other suspected diseases and conditions ruled out [facility] 2025-06-27 08:25 Encounter for observ ation for other suspected diseases and conditions ruled out [facility] 2025-06-29 12:54 Encounter for observ ation for other suspected diseases and conditions ruled out [facility] 2025-07-04 08:31 Encounter for observ ation for other suspected diseases and conditions ruled out [facility] 2025-07-04 09:47 Encounter for observ ation for other suspected diseases and conditions ruled out [facility] 2025-07-08 11:56 Encounter for observ ation for other suspected diseases and conditions ruled out [facility] 2025-07-18 07:54 Encounter for observ ation for other suspected diseases and conditions ruled out [facility] 2025-07-18 07:55 Encounter for observ ation for other suspected diseases and conditions ruled out [facility] 2025-07-22 14:56 Encounter for observ ation for other suspected diseases and conditions ruled out [email or web address] 2025-07-22 15:00 Encounter for observ ation for other suspected diseases and conditions [facility] Results/Labs test date facility value unit notes Result panel 1 NUCLEATED RED BLOOD CELLS AUTO 2025-04-27 22:58 [facility] 0.0 /100wbc (missing) NRBC ABSOLUTE COUNT (AUTO) 2025-04-27 22:58 [facility] 0.00 x10 3/ul (missing) BASOPHILS # (AUTO) 2025-04-27 22:58 [facility] 0.1 10 3/ul (missing) EOSINOPHILS # (AUTO) 2025-04-27 22:58 [facility] 0.6 10 3/ul (missing) BILIRUBIN,TOTAL 2025-04-27 22:58 [facility] 0.6 mg/dl As of April 2023 testing method has changed, this may include reference ranges. MONOCYTES # (AUTO) 2025-04-27 22:58 [facility] 0.9 10 3/ul (missing) CREATININE 2025-04-27 22:58 [facility] 0.9 mg/dl As of April 2023 testing method has changed, this may include reference ranges. GLOBULIN 2025-04-27 22:58 [facility] 1.9 g/dl (missing) AST ASPARTATE AMINOTRANSFERASE 2025-04-27 22:58 [facility] 10 iu/l As of April 2023 testing method has changed, this may include reference ranges. MEAN PLATELET VOLUME 2025-04-27 22:58 [facility] 10.8 fl (missing) CHLORIDE 2025-04-27 22:58 [facility] 106 mmol/l As of April 2023 testing method has changed, this may include reference ranges. ALT ALANINE AMINOTRANSFERASE 2025-04-27 22:58 [facility] 12 iu/l As of April 2023 testing method has changed, this may include reference ranges. SODIUM 2025-04-27 22:58 [email or web address] 137 mmol/l (missing) HGB - HEMOGLOBIN 2025-04-27 22:58 [facility] 14.1 g/dl (missing) RED CELL DISTRIBUTION WIDTH 2025-04-27 22:58 [facility] 14.2 % (missing) BUN - BLOOD UREA NITROGEN 2025-04-27 22:58 [facility] 17 mg/dl As of April 2023 testing method has changed, this may include reference ranges. PLT - PLATELET COUNT 2025-04-27 22:58 [facility] 196 10 3/ul (missing) ALBUMIN/GLOBULIN RATIO 2025-04-27 22:58 [facility] 2.0 (missing) (missing) CARBON DIOXIDE - CO2 2025-04-27 22:58 [facility] 25 mmol/l As of April 2023 testing method has changed, this may include reference ranges. MEAN CORPUSCULAR HEMOGLOBIN 2025-04-27 22:58 [facility] 29.8 pg (missing) LYMPHOCYTES # (AUTO) 2025-04-27 22:58 [facility] 3.4 10 3/ul (missing) ALBUMIN 2025-04-27 22:58 [facility] 3.8 g/dl As of April 2023 testing method has changed, this may include reference ranges. MEAN CORPUSCULAR HGB CONC 2025-04-27 22:58 [facility] 32.0 g/dl (missing) POTASSIUM 2025-04-27 22:58 [facility] 4.0 mmol/l As of April 2023 testing method has changed, this may include reference ranges. NEUTROPHILS # (AUTO) 2025-04-27 22:58 [facility] 4.5 10 3/ul (missing) RED BLOOD COUNT 2025-04-27 22:58 [facility] 4.73 10 6/ul (missing) HCT - HEMATOCRIT 2025-04-27 22:58 [facility] 44.0 % (missing) TOTAL PROTEIN 2025-04-27 22:58 [facility] 5.7 g/dl As of April 2023 testing method has changed, this may include reference ranges. ANION GAP 2025-04-27 22:58 [facility] 6.0 (missing) (missing) GFR - MDRD 2025-04-27 22:58 [facility] 84 (missing) The IDMS-traceable MDRD Study Equation has been validated extensively [...] last updated December 2011. CALCIUM 2025-04-27 22:58 [facility] 9.1 mg/dl As of April 2023 testing method has changed, this may include reference ranges. WHITE BLOOD COUNT 2025-04-27 22:58 [facility] 9.5 x10 3/ul (missing) GLUCOSE 2025-04-27 22:58 [facility] 91 mg/dl As of April 2023 testing method has changed, this may include reference ranges. MEAN CORPUSCULAR VOLUME 2025-04-27 22:58 [facility] 93.0 fl (missing) ALKALINE PHOSPHATASE 2025-04-27 22:58 [facility] 95 iu/l As of April 2023 testing method has changed, this may include reference ranges. Result panel 2 NUCLEATED RED BLOOD CELLS AUTO 2025-07-24 00:39 [email or web address] 0.0 /100wbc (missing) NRBC ABSOLUTE COUNT (AUTO) 2025-07-24 00:39 [email or web address] 0.00 x10 3/ul (missing) BASOPHILS # (AUTO) 2025-07-24 00:39 [facility] 0.1 10 3/ul (missing) BILIRUBIN,TOTAL 2025-07-24 00:39 [facility] 0.4 mg/dl As of April 2023 testing method has changed, this may include reference ranges. EOSINOPHILS # (AUTO) 2025-07-24 00:39 [facility] 0.7 10 3/ul (missing) MONOCYTES # (AUTO) 2025-07-24 00:39 [facility] 0.8 10 3/ul (missing) CREATININE 2025-07-24 00:39 [facility] 0.8 mg/dl As of April 2023 testing method has changed, this may include reference ranges. ALBUMIN/GLOBULIN RATIO 2025-07-24 00:39 [facility] 1.8 (missing) (missing) CHLORIDE 2025-07-24 00:39 [facility] 103 mmol/l As of April 2023 testing method has changed, this may include reference ranges. WHITE BLOOD COUNT 2025-07-24 00:39 [facility] 11.1 x10 3/ul (missing) MEAN PLATELET VOLUME 2025-07-24 00:39 [facility] 11.4 fl (missing) ALKALINE PHOSPHATASE 2025-07-24 00:39 [facility] 112 iu/l As of April 2023 testing method has changed, this may include reference ranges. AST ASPARTATE AMINOTRANSFERASE 2025-07-24 00:39 [facility] 13 iu/l As of April 2023 testing method has changed, this may include reference ranges. ALT ALANINE AMINOTRANSFERASE 2025-07-24 00:39 [facility] 13 iu/l As of April 2023 testing method has changed, this may include reference ranges. SODIUM 2025-07-24 00:39 [facility] 136 mmol/l (missing) RED CELL DISTRIBUTION WIDTH 2025-07-24 00:39 [facility] 14.7 % (missing) HGB - HEMOGLOBIN 2025-07-24 00:39 [facility] 14.7 g/dl (missing) PLT - PLATELET COUNT 2025-07-24 00:39 [facility] 179 10 3/ul (missing) GLOBULIN 2025-07-24 00:39 [facility] 2.2 g/dl (missing) LIPASE 2025-07-24 00:39 [facility] 21 u/l As of April 2023 testing method has changed, this may include reference ranges. BUN - BLOOD UREA NITROGEN 2025-07-24 00:39 [facility] 26 mg/dl As of April 2023 testing method has changed, this may include reference ranges. CARBON DIOXIDE - CO2 2025-07-24 00:39 [facility] 28 mmol/l As of April 2023 testing method has changed, this may include reference ranges. LYMPHOCYTES # (AUTO) 2025-07-24 00:39 [facility] 3.7 10 3/ul (missing) ALBUMIN 2025-07-24 00:39 [facility] 3.9 g/dl As of April 2023 testing method has changed, this may include reference ranges. MEAN CORPUSCULAR HEMOGLOBIN 2025-07-24 00:39 [facility] 30.2 pg (missing) MEAN CORPUSCULAR HGB CONC 2025-07-24 00:39 [facility] 32.7 g/dl (missing) POTASSIUM 2025-07-24 00:39 [facility] 4.0 mmol/l As of April 2023 testing method has changed, this may include reference ranges. RED BLOOD COUNT 2025-07-24 00:39 [facility] 4.86 10 6/ul (missing) HCT - HEMATOCRIT 2025-07-24 00:39 [facility] 44.9 % (missing) ANION GAP 2025-07-24 00:39 [facility] 5.0 (missing) (missing) NEUTROPHILS # (AUTO) 2025-07-24 00:39 [facility] 5.9 10 3/ul (missing) TOTAL PROTEIN 2025-07-24 00:39 [facility] 6.1 g/dl As of April 2023 testing method has changed, this may include reference ranges. CALCIUM 2025-07-24 00:39 [facility] 9.0 mg/dl As of April 2023 testing method has changed, this may include reference ranges. MEAN CORPUSCULAR VOLUME 2025-07-24 00:39 [facility] 92.4 fl (missing) GFR - MDRD 2025-07-24 00:39 [facility] 96 (missing) The IDMS-traceable MDRD Study Equation has been validated extensively [...] ation/gfr/creatin ine-stand ardization, last updated December 2011. GLUCOSE 2025-07-24 00:39 [facility] 97 mg/dl As of April 2023 testing method has changed, this may include reference ranges. Social History date description facility
[2025-07-24] MEDS ORDERED: ONDANSETRON 4 MG/2 ML VIAL IVP PRN ×2 (05:29→16:33)
[2025-07-24] MEDS: ACETAMINOPHEN 325 MG TABLET PO PRN (05:57)
[2025-07-24] MEDS: SODIUM CHLORIDE 0.9% 1,000 ML IV SCH (06:41)
[2025-07-24] MEDS: SODIUM CHLORIDE FLUSH 0.9% 10 ML SYRINGE IVP SCH (09:11)
--- NOTE | 2025-07-24 10:00 | PHARMACY PROGRESS NOTE ---
Best Possible Medication History Admit Date and Time: 07/24/25 0454 Home Medications Medication Instructions Recorded Confirmed Type carbamazepine 100 mg 200 mg PO DAILY PRN nerve pa in 07/23/25 07/24/25 History tablet,extended release,12 hr meloxicam 7.5 mg tablet 7.5 mg PO DAILY 07/23/2510/06 History Processed by: Pharmacy Medications reviewed in ED?: No Medication History completed: Yes Patient Interview: Completed Secondary Source(s): Pharmacy records and Insurance records [facility] Statement: As the person ultimately responsible for medication therapy, providers are able to order a medication from an existing home medication list in [facility] via the "Reconcile Routine" prior to Confirmation of that medication by air support operations operator. Such practice is discouraged except when the physician, in their clinical judgment, deems that a medical need exists for a medication without regard to previous use.
--- NOTE | 2025-07-24 12:21 | CONSULTATION NOTE ---
History of Present Illness History of Present Illness HPI Comment/Other: The patient is admitted to the hospital with a left hip femoral neck fracture. 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 He states that he has fallen a few times but it is not for any specific reason and it is more that he feels like his legs just will not support him. He does not get lightheaded or dizzy and he has not been tripping over anything. Meds/Allgy Home Medications Ambulatory Orders Medication Instructions Recorded Confirmed carbamazepine 100 mg 200 mg PO DAILY PRN nerve pa in 07/23/25 07/24/25 tablet,extended release,12 hr meloxicam 7.5 mg tablet 7.5 mg PO DAILY 07/23/2510/06 Allergies Allergies Allergy/AdvReac Type Severity Reaction Status Date / Time No Known Drug Allergies Allergy Verified 04/27/25 22:37 PFS Active Problems All Active Problems (Updated 07/24/25 @ 01:40 by Aneesh Taylor MD) Subcapital fracture of hip (Acute) Colitis (Acute) Iron deficiency anemia (Acute) Lymphedema of lower extremity (Acute) Strain of latissimus dorsi muscle (Acute) PAD (peripheral artery disease) (Acute) Left-sided weakness (Acute) Cellulitis of right lower extremity (Acute) Morbid obesity (Acute) Pulmonary hypertension (Acute) Benign prostatic hyperplasia with nocturia (Acute) Atrial fibrillation (Acute) Sepsis (Acute) Cellulitis (Acute) Fever (Acute) Osteoarthritis (Acute) Trigeminal neuralgia (Chronic) DVT prophylaxis (Acute) Full code status (Acute) Weakness generalized (Acute) Social History Social History (Updated 07/24/25 @ 08:18 by Aneesh Taylor MD) Smoking Status: Unknown if ever smoked If you are a former smoker, when did you quit? (Date/Year): 1983 Number of Years Smoked: 20 Do you dip or chew tobacco?: No Patient requests smoking cessation consult: No Initiate information on smoking cessation: No Living arrangement: At home Marital Status: Living Condition: With spouse/s.o. Level: Independent Do you feel safe in your home environment?: Yes History of physical, verbal, emotional, or financial abuse?: No ETOH Use: Frequency: Daily POLST Patient has POLST: No Results Lab Results 07/24/25 00:39 07/24/25 00:39 Other Lab Results: Lab Results x24hrs 07/24/25 Range/Units 00:39 [facility] 11.1 H (4.8-10.8) x10^3/uL RBC 4.86 (4.70-6.10) 10^6/uL Hgb 14.7 (14.0-18.0) g/dL Hct 44.9 (42.0-52.0) % MCV 92.4 (80.0-94.0) fL MCH 30.2 (27.0-31.0) pg MCHC 32.7 (32.0-36.0) g/dL RDW 14.7 (12.0-15.0) % Plt Count 179 (130-450) 10^3/uL MPV 11.4 (7.4-11.4) fL Neut # (Auto) 5.9 (1.5-6.6) 10^3/uL Lymph # (Auto) 3.7 H (1.5-3.5) 10^3/uL Russell # (Auto) 0.8 (0.0-1.0) 10^3/uL Eos # (Auto) 0.7 (0.0-0.7) 10^3/uL Baso # (Auto) 0.1 (0.0-0.1) 10^3/uL Absolute Nucleated RBC 0.00 x10^3/uL Nucleated RBC % 0.0 /100WBC Sodium 136 (135-145) mmol/L Potassium 4.0 (3.5-4.5) mmol/L Chloride 103 (101-111) mmol/L Carbon Dioxide 28 (21-32) mmol/L Anion Gap 5.0 L (6-13) BUN 26 H (6-20) mg/dL Creatinine 0.8 (0.6-1.3) mg/dL Estimated GFR (MDRD) 96 (>89) Glucose 97 (74-104) mg/dL Calcium 9.0 (8.5-10.3) mg/dL Total Bilirubin 0.4 (0.2-1.0) mg/dL AST 13 (10-42) IU/L ALT 13 (10-60) IU/L Alkaline Phosphatase 112 (42-121) IU/L Total Protein 6.1 L (6.4-8.9) g/dL Albumin 3.9 (3.2-5.5) g/dL Globulin 2.2 (2.1-4.2) g/dL Albumin/Globulin Ratio 1.8 (1.0-2.2) Lipase 21 (11-82) U/L Exam Exam Vital Signs: Vital Signs x48h Temp Pulse Resp BP Pulse Ox O2 Flow Rate 07/24/25 08:34 36.6 C 69 18 164/84 H 96 2 07/24/25 06:02 36.6 C 71 18 142/94 H 94 2 Physical exam towards the left lower extremity reveals diffuse swelling throughout the entire lower extremity he does have good sensation he does have decent capillary refill he is unable to straight leg raise and he has tenderness to the left groin area and hip area with logroll. Conclusion/Plan Problem List (1) Subcapital fracture of hip: Plan: The patient does have a subcapital fracture of the hip and we have elected to do a closed reduction percutaneous pinning the patient understands all the risks and benefits of the procedure did sign a consent and wishes to proceed. This is scheduled for later today when the operating room is ready. Qualifiers: Encounter type: initial encounter Fracture type: closed Laterality: l eft Qualified Code(s): S72.012A - Unspecified intracapsular fracture of left femur, initial encounter for closed fracture Lab Results 07/24/25 00:39 07/24/25 00:39
--- NOTE | 2025-07-24 15:16 | ANESTHESIA PROCEDURE NOTE ---
Pre-Anesthesia VS, & Labs Diagnosis Surgical Diagnosis:: L femoral neck fx Procedure Procedure: L hip pinning Vitals Vital Signs: Temp Pulse Resp BP Pulse Ox O2 Flow Rate 36.6 C 69 18 164/84 H 96 2 07/24/25 08:34 07/24/25 08:34 07/24/25 08:34 07/24/25 08:34 07/24/25 08:34 07/24/25 08:34 NPO NPO: >8 hours Lab Results Current Lab Results: Laboratory Tests 07/24/25 00:39: WBC 11.1 H, RBC 4.86, Hgb 14.7, Hct 44.9, MCV 92.4, MCH 30.2, MCHC 32.7, RDW 14.7, Plt Count 179, MPV 11.4, Neut # (Auto) 5.9, Lymph # (Auto) 3.7 H, Banner # (Auto) 0.8, Eos # (Auto) 0.7, Baso # (Auto) 0.1, Absolute Nucleated RBC 0.00, Nucleated RBC % 0.0, Sodium 136, Potassium 4.0, Chloride 103, Carbon Dioxide 28, Anion Gap 5.0 L, BUN 26 H, Creatinine 0.8, Estimated GFR (MDRD) 96, Glucose 97, Calcium 9.0, Total Bilirubin 0.4, AST 13, ALT 13, Alkaline Phosphatase 112, Total Protein 6.1 L, Albumin 3.9, Globulin 2.2, Albumin/Globulin Ratio 1.8, Lipase 21 Lab results reviewed: Yes 07/24/25 00:39 07/24/25 00:39 Meds/Allgy Home Medications Ambulatory Orders Medication Instructions Recorded Confirmed carbamazepine 100 mg 200 mg PO DAILY PRN nerve pa in 07/23/25 07/24/25 tablet,extended release,12 hr meloxicam 7.5 mg tablet 7.5 mg PO DAILY 07/23/2510/06 Allergies Allergies Allergy/AdvReac Type Severity Reaction Status Date / Time No Known Drug Allergies Allergy Verified 04/27/25 22:37 PFSH Active Problems All Active Problems (Updated 07/24/25 @ 01:40 by Aneesh Taylor MD) Subcapital fracture of hip (Acute) Colitis (Acute) Iron deficiency anemia (Acute) Lymphedema of lower extremity (Acute) Strain of latissimus dorsi muscle (Acute) PAD (peripheral artery disease) (Acute) Left-sided weakness (Acute) Cellulitis of right lower extremity (Acute) Morbid obesity (Acute) Pulmonary hypertension (Acute) Benign prostatic hyperplasia with nocturia (Acute) Atrial fibrillation (Acute) Sepsis (Acute) Cellulitis (Acute) Fever (Acute) Osteoarthritis (Acute) Trigeminal neuralgia (Chronic) DVT prophylaxis (Acute) Full code status (Acute) Weakness generalized (Acute) Social History Social History (Updated 07/24/25 @ 08:18 by Aneesh Taylor MD) Smoking Status: Unknown if ever smoked If you are a former smoker, when did you quit? (Date/Year): 1983 Number of Years Smoked: 20 Do you dip or chew tobacco?: No Patient requests smoking cessation consult: No Initiate information on smoking cessation: No Living arrangement: At home Marital Status: Living Condition: With spouse/s.o. Level: Independent Do you feel safe in your home environment?: Yes History of physical, verbal, emotional, or financial abuse?: No ETOH Use: Frequency: Daily POLST Patient has POLST: No Anesthesia Exam (Expanded) Exam General: Alert, Oriented x3 and Cooperative Dental: WNL (cap at upper middle) Mouth Openin Fingerbreadth Neck Mobility: Normal Mallampati classification: II Thyromental Distance: 4-6 cm Respiratory: Lungs clear, Normal breath sounds and No respiratory distress Cardiovascular: Regular rate Neurological: Normal speech Mental/Cognitive Status: Alert/Oriented X3 and Normal for patient Cognitive Status: Within normal limits Exam Exam Vital Signs: Vital Signs x48h Temp Pulse Resp BP Pulse Ox O2 Flow Rate 07/24/25 08:34 36.6 C 69 18 164/84 H 96 2 Plan Problem List (1) Subcapital fracture of hip: Plan: The patient does have a subcapital fracture of the hip and we have elected to do a closed reduction percutaneous pinning the patient understands all the risks and benefits of the procedure did sign a consent and wishes to proceed. This is scheduled for later today when the operating room is ready. Qualifiers: Encounter type: initial encounter Fracture type: closed Laterality: l eft Qualified Code(s): S72.012A - Unspecified intracapsular fracture of left femur, initial encounter for closed fracture Plan Anesthesia Type: General Consent for Procedure(s) Verified and Reviewed: Yes Code Status: Attempt Resuscitation ASA Classification ASA classification: 3-Severe systemic disease Is this case an emergency?: Yes
[2025-07-24] MEDS ORDERED: PROPOFOL 200 MG/20 ML VIAL IVP ONE (15:18)
[2025-07-24] MEDS ORDERED: fentaNYL 100 MCG/2 ML VIAL ONE ×2 (15:18→17:05)
[2025-07-24] MEDS ORDERED: MIDAZOLAM 2 MG/2 ML VIAL ONE (15:18)
[2025-07-24] MEDS ORDERED: LIDOCAINE-PF 2% 10 ML AMP SUBQ ONE (15:18)
[2025-07-24] MEDS ORDERED: ROCURONIUM 50 MG/5 ML VIAL ONE (15:19)
[2025-07-24] MEDS ORDERED: BUPIVACAINE 0.25% PF 30 ML VIAL ONE (15:40)
[2025-07-24] MEDS ORDERED: DEXAMETHASONE 4 MG/ML VIAL ONE (16:17)
[2025-07-24] MEDS ORDERED: ONDANSETRON 4 MG/2 ML VIAL ONE (16:17)
[2025-07-24] MEDS ORDERED: SUGAMMADEX 200 MG/2 ML VIAL IVP ONE (16:26)
[2025-07-24] MEDS ORDERED: NALOXONE 0.4 MG/ML VIAL IVP PRN (16:33)
[2025-07-24] MEDS ORDERED: MORPHINE 2 MG/ML CARPUJECT IVP PRN (16:33)
[2025-07-24] MEDS ORDERED: ATROPINE ABBOJECT 1 MG/10 ML SYRINGE IVP PRN (16:33)
[2025-07-24] MEDS ORDERED: ePHEDrine 50 MG/ML VIAL IVP PRN (16:33)
[2025-07-24] MEDS ORDERED: METOCLOPRAMIDE 10 MG/2 ML VIAL IVP PRN (16:33)
[2025-07-24] MEDS ORDERED: HYDROmorphone 0.5 MG/0.5 ML SYRINGE IVP PRN (16:33)
[2025-07-24] MEDS ORDERED: PHENYLEPHRINE HCL 0.5 MG/5 ML AMPULE ONE (16:35)
--- NOTE | 2025-07-24 16:58 | OPERATIVE REPORT ---
Operative Report General Admit Date: 07/24/25 Procedure Data: Operation Date: 07/24/25 16:00 Proposed Procedures p Hip Pinning(Left) - David Hancock DO Actual Procedures p Hip Pinning(Left) - David Hancock DO Pre-Op Diagnosis: LEFT HIP FEMORAL NECK FRACTURE Anesthesia Type General Case Staff Anesthesia Provider: Evelio Flynn Case Times Procedure Start: 07/24/25 16:27 Procedure End: 07/24/25 16:44 Time out: 07/24/25 16:26 Pre-Op Diagnosis: Left hip femoral neck fracture Post Op Diagnosis: Left hip femoral neck fracture Procedure Note Estimated Blood Loss (ml): 10 Findings: Left hip femoral neck fracture Complications: None Other Other Information/Narrative: The patient was taken to the operative suite and after undergoing a general anesthetic he was placed on the fracture table and the left hip was prepped and draped in the usual sterile fashion we made sure to make the reduction of the fracture was complete and we got good AP and lateral physician guided fluoroscopy films to show anatomic reduction of the fracture. At that time we made approximately 3 to 4 cm incision on the lateral aspect of the hip and we placed a guidepin up into the hip and we took AP and lateral fluoroscopy films to make sure that the pin was in the proper position.Once this was confirmed we went ahead and inserted the other 2 guidewires up into the femoral head and again under AP and lateral physician guided fluoroscopy we confirmed proper placement and length of the guidepins. We then overdrilled the guidepins and we inserted 3 screws across the fracture site with washers and this was done without any complication. Thorough irrigation was done the wounds were closed with deep tissue 0 Vicryl subcutaneous tissue 2-0 Vicryl skin was closed with caro sterile dressing was applied and the patient was awakened and transferred stable to recovery room
[2025-07-24] MEDS: fentaNYL 100 MCG/2 ML VIAL IVP PRN (17:05)
--- NOTE | 2025-07-24 17:23 | ANESTHESIA POST OP EVALUATION ---
Anesthesia Post Eval Post Anesthesia Eval Vitals: Last Vital Signs Temp 36.6 C 07/24/25 17:17 Pulse 85 07/24/25 17:17 Resp 16 07/24/25 17:17 BP 115/67 07/24/25 17:17 Pulse Ox 92 07/24/25 17:17 O2 Flow Rate 2 07/24/25 08:34 CV Function Including HR & BP: Stable Pain Control: Satisfactory Nausea & Vomiting: Negative Mental Status: Baseline Respiratory Status: Airway Patent Hydration Status: Satisfactory Anesthesia Complications: None
[2025-07-24] MEDS: MELATONIN 3 MG TABLET PO PRN (21:15)
[2025-07-24] MEDS: HYDROmorphone 0.5 MG/0.5 ML SYRINGE IVP PRN (22:46)
[2025-07-25 04:55] LABS: HCT - HEMATOCRIT 40.2 % (42.0-52.0); HGB - HEMOGLOBIN 13.3 g/dL (14.0-18.0); MEAN PLATELET VOLUME 12.0 fL (7.4-11.4); PLT - PLATELET COUNT 181.0 10^3/uL (130-450); RED CELL DISTRIBUTION WIDTH 14.6 % (12.0-15.0)
[2025-07-25 05:10] LABS: BUN - BLOOD UREA NITROGEN 23.0 mg/dL (6-20); CARBON DIOXIDE - CO2 26.0 mmol/L (21-32); CREATININE 0.8 mg/dL (0.6-1.3); GFR - MDRD 96.0 (>89)
[2025-07-25] MEDS: LACTATED RINGERS 1,000 ML IV SCH (07:37)
--- NOTE | 2025-07-25 09:31 | PROVIDER PROGRESS NOTE ---
Subjective Subjective Subjective: Patient is a 70-year-old male with a history of chronic lymphedema who presented after a ground-level fall. He had a left femoral neck fracture and had a left hip pinning done on 07/25. PT worked with him today, recommend SNF. Patient is doing well after surgery. He has minimal pain in that left hip. He is understandably concerned about next steps, although rehab facilities were explained to him which he states makes him feel better. He denies any fevers or chills. Diet: Regular Dispo: Likely SNF on discharge Code: Full DVT: Lovenox, will likely be on aspirin twice daily on discharge, per orthopedic recommendations Current Medications Current Medications Current Medications: Current Medications Generic Name Dose Route Start Last Admin Trade Name Freq PRN Reason Stop Dose Admin Acetaminophen 650 mg 07/24/25 05:29 07/25/25 06:31 Acetaminophen 325 Mg Tablet PO 650 mg Q4HR PRN Administration Pain 1 to 4, or Fever Hydromorphone HCl 0.5 mg 07/24/25 05:29 07/25/25 08:04 Hydromorphone 0.5 Mg/0.5 Ml Syringe IVP 0.5 mg Q2H PRN Administration Pain 8 to 10 Melatonin 3 mg 07/24/25 16:46 07/24/25 21:15 Melatonin 3 Mg Tablet PO 3 mg QPM PRN Administration Insomnia Ondansetron HCl 4 mg 07/24/25 05:29 Ondansetron 4 Mg/2 Ml Vial IVP Q6HR PRN Nausea / Vomiting Sodium Chloride 10 ml 07/24/25 05:29 Sodium Chloride Flush 0.9% 10 Ml Syringe IVP PRN PRN NEEDED PER PROVIDER ORDERS Sodium Chloride 10 ml 07/24/25 09:00 07/25/25 08:05 Sodium Chloride Flush 0.9% 10 Ml Syringe IVP 10 ml 0100,0900,1700 NAIF Administration Objective Vital Signs/Intake & Output Reviewed Vital Signs: Yes Vital Signs: Vital Signs x48h Temp Pulse Pulse Resp BP Pulse Ox O2 Flow Rate 07/25/25 07:48 97.2 F L 70 16 130/78 93 0 07/25/25 05:37 97.7 F 62 18 132/75 H 97 2 07/25/25 02:50 97.9 F 69 18 110/65 95 2 Intake & Output: Intake & Output 07/22/25 07/23/25 07/24/25 07/25/25 23:59 23:59 23:59 23:59 Intake Total 2177 / 2177 200 / 200 Output Total 725 / 725 150 / 150 Balance 1452 / 1452 50 / 50 Weight (kg) 143 kg 136 kg Objective General Appearance: positive No acute distress and Alert; negative Anxious Eyes Bilateral: positive Normal inspection, PERRL and EOMI ENT: positive ENT inspection nml, Pharynx nml and No signs of dehydration Neck: positive Nml inspection, Thyroid nml and No JVD Respiratory: positive Chest non-tender, No respiratory distress and Breath sounds nml; negative Wheezes, Rales or Rhonchi Cardiovascular: positive Regular rate & rhythm, No murmur and No gallop; negative Tachycardia or Systolic murmur Abdomen: positive Non-tender, No organomegaly and No distention; negative Guarding or Splenomegaly Back: positive Nml inspection; negative CVA tenderness (R) or CVA tenderness (L) Skin: positive Color nml, No rash, Warm and Dry Extremities: positive Non-tender, Nml appearance and Pedal edema (Chronic swelling of the lower legs, with increased limb girth, non-pitting. Skin changes are notable for thickening, dryness, and hyperkeratosis. No erythema, warmth, or tenderness to suggest cellulitis. Decreased range of motion and heaviness of the affected limbs. ); negative Full ROM (LLE with limited ROM due to pain; surgical scar noted with no fluctuance or drainage in the area, bandage with some saturation with blood.) Neurologic/Psychiatric: positive Oriented x3, Motor nml and Mood/affect nml Lab Results 07/25/25 04:09 07/25/25 04:09 Other Labs: Lab Results x24hrs 07/25/25 Range/Units 04:09 WBC 10.8 (4.8-10.8) x10^3/uL RBC 4.33 L (4.70-6.10) 10^6/uL Hgb 13.3 L (14.0-18.0) g/dL Hct 40.2 L (42.0-52.0) % MCV 92.8 (80.0-94.0) fL MCH 30.7 (27.0-31.0) pg MCHC 33.1 (32.0-36.0) g/dL RDW 14.6 (12.0-15.0) % Plt Count 181 (130-450) 10^3/uL MPV 12.0 H (7.4-11.4) fL Sodium 136 (135-145) mmol/L Potassium 4.2 (3.5-4.5) mmol/L Chloride 106 (101-111) mmol/L Carbon Dioxide 26 (21-32) mmol/L Anion Gap 4.0 L (6-13) BUN 23 H (6-20) mg/dL Creatinine 0.8 (0.6-1.3) mg/dL Estimated GFR (MDRD) 96 (>89) Glucose 100 (74-104) mg/dL Calcium 8.7 (8.5-10.3) mg/dL Magnesium 2.3 (1.7-2.3) mg/dL Assessment/Plan Problem List (1) Subcapital fracture of hip: Impression: Patient presents with ground-level fall. Has been increasingly unsteady, and has had increasing falls at home with progression of his chronic lymphedema. Hip x-ray demonstrated subcapital left femoral neck fracture. Orthopedic surgery was consulted and completed a left hip pinning on 07/24. Patient tolerated the surgery well with minimal blood loss. Continue DVT prophylaxis; at this time, it is Lovenox. Will likely transition to aspirin on discharge. PT has been consulted. Qualifiers: Encounter type: initial encounter Fracture type: closed Laterality: l t Qualified Code(s): S72.012A - Unspecified intracapsular fracture of left femur, initial encounter for closed fracture (2) Lymphedema of lower extremity: Impression: Patient does follow-up with lymphedema clinic in the outpatient setting, advised to continue. (3) Pulmonary hypertension: Impression: Stable. On room air. Continue to monitor. (4) Trigeminal neuralgia: Impression: Patient takes carbamezapine as needed; has not required it during this hospitalization.
--- NOTE | 2025-07-25 09:54 | XRAY Report ---
PROCEDURE: XR O-ARM CLINICAL INDICATION: Intraoperative assessment during fusion. TECHNIQUE: 1 static fluoroscopy image was obtained intraoperatively and submitted for post hoc interpretation. COMPARISON: None FINDINGS/IMPRESSION: Images are submitted reflecting various stages of operative progress from left femoral percutaneous fixation. There is no evidence for hardware malposition. Expected operative bony and soft tissue changes are present. DISCLAIMER: Please note the images are intended primarily for intraoperative interpretation and evaluation outside of the operative setting is performed with little operative context, nonstandard positioning, and axial-only or suboptimal multiplanar cross-sectional reconstructions. In addition, the sent images may represent any point in the procedural process and are not necessarily technical service representative of the final outcome or positioning of the hardware from the procedure. . Reviewed by: Eric Gilliland MD on 07/25/2025 9:50 AM PDT Approved by: Eric Gilliland MD on 07/25/2025 9:50 AM PDT Station ID: [id number]
--- NOTE | 2025-07-25 17:30 | PT Plan of Care ---
PT Inpatient Plan of Care DIAGNOSIS Diagnosis: s/p L hip pinning on 07/[address] Hancock Referring Provider: Lexie Canales Patient Status: Inpatient CHIEF COMPLAINT Chief Complaint: L hip pain and gross B LE weakness Onset of Chief Complaint: DUTY OFFICER on 07/24/25 BALANCE/FUNCTIONAL RESULTS Sitting Balance: Fair Standing Balance: Unable ASSESSMENT Assessment: The pt is a 70 y/o M who arrived to the ED on 07/24/25 after a GLF at home resulting in a L femoral head fx, he is now s/p L hip pinning on 07/[address] Hancock. PMH includes B LE lymphedema, please see chart for complete medical hx. The pt was received resting comfortably supine in bed and presented today with significantly decreased B UE and LE strength, decreased activity tolerance, and decreased ROM, and increased L hip pain all of which limited his tolerance during functional mobility. His overall tolerance throughout this assessment was limited by weakness, fatigue, and pain. Due to his weakness he is unable to stand and comply with L LE NWB. PIT LABORER was present and assisting throughout due to the pt's functional limitations. At this time recommend continued skilled PT intervention while in the acute setting and DC to SNF for further rehab once pt medically stable as he is function below his baseline functional level. This plan was discussed with the pt and his , they were both in agreement with this. At the end of the session the pt was supine in bed while RN and PIT LABORER were placing a bed renae. MD updated on pt's status and DC rec. PATIENT/FAMILY GOALS Patient/Family Goals: To be able to get strong enough to go home without falling GOALS Improve supine to sit to:: Moderate Assist Improve sit to stand to:: Maximum Assist Improve sit to supine to:: Moderate Assist Other transfer goal:: SB transfers bed<>recliner with MaxA x2 Improve Upper Extremity ROM to:: WFL Improve Upper Extremity Strength to:: Normal PLAN Frequency: 1-2x/day Duration: Until discharge DISCHARGE RECOMMENDATIONS [facility] Support/Services Needed: With assist Other Discharge Equipment: pt owns all recommended DME Transport Needs at Discharge: [facility]
[2025-07-25] MEDS: PANTOPRAZOLE 40 MG TABLET PO SCH (18:34)
[2025-07-26] MEDS: SODIUM CHLORIDE FLUSH 0.9% 10 ML SYRINGE IVP PRN (03:36)
[2025-07-26 04:52] LABS: HCT - HEMATOCRIT 40.0 % (42.0-52.0); HGB - HEMOGLOBIN 13.2 g/dL (14.0-18.0); MEAN PLATELET VOLUME 12.0 fL (7.4-11.4); PLT - PLATELET COUNT 157.0 10^3/uL (130-450); RED CELL DISTRIBUTION WIDTH 14.7 % (12.0-15.0)
[2025-07-26 06:23] LABS: BUN - BLOOD UREA NITROGEN 24.0 mg/dL (6-20); CARBON DIOXIDE - CO2 28.0 mmol/L (21-32); CREATININE 0.8 mg/dL (0.6-1.3); GFR - MDRD 96.0 (>89)
--- NOTE | 2025-07-26 07:48 | PROVIDER PROGRESS NOTE ---
Subjective Prog Note Date Prog Note Date: 07/26/25 Prog Note Time: 07:44 Subjective Subjective: Objectively seems to be doing well. Labs remained stable this morning. Hemoglobin 13.2. Vital signs are stable. Not tachycardic. Blood pressure normal. Plan for PT evaluation today, likely discharge to SNF. Received Dilaudid x 2 yesterday. Will start oral opiate option. Discontinue IV opiates. Patient otherwise subjectively doing well. Endorses pain overnight last night. He tells me that he has had frequent multiple falls over the preceding 1 to 2 years. Endorses a history of venous insufficiency in the right lower extremity, but more recent foot drop in the left lower extremity. This is not acute. Denies fever/chills, chest pain, dyspnea, abdominal pain, nausea or vomiting. He has been having some worsened constipation which preceded this hospitalization, but has not improved thus far. He is having some early symptoms of his trigeminal neuralgia and requesting his carbamazepine. Current Medications Current Medications Current Medications: Current Medications Generic Name Dose Route Start Last Admin Trade Name Freq PRN Reason Stop Dose Admin Acetaminophen 650 mg 07/24/25 05:29 07/25/25 21:44 Acetaminophen 325 Mg Tablet PO 650 mg Q4HR PRN Administration Pain 1 to 4, or Fever Enoxaparin Sodium 40 mg 07/26/25 09:00 Enoxaparin 40 Mg/0.4 Ml Syringe SUBQ DAILY NAIF Hydromorphone HCl 0.5 mg 07/24/25 05:29 07/26/25 03:36 Hydromorphone 0.5 Mg/0.5 Ml Syringe IVP 0.5 mg Q2H PRN Administration Pain 8 to 10 Melatonin 3 mg 07/24/25 16:46 07/25/25 22:42 Melatonin 3 Mg Tablet PO 3 mg QPM PRN Administration Insomnia Ondansetron HCl 4 mg 07/24/25 05:29 Ondansetron 4 Mg/2 Ml Vial IVP Q6HR PRN Nausea / Vomiting Pantoprazole Sodium 40 mg 07/25/25 19:00 07/26/25 06:08 Pantoprazole 40 Mg Tablet PO 40 mg QDAC NAIF Administration Sodium Chloride 10 ml 07/24/25 05:29 07/26/25 03:36 Sodium Chloride Flush 0.9% 10 Ml Syringe IVP 10 ml PRN PRN Administration NEEDED PER PROVIDER ORDERS Sodium Chloride 10 ml 07/24/25 09:00 07/25/25 23:52 Sodium Chloride Flush 0.9% 10 Ml Syringe IVP 10 ml 0100,0900,1700 NAIF Administration Objective Vital Signs/Intake & Output Reviewed Vital Signs: Yes Vital Signs: Vital Signs x48h Temp Pulse Resp BP Pulse Ox O2 Flow Rate 07/26/25 07:36 36.6 C 72 20 164/93 H 95 07/26/25 01:16 36.4 C L 63 18 111/71 96 2 Intake & Output: Intake & Output 07/23/25 07/24/25 07/25/25 07/26/25 23:59 23:59 23:59 23:59 Intake Total 2177 / 2177 900 / 900 Output Total 725 / 725 600 / 600 375 / 375 Balance 1452 / 1452 300 / 300 -375 / -375 Weight (kg) 143 kg 136 kg Objective Comments/Other: GEN: No acute distress HEENT: NC/AT, normal appearance of external ears and nose. Hearing baseline. Cardiac: Regular rate and rhythm, no murmurs. No visible JVP with patient sitting upright. Pulm: Lungs CTA bilaterally, no cough, no wheezes. Normal effort on room air. Abdomen: Obese, soft, nontender. No rebound tenderness or guarding. Extremities: Able to move all 4 extremities. Pain with mobilization of his hips and knees while seated. Visible lymphedema bilateral lower extremities. Palpable pulses bilaterally. Ecchymosis on his left upper extremity Neuro: Face symmetric, CN II through XII intact grossly. No focal neurologic deficits. Strength 5/5 in bilateral upper and lower extremities at the shoulder, elbow, wrist, hip, knee, ankle.. Psych: Mood euthymic. Affect normal. Reasonable historian. Lab Results 07/26/25 04:15 07/26/25 04:15 Other Labs: Lab Results x24hrs 07/26/25 Range/Units 04:15 WBC 8.7 (4.8-10.8) x10^3/uL RBC 4.25 L (4.70-6.10) 10^6/uL Hgb 13.2 L (14.0-18.0) g/dL Hct 40.0 L (42.0-52.0) % MCV 94.1 H (80.0-94.0) fL MCH 31.1 H (27.0-31.0) pg MCHC 33.0 (32.0-36.0) g/dL RDW 14.7 (12.0-15.0) % Plt Count 157 (130-450) 10^3/uL MPV 12.0 H (7.4-11.4) fL Sodium 138 (135-145) mmol/L Potassium 4.2 (3.5-4.5) mmol/L Chloride 106 (101-111) mmol/L Carbon Dioxide 28 (21-32) mmol/L Anion Gap 4.0 L (6-13) BUN 24 H (6-20) mg/dL Creatinine 0.8 (0.6-1.3) mg/dL Estimated GFR (MDRD) 96 (>89) Glucose 98 (74-104) mg/dL Calcium 8.5 (8.5-10.3) mg/dL Magnesium 2.1 (1.7-2.3) mg/dL Assessment/Plan Problem List (1) Subcapital fracture of hip: Impression: Stable, s/p hip pinning 07/24. He has some bleeding around his dressing, but otherwise doing well. Pain has been slightly worse overnight, requiring IV Dilaudid x 2. He is on Lovenox for VTE prophylaxis. - Continue Lovenox while in house, transition to 162 mg ASA at discharge - PT is evaluated, recommending SNF - Appreciate case management assistance with choicing - Pain management scheduled Tylenol, as needed ibuprofen, as needed oxycodone Qualifiers: Encounter type: initial encounter Fracture type: closed Laterality: l eft Qualified Code(s): S72.012A - Unspecified intracapsular fracture of left femur, initial encounter for closed fracture (2) Frequent falls: (3) PAD (peripheral artery disease): (4) Lymphedema of lower extremity: Impression: Patient endorses a long history of lymphedema in his bilateral lower extremities of unclear etiology. He is followed with specialist at the [facility] who have apparently not had any definitive diagnosis for this. He has been trialing multiple therapies. At the same time, he has had peripheral arterial disease that was operated on his right lower extremity which improved some of his symptoms there. He is now having symptoms that do sound suspicious for intermittent claudication in his left lower extremity. Specifically exertional intolerance in his left lower extremity leading to it giving out. He is not having pain but does have some history of peripheral neuropathy, also of unclear etiology. - Follow-up with his lymphedema clinic after discharge - Continue compression stockings and elevation as needed - Consideration for lumbar imaging, vascular follow-up after discharge, nothing acute - PT has seen, recommending discharge to SNF for further rehab. (5) Trigeminal neuralgia: Impression: Known history. Stable, chronic. Patient did have early symptoms of trigeminal neuralgia starting 07/26. He has been resumed on his home carbamazepine as needed. (6) Pulmonary hypertension: Impression: Known history. He continues to be stable on room air.
[2025-07-26] MEDS: oxyCODONE 5 MG TABLET PO PRN (08:26)
[2025-07-26] MEDS: ENOXAPARIN 40 MG/0.4 ML SYRINGE SUBQ SCH (09:19)
[2025-07-26] MEDS: CHOLECALCIFEROL 25 MCG TABLET PO SCH (09:19)
[2025-07-26] MEDS: ACETAMINOPHEN 500 MG TABLET PO SCH (21:25)
[2025-07-27] MEDS: IBUPROFEN 400 MG TABLET PO PRN (05:05)
[2025-07-27] MEDS: DOCUSATE SODIUM 250 MG CAPSULE PO SCH (08:25)
--- NOTE | 2025-07-27 08:38 | PROVIDER PROGRESS NOTE ---
Subjective Prog Note Date Prog Note Date: 07/27/25 Prog Note Time: 08:36 Subjective Subjective: Patient remains clinically stable. No longer monitoring his labs. Blood pressure is robust. Pulse of 77. PT is recommending SNF. Patient is choosing. He had tentatively selected [facility] [place] yesterday. Patient is med ready for discharge, pending SNF authorization. Pain has been reasonably well-managed with oxycodone twice overnight and ibuprofen. Not needing parenteral narcotics. Current Medications Current Medications Current Medications: Current Medications Generic Name Dose Route Start Last Admin Trade Name Freq PRN Reason Stop Dose Admin Acetaminophen 1,000 mg 07/26/25 22:00 07/27/25 05:05 Acetaminophen 500 Mg Tablet PO 1,000 mg TID NAIF Administration Carbamazepine 200 mg 07/26/25 12:31 07/26/25 21:25 Carbamazepine Er 200 Mg Tablet PO 200 mg DAILY PRN Administration nerve pain Cholecalciferol 25 mcg 07/26/25 09:00 07/27/25 08:25 Cholecalciferol 25 Mcg Tablet PO 25 mcg DAILY NAIF Administration Docusate Sodium 250 - 500 mg 07/27/25 09:00 07/27/25 08:25 Docusate Sodium 250 Mg Capsule PO 250 mg DAILY NAIF Administration Enoxaparin Sodium 40 mg 07/26/25 09:00 07/27/25 08:25 Enoxaparin 40 Mg/0.4 Ml Syringe SUBQ 40 mg DAILY NAIF Administration Ibuprofen 400 mg 07/26/25 07:48 07/27/25 05:05 Ibuprofen 400 Mg Tablet PO 400 mg Q6HR PRN Administration Moderate Pain (Level 4-6) Melatonin 3 mg 07/24/25 16:46 07/27/25 00:10 Melatonin 3 Mg Tablet PO 3 mg QPM PRN Administration Insomnia Ondansetron HCl 4 mg 07/24/25 05:29 Ondansetron 4 Mg/2 Ml Vial IVP Q6HR PRN Nausea / Vomiting Oxycodone HCl 5 mg 07/26/25 07:48 07/27/25 08:25 Oxycodone 5 Mg Tablet PO 5 mg Q4HR PRN Administration Moderate Pain (Level 4-6) Pantoprazole Sodium 40 mg 07/25/25 19:00 07/27/25 06:22 Pantoprazole 40 Mg Tablet PO Not Given QDAC NAIF Polyethylene Glycol 17 gm 07/26/25 14:00 07/27/25 08:25 Polyethylene Glycol 3350 17 Gm Packet PO Not Given DAILY NAIF Sodium Chloride 10 ml 07/24/25 05:29 07/26/25 03:36 Sodium Chloride Flush 0.9% 10 Ml Syringe IVP 10 ml PRN PRN Administration NEEDED PER PROVIDER ORDERS Sodium Chloride 10 ml 07/24/25 09:00 07/27/25 08:25 Sodium Chloride Flush 0.9% 10 Ml Syringe IVP 10 ml 0100,0900,1700 NAIF Administration Objective Vital Signs/Intake & Output Reviewed Vital Signs: Yes Vital Signs: Vital Signs x48h Temp Pulse Resp BP Pulse Ox 07/27/25 08:11 36.7 C 77 18 168/88 H 95 Intake & Output: Intake & Output 07/24/25 07/25/25 07/26/25 07/27/25 23:59 23:59 23:59 23:59 Intake Total 2177 / 2177 900 / 900 1080 / 1080 Output Total 725 / 725 600 / 600 1295 / 1295 Balance 1452 / 1452 300 / 300 -215 / -215 Weight (kg) 136 kg Objective Comments/Other: GEN: No acute distress HEENT: NC/AT, normal appearance of external ears and nose. Hearing baseline. Cardiac: Regular rate and rhythm, no murmurs. No visible JVP with patient sitting upright. Pulm: Lungs CTA bilaterally, no cough, no wheezes. Normal effort on room air. Abdomen: Obese, soft, nontender. No rebound tenderness or guarding. Extremities: Able to move all 4 extremities. Pain with mobilization of his hips and knees while seated. Visible lymphedema bilateral lower extremities. Palpable pulses bilaterally. Ecchymosis on his left upper extremity Neuro: Face symmetric, CN II through XII intact grossly. No focal neurologic deficits. Strength 5/5 in bilateral upper and lower extremities at the shoulder, elbow, wrist, hip, knee, ankle.. Psych: Mood euthymic. Affect normal. Reasonable historian. Lab Results 07/26/25 04:15 07/26/25 04:15 Other Labs: Lab Results x24hrs 07/24/25 Range/Units 00:39 Vitamin D 25-Hydroxy 18.1 L (30.0-100.0) ng/mL Assessment/Plan Problem List (1) Subcapital fracture of hip: Impression: Stable, s/p hip pinning 07/24. No significant blood loss. Pain in his hip is actually resolved completely. He is having some pain around his ipsilateral knee. Pain has been slightly worse overnight, requiring IV Dilaudid x 2. He is on Lovenox for VTE prophylaxis. - Continue Lovenox while in house, transition to 162 mg ASA at discharge - PT recommending discharge to SNF. Patient is planned to discharge to [facility] on 07/28 in the afternoon - Pain management scheduled Tylenol, as needed Topical diclofenac for his knee, ibuprofen, as needed oxycodone Qualifiers: Encounter type: initial encounter Fracture type: closed Laterality: l eft Qualified Code(s): S72.012A - Unspecified intracapsular fracture of left femur, initial encounter for closed fracture (2) Frequent falls: (3) PAD (peripheral artery disease): (4) Lymphedema of lower extremity: Impression: Stable and unchanged. Patient endorses a long history of lymphedema in his bilateral lower extremities of unclear etiology. He is followed with specialist at the [facility] who have apparently not had any definitive diagnosis for this. He has been trialing multiple therapies. At the same time, he has had peripheral arterial disease that was operated on his right lower extremity which improved some of his symptoms there. He is now having symptoms that do sound suspicious for intermittent claudication in his left lower extremity. Specifically exertional intolerance in his left lower extremity leading to it giving out. He is not having pain but does have some history of peripheral neuropathy, also of unclear etiology. - Follow-up with his lymphedema clinic after discharge - Continue compression stockings and elevation as needed - Consideration for lumbar imaging, vascular follow-up after discharge, nothing acute - He may benefit from an AFO, would need fitted by an nut grader, defer to his outpatient providers - Discharging to SNF as above (5) Trigeminal neuralgia: Impression: Known history. Stable, chronic. Patient did have early symptoms of trigeminal neuralgia starting 07/26. He has been resumed on his home carbamazepine as needed. (6) Pulmonary hypertension: Impression: Known history. He continues to be stable on room air.
[2025-07-27] MEDS ORDERED: DICLOFENAC SODIUM 1% GEL 50 GM TUBE TOP PRN (09:34)
--- NOTE | 2025-07-28 09:47 | Discharge Summary ---
"Discharge Summary Admit Date: 07/24/25 Discharge Date: 07/28/25 Discharging Provider: Jerel Lyon Primary Care Provider: Neva Orozco Code Status: Attempt Resuscitation Discharge Facility Name: [facility] DIAGNOSES Discharge Diagnoses with Status of Each Condition: Left subcapital hip fracture, improved, s/p pinning 07/24 Lymphedema bilateral lower extremities, chronic, stable Left foot drop, chronic, stable Osteoarthritis, chronic, stable Trigeminal neuralgia, chronic, stable Peripheral arterial disease, chronic, stable HPI History of Present Illness: 70 y old male with PMH lypmphedema presented with c/o left leg stiffness which is worse than usual. As per pt, he had fall yesterday. Denies LOC. C/O left hip pain Denies CONTRERAS, chest pain, SOB, Abdominal pain, nausea, vomiting, diarrhgea , constipation, symptoms X ray showed displaced subcapital fracture of left femur neck As per ER physician, he consulted with ortho who rec to admit patient for surgery Hospiatlist service as asked to admit patient due to left hip farcture CONSULTS | PROCEDURES Consultations: Orthopedic surgery Procedures: Left hip pinning done 07/24 Left hip x-ray 07/24 HOSPITAL COURSE Hospital Course: Mr. De Los Santos is a 70-year-old gentleman with a past medical history notable for chronic lymphedema of bilateral lower extremities as well as a chronic left foot drop that is otherwise and described. He has multiple frequent falls given both of these conditions as well as some peripheral arterial disease in his bilateral lower extremities (right has been corrected previously). He presented after falling at home and fracturing his left hip. His x-ray is consistent with a displaced subcapital fracture of the left femur. He had a hip pinning on 07/24 which was successful and uncomplicated. Orthopedics is recommending him to be nonweightbearing for a 2-week period following his surgery (through 08/07). PT is evaluated and within these constraints, is recommending him to go to SNF at discharge. There was some protracted argument on the day of discharge and whether the patient would discharge home which is his desired location versus going to the SNF. His believes that he would be best suited at a SNF. He would be unable to care for himself from a medical perspective if she were to discharge home. He has no other supports in the community, and would almost certainly reinjure his fracture site or worse. After extensive conversation, the patient is agreeable to discharge to SNF. He has been accepted and approved to go to [facility] which is his first choice for SNF. He has had relatively minimal pain regarding his operative site. He has some chronic osteoarthritis in his knee and hip, and has been started on scheduled Tylenol and topical diclofenac gel to help promote mobility. Continue nonweightbearing status to the left lower extremity through 08/07. Then he is 50% weightbearing for 2 weeks following that. His goal is ultimately to return to independent status at home. He has a chronic left foot drop that we will need follow-up with neurology versus vascular surgery. I would recommend him to follow-up with an switch box installer for an AFO at some point in time, though likely inappropriate immediately postoperatively. ALLERGIES Allergies Allergy/AdvReac Type Severity Reaction Status Date / Time No Known Drug Allergies Allergy Verified 04/27/25 22:37 MEDICATIONS Ambulatory Orders Medication Instructions Recorded Confirmed acetaminophen 500 mg tablet 1,000 mg (2 x 500 mg) PO T ID #200 07/28/25 (Tylenol Extra Strength) tabs aspirin 81 mg capsule 162 mg (2 x 81 mg) PO DAILY DVT 07/28/25 PPx #60 caps carbamazepine 200 mg 200 mg PO DAILY PRN Trigemin al 07/28/25 tablet,extended release,12 hr Nueralgia #30 tabs cholecalciferol (vitamin D3) 25 25 mcg PO DAILY Vitami n D 07/28/25 mcg (1,000 unit) tablet supplemen #30 tabs diclofenac sodium 1 % topical gel 2 g topical QID PRN Mild Pain 07/28/25 (Arthritis Pain (diclofenac)) (Level 1-3) #100 grams melatonin 3 mg tablet 3 mg PO QPM PRN Insomnia #30 tabs 07/28/25 meloxicam 7.5 mg tablet 7.5 mg PO DAILY #30 tabs pantoprazole 40 mg tablet,delayed 40 mg PO QDAC #30 ta bs 07/28/25 release PHYSICAL EXAM AT DISCHARGE Vital Signs: Vital Signs x48h Temp Pulse Resp BP Pulse Ox 07/28/25 10:12 36.6 C 73 16 158/92 H 93 Physical Exam Other/Comments: GEN: No acute distress HEENT: NC/AT, normal appearance of external ears and nose. Hearing baseline. Cardiac: Regular rate and rhythm, no murmurs. No visible JVP with patient sitting upright. Pulm: Lungs CTA bilaterally, no cough, no wheezes. Normal effort on room air. Abdomen: Obese, soft, nontender. No rebound tenderness or guarding. Extremities: Able to move all 4 extremities. Pain with mobilization of his hips and knees while seated. Visible lymphedema bilateral lower extremities. Palpable pulses bilaterally. Ecchymosis on his left upper extremity Neuro: Face symmetric, CN II through XII intact grossly. No focal neurologic deficits. Strength 5/5 in bilateral upper and lower extremities at the shoulder, elbow, wrist, hip, knee, ankle. Psych: Mood euthymic. Affect normal. Ruminative. LABS 07/26/25 04:15 07/26/25 04:15 FOLLOW UP Follow Up: Discharging for further rehab and half-way care at [facility] Follow-up with his PCP within 2 weeks after discharge from [facility] Follow-up with orthopedic surgery, Dr. Hancock, prn TIME SPENT Time Spent in Discharge (Minutes): 64 Discharge Plan Discharge Patient Disposition: 03 [facility] DC/Xfer Condition: Stable Medically Cleared Date:: 07/28/25 Prescriptions: New carbamazepine 200 mg Tablet Extended Release 12 Hr 200 mg PO DAILY PRN (Reason: Trigeminal Nueralgia) Qty: 30 0RF acetaminophen [Tylenol Extra Strength] 500 mg Tablet 1,000 mg PO TID Qty: 200 0RF cholecalciferol (vitamin D3) 25 mcg (1,000 unit) Tablet 25 mcg PO DAILY Qty: 30 0RF diclofenac sodium [Arthritis Pain (diclofenac)] 1 % Gel 2 g topical QID PRN (Reason: Mild Pain (Level 1-3)) Qty: 100 0RF melatonin 3 mg Tablet 3 mg PO QPM PRN (Reason: Insomnia) Qty: 30 0RF pantoprazole 40 mg Tablet,Delayed Release (Dr/Ec) 40 mg PO QDAC Qty: 30 0RF aspirin 81 mg capsule 162 mg PO DAILY Qty: 60 2RF Continued meloxicam 7.5 mg tablet 7.5 mg PO DAILY Qty: 30 0RF Rx Instructions: take 1 tablet by mouth once daily Discontinued carbamazepine 100 mg tablet extended release 12 hr 200 mg PO DAILY PRN (Reason: nerve pain) Activity Restrictions: NWB LLE Activity Restrictions/Additional Instructions: Nonweightbearing left lower extremity for 2 weeks through 08/08 and then 50% weightbearing left lower extremity for 2 weeks Diet: Regular Health Concerns: You were admitted following a hip fracture in your left leg. This was pinned on 07/24. The surgeons recommending you to be nonweightbearing for 2-week intervals through 08/07. You are being recommended to discharge to a half-way facility to help with your self-care while you are nonweightbearing to your left lower extremity. They will also help with rehab and making sure that you are other muscles stay strong in the interim. When you are safe to do so you can likely go home with further home health. The cause of your frequent falls is somewhat unclear to me. You should continue to follow with the lymphedema clinic and you may need some exploration with you have vascular disease in your left lower extremity. I understand they have imaging already ordered for you, and I would encourage you to get that done. Please follow-up with the lymphedema clinic and with your primary care doctor to continue to workup your frequent falls and your weakness in your left leg. Print Language: Honduran Patient Instructions: Surg Dc Stand Alone Forms: SNF Discharge Follow-up Care: NEVA OROZCO ARNP [Physician No Access, Nurse Practitioner]"
[2025-07-28 14:26] VITALS: BP 138/90; TEMP 97.7; O2SAT 97
== END 2025-07-28 15:30 | DRG 482 ==
LOC: ED 22:47 → SUATTDRO 07-24 04:54 → MS2 07-24 04:54
PROVIDERS: ADMIT Internal Medicine; ATTEND Student in an Organized Health Care Education/Training Program